=== PATIENT | male | born 1990 | race Native Hawaiian/Other Pacific Islander ===

== ENCOUNTER 2018-07-19 10:42 | Inpatient (IN) | payer SELFPAY ==
[2018-07-19 10:44] VITALS: BMI 28.2
[2018-07-19] MEDS ORDERED: Sodium Chloride 0.9% 1,000 ML IV STA ×3 (11:32→15:30)
[2018-07-19] MEDS ORDERED: Dextrose 50% SYRINGE Inj (50 ml) ONE ×2 (11:41→15:27)
[2018-07-19] MEDS ORDERED: Naloxone 0.4 mg/ml Inj (Adult) IVP STA (11:54)
[2018-07-19] MEDS ORDERED: Naloxone 0.4 mg/ml Inj (Adult) ONE (11:56)
[2018-07-19 12:25] LABS: BASO # 0.1 K/uL (0.0-0.2); BASO % 0.3 % (0.0-2.0); EOS % 0.1 % (0.0-4.0); HEMOGLOBIN 16.4 g/dL (12.0-18.0); LYMPH # 1.7 K/uL (1.0-4.3); LYMPH % 6.3 % (20.0-40.0); MEAN CELL VOLUME 102.2 fl (80.0-94.0); MEAN CORPUSCULAR HEMOGLOBIN 30.7 pg (27.0-31.0); MEAN PLATELET VOLUME 9.3 fl (7.2-11.7); MONO # 1.8 K/uL (0.0-0.8); MONO % 6.7 % (0.0-10.0); NEUT # 23.8 K/uL (1.8-7.0); NEUT % 86.6 % (50.0-75.0); NRBC % 0.2 % (0.0-0.0); PLATELET COUNT 249 K/uL (130-400); RBC 5.33 Mil/uL (4.40-5.90); RED CELL DISTRIBUTION WIDTH 14.4 % (11.5-14.5); WHITE BLOOD COUNT 27.5 K/uL (4.8-10.8)
--- NOTE | 2018-07-19 12:25 | ED PDOC ---
HPI: Psych/Substance Abuse Time Seen by Provider: 07/19/18 11:18 Chief Complaint (Nursing): Substance Abuse Chief Complaint (Provider): Substance Abuse ED Caveat: Intoxicated History Per: EMS, Family (brother) History/Exam Limitations: intoxication Onset/Duration Of Symptoms: Unknown Current Symptoms Are (Timing): Still Present Additional History Per: Patient Additional Complaint(s): 28 year old male presents to the ED via EMS for evaluation of possible substance abuse after being found outside. As per patient, the last thing he remembers is going out yesterday, but does not remember where. He admits to alcohol use, but denies drugs. His brother Herbert's contact information is [phone]. Secondary to patient's intoxicated state, history and ROS are limited. PMD: unobtainable Past Medical History Reviewed: Unable To Obtain Vital Signs: Last Vital Signs Temp 95.3 F L 07/19/18 11:58 Pulse Resp BP Pulse Ox - Family History Family History: States: Unknown Family Hx - Home Medications Home Medications: Ambulatory Orders Medication Instructions Recorded No Known Home Med 07/19/18 - Allergies Allergies/Adverse Reactions: Allergies Allergy/AdvReac Type Severity Reaction Status Date / Time No Known Allergies Allergy Verified 07/19/18 13:46 Review of Systems Review Of Systems: ROS cannot be obtained secondary to pt's inabilty to answer questions. Physical Exam - Reviewed Nursing Documentation Reviewed: Yes Vital Signs Reviewed: Yes - Physical Exam Appears: Positive for: No Acute Distress (but appears intoxicated) Head Exam: Positive for: ATRAUMATIC, NORMOCEPHALIC Skin: Positive for: Normal Color Eye Exam: Positive for: Other (pupils are constricted bilaterally) Cardiovascular/Chest: Positive for: Regular Rate, Rhythm Respiratory: Positive for: Normal Breath Sounds. Negative for: Respiratory Distress Gastrointestinal/Abdominal: Positive for: Other (rigid abdomen). Negative for: Tenderness, Distended Neurologic/Psych: Positive for: Oriented (x1), Other (arousable to verbal stimuli) - Laboratory Results Result Diagrams: 07/19/18 11:34 07/19/18 14:35 - ECG Interpretation Of ECG: NSR @ 74, nonspecific intraventricular block, QRS 128 ms. - Critical Care Total Time (In Min): 240 Documented Critical Care: Time excludes all time spent performint seperately billable procedures Medical Decision Making Medical Decision Making: Time: 1131 Initial Impression: substance abuse, altered mental state Initial Plan: --VBG --CT chest, abdomen, pelvis --EKG --Alcohol serum --CMP --Drug screen --U-dip --CBC with differential --Accucheck --IV fluids --Blood culture --Urinalysis Accession No. : [id number] Patient Name / ID : SHAUN Augustin / [id number] Exam Date : 07/19/2018 13:54:07 ( Approved ) Study Comment : Sex / Age : M / 28Y Creator : Lindsay Chairez MD Dictator : Lindsay Chairez MD Senior Php Software Developer : Slip Cover Cutter : Lindsay Chairez MD Approver2 : Report Date : 07/19/2018 14:14:30 My Comment : Date of service: 07/19/2018 PROCEDURE: Radiographs of the left shoulder joint HISTORY: pain COMPARISON: No prior. FINDINGS: BONES: Bone alignment and mineralization are normal. There is no acute displaced fracture or bone destruction. JOINTS: The glenohumeral and acromioclavicular joints are preserved. No significant degenerative osteoarthrosis. SOFT TISSUES: Normal. OTHER FINDINGS: None. IMPRESSION: No acute displaced fracture or dislocation. Accession No. : [id number] Patient Name / ID : SHAUN Augustin / [id number] Exam Date : 07/19/2018 13:50:12 ( Approved ) Study Comment : Sex / Age : M / 28Y Creator : Lindsay Chairez MD Dictator : Lindsay Chairez MD Senior Php Software Developer : Slip Cover Cutter : Lindsay Chairez MD Approver2 : Report Date : 07/19/2018 14:18:47 My Comment : Date of service: 07/19/2018 HISTORY: chest pain COMPARISON: No prior. FINDINGS: LUNGS: The lungs are well inflated and clear. PLEURA: No pleural effusions or pneumothorax. CARDIOVASCULAR: The heart is normal in size. No aortic atherosclerotic calcification present. OSSEOUS STRUCTURES: Within normal limits for the patient's age. VISUALIZED UPPER ABDOMEN: Normal. OTHER FINDINGS: None. IMPRESSION: No active pulmonary disease. Accession No. : [id number] Patient Name / ID : SHAUN OLSON C / [id number] Exam Date : 07/19/2018 12:13:41 ( Approved ) Study Comment : Sex / Age : M / 28Y Creator : Lindsay Chairez MD Dictator : Lindsay Chairez MD Senior Php Software Developer : Slip Cover Cutter : Lindsay Chairez MD Approver2 : Report Date : 07/19/2018 12:37:23 My Comment : Date of service: 07/19/2018 PROCEDURE: CT HEAD WITHOUT CONTRAST. HISTORY: Vertigo COMPARISON: None available. TECHNIQUE: Axial computed tomography images were obtained through the head/brain without intravenous contrast. Radiation dose: Total exam DLP = 845.46 mGy-cm. This CT exam was performed using one or more of the following dose reduction techniques: Automated exposure control, adjustment of the mA and/or kV according to patient size, and/or use of iterative reconstruction technique. FINDINGS: HEMORRHAGE: No intracranial hemorrhage. BRAIN: [place]-white matter differentiation is preserved. There is no mass, mass effect or abnormal extra-axial fluid collection. There is no territorial infarction. The midline sagittal structures are normal. VENTRICLES: The ventricles are normal in size, shape and configuration. CALVARIUM: There is no calvarial fracture or extracranial soft tissue swelling. PARANASAL SINUSES: Predominantly clear. MASTOID AIR CELLS: Predominantly clear. OTHER FINDINGS: None. IMPRESSION: No acute intracranial abnormality. Accession No. : [id number] Patient Name / ID : SHAUN Augustin / [id number] Exam Date : 07/19/2018 12:15:41 ( Approved ) Study Comment : Sex / Age : M / 28Y Creator : Lindsay Chairez MD Dictator : Lindsay Chairez MD Senior Php Software Developer : Slip Cover Cutter : Lindsay Chairez MD Approver2 : Report Date : 07/19/2018 13:09:43 My Comment : Date of service: 07/19/2018 PROCEDURE: CT Chest, Abdomen and Pelvis without intravenous contrast HISTORY: Rigid abdomen, AMS COMPARISON: None available. TECHNIQUE: Radiation dose: Total exam DLP = 1076.83 mGy-cm. This CT exam was performed using one or more of the following dose reduction techniques: Automated exposure control, adjustment of the mA and/or kV according to patient size, and/or use of iterative reconstruction technique. FINDINGS: CT CHEST WITHOUT CONTRAST: LUNGS: The lungs are well inflated. There is subsegmental atelectasis in the lower lobes. No nodule, mass or consolidation. MEDIASTINUM: Normal caliber aorta and pulmonary arterial trunk. Normal size heart. LYMPH NODES: No pathologic adenopathy. PLEURA: No pneumothorax. No pleural fluid. BONES: Unremarkable. OTHER FINDINGS: None. CT ABDOMEN AND PELVIS: LIVER: Mild hepatomegaly and fatty liver. No gross lesion or ductal dilatation. GALLBLADDER AND BILE DUCTS: No calcified gallstones. PANCREAS: Normal in size. No gross lesion or ductal dilatation. SPLEEN: Normal in size. ADRENALS: No discrete nodule. KIDNEYS AND URETERS: The kidneys are normal in size without nephrolithiasis. No hydronephrosis. VASCULATURE: No aortic atherosclerotic calcification or mural plaque present. No aortic aneurysm. BOWEL: Small bowel loops are normal in caliber. No obstruction. No gross mural thickening. APPENDIX: Normal appendix. PERITONEUM: No free fluid. No free air. LYMPH NODES: No enlarged lymph nodes. BLADDER: Grossly normal in appearance. REPRODUCTIVE: The prostate gland is normal in size. BONES: No acute fracture. Within normal limits for the patient's age. OTHER FINDINGS: None. IMPRESSION: No acute abnormality in the chest, abdomen or pelvis. Mild hepatomegaly and hepatic steatosis. 15:[address] Means and Dr. Olvera. 16:[address] Brothers @ [facility]. Recommends tx for sepsis, Nephrology consult for emergent dialysis, NAC series, Fomepizole (loading dose 15 mg/kg in 200 cc NS THEN 10 mg/kg q12h), ethylene glycol, methanol levels, broad spectrum Abx, TSH. Also recommends metformin, carbon monoxide, ethyl methanol. 16:[address] Diego. Recommends additional Kayexylate 30 g, serum osm, urine myoglobin, catheter insertion for stat dialysis. 16:50 Parents and brother at bedside. Brother states friend told him they used cocaine last night and found him unresponsive this morning. CALCULATED SERUM OSMOLALITY + 313-314 mOsm/kg Scribe Attestation: Documented by Lula Brooks acting as a scribe for Monique Dennis MD. Provider Scribe Attestation: All medical record entries made by the Scribe were at my direction and personally dictated by me. I have reviewed the chart and agree that the record accurately reflects my personal performance of the history, physical exam, medical decision making, and the department course for this patient. I have also personally directed, reviewed, and agree with the discharge instructions and disposition. Procedures - Central Line Central Line Lumen: triple Central Line Procedure: betadine prep, sterile drapes applied, sterile dressing applied Central Line Postion: femoral (R) Anesthesia: local Complications: none Central Line Post Position: good blood return Disposition - Clinical Impression Clinical Impression: Septic shock, Altered mental status, Ingestion of toxic substance, ARF (acute renal failure), Hyperkalemia - Patient ED Disposition Is Patient to be Admitted: Yes - Disposition Disposition Time: 15:00 Condition: CRITICAL - Pt Status Changed To: Hospital Disposition Of: Inpatient - Admit Certification Admit to Inpatient:: After my assessment, the patient will require hospitalization for at least two midnights. This is because of the severity of symptoms shown, intensity of services needed, and/or the medical risk in this patient being treated as an outpatient. - POA Present On Arrival: Poor Glycemic Control Lumbar Puncture - Time Out Time Out: Patient ID confirmed, Sterile procedures obs. - Consent obtained Consent obtained: Emergent consent implied - Performed by Performed by: Attending Physician - Indications Indication(s): Suspected menigitis - Contraindications Contraindications: None - Patient Position Patient position: Sitting - Local Anesthetic Location: L4/L5 - Fluid Appearance Fluid Appearance: Clear - Post-procedure Post-procedure: No leak/bld from LP site - CSF Studies CSF Studies: Cell count/diff, Glucose, Protein, LDH, Gram stain, culture/sensitivity, Antigens - Complications Complications: None - Patient tolerated procedure Patient tolerated procedure: Well
[2018-07-19] MEDS ORDERED: Vancomycin 1 g Inj ONE (12:40)
--- NOTE | 2018-07-19 12:41 | CT ---
Date of service: 07/19/2018 PROCEDURE: CT HEAD WITHOUT CONTRAST. HISTORY: Vertigo COMPARISON: None available. TECHNIQUE: Axial computed tomography images were obtained through the head/brain without intravenous contrast. Radiation dose: Total exam DLP = 845.46 mGy-cm. This CT exam was performed using one or more of the following dose reduction techniques: Automated exposure control, adjustment of the mA and/or kV according to patient size, and/or use of iterative reconstruction technique. FINDINGS: HEMORRHAGE: No intracranial hemorrhage. BRAIN: [place]-white matter differentiation is preserved. There is no mass, mass effect or abnormal extra-axial fluid collection. There is no territorial infarction. The midline sagittal structures are normal. VENTRICLES: The ventricles are normal in size, shape and configuration. CALVARIUM: There is no calvarial fracture or extracranial soft tissue swelling. PARANASAL SINUSES: Predominantly clear. MASTOID AIR CELLS: Predominantly clear. OTHER FINDINGS: None. IMPRESSION: No acute intracranial abnormality.
[2018-07-19] MEDS ORDERED: Dextrose 50% SYRINGE Inj (50 ml) IVP ONE ×2 (12:46→16:00)
[2018-07-19] MEDS ORDERED: Lidocaine 1% Inj (20ml) ONE (12:46)
[2018-07-19] MEDS ORDERED: Sodium Chloride 0.9% 3,000 ML IV ONE (13:00)
--- NOTE | 2018-07-19 13:13 | CT ---
Date of service: 07/19/2018 PROCEDURE: CT Chest, Abdomen and Pelvis without intravenous contrast HISTORY: Rigid abdomen, AMS COMPARISON: None available. TECHNIQUE: Radiation dose: Total exam DLP = 1076.83 mGy-cm. This CT exam was performed using one or more of the following dose reduction techniques: Automated exposure control, adjustment of the mA and/or kV according to patient size, and/or use of iterative reconstruction technique. FINDINGS: CT CHEST WITHOUT CONTRAST: LUNGS: The lungs are well inflated. There is subsegmental atelectasis in the lower lobes. No nodule, mass or consolidation. MEDIASTINUM: Normal caliber aorta and pulmonary arterial trunk. Normal size heart. LYMPH NODES: No pathologic adenopathy. PLEURA: No pneumothorax. No pleural fluid. BONES: Unremarkable. OTHER FINDINGS: None. CT ABDOMEN AND PELVIS: LIVER: Mild hepatomegaly and fatty liver. No gross lesion or ductal dilatation. GALLBLADDER AND BILE DUCTS: No calcified gallstones. PANCREAS: Normal in size. No gross lesion or ductal dilatation. SPLEEN: Normal in size. ADRENALS: No discrete nodule. KIDNEYS AND URETERS: The kidneys are normal in size without nephrolithiasis. No hydronephrosis. VASCULATURE: No aortic atherosclerotic calcification or mural plaque present. No aortic aneurysm. BOWEL: Small bowel loops are normal in caliber. No obstruction. No gross mural thickening. APPENDIX: Normal appendix. PERITONEUM: No free fluid. No free air. LYMPH NODES: No enlarged lymph nodes. BLADDER: Grossly normal in appearance. REPRODUCTIVE: The prostate gland is normal in size. BONES: No acute fracture. Within normal limits for the patient's age. OTHER FINDINGS: None. IMPRESSION: No acute abnormality in the chest, abdomen or pelvis. Mild hepatomegaly and hepatic steatosis.
[2018-07-19 13:19] LABS: URINE AMORPHOUS SEDIMENT OCC /ul (<OCC); URINE BACTERIA OCC (<OCC); URINE BILIRUBIN NEGATIVE (NEGATIVE); URINE BLOOD LARGE (NEGATIVE); URINE CLARITY CLOUDY (Clear); URINE COLOR YELLOW (YELLOW); URINE GLUCOSE (UA) NEG (NEGATIVE); URINE LEUKOCYTE ESTERASE NEG Leu/uL (Negative); URINE PROTEIN 100 mg/dL (NEGATIVE); URINE UROBILINOGEN 0.2-1.0 mg/dL (0.2-1.0)
[2018-07-19 13:22] LABS: BARBITURATES, UR NEGATIVE (NEGATIVE); BENZODIAZEPINES, UR NEGATIVE (NEGATIVE); OPIATES, UR POSITIVE (NEGATIVE); PHENCYCLIDINE, UR NEGATIVE (NEGATIVE)
--- NOTE | 2018-07-19 13:40 | CARD ---
APPROVED REPORT Date of service: 07/19/2018 EKG Measurement Heart [id number] <Conclusion> Normal sinus rhythm Nonspecific intraventricular block Abnormal ECG
[2018-07-19 13:51] LABS: FLUID TYPE SPINAL FLUID
[2018-07-19 13:58] LABS: VENOUS BLOOD GAS BASE EXCESS -19.6 mmol/L (0.0-2.0); VENOUS BLOOD GAS PCO2 40 mmHg (40-60); VENOUS BLOOD GAS PO2 58 mm/Hg (30-55); VENOUS BLOOD PH 7.03 (7.32-7.43)
[2018-07-19] MEDS ORDERED: Sodium Bicarbonate 7.5% (0.9 MEQ/ML) 50ML INJ IV STA ×2 (14:01→14:02)
--- NOTE | 2018-07-19 14:18 | RAD ---
Date of service: 07/19/2018 PROCEDURE: Radiographs of the left shoulder joint HISTORY: pain COMPARISON: No prior. FINDINGS: BONES: Bone alignment and mineralization are normal. There is no acute displaced fracture or bone destruction. JOINTS: The glenohumeral and acromioclavicular joints are preserved. No significant degenerative osteoarthrosis. SOFT TISSUES: Normal. OTHER FINDINGS: None. IMPRESSION: No acute displaced fracture or dislocation.
--- NOTE | 2018-07-19 14:22 | RAD ---
Date of service: 07/19/2018 HISTORY: chest pain COMPARISON: No prior. FINDINGS: LUNGS: The lungs are well inflated and clear. PLEURA: No pleural effusions or pneumothorax. CARDIOVASCULAR: The heart is normal in size. No aortic atherosclerotic calcification present. OSSEOUS STRUCTURES: Within normal limits for the patient's age. VISUALIZED UPPER ABDOMEN: Normal. OTHER FINDINGS: None. IMPRESSION: No active pulmonary disease.
[2018-07-19 15:24] LABS: BLOOD UREA NITROGEN 36 mg/dl (9-20); GFR NON-AFRICAN AMERICAN 23
[2018-07-19 15:25] LABS: ALB/GLOB RATIO 1.2 (1.0-2.1); ALBUMIN 3.2 g/dL (3.5-5.0); ALT/SGPT 7913 U/L (21-72)
[2018-07-19 15:27] LABS: CALCIUM 5.6 mg/dL (8.4-10.2)
[2018-07-19] MEDS ORDERED: Insulin Regular 100 units/ml ONE (15:27)
[2018-07-19] MEDS ORDERED: Albuterol 0.083% Inhal Sol (2.5 mg/3 mL) UD ONE (15:27)
[2018-07-19 15:28] LABS: CSF APPEARANCE CLEAR/COLORLESS (CLEAR); CSF VOLUME 2 mL (0-1)
[2018-07-19 15:35] LABS: CSF MONO/MACROPHAGE 0 % (0-0)
[2018-07-19 15:44] LABS: BANDS 3 % (0-2); BASOPHIL 1 % (0-2); LYMPHOCYTE 7 % (20-50); MONOCYTE 10 % (0-10); NEUTROPHIL 79 % (42-75); PLATELET ESTIMATE NORMAL (NORMAL); TOTAL CELLS COUNTED 100
[2018-07-19] MEDS ORDERED: Sod Polystyrene Sulf 15 gm/60 ml Susp PR ONE (15:59)
[2018-07-19] MEDS ORDERED: Sodium Bicarbonate 7.5% (0.9 MEQ/ML) 50ML INJ IV ONE (15:59)
[2018-07-19] MEDS ORDERED: Insulin Regular 100 units/ml IV STA (16:00)
[2018-07-19] MEDS ORDERED: Albuterol 0.083% Inhal Sol (2.5 mg/3 mL) UD INH ONE (16:01)
--- NOTE | 2018-07-19 16:10 | CP.PCM.HP ---
<Joni Samayoa - Last Filed: 07/19/18 18:06> History of Present Illness - History of Present Illness History of Present Illness: 28 year old male with PMHx of psoriasis brought to ED via EMS after being found unresponsive outside after possible substance abuse. As per patient he remembers going outside yesterday and drinking alcohol(beer) but denies using any drugs. He reports living with brother and sister in law. Talked to brother on phone who reports that patient went to [employer] yesterday and his friends called ambulance after he was unresponsive. Reports increased urination, dry mouth and thirsty. Denies any chest pain, SOB, abdominal pain, chills. His brother Herbert's contact information is [phone]. PMD: unknown PMHx: Psoriasis Further information unobtainable at time due to patient's state and inablity to recall. Present on Admission - Present on Admission Any Indicators Present on Admission: No History of DVT/PE: No History of Uncontrolled Diabetes: No Urinary Catheter: No Review of Systems - Review of Systems Systems not reviewed;Unavailable: Acuity of Condition, Unstable Vital Signs, Intoxicated - EENT Nose/Mouth/Throat: Change in Voice, Dry Mouth - Cardiovascular Cardiovascular: absent: Chest Pain, Dyspnea, Edema, Palpitations - Respiratory Respiratory: absent: Cough - Gastrointestinal Gastrointestinal: Nausea. absent: Abdominal Pain, Diarrhea - Genitourinary Genitourinary: absent: Dysuria - Neurological Neurological: Behavioral Changes, Memory Loss. absent: Confusion Past Patient History - Past Social History Smoking Status: Unknown If Ever Smoked - PSYCHIATRIC Hx Substance Use: No - SURGICAL HISTORY Hx Surgeries: No - ANESTHESIA Hx Anesthesia: No Meds Allergies/Adverse Reactions: Allergies Allergy/AdvReac Type Severity Reaction Status Date / Time No Known Allergies Allergy Verified 07/19/18 13:46 Physical Exam - Constitutional Appears: Toxic, In Acute Distress - Head Exam Head Exam: ATRAUMATIC, NORMOCEPHALIC - Eye Exam Eye Exam: EOMI, Normal appearance - ENT Exam ENT Exam: Mucous Membranes Dry - Respiratory Exam Respiratory Exam: Clear to Auscultation Bilateral. absent: Rales, Rhonchi, Wheezes, Respiratory Distress - Cardiovascular Exam Cardiovascular Exam: Tachycardia, +S1, +S2. absent: Systolic Murmur - GI/Abdominal Exam GI & Abdominal Exam: Soft. absent: Distended, Guarding, Tenderness - Extremities Exam Extremities exam: Positive for: pedal pulses present. Negative for: calf tenderness, pedal edema, tenderness - Neurological Exam Neurological exam: Alert, Altered, Oriented x3 - Psychiatric Exam Additional comments: Patient awake, alert, responds to questions. Drowsy and agitated. - Skin Skin Exam: Rash Additional comments: Multiple erythematous scaly silvery lesion on scalp, B/L UE and LE Results - Vital Signs Recent Vital Signs: Last Vital Signs Temp 98.7 F 07/19/18 15:38 Pulse 97 H 07/19/18 15:38 Resp 18 07/19/18 15:38 BP 114/51 L 07/19/18 15:38 Pulse Ox 98 07/19/18 15:38 - Labs Result Diagrams: 07/19/18 11:34 07/19/18 14:35 Labs: Laboratory Results - last 24 hr 07/19/18 07/19/18 07/19/18 11:34 11:38 11:45 WBC 27.5 H RBC 5.33 Hgb 16.4 Hct 54.4 H MCV 102.2 H MCH 30.7 MCHC 30.0 L RDW 14.4 Plt Count 249 MPV 9.3 Neut % (Auto) 86.6 H Lymph % (Auto) 6.3 L Worth % (Auto) 6.7 Eos % (Auto) 0.1 Baso % (Auto) 0.3 Neut # (Auto) 23.8 H Lymph # (Auto) 1.7 Worth # (Auto) 1.8 H Eos # (Auto) 0.0 Baso # (Auto) 0.1 Neutrophils % (Manual) 79 H Band Neutrophils % 3 H Lymphocytes % (Manual) 7 L Monocytes % (Manual) 10 Basophils % (Manual) 1 Platelet Estimate Normal Macrocytosis (manual) Moderate pO2 VBG pH VBG pCO2 VBG HCO3 VBG Total CO2 VBG O2 Sat (Calc) VBG Base Excess VBG Potassium Sodium Chloride Glucose Lactate FiO2 Crit Value Called To Crit Value Called By Crit Value Read Back Blood Gas Notified Time Potassium Carbon Dioxide Anion Gap BUN Creatinine Est GFR ( Amer) Est GFR (Non-Af Amer) POC Glucose (mg/dL) 23 L* 162 H Random Glucose Calcium Total Bilirubin AST ALT Alkaline Phosphatase Total Creatine Kinase Total Protein Albumin Globulin Albumin/Globulin Ratio Venous Blood Potassium Urine Color Urine Clarity Urine pH Ur Specific [place] Urine Protein Urine Glucose (UA) Urine Ketones Urine Blood Urine Nitrate Urine Bilirubin Urine Urobilinogen Ur Leukocyte Esterase Urine RBC (Auto) Urine Microscopic WBC Amorphous Sediment Urine Bacteria Fluid Type CSF Volume CSF Appearance CSF WBC CSF RBC CSF Total Cell Counted CSF Neutrophils CSF Lymphocytes CSF Monos/Macrophages CSF Comment CSF Glucose CSF Total Protein Urine Opiates Screen Urine Methadone Screen Ur Barbiturates Screen Ur Phencyclidine Scrn Ur Amphetamines Screen U Benzodiazepines Scrn U Oth Cocaine Metabols U Cannabinoids Screen Alcohol, Quantitative 07/19/18 07/19/18 07/19/18 12:50 12:50 13:20 WBC RBC Hgb Hct MCV MCH MCHC RDW Plt Count MPV Neut % (Auto) Lymph % (Auto) [place] % (Auto) Eos % (Auto) Baso % (Auto) Neut # (Auto) Lymph # (Auto) Worth # (Auto) Eos # (Auto) Baso # (Auto) Neutrophils % (Manual) Band Neutrophils % Lymphocytes % (Manual) Monocytes % (Manual) Basophils % (Manual) Platelet Estimate Macrocytosis (manual) pO2 VBG pH VBG pCO2 VBG HCO3 VBG Total CO2 VBG O2 Sat (Calc) VBG Base Excess VBG Potassium Sodium Chloride Glucose Lactate FiO2 Crit Value Called To Crit Value Called By Crit Value Read Back Blood Gas Notified Time Potassium Carbon Dioxide Anion Gap BUN Creatinine Est GFR ( Amer) Est GFR (Non-Af Amer) POC Glucose (mg/dL) Random Glucose Calcium Total Bilirubin AST ALT Alkaline Phosphatase Total Creatine Kinase Total Protein Albumin Globulin Albumin/Globulin Ratio Venous Blood Potassium Urine Color Yellow Urine Clarity Cloudy Urine pH 6.0 Ur Specific [place] 1.013 Urine Protein 100 Urine Glucose (UA) Neg Urine Ketones Negative Urine Blood Large Urine Nitrate Negative Urine Bilirubin Negative Urine Urobilinogen 0.2-1.0 Ur Leukocyte Esterase Neg Urine RBC (Auto) 3 Urine Microscopic WBC 2 Amorphous Sediment Occ H Urine Bacteria Occ H Fluid Type CSF Volume CSF Appearance CSF WBC CSF RBC CSF Total Cell Counted CSF Neutrophils CSF Lymphocytes CSF Monos/Macrophages CSF Comment CSF Glucose CSF Total Protein Urine Opiates Screen Positive H Urine Methadone Screen Negative Ur Barbiturates Screen Negative Ur Phencyclidine Scrn Negative Ur Amphetamines Screen Negative U Benzodiazepines Scrn Negative U Oth Cocaine Metabols Negative U Cannabinoids Screen Negative Alcohol, Quantitative 23 H 07/19/18 07/19/18 07/19/18 13:40 13:40 13:46 WBC RBC Hgb Hct MCV MCH MCHC RDW Plt Count MPV Neut % (Auto) Lymph % (Auto) [place] % (Auto) Eos % (Auto) Baso % (Auto) Neut # (Auto) Lymph # (Auto) [place] # (Auto) Eos # (Auto) Baso # (Auto) Neutrophils % (Manual) Band Neutrophils % Lymphocytes % (Manual) Monocytes % (Manual) Basophils % (Manual) Platelet Estimate Macrocytosis (manual) pO2 VBG pH VBG pCO2 VBG HCO3 VBG Total CO2 VBG O2 Sat (Calc) VBG Base Excess VBG Potassium Sodium Chloride Glucose Lactate FiO2 Crit Value Called To Crit Value Called By Crit Value Read Back Blood Gas Notified Time Potassium Carbon Dioxide Anion Gap BUN Creatinine Est GFR ( Amer) Est GFR (Non-Af Amer) POC Glucose (mg/dL) 167 H Random Glucose Calcium Total Bilirubin AST ALT Alkaline Phosphatase Total Creatine Kinase Total Protein Albumin Globulin Albumin/Globulin Ratio Venous Blood Potassium Urine Color Urine Clarity Urine pH Ur Specific [place] Urine Protein Urine Glucose (UA) Urine Ketones Urine Blood Urine Nitrate Urine Bilirubin Urine Urobilinogen Ur Leukocyte Esterase Urine RBC (Auto) Urine Microscopic WBC Amorphous Sediment Urine Bacteria Fluid Type Spinal fluid CSF Volume 2 H CSF Appearance Clear/colorless CSF WBC 3.0 CSF RBC 13.0 H CSF Total Cell Counted TEST NOT PERFORMED CSF Neutrophils 1 H CSF Lymphocytes 1.0 H CSF Monos/Macrophages 0 CSF Comment None CSF Glucose 51 CSF Total Protein 46.0 Urine Opiates Screen Urine Methadone Screen Ur Barbiturates Screen Ur Phencyclidine Scrn Ur Amphetamines Screen U Benzodiazepines Scrn U Oth Cocaine Metabols U Cannabinoids Screen Alcohol, Quantitative 07/19/18 07/19/18 13:50 14:35 WBC RBC Hgb Hct MCV MCH MCHC RDW Plt Count MPV Neut % (Auto) Lymph % (Auto) [place] % (Auto) Eos % (Auto) Baso % (Auto) Neut # (Auto) Lymph # (Auto) Worth # (Auto) Eos # (Auto) Baso # (Auto) Neutrophils % (Manual) Band Neutrophils % Lymphocytes % (Manual) Monocytes % (Manual) Basophils % (Manual) Platelet Estimate Macrocytosis (manual) pO2 58 H VBG pH 7.03 L* VBG pCO2 40 VBG HCO3 9.0 VBG Total CO2 11.8 L VBG O2 Sat (Calc) 90.5 H VBG Base Excess -19.6 L VBG Potassium 7.9 H* Sodium 137.0 143 Chloride 108.0 H 110 H Glucose 201 H Lactate 10.0 H* FiO2 21.0 Crit Value Called To Dwain almazan Crit Value Called By 23 Crit Value Read Back Y Blood Gas Notified Time 1355 Potassium 8.2 H* Carbon Dioxide 19 L Anion Gap 22 H BUN 36 H Creatinine 3.2 H Est GFR ( Amer) 28 Est GFR (Non-Af Amer) 23 POC Glucose (mg/dL) Random Glucose 163 H Calcium 5.6 L* Total Bilirubin 0.3 AST > 7500 H ALT 7913 H Alkaline Phosphatase 40 Total Creatine Kinase 08798 H Total Protein 5.8 L Albumin 3.2 L Globulin 2.6 Albumin/Globulin Ratio 1.2 Venous Blood Potassium 7.9 H* Urine Color Urine Clarity Urine pH Ur Specific [place] Urine Protein Urine Glucose (UA) Urine Ketones Urine Blood Urine Nitrate Urine Bilirubin Urine Urobilinogen Ur Leukocyte Esterase Urine RBC (Auto) Urine Microscopic WBC Amorphous Sediment Urine Bacteria Fluid Type CSF Volume CSF Appearance CSF WBC CSF RBC CSF Total Cell Counted CSF Neutrophils CSF Lymphocytes CSF Monos/Macrophages CSF Comment CSF Glucose CSF Total Protein Urine Opiates Screen Urine Methadone Screen Ur Barbiturates Screen Ur Phencyclidine Scrn Ur Amphetamines Screen U Benzodiazepines Scrn U Oth Cocaine Metabols U Cannabinoids Screen Alcohol, Quantitative < 10 Assessment & Plan - Assessment and Plan (Free Text) Assessment: 28 year old male with PMHx of psoriasis admitted to ICU for due to AMS, substance abuse evaluation, CRISTINA, acute liver failure, rhabdomolysis and severe dehydration. CXR: No acute pulmonary disease Shoulder XR: No acute fracture or dislocation EKG: NSR, interventricular block CT head: No acute intracrainal abnormality CT chest, abdomen and pelvis: No acute abnormality, Mild hepatomegaly Plan: AMS - Severe dehydration, hypothermia and hypotension, Improving - S/p 4L NS, Narcan, Fomopizole, acetylcystine, levophed in ED - On Oxymask - F/U drug screen - Patient to be transferred to ICU Substance abuse vs Sepsis - UTox: Positive for opiates, Unremarkable otherwise - Serum alcohol: 23, Repeat <10 - Salicylic acid <1 - WBC 27.5, Neut # 23.8. - S/p Sodium Bicarb x 3 and Kayexalete - S/p Vancomycin 1 g, Ceftriaxone 2 gm and Acyclovir 800 mg - NS @ 200 mg/hr - F/U Serum drug screen, acetaminophen, methanol - F/U VDRL, Herpes simplex 1/2, Blood Cx, Urine Cx, CSF Cx, CSF electophoresis - GI and nephro consulted CRISTINA likely secondary to substance use - BUN/Cr 36/3.2, CrCl - 38 ml/hr - Start NS @ 200 ml/hr - Monitor renal function - Nephro consult Acute liver failure - Most likely secondary to substance use - AST 58344, ALT 7921 - Start NS @ 200 ml/hr - Monitor CMP Electrolyte imbalance w/metabolic acidosis - PH on admission 7.03, Lactate 10, improving - Hyperkalemia: K+8.2, Received Na Bicarb, and Kalexalate - Hypocalcemia:5.9, corrected Ca: 6.5, s/p Ca gluconate - Serum Osml measured 288, Calculated 307, Osmolar gap: 19 - F/U Mg, Phos and CMP Rhabdomyolysis - CK total - 49961 - Continue IVF @ 200 ml/hr - F/U myoglobin Hypoglycemia(resolved) - Gluc 23 on admission, Improved to 162 - S/p Dextrose 50% in 50 ml x 4 - Monitor accuchecks Extensive psoriasis - Will consider treatment once patient stable Code status Full code <Harsh Olvera - Last Filed: 07/19/18 18:59> Results - Vital Signs Recent Vital Signs: Last Vital Signs Temp 98.8 F 07/19/18 17:43 Pulse 90 07/19/18 18:00 Resp 20 07/19/18 18:00 BP 129/70 07/19/18 18:00 Pulse Ox 100 07/19/18 18:00 - Labs Result Diagrams: 07/19/18 11:34 07/19/18 17:25 Labs: Laboratory Results - last 24 hr 07/19/18 07/19/18 07/19/18 11:34 11:38 11:45 WBC 27.5 H RBC 5.33 Hgb 16.4 Hct 54.4 H MCV 102.2 H MCH 30.7 MCHC 30.0 L RDW 14.4 Plt Count 249 MPV 9.3 Neut % (Auto) 86.6 H Lymph % (Auto) 6.3 L [place] % (Auto) 6.7 Eos % (Auto) 0.1 Baso % (Auto) 0.3 Neut # (Auto) 23.8 H Lymph # (Auto) 1.7 Worth # (Auto) 1.8 H Eos # (Auto) 0.0 Baso # (Auto) 0.1 Neutrophils % (Manual) 79 H Band Neutrophils % 3 H Lymphocytes % (Manual) 7 L Monocytes % (Manual) 10 Basophils % (Manual) 1 Platelet Estimate Normal Macrocytosis (manual) Moderate PT INR APTT pO2 VBG pH VBG pCO2 VBG HCO3 VBG Total CO2 VBG O2 Sat (Calc) VBG Base Excess VBG Potassium Sodium Chloride Glucose Lactate FiO2 Crit Value Called To Crit Value Called By Crit Value Read Back Blood Gas Notified Time Potassium Carbon Dioxide Anion Gap BUN Creatinine Est GFR ( Amer) Est GFR (Non-Af Amer) POC Glucose (mg/dL) 23 L* 162 H Random Glucose Serum Osmolality Calcium Phosphorus Magnesium Total Bilirubin AST ALT Alkaline Phosphatase Total Creatine Kinase Total Protein Albumin Globulin Albumin/Globulin Ratio TSH 3rd Generation Venous Blood Potassium Urine Color Urine Clarity Urine pH Ur Specific [place] Urine Protein Urine Glucose (UA) Urine Ketones Urine Blood Urine Nitrate Urine Bilirubin Urine Urobilinogen Ur Leukocyte Esterase Urine RBC (Auto) Urine Microscopic WBC Amorphous Sediment Urine Bacteria Fluid Type CSF Volume CSF Appearance CSF WBC CSF RBC CSF Total Cell Counted CSF Neutrophils CSF Lymphocytes CSF Monos/Macrophages CSF Comment CSF Glucose CSF Total Protein Salicylates Urine Opiates Screen Urine Methadone Screen Acetaminophen Ur Barbiturates Screen Ur Phencyclidine Scrn Ur Amphetamines Screen U Benzodiazepines Scrn U Oth Cocaine Metabols U Cannabinoids Screen Alcohol, Quantitative 07/19/18 07/19/18 07/19/18 12:50 12:50 13:20 WBC RBC Hgb Hct MCV MCH MCHC RDW Plt Count MPV Neut % (Auto) Lymph % (Auto) [place] % (Auto) Eos % (Auto) Baso % (Auto) Neut # (Auto) Lymph # (Auto) [place] # (Auto) Eos # (Auto) Baso # (Auto) Neutrophils % (Manual) Band Neutrophils % Lymphocytes % (Manual) Monocytes % (Manual) Basophils % (Manual) Platelet Estimate Macrocytosis (manual) PT INR APTT pO2 VBG pH VBG pCO2 VBG HCO3 VBG Total CO2 VBG O2 Sat (Calc) VBG Base Excess VBG Potassium Sodium Chloride Glucose Lactate FiO2 Crit Value Called To Crit Value Called By Crit Value Read Back Blood Gas Notified Time Potassium Carbon Dioxide Anion Gap BUN Creatinine Est GFR ( Amer) Est GFR (Non-Af Amer) POC Glucose (mg/dL) Random Glucose Serum Osmolality Calcium Phosphorus Magnesium Total Bilirubin AST ALT Alkaline Phosphatase Total Creatine Kinase Total Protein Albumin Globulin Albumin/Globulin Ratio TSH 3rd Generation Venous Blood Potassium Urine Color Yellow Urine Clarity Cloudy Urine pH 6.0 Ur Specific [place] 1.013 Urine Protein 100 Urine Glucose (UA) Neg Urine Ketones Negative Urine Blood Large Urine Nitrate Negative Urine Bilirubin Negative Urine Urobilinogen 0.2-1.0 Ur Leukocyte Esterase Neg Urine RBC (Auto) 3 Urine Microscopic WBC 2 Amorphous Sediment Occ H Urine Bacteria Occ H Fluid Type CSF Volume CSF Appearance CSF WBC CSF RBC CSF Total Cell Counted CSF Neutrophils CSF Lymphocytes CSF Monos/Macrophages CSF Comment CSF Glucose CSF Total Protein Salicylates Urine Opiates Screen Positive H Urine Methadone Screen Negative Acetaminophen Ur Barbiturates Screen Negative Ur Phencyclidine Scrn Negative Ur Amphetamines Screen Negative U Benzodiazepines Scrn Negative U Oth Cocaine Metabols Negative U Cannabinoids Screen Negative Alcohol, Quantitative 23 H 07/19/18 07/19/18 07/19/18 13:40 13:40 13:46 WBC RBC Hgb Hct MCV MCH MCHC RDW Plt Count MPV Neut % (Auto) Lymph % (Auto) [place] % (Auto) Eos % (Auto) Baso % (Auto) Neut # (Auto) Lymph # (Auto) [place] # (Auto) Eos # (Auto) Baso # (Auto) Neutrophils % (Manual) Band Neutrophils % Lymphocytes % (Manual) Monocytes % (Manual) Basophils % (Manual) Platelet Estimate Macrocytosis (manual) PT INR APTT pO2 VBG pH VBG pCO2 VBG HCO3 VBG Total CO2 VBG O2 Sat (Calc) VBG Base Excess VBG Potassium Sodium Chloride Glucose Lactate FiO2 Crit Value Called To Crit Value Called By Crit Value Read Back Blood Gas Notified Time Potassium Carbon Dioxide Anion Gap BUN Creatinine Est GFR ( Amer) Est GFR (Non-Af Amer) POC Glucose (mg/dL) 167 H Random Glucose Serum Osmolality Calcium Phosphorus Magnesium Total Bilirubin AST ALT Alkaline Phosphatase Total Creatine Kinase Total Protein Albumin Globulin Albumin/Globulin Ratio TSH 3rd Generation Venous Blood Potassium Urine Color Urine Clarity Urine pH Ur Specific [place] Urine Protein Urine Glucose (UA) Urine Ketones Urine Blood Urine Nitrate Urine Bilirubin Urine Urobilinogen Ur Leukocyte Esterase Urine RBC (Auto) Urine Microscopic WBC Amorphous Sediment Urine Bacteria Fluid Type Spinal fluid CSF Volume 2 H CSF Appearance Clear/colorless CSF WBC 3.0 CSF RBC 13.0 H CSF Total Cell Counted TEST NOT PERFORMED CSF Neutrophils 1 H CSF Lymphocytes 1.0 H CSF Monos/Macrophages 0 CSF Comment None CSF Glucose 51 CSF Total Protein 46.0 Salicylates Urine Opiates Screen Urine Methadone Screen Acetaminophen Ur Barbiturates Screen Ur Phencyclidine Scrn Ur Amphetamines Screen U Benzodiazepines Scrn U Oth Cocaine Metabols U Cannabinoids Screen Alcohol, Quantitative 07/19/18 07/19/18 07/19/18 13:50 14:35 16:17 WBC RBC Hgb Hct MCV MCH MCHC RDW Plt Count MPV Neut % (Auto) Lymph % (Auto) [place] % (Auto) Eos % (Auto) Baso % (Auto) Neut # (Auto) Lymph # (Auto) [place] # (Auto) Eos # (Auto) Baso # (Auto) Neutrophils % (Manual) Band Neutrophils % Lymphocytes % (Manual) Monocytes % (Manual) Basophils % (Manual) Platelet Estimate Macrocytosis (manual) PT INR APTT pO2 58 H VBG pH 7.03 L* VBG pCO2 40 VBG HCO3 9.0 VBG Total CO2 11.8 L VBG O2 Sat (Calc) 90.5 H VBG Base Excess -19.6 L VBG Potassium 7.9 H* Sodium 137.0 143 Chloride 108.0 H 110 H Glucose 201 H Lactate 10.0 H* FiO2 21.0 Crit Value Called To Dwain weber coverner Crit Value Called By 23 Crit Value Read Back Y Blood Gas Notified Time 1355 Potassium 8.2 H* Carbon Dioxide 19 L Anion Gap 22 H BUN 36 H Creatinine 3.2 H Est GFR ( Amer) 28 Est GFR (Non-Af Amer) 23 POC Glucose (mg/dL) Random Glucose 163 H Serum Osmolality Calcium 5.6 L* Phosphorus Magnesium Total Bilirubin 0.3 AST 14172 H ALT 7913 H Alkaline Phosphatase 40 Total Creatine Kinase 10588 H Total Protein 5.8 L Albumin 3.2 L Globulin 2.6 Albumin/Globulin Ratio 1.2 TSH 3rd Generation Venous Blood Potassium 7.9 H* Urine Color Urine Clarity Urine pH Ur Specific [place] Urine Protein Urine Glucose (UA) Urine Ketones Urine Blood Urine Nitrate Urine Bilirubin Urine Urobilinogen Ur Leukocyte Esterase Urine RBC (Auto) Urine Microscopic WBC Amorphous Sediment Urine Bacteria Fluid Type CSF Volume CSF Appearance CSF WBC CSF RBC CSF Total Cell Counted CSF Neutrophils CSF Lymphocytes CSF Monos/Macrophages CSF Comment CSF Glucose CSF Total Protein Salicylates < 1.0 Urine Opiates Screen Urine Methadone Screen Acetaminophen Ur Barbiturates Screen Ur Phencyclidine Scrn Ur Amphetamines Screen U Benzodiazepines Scrn U Oth Cocaine Metabols U Cannabinoids Screen Alcohol, Quantitative < 10 07/19/1818 07/19/18 16:18 16:18 16:37 WBC RBC Hgb Hct MCV MCH MCHC RDW Plt Count MPV Neut % (Auto) Lymph % (Auto) [place] % (Auto) Eos % (Auto) Baso % (Auto) Neut # (Auto) Lymph # (Auto) [place] # (Auto) Eos # (Auto) Baso # (Auto) Neutrophils % (Manual) Band Neutrophils % Lymphocytes % (Manual) Monocytes % (Manual) Basophils % (Manual) Platelet Estimate Macrocytosis (manual) PT INR APTT pO2 VBG pH VBG pCO2 VBG HCO3 VBG Total CO2 VBG O2 Sat (Calc) VBG Base Excess VBG Potassium Sodium Chloride Glucose Lactate FiO2 Crit Value Called To Crit Value Called By Crit Value Read Back Blood Gas Notified Time Potassium Carbon Dioxide Anion Gap BUN Creatinine Est GFR ( Amer) Est GFR (Non-Af Amer) POC Glucose (mg/dL) 185 H Random Glucose Serum Osmolality 288 Calcium Phosphorus Magnesium Total Bilirubin AST ALT Alkaline Phosphatase Total Creatine Kinase Total Protein Albumin Globulin Albumin/Globulin Ratio TSH 3rd Generation Venous Blood Potassium Urine Color Urine Clarity Urine pH Ur Specific [place] Urine Protein Urine Glucose (UA) Urine Ketones Urine Blood Urine Nitrate Urine Bilirubin Urine Urobilinogen Ur Leukocyte Esterase Urine RBC (Auto) Urine Microscopic WBC Amorphous Sediment Urine Bacteria Fluid Type CSF Volume CSF Appearance CSF WBC CSF RBC CSF Total Cell Counted CSF Neutrophils CSF Lymphocytes CSF Monos/Macrophages CSF Comment CSF Glucose CSF Total Protein Salicylates Urine Opiates Screen Urine Methadone Screen Acetaminophen < 10.0 L Ur Barbiturates Screen Ur Phencyclidine Scrn Ur Amphetamines Screen U Benzodiazepines Scrn U Oth Cocaine Metabols U Cannabinoids Screen Alcohol, Quantitative 07/19/18 07/19/18 07/19/18 17:25 17:25 17:30 WBC RBC Hgb Hct MCV MCH MCHC RDW Plt Count MPV Neut % (Auto) Lymph % (Auto) [place] % (Auto) Eos % (Auto) Baso % (Auto) Neut # (Auto) Lymph # (Auto) [place] # (Auto) Eos # (Auto) Baso # (Auto) Neutrophils % (Manual) Band Neutrophils % Lymphocytes % (Manual) Monocytes % (Manual) Basophils % (Manual) Platelet Estimate Macrocytosis (manual) PT 17.4 H INR 1.5 APTT 31.0 pO2 71 H VBG pH 7.25 L VBG pCO2 42 VBG HCO3 18.1 VBG Total CO2 19.7 L VBG O2 Sat (Calc) 96.8 H VBG Base Excess -8.5 L VBG Potassium 6.2 H* Sodium 144 142.0 Chloride 112 H 112.0 H Glucose 195 H Lactate 5.9 H* FiO2 21.0 Crit Value Called To Md bobbi gilbert Crit Value Called By 23 Crit Value Read Back Y Blood Gas Notified Time 1740 Potassium 6.2 H* D Carbon Dioxide 18 L Anion Gap 20 BUN 39 H Creatinine 3.3 H Est GFR ( Amer) 27 Est GFR (Non-Af Amer) 22 POC Glucose (mg/dL) Random Glucose 184 H Serum Osmolality Calcium 6.1 L Phosphorus 6.3 H Magnesium 1.8 Total Bilirubin 0.5 AST 52602 H ALT 8256 H Alkaline Phosphatase 40 Total Creatine Kinase Total Protein 6.1 L Albumin 3.2 L Globulin 2.9 Albumin/Globulin Ratio 1.1 TSH 3rd Generation 0.75 Venous Blood Potassium 6.2 H* Urine Color Urine Clarity Urine pH Ur Specific [place] Urine Protein Urine Glucose (UA) Urine Ketones Urine Blood Urine Nitrate Urine Bilirubin Urine Urobilinogen Ur Leukocyte Esterase Urine RBC (Auto) Urine Microscopic WBC Amorphous Sediment Urine Bacteria Fluid Type CSF Volume CSF Appearance CSF WBC CSF RBC CSF Total Cell Counted CSF Neutrophils CSF Lymphocytes CSF Monos/Macrophages CSF Comment CSF Glucose CSF Total Protein Salicylates Urine Opiates Screen Urine Methadone Screen Acetaminophen Ur Barbiturates Screen Ur Phencyclidine Scrn Ur Amphetamines Screen U Benzodiazepines Scrn U Oth Cocaine Metabols U Cannabinoids Screen Alcohol, Quantitative Attending/Attestation - Attestation I have personally seen and examined this patient.: Yes I have fully participated in the care of the patient.: Yes I have reviewed all pertinent clinical information: Yes Notes (Text): 07/19/18 18:58 Patient seen and examined with resident. Case discussed and agreed with assessment and plan of management.
[2018-07-19] MEDS ORDERED: WATER IV STA (16:25)
[2018-07-19] MEDS ORDERED: DEXTROSE 5% IV STA (16:25)
[2018-07-19] MEDS ORDERED: FOMEPIZOLE IV STA (16:25)
[2018-07-19] MEDS ORDERED: Piperacillin/Tazobact 4.5 GM in Sodium Chloride 0.9% 100 ML IVPB STA (16:28)
[2018-07-19] MEDS ORDERED: DEXTROSE 5% IVPB ONE ×4 (16:32→21:33)
[2018-07-19] MEDS ORDERED: WATER IVPB ONE ×4 (16:32→21:33)
[2018-07-19] MEDS ORDERED: ACETYLCYSTEINE IVPB ONE ×4 (16:32→21:33)
[2018-07-19] MEDS ORDERED: Sod Polystyrene Sulf 15 gm/60 ml Susp PR STA (16:40)
[2018-07-19 16:43] LABS: AST/SGOT 12561 U/L (17-59)
[2018-07-19 17:40] LABS: VENOUS BLOOD GAS BASE EXCESS -8.5 mmol/L (0.0-2.0); VENOUS BLOOD GAS PCO2 42 mmHg (40-60); VENOUS BLOOD GAS PO2 71 mm/Hg (30-55); VENOUS BLOOD PH 7.25 (7.32-7.43)
[2018-07-19 18:09] LABS: INR 1.5; PROTHROMBIN TIME 17.4 Seconds (9.8-13.1)
[2018-07-19] MEDS: Sodium Chloride 0.9% 1,000 ML IV SCH (18:14)
--- NOTE | 2018-07-19 18:22 | CP.CCUPN ---
CCU Subjective - Physician Review Subjective (Free Text): 07/19/18 18:21 The patient was Seen/interviewed and examined by me at the bedside, Medical records reviewed and Management issues were discussed and formulated with the house staff. Events reviewed History limited due to patient waxing and weaning mental status, no other family available, and we trying to reach the friend who called the EMS. 28 Years old Male with PMHx of Psoriasis Who presented to the Emergency department via EMS for evaluation of altered mental status, possible substance abuse after being found outside. As per patient, the last thing he remembers is going out yesterday drinking alcohol(beer), but does not remember where. Patient denies using any drugs, but urine drug screen was positive of Opiates. Patient was hypotensive in the ER, central line placed and he was briefly on vasopressors Labs significant for acute kidney injury with Hyperkalemia and acute liver failure His initial BG was 25, responded well to treatment Also received the Hyperkalemia cocktail Agressive hydrations, poison control notified Renal and G consulted Will place HD access and initiate HD tonight Also CPK elevated and Aggressive hydration initiated Also received Naloxone with no significant mental status improvement CCU Objective - Vital Signs / Intake & Output Vital Signs (Last 4 hours): Vital Signs Temp Pulse Resp BP Pulse Ox 07/19/18 17:43 98.8 F 07/19/18 16:35 131/91 H 07/19/18 15:38 98.7 F 97 H 18 114/51 L 98 07/19/18 14:45 98 H 16 91/37 L 96 Intake and Output (Last 8hrs): Intake & Output 07/19/18 07/19/18 07/19/18 06:59 14:59 22:59 Weight 175 lb - Physical Exam Physical Exam Limitations: Positive for: Altered Mental Status, Clinical Condition, Intoxication Head: Positive for: Atraumatic Pupils: Positive for: PERRL Extroacular Muscles: Positive for: EOMI Conjunctiva: Positive for: Normal Ears: Positive for: Normal Mouth: Positive for: Dry Neck: Positive for: Normal Range of Motion, Trachea Midline Respiratory/Chest: Positive for: Clear to Auscultation, Good Air Exchange. Negative for: Respiratory Distress, Accessory Muscle Use, Decreased Breath Sounds, Retracting Cardiovascular: Positive for: Regular Rate and Rhythm, Normal S1, S2, Peripheal Pulses Present. Negative for: Murmurs, Irregular Rhythm, Tachycardic, Bradycardic, Rub Abdomen: Positive for: Distention, Normal Bowel Sounds. Negative for: Tenderness, Peritoneal Signs, Rebound, Guarding, Hernias, Mass/Organomegaly Upper Extremity: Positive for: NORMAL PULSES. Negative for: Normal Inspection (Psiriasis rash ), Cyanosis Lower Extremity: Positive for: NORMAL PULSES. Negative for: Normal Inspection, Edema, CALF TENDERNESS Neurological: Positive for: GCS=15 (Waxing and weaning of mental status ), CN II-XII Intact, Speech Normal, Motor Func Grossly Intact, Normal Sensory Function Psychiatric: Positive for: Alert, Oriented x 3, Normal Insight, Normal Concentration, Normal Affect. Negative for: Anxious, Agitated - Medications Active Medications: Active Medications Generic Name Dose Route Start Last Admin Trade Name Freq PRN Reason Stop Dose Admin Norepinephrine Bitartrate 4 mg 254 mls @ 9.53 mls/hr 07/19/18 14:15 07/19/18 14:45 / Dextrose IV 2.5 mcg/min .Q24H WAYNE 9.53 mls/hr Administration Protocol 2.5 MCG/MIN Acetylcysteine 7,950 mg/ 500 mls @ 62.5 mls/hr 07/19/18 21:33 Dextrose IVPB 07/20/18 05:32 ONCE ONE Acetylcysteine 3,975 mg/ 519.875 mls @ 125 mls/hr 07/19/18 17:33 Dextrose IVPB 07/19/18 21:42 ONCE ONE Sodium Chloride 1,000 mls @ 200 mls/hr 07/19/18 17:00 07/19/18 18:14 Sodium Chloride 0.9% IV 07/20/18 16:48 200 mls/hr .Q5H WAYNE Administration Piperacillin Sod/Tazobactam 100 mls @ 100 mls/hr 07/19/18 22:00 Sod 2.25 gm/ Sodium Chloride IVPB Q6 WAYNE Protocol Acetylcysteine 11,925 mg/ 259.625 mls @ 200 mls/hr 07/19/18 18:00 Dextrose IVPB 07/19/18 19:17 ONCE ONE Ondansetron HCl 4 mg 07/19/18 16:26 Zofran Inj IVP Q6 PRN Nausea/Vomiting Pantoprazole Sodium 40 mg 07/20/18 09:00 Protonix Inj IVP DAILY WAYNE - Patient Studies Lab Studies: Microbiology Studies 07/19/18 13:40 Gram Stain - Final Cerebral Spinal Fluid Lab Studies 07/19/18 07/19/18 07/19/18 Range/Units 17:30 17:25 16:37 WBC (4.8-10.8) K/uL RBC (4.40-5.90) Mil/uL Hgb (12.0-18.0) g/dL Hct (35.0-51.0) % MCV (80.0-94.0) fl MCH (27.0-31.0) pg MCHC (33.0-37.0) g/dL RDW (11.5-14.5) % Plt Count (130-400) K/uL MPV (7.2-11.7) fl Neut % (Auto) (50.0-75.0) % Lymph % (Auto) (20.0-40.0) % [place] % (Auto) (0.0-10.0) % Eos % (Auto) (0.0-4.0) % Baso % (Auto) (0.0-2.0) % Neut # (Auto) (1.8-7.0) K/uL Lymph # (Auto) (1.0-4.3) K/uL [place] # (Auto) (0.0-0.8) K/uL Eos # (Auto) (0.0-0.7) K/uL Baso # (Auto) (0.0-0.2) K/uL Neutrophils % (Manual) (42-75) % Band Neutrophils % (0-2) % Lymphocytes % (Manual) (20-50) % Monocytes % (Manual) (0-10) % Basophils % (Manual) (0-2) % Platelet Estimate (NORMAL) Macrocytosis (manual) PT 17.4 H (9.8-13.1) Seconds INR 1.5 APTT 31.0 (25.6-37.1) Seconds pO2 71 H (30-55) mm/Hg VBG pH 7.25 L (7.32-7.43) VBG pCO2 42 (40-60) mmHg VBG HCO3 18.1 mmol/L VBG Total CO2 19.7 L (22-28) mmol/L VBG O2 Sat (Calc) 96.8 H (40-65) % VBG Base Excess -8.5 L (0.0-2.0) mmol/L VBG Potassium 6.2 H* (3.6-5.2) mmol/L Sodium 142.0 (132-148) mmol/L Chloride 112.0 H (98-107) mmol/L Glucose 195 H (75-110) mg/dL Lactate 5.9 H* (0.7-2.1) mmol/L FiO2 21.0 % Crit Value Called To Md bobbi gilbert Crit Value Called By 23 Crit Value Read Back Y Blood Gas Notified Time 1740 Potassium (3.6-5.0) MMOL/L Carbon Dioxide (22-30) mmol/L Anion Gap (10-20) BUN (9-20) mg/dl Creatinine (0.8-1.5) mg/dl Est GFR ( Amer) Est GFR (Non-Af Amer) POC Glucose (mg/dL) 185 H (65-110) mg/dL Random Glucose (75-110) mg/dL Serum Osmolality (272-300) mosm/kg Calcium (8.4-10.2) mg/dL Total Bilirubin (0.2-1.3) mg/dl AST (17-59) U/L ALT (21-72) U/L Alkaline Phosphatase (38-126) U/L Total Creatine Kinase (55-170) U/L Total Protein (6.3-8.2) G/DL Albumin (3.5-5.0) g/dL Globulin (2.2-3.9) gm/dL Albumin/Globulin Ratio (1.0-2.1) Venous Blood Potassium 6.2 H* (3.6-5.2) mmol/L Urine Color (YELLOW) Urine Clarity (Clear) Urine pH (5.0-8.0) Ur Specific Colver (1.003-1.030) Urine Protein (NEGATIVE) mg/dL Urine Glucose (UA) (NEGATIVE) mg/dL Urine Ketones (NEGATIVE) mg/dL Urine Blood (NEGATIVE) Urine Nitrate (NEGATIVE) Urine Bilirubin (NEGATIVE) Urine Urobilinogen (0.2-1.0) mg/dL Ur Leukocyte Esterase (Negative) Latrice/uL Urine RBC (Auto) (0-3) /hpf Urine Microscopic WBC (0-5) /hpf Amorphous Sediment (<OCC) /ul Urine Bacteria (<OCC) Fluid Type CSF Volume (0-1) mL CSF Appearance (CLEAR) CSF WBC (0.0-5.0) /mm3 CSF RBC (0.0-0.0) /mm3 CSF Total Cell Counted CSF Neutrophils (0-0) % CSF Lymphocytes (0-0) % CSF Monos/Macrophages (0-0) % CSF Comment CSF Glucose (40-70) mg/dL CSF Total Protein (12-60) mg/dL Salicylates mg/dl Urine Opiates Screen (NEGATIVE) Urine Methadone Screen (NEGATIVE) Acetaminophen (10.0-30.0) ug/ml Ur Barbiturates Screen (NEGATIVE) Ur Phencyclidine Scrn (NEGATIVE) Ur Amphetamines Screen (NEGATIVE) U Benzodiazepines Scrn (NEGATIVE) U Oth Cocaine Metabols (NEGATIVE) U Cannabinoids Screen (NEGATIVE) Alcohol, Quantitative (0-10) mg/dl 07/19/18 07/19/18 07/19/18 Range/Units 16:18 16:18 16:17 WBC (4.8-10.8) K/uL RBC (4.40-5.90) Mil/uL Hgb (12.0-18.0) g/dL Hct (35.0-51.0) % MCV (80.0-94.0) fl MCH (27.0-31.0) pg MCHC (33.0-37.0) g/dL RDW (11.5-14.5) % Plt Count (130-400) K/uL MPV (7.2-11.7) fl Neut % (Auto) (50.0-75.0) % Lymph % (Auto) (20.0-40.0) % [place] % (Auto) (0.0-10.0) % Eos % (Auto) (0.0-4.0) % Baso % (Auto) (0.0-2.0) % Neut # (Auto) (1.8-7.0) K/uL Lymph # (Auto) (1.0-4.3) K/uL [place] # (Auto) (0.0-0.8) K/uL Eos # (Auto) (0.0-0.7) K/uL Baso # (Auto) (0.0-0.2) K/uL Neutrophils % (Manual) (42-75) % Band Neutrophils % (0-2) % Lymphocytes % (Manual) (20-50) % Monocytes % (Manual) (0-10) % Basophils % (Manual) (0-2) % Platelet Estimate (NORMAL) Macrocytosis (manual) PT (9.8-13.1) Seconds INR APTT (25.6-37.1) Seconds pO2 (30-55) mm/Hg VBG pH (7.32-7.43) VBG pCO2 (40-60) mmHg VBG HCO3 mmol/L VBG Total CO2 (22-28) mmol/L VBG O2 Sat (Calc) (40-65) % VBG Base Excess (0.0-2.0) mmol/L VBG Potassium (3.6-5.2) mmol/L Sodium (132-148) mmol/L Chloride (98-107) mmol/L Glucose (75-110) mg/dL Lactate (0.7-2.1) mmol/L FiO2 % Crit Value Called To Crit Value Called By Crit Value Read Back Blood Gas Notified Time Potassium (3.6-5.0) MMOL/L Carbon Dioxide (22-30) mmol/L Anion Gap (10-20) BUN (9-20) mg/dl Creatinine (0.8-1.5) mg/dl Est GFR ( Amer) Est GFR (Non-Af Amer) POC Glucose (mg/dL) (65-110) mg/dL Random Glucose (75-110) mg/dL Serum Osmolality 288 (272-300) mosm/kg Calcium (8.4-10.2) mg/dL Total Bilirubin (0.2-1.3) mg/dl AST (17-59) U/L ALT (21-72) U/L Alkaline Phosphatase (38-126) U/L Total Creatine Kinase (55-170) U/L Total Protein (6.3-8.2) G/DL Albumin (3.5-5.0) g/dL Globulin (2.2-3.9) gm/dL Albumin/Globulin Ratio (1.0-2.1) Venous Blood Potassium (3.6-5.2) mmol/L Urine Color (YELLOW) Urine Clarity (Clear) Urine pH (5.0-8.0) Ur Specific Colver (1.003-1.030) Urine Protein (NEGATIVE) mg/dL Urine Glucose (UA) (NEGATIVE) mg/dL Urine Ketones (NEGATIVE) mg/dL Urine Blood (NEGATIVE) Urine Nitrate (NEGATIVE) Urine Bilirubin (NEGATIVE) Urine Urobilinogen (0.2-1.0) mg/dL Ur Leukocyte Esterase (Negative) Latrice/uL Urine RBC (Auto) (0-3) /hpf Urine Microscopic WBC (0-5) /hpf Amorphous Sediment (<OCC) /ul Urine Bacteria (<OCC) Fluid Type CSF Volume (0-1) mL CSF Appearance (CLEAR) CSF WBC (0.0-5.0) /mm3 CSF RBC (0.0-0.0) /mm3 CSF Total Cell Counted CSF Neutrophils (0-0) % CSF Lymphocytes (0-0) % CSF Monos/Macrophages (0-0) % CSF Comment CSF Glucose (40-70) mg/dL CSF Total Protein (12-60) mg/dL Salicylates < 1.0 mg/dl Urine Opiates Screen (NEGATIVE) Urine Methadone Screen (NEGATIVE) Acetaminophen < 10.0 L (10.0-30.0) ug/ml Ur Barbiturates Screen (NEGATIVE) Ur Phencyclidine Scrn (NEGATIVE) Ur Amphetamines Screen (NEGATIVE) U Benzodiazepines Scrn (NEGATIVE) U Oth Cocaine Metabols (NEGATIVE) U Cannabinoids Screen (NEGATIVE) Alcohol, Quantitative (0-10) mg/dl 07/19/18 07/19/18 07/19/18 Range/Units 14:35 13:50 13:46 WBC (4.8-10.8) K/uL RBC (4.40-5.90) Mil/uL Hgb (12.0-18.0) g/dL Hct (35.0-51.0) % MCV (80.0-94.0) fl MCH (27.0-31.0) pg MCHC (33.0-37.0) g/dL RDW (11.5-14.5) % Plt Count (130-400) K/uL MPV (7.2-11.7) fl Neut % (Auto) (50.0-75.0) % Lymph % (Auto) (20.0-40.0) % [place] % (Auto) (0.0-10.0) % Eos % (Auto) (0.0-4.0) % Baso % (Auto) (0.0-2.0) % Neut # (Auto) (1.8-7.0) K/uL Lymph # (Auto) (1.0-4.3) K/uL [place] # (Auto) (0.0-0.8) K/uL Eos # (Auto) (0.0-0.7) K/uL Baso # (Auto) (0.0-0.2) K/uL Neutrophils % (Manual) (42-75) % Band Neutrophils % (0-2) % Lymphocytes % (Manual) (20-50) % Monocytes % (Manual) (0-10) % Basophils % (Manual) (0-2) % Platelet Estimate (NORMAL) Macrocytosis (manual) PT (9.8-13.1) Seconds INR APTT (25.6-37.1) Seconds pO2 58 H (30-55) mm/Hg VBG pH 7.03 L* (7.32-7.43) VBG pCO2 40 (40-60) mmHg VBG HCO3 9.0 mmol/L VBG Total CO2 11.8 L (22-28) mmol/L VBG O2 Sat (Calc) 90.5 H (40-65) % VBG Base Excess -19.6 L (0.0-2.0) mmol/L VBG Potassium 7.9 H* (3.6-5.2) mmol/L Sodium 143 137.0 (132-148) mmol/L Chloride 110 H 108.0 H (98-107) mmol/L Glucose 201 H (75-110) mg/dL Lactate 10.0 H* (0.7-2.1) mmol/L FiO2 21.0 % Crit Value Called To Dwain almazan Crit Value Called By 23 Crit Value Read Back Y Blood Gas Notified Time 1355 Potassium 8.2 H* (3.6-5.0) MMOL/L Carbon Dioxide 19 L (22-30) mmol/L Anion Gap 22 H (10-20) BUN 36 H (9-20) mg/dl Creatinine 3.2 H (0.8-1.5) mg/dl Est GFR ( Amer) 28 Est GFR (Non-Af Amer) 23 POC Glucose (mg/dL) 167 H (65-110) mg/dL Random Glucose 163 H (75-110) mg/dL Serum Osmolality (272-300) mosm/kg Calcium 5.6 L* (8.4-10.2) mg/dL Total Bilirubin 0.3 (0.2-1.3) mg/dl AST 12093 H (17-59) U/L ALT 7913 H (21-72) U/L Alkaline Phosphatase 40 (38-126) U/L Total Creatine Kinase 86946 H (55-170) U/L Total Protein 5.8 L (6.3-8.2) G/DL Albumin 3.2 L (3.5-5.0) g/dL Globulin 2.6 (2.2-3.9) gm/dL Albumin/Globulin Ratio 1.2 (1.0-2.1) Venous Blood Potassium 7.9 H* (3.6-5.2) mmol/L Urine Color (YELLOW) Urine Clarity (Clear) Urine pH (5.0-8.0) Ur Specific Colver (1.003-1.030) Urine Protein (NEGATIVE) mg/dL Urine Glucose (UA) (NEGATIVE) mg/dL Urine Ketones (NEGATIVE) mg/dL Urine Blood (NEGATIVE) Urine Nitrate (NEGATIVE) Urine Bilirubin (NEGATIVE) Urine Urobilinogen (0.2-1.0) mg/dL Ur Leukocyte Esterase (Negative) Latrice/uL Urine RBC (Auto) (0-3) /hpf Urine Microscopic WBC (0-5) /hpf Amorphous Sediment (<OCC) /ul Urine Bacteria (<OCC) Fluid Type CSF Volume (0-1) mL CSF Appearance (CLEAR) CSF WBC (0.0-5.0) /mm3 CSF RBC (0.0-0.0) /mm3 CSF Total Cell Counted CSF Neutrophils (0-0) % CSF Lymphocytes (0-0) % CSF Monos/Macrophages (0-0) % CSF Comment CSF Glucose (40-70) mg/dL CSF Total Protein (12-60) mg/dL Salicylates mg/dl Urine Opiates Screen (NEGATIVE) Urine Methadone Screen (NEGATIVE) Acetaminophen (10.0-30.0) ug/ml Ur Barbiturates Screen (NEGATIVE) Ur Phencyclidine Scrn (NEGATIVE) Ur Amphetamines Screen (NEGATIVE) U Benzodiazepines Scrn (NEGATIVE) U Oth Cocaine Metabols (NEGATIVE) U Cannabinoids Screen (NEGATIVE) Alcohol, Quantitative < 10 (0-10) mg/dl 07/19/18 07/19/18 07/19/18 Range/Units 13:40 13:40 13:20 WBC (4.8-10.8) K/uL RBC (4.40-5.90) Mil/uL Hgb (12.0-18.0) g/dL Hct (35.0-51.0) % MCV (80.0-94.0) fl MCH (27.0-31.0) pg MCHC (33.0-37.0) g/dL RDW (11.5-14.5) % Plt Count (130-400) K/uL MPV (7.2-11.7) fl Neut % (Auto) (50.0-75.0) % Lymph % (Auto) (20.0-40.0) % [place] % (Auto) (0.0-10.0) % Eos % (Auto) (0.0-4.0) % Baso % (Auto) (0.0-2.0) % Neut # (Auto) (1.8-7.0) K/uL Lymph # (Auto) (1.0-4.3) K/uL [place] # (Auto) (0.0-0.8) K/uL Eos # (Auto) (0.0-0.7) K/uL Baso # (Auto) (0.0-0.2) K/uL Neutrophils % (Manual) (42-75) % Band Neutrophils % (0-2) % Lymphocytes % (Manual) (20-50) % Monocytes % (Manual) (0-10) % Basophils % (Manual) (0-2) % Platelet Estimate (NORMAL) Macrocytosis (manual) PT (9.8-13.1) Seconds INR APTT (25.6-37.1) Seconds pO2 (30-55) mm/Hg VBG pH (7.32-7.43) VBG pCO2 (40-60) mmHg VBG HCO3 mmol/L VBG Total CO2 (22-28) mmol/L VBG O2 Sat (Calc) (40-65) % VBG Base Excess (0.0-2.0) mmol/L VBG Potassium (3.6-5.2) mmol/L Sodium (132-148) mmol/L Chloride (98-107) mmol/L Glucose (75-110) mg/dL Lactate (0.7-2.1) mmol/L FiO2 % Crit Value Called To Crit Value Called By Crit Value Read Back Blood Gas Notified Time Potassium (3.6-5.0) MMOL/L Carbon Dioxide (22-30) mmol/L Anion Gap (10-20) BUN (9-20) mg/dl Creatinine (0.8-1.5) mg/dl Est GFR ( Amer) Est GFR (Non-Af Amer) POC Glucose (mg/dL) (65-110) mg/dL Random Glucose (75-110) mg/dL Serum Osmolality (272-300) mosm/kg Calcium (8.4-10.2) mg/dL Total Bilirubin (0.2-1.3) mg/dl AST (17-59) U/L ALT (21-72) U/L Alkaline Phosphatase (38-126) U/L Total Creatine Kinase (55-170) U/L Total Protein (6.3-8.2) G/DL Albumin (3.5-5.0) g/dL Globulin (2.2-3.9) gm/dL Albumin/Globulin Ratio (1.0-2.1) Venous Blood Potassium (3.6-5.2) mmol/L Urine Color (YELLOW) Urine Clarity (Clear) Urine pH (5.0-8.0) Ur Specific Colver (1.003-1.030) Urine Protein (NEGATIVE) mg/dL Urine Glucose (UA) (NEGATIVE) mg/dL Urine Ketones (NEGATIVE) mg/dL Urine Blood (NEGATIVE) Urine Nitrate (NEGATIVE) Urine Bilirubin (NEGATIVE) Urine Urobilinogen (0.2-1.0) mg/dL Ur Leukocyte Esterase (Negative) Latrice/uL Urine RBC (Auto) (0-3) /hpf Urine Microscopic WBC (0-5) /hpf Amorphous Sediment (<OCC) /ul Urine Bacteria (<OCC) Fluid Type Spinal fluid CSF Volume 2 H (0-1) mL CSF Appearance Clear/colorless (CLEAR) CSF WBC 3.0 (0.0-5.0) /mm3 CSF RBC 13.0 H (0.0-0.0) /mm3 CSF Total Cell Counted TEST NOT PERFORMED CSF Neutrophils 1 H (0-0) % CSF Lymphocytes 1.0 H (0-0) % CSF Monos/Macrophages 0 (0-0) % CSF Comment None CSF Glucose 51 (40-70) mg/dL CSF Total Protein 46.0 (12-60) mg/dL Salicylates mg/dl Urine Opiates Screen (NEGATIVE) Urine Methadone Screen (NEGATIVE) Acetaminophen (10.0-30.0) ug/ml Ur Barbiturates Screen (NEGATIVE) Ur Phencyclidine Scrn (NEGATIVE) Ur Amphetamines Screen (NEGATIVE) U Benzodiazepines Scrn (NEGATIVE) U Oth Cocaine Metabols (NEGATIVE) U Cannabinoids Screen (NEGATIVE) Alcohol, Quantitative 23 H (0-10) mg/dl 07/19/18 07/19/18 07/19/18 Range/Units 12:50 12:50 11:45 WBC (4.8-10.8) K/uL RBC (4.40-5.90) Mil/uL Hgb (12.0-18.0) g/dL Hct (35.0-51.0) % MCV (80.0-94.0) fl MCH (27.0-31.0) pg MCHC (33.0-37.0) g/dL RDW (11.5-14.5) % Plt Count (130-400) K/uL MPV (7.2-11.7) fl Neut % (Auto) (50.0-75.0) % Lymph % (Auto) (20.0-40.0) % [place] % (Auto) (0.0-10.0) % Eos % (Auto) (0.0-4.0) % Baso % (Auto) (0.0-2.0) % Neut # (Auto) (1.8-7.0) K/uL Lymph # (Auto) (1.0-4.3) K/uL [place] # (Auto) (0.0-0.8) K/uL Eos # (Auto) (0.0-0.7) K/uL Baso # (Auto) (0.0-0.2) K/uL Neutrophils % (Manual) (42-75) % Band Neutrophils % (0-2) % Lymphocytes % (Manual) (20-50) % Monocytes % (Manual) (0-10) % Basophils % (Manual) (0-2) % Platelet Estimate (NORMAL) Macrocytosis (manual) PT (9.8-13.1) Seconds INR APTT (25.6-37.1) Seconds pO2 (30-55) mm/Hg VBG pH (7.32-7.43) VBG pCO2 (40-60) mmHg VBG HCO3 mmol/L VBG Total CO2 (22-28) mmol/L VBG O2 Sat (Calc) (40-65) % VBG Base Excess (0.0-2.0) mmol/L VBG Potassium (3.6-5.2) mmol/L Sodium (132-148) mmol/L Chloride (98-107) mmol/L Glucose (75-110) mg/dL Lactate (0.7-2.1) mmol/L FiO2 % Crit Value Called To Crit Value Called By Crit Value Read Back Blood Gas Notified Time Potassium (3.6-5.0) MMOL/L Carbon Dioxide (22-30) mmol/L Anion Gap (10-20) BUN (9-20) mg/dl Creatinine (0.8-1.5) mg/dl Est GFR ( Amer) Est GFR (Non-Af Amer) POC Glucose (mg/dL) 162 H (65-110) mg/dL Random Glucose (75-110) mg/dL Serum Osmolality (272-300) mosm/kg Calcium (8.4-10.2) mg/dL Total Bilirubin (0.2-1.3) mg/dl AST (17-59) U/L ALT (21-72) U/L Alkaline Phosphatase (38-126) U/L Total Creatine Kinase (55-170) U/L Total Protein (6.3-8.2) G/DL Albumin (3.5-5.0) g/dL Globulin (2.2-3.9) gm/dL Albumin/Globulin Ratio (1.0-2.1) Venous Blood Potassium (3.6-5.2) mmol/L Urine Color Yellow (YELLOW) Urine Clarity Cloudy (Clear) Urine pH 6.0 (5.0-8.0) Ur Specific Colver 1.013 (1.003-1.030) Urine Protein 100 (NEGATIVE) mg/dL Urine Glucose (UA) Neg (NEGATIVE) mg/dL Urine Ketones Negative (NEGATIVE) mg/dL Urine Blood Large (NEGATIVE) Urine Nitrate Negative (NEGATIVE) Urine Bilirubin Negative (NEGATIVE) Urine Urobilinogen 0.2-1.0 (0.2-1.0) mg/dL Ur Leukocyte Esterase Neg (Negative) Latrice/uL Urine RBC (Auto) 3 (0-3) /hpf Urine Microscopic WBC 2 (0-5) /hpf Amorphous Sediment Occ H (<OCC) /ul Urine Bacteria Occ H (<OCC) Fluid Type CSF Volume (0-1) mL CSF Appearance (CLEAR) CSF WBC (0.0-5.0) /mm3 CSF RBC (0.0-0.0) /mm3 CSF Total Cell Counted CSF Neutrophils (0-0) % CSF Lymphocytes (0-0) % CSF Monos/Macrophages (0-0) % CSF Comment CSF Glucose (40-70) mg/dL CSF Total Protein (12-60) mg/dL Salicylates mg/dl Urine Opiates Screen Positive H (NEGATIVE) Urine Methadone Screen Negative (NEGATIVE) Acetaminophen (10.0-30.0) ug/ml Ur Barbiturates Screen Negative (NEGATIVE) Ur Phencyclidine Scrn Negative (NEGATIVE) Ur Amphetamines Screen Negative (NEGATIVE) U Benzodiazepines Scrn Negative (NEGATIVE) U Oth Cocaine Metabols Negative (NEGATIVE) U Cannabinoids Screen Negative (NEGATIVE) Alcohol, Quantitative (0-10) mg/dl 18 07/19/18 Range/Units 11:38 11:34 WBC 27.5 H (4.8-10.8) K/uL RBC 5.33 (4.40-5.90) Mil/uL Hgb 16.4 (12.0-18.0) g/dL Hct 54.4 H (35.0-51.0) % MCV 102.2 H (80.0-94.0) fl MCH 30.7 (27.0-31.0) pg MCHC 30.0 L (33.0-37.0) g/dL RDW 14.4 (11.5-14.5) % Plt Count 249 (130-400) K/uL MPV 9.3 (7.2-11.7) fl Neut % (Auto) 86.6 H (50.0-75.0) % Lymph % (Auto) 6.3 L (20.0-40.0) % [place] % (Auto) 6.7 (0.0-10.0) % Eos % (Auto) 0.1 (0.0-4.0) % Baso % (Auto) 0.3 (0.0-2.0) % Neut # (Auto) 23.8 H (1.8-7.0) K/uL Lymph # (Auto) 1.7 (1.0-4.3) K/uL [place] # (Auto) 1.8 H (0.0-0.8) K/uL Eos # (Auto) 0.0 (0.0-0.7) K/uL Baso # (Auto) 0.1 (0.0-0.2) K/uL Neutrophils % (Manual) 79 H (42-75) % Band Neutrophils % 3 H (0-2) % Lymphocytes % (Manual) 7 L (20-50) % Monocytes % (Manual) 10 (0-10) % Basophils % (Manual) 1 (0-2) % Platelet Estimate Normal (NORMAL) Macrocytosis (manual) Moderate PT (9.8-13.1) Seconds INR APTT (25.6-37.1) Seconds pO2 (30-55) mm/Hg VBG pH (7.32-7.43) VBG pCO2 (40-60) mmHg VBG HCO3 mmol/L VBG Total CO2 (22-28) mmol/L VBG O2 Sat (Calc) (40-65) % VBG Base Excess (0.0-2.0) mmol/L VBG Potassium (3.6-5.2) mmol/L Sodium (132-148) mmol/L Chloride (98-107) mmol/L Glucose (75-110) mg/dL Lactate (0.7-2.1) mmol/L FiO2 % Crit Value Called To Crit Value Called By Crit Value Read Back Blood Gas Notified Time Potassium (3.6-5.0) MMOL/L Carbon Dioxide (22-30) mmol/L Anion Gap (10-20) BUN (9-20) mg/dl Creatinine (0.8-1.5) mg/dl Est GFR ( Amer) Est GFR (Non-Af Amer) POC Glucose (mg/dL) 23 L* (65-110) mg/dL Random Glucose (75-110) mg/dL Serum Osmolality (272-300) mosm/kg Calcium (8.4-10.2) mg/dL Total Bilirubin (0.2-1.3) mg/dl AST (17-59) U/L ALT (21-72) U/L Alkaline Phosphatase (38-126) U/L Total Creatine Kinase (55-170) U/L Total Protein (6.3-8.2) G/DL Albumin (3.5-5.0) g/dL Globulin (2.2-3.9) gm/dL Albumin/Globulin Ratio (1.0-2.1) Venous Blood Potassium (3.6-5.2) mmol/L Urine Color (YELLOW) Urine Clarity (Clear) Urine pH (5.0-8.0) Ur Specific [place] (1.003-1.030) Urine Protein (NEGATIVE) mg/dL Urine Glucose (UA) (NEGATIVE) mg/dL Urine Ketones (NEGATIVE) mg/dL Urine Blood (NEGATIVE) Urine Nitrate (NEGATIVE) Urine Bilirubin (NEGATIVE) Urine Urobilinogen (0.2-1.0) mg/dL Ur Leukocyte Esterase (Negative) Latrice/uL Urine RBC (Auto) (0-3) /hpf Urine Microscopic WBC (0-5) /hpf Amorphous Sediment (<OCC) /ul Urine Bacteria (<OCC) Fluid Type CSF Volume (0-1) mL CSF Appearance (CLEAR) CSF WBC (0.0-5.0) /mm3 CSF RBC (0.0-0.0) /mm3 CSF Total Cell Counted CSF Neutrophils (0-0) % CSF Lymphocytes (0-0) % CSF Monos/Macrophages (0-0) % CSF Comment CSF Glucose (40-70) mg/dL CSF Total Protein (12-60) mg/dL Salicylates mg/dl Urine Opiates Screen (NEGATIVE) Urine Methadone Screen (NEGATIVE) Acetaminophen (10.0-30.0) ug/ml Ur Barbiturates Screen (NEGATIVE) Ur Phencyclidine Scrn (NEGATIVE) Ur Amphetamines Screen (NEGATIVE) U Benzodiazepines Scrn (NEGATIVE) U Oth Cocaine Metabols (NEGATIVE) U Cannabinoids Screen (NEGATIVE) Alcohol, Quantitative (0-10) mg/dl Laboratory Results - last 24 hr 07/19/18 07/19/18 07/19/18 11:34 11:38 11:45 WBC 27.5 H RBC 5.33 Hgb 16.4 Hct 54.4 H MCV 102.2 H MCH 30.7 MCHC 30.0 L RDW 14.4 Plt Count 249 MPV 9.3 Neut % (Auto) 86.6 H Lymph % (Auto) 6.3 L [place] % (Auto) 6.7 Eos % (Auto) 0.1 Baso % (Auto) 0.3 Neut # (Auto) 23.8 H Lymph # (Auto) 1.7 [place] # (Auto) 1.8 H Eos # (Auto) 0.0 Baso # (Auto) 0.1 Neutrophils % (Manual) 79 H Band Neutrophils % 3 H Lymphocytes % (Manual) 7 L Monocytes % (Manual) 10 Basophils % (Manual) 1 Platelet Estimate Normal Macrocytosis (manual) Moderate PT INR APTT pO2 VBG pH VBG pCO2 VBG HCO3 VBG Total CO2 VBG O2 Sat (Calc) VBG Base Excess VBG Potassium Sodium Chloride Glucose Lactate FiO2 Crit Value Called To Crit Value Called By Crit Value Read Back Blood Gas Notified Time Potassium Carbon Dioxide Anion Gap BUN Creatinine Est GFR ( Amer) Est GFR (Non-Af Amer) POC Glucose (mg/dL) 23 L* 162 H Random Glucose Serum Osmolality Calcium Total Bilirubin AST ALT Alkaline Phosphatase Total Creatine Kinase Total Protein Albumin Globulin Albumin/Globulin Ratio Venous Blood Potassium Urine Color Urine Clarity Urine pH Ur Specific [place] Urine Protein Urine Glucose (UA) Urine Ketones Urine Blood Urine Nitrate Urine Bilirubin Urine Urobilinogen Ur Leukocyte Esterase Urine RBC (Auto) Urine Microscopic WBC Amorphous Sediment Urine Bacteria Fluid Type CSF Volume CSF Appearance CSF WBC CSF RBC CSF Total Cell Counted CSF Neutrophils CSF Lymphocytes CSF Monos/Macrophages CSF Comment CSF Glucose CSF Total Protein Salicylates Urine Opiates Screen Urine Methadone Screen Acetaminophen Ur Barbiturates Screen Ur Phencyclidine Scrn Ur Amphetamines Screen U Benzodiazepines Scrn U Oth Cocaine Metabols U Cannabinoids Screen Alcohol, Quantitative 12/17/18 12/17/18 12/17/18 12:50 12:50 13:20 WBC RBC Hgb Hct MCV MCH MCHC RDW Plt Count MPV Neut % (Auto) Lymph % (Auto) [place] % (Auto) Eos % (Auto) Baso % (Auto) Neut # (Auto) Lymph # (Auto) [place] # (Auto) Eos # (Auto) Baso # (Auto) Neutrophils % (Manual) Band Neutrophils % Lymphocytes % (Manual) Monocytes % (Manual) Basophils % (Manual) Platelet Estimate Macrocytosis (manual) PT INR APTT pO2 VBG pH VBG pCO2 VBG HCO3 VBG Total CO2 VBG O2 Sat (Calc) VBG Base Excess VBG Potassium Sodium Chloride Glucose Lactate FiO2 Crit Value Called To Crit Value Called By Crit Value Read Back Blood Gas Notified Time Potassium Carbon Dioxide Anion Gap BUN Creatinine Est GFR ( Amer) Est GFR (Non-Af Amer) POC Glucose (mg/dL) Random Glucose Serum Osmolality Calcium Total Bilirubin AST ALT Alkaline Phosphatase Total Creatine Kinase Total Protein Albumin Globulin Albumin/Globulin Ratio Venous Blood Potassium Urine Color Yellow Urine Clarity Cloudy Urine pH 6.0 Ur Specific Colver 1.013 Urine Protein 100 Urine Glucose (UA) Neg Urine Ketones Negative Urine Blood Large Urine Nitrate Negative Urine Bilirubin Negative Urine Urobilinogen 0.2-1.0 Ur Leukocyte Esterase Neg Urine RBC (Auto) 3 Urine Microscopic WBC 2 Amorphous Sediment Occ H Urine Bacteria Occ H Fluid Type CSF Volume CSF Appearance CSF WBC CSF RBC CSF Total Cell Counted CSF Neutrophils CSF Lymphocytes CSF Monos/Macrophages CSF Comment CSF Glucose CSF Total Protein Salicylates Urine Opiates Screen Positive H Urine Methadone Screen Negative Acetaminophen Ur Barbiturates Screen Negative Ur Phencyclidine Scrn Negative Ur Amphetamines Screen Negative U Benzodiazepines Scrn Negative U Oth Cocaine Metabols Negative U Cannabinoids Screen Negative Alcohol, Quantitative 23 H 07/19/18 07/19/18 07/19/18 13:40 13:40 13:46 WBC RBC Hgb Hct MCV MCH MCHC RDW Plt Count MPV Neut % (Auto) Lymph % (Auto) [place] % (Auto) Eos % (Auto) Baso % (Auto) Neut # (Auto) Lymph # (Auto) [place] # (Auto) Eos # (Auto) Baso # (Auto) Neutrophils % (Manual) Band Neutrophils % Lymphocytes % (Manual) Monocytes % (Manual) Basophils % (Manual) Platelet Estimate Macrocytosis (manual) PT INR APTT pO2 VBG pH VBG pCO2 VBG HCO3 VBG Total CO2 VBG O2 Sat (Calc) VBG Base Excess VBG Potassium Sodium Chloride Glucose Lactate FiO2 Crit Value Called To Crit Value Called By Crit Value Read Back Blood Gas Notified Time Potassium Carbon Dioxide Anion Gap BUN Creatinine Est GFR ( Amer) Est GFR (Non-Af Amer) POC Glucose (mg/dL) 167 H Random Glucose Serum Osmolality Calcium Total Bilirubin AST ALT Alkaline Phosphatase Total Creatine Kinase Total Protein Albumin Globulin Albumin/Globulin Ratio Venous Blood Potassium Urine Color Urine Clarity Urine pH Ur Specific Colver Urine Protein Urine Glucose (UA) Urine Ketones Urine Blood Urine Nitrate Urine Bilirubin Urine Urobilinogen Ur Leukocyte Esterase Urine RBC (Auto) Urine Microscopic WBC Amorphous Sediment Urine Bacteria Fluid Type Spinal fluid CSF Volume 2 H CSF Appearance Clear/colorless CSF WBC 3.0 CSF RBC 13.0 H CSF Total Cell Counted TEST NOT PERFORMED CSF Neutrophils 1 H CSF Lymphocytes 1.0 H CSF Monos/Macrophages 0 CSF Comment None CSF Glucose 51 CSF Total Protein 46.0 Salicylates Urine Opiates Screen Urine Methadone Screen Acetaminophen Ur Barbiturates Screen Ur Phencyclidine Scrn Ur Amphetamines Screen U Benzodiazepines Scrn U Oth Cocaine Metabols U Cannabinoids Screen Alcohol, Quantitative 07/19/18 07/19/18 07/19/18 13:50 14:35 16:17 WBC RBC Hgb Hct MCV MCH MCHC RDW Plt Count MPV Neut % (Auto) Lymph % (Auto) [place] % (Auto) Eos % (Auto) Baso % (Auto) Neut # (Auto) Lymph # (Auto) [place] # (Auto) Eos # (Auto) Baso # (Auto) Neutrophils % (Manual) Band Neutrophils % Lymphocytes % (Manual) Monocytes % (Manual) Basophils % (Manual) Platelet Estimate Macrocytosis (manual) PT INR APTT pO2 58 H VBG pH 7.03 L* VBG pCO2 40 VBG HCO3 9.0 VBG Total CO2 11.8 L VBG O2 Sat (Calc) 90.5 H VBG Base Excess -19.6 L VBG Potassium 7.9 H* Sodium 137.0 143 Chloride 108.0 H 110 H Glucose 201 H Lactate 10.0 H* FiO2 21.0 Crit Value Called To Dwain almazan Crit Value Called By 23 Crit Value Read Back Y Blood Gas Notified Time 1355 Potassium 8.2 H* Carbon Dioxide 19 L Anion Gap 22 H BUN 36 H Creatinine 3.2 H Est GFR ( Amer) 28 Est GFR (Non-Af Amer) 23 POC Glucose (mg/dL) Random Glucose 163 H Serum Osmolality Calcium 5.6 L* Total Bilirubin 0.3 AST 60190 H ALT 7913 H Alkaline Phosphatase 40 Total Creatine Kinase 54869 H Total Protein 5.8 L Albumin 3.2 L Globulin 2.6 Albumin/Globulin Ratio 1.2 Venous Blood Potassium 7.9 H* Urine Color Urine Clarity Urine pH Ur Specific Colver Urine Protein Urine Glucose (UA) Urine Ketones Urine Blood Urine Nitrate Urine Bilirubin Urine Urobilinogen Ur Leukocyte Esterase Urine RBC (Auto) Urine Microscopic WBC Amorphous Sediment Urine Bacteria Fluid Type CSF Volume CSF Appearance CSF WBC CSF RBC CSF Total Cell Counted CSF Neutrophils CSF Lymphocytes CSF Monos/Macrophages CSF Comment CSF Glucose CSF Total Protein Salicylates < 1.0 Urine Opiates Screen Urine Methadone Screen Acetaminophen Ur Barbiturates Screen Ur Phencyclidine Scrn Ur Amphetamines Screen U Benzodiazepines Scrn U Oth Cocaine Metabols U Cannabinoids Screen Alcohol, Quantitative < 10 07/19/18 07/19/18 07/19/18 16:18 16:18 16:37 WBC RBC Hgb Hct MCV MCH MCHC RDW Plt Count MPV Neut % (Auto) Lymph % (Auto) [place] % (Auto) Eos % (Auto) Baso % (Auto) Neut # (Auto) Lymph # (Auto) [place] # (Auto) Eos # (Auto) Baso # (Auto) Neutrophils % (Manual) Band Neutrophils % Lymphocytes % (Manual) Monocytes % (Manual) Basophils % (Manual) Platelet Estimate Macrocytosis (manual) PT INR APTT pO2 VBG pH VBG pCO2 VBG HCO3 VBG Total CO2 VBG O2 Sat (Calc) VBG Base Excess VBG Potassium Sodium Chloride Glucose Lactate FiO2 Crit Value Called To Crit Value Called By Crit Value Read Back Blood Gas Notified Time Potassium Carbon Dioxide Anion Gap BUN Creatinine Est GFR ( Amer) Est GFR (Non-Af Amer) POC Glucose (mg/dL) 185 H Random Glucose Serum Osmolality 288 Calcium Total Bilirubin AST ALT Alkaline Phosphatase Total Creatine Kinase Total Protein Albumin Globulin Albumin/Globulin Ratio Venous Blood Potassium Urine Color Urine Clarity Urine pH Ur Specific Colver Urine Protein Urine Glucose (UA) Urine Ketones Urine Blood Urine Nitrate Urine Bilirubin Urine Urobilinogen Ur Leukocyte Esterase Urine RBC (Auto) Urine Microscopic WBC Amorphous Sediment Urine Bacteria Fluid Type CSF Volume CSF Appearance CSF WBC CSF RBC CSF Total Cell Counted CSF Neutrophils CSF Lymphocytes CSF Monos/Macrophages CSF Comment CSF Glucose CSF Total Protein Salicylates Urine Opiates Screen Urine Methadone Screen Acetaminophen < 10.0 L Ur Barbiturates Screen Ur Phencyclidine Scrn Ur Amphetamines Screen U Benzodiazepines Scrn U Oth Cocaine Metabols U Cannabinoids Screen Alcohol, Quantitative 07/19/18 07/19/18 17:25 17:30 WBC RBC Hgb Hct MCV MCH MCHC RDW Plt Count MPV Neut % (Auto) Lymph % (Auto) [place] % (Auto) Eos % (Auto) Baso % (Auto) Neut # (Auto) Lymph # (Auto) [place] # (Auto) Eos # (Auto) Baso # (Auto) Neutrophils % (Manual) Band Neutrophils % Lymphocytes % (Manual) Monocytes % (Manual) Basophils % (Manual) Platelet Estimate Macrocytosis (manual) PT 17.4 H INR 1.5 APTT 31.0 pO2 71 H VBG pH 7.25 L VBG pCO2 42 VBG HCO3 18.1 VBG Total CO2 19.7 L VBG O2 Sat (Calc) 96.8 H VBG Base Excess -8.5 L VBG Potassium 6.2 H* Sodium 142.0 Chloride 112.0 H Glucose 195 H Lactate 5.9 H* FiO2 21.0 Crit Value Called To Md bobbi gilbert Crit Value Called By 23 Crit Value Read Back Y Blood Gas Notified Time 1740 Potassium Carbon Dioxide Anion Gap BUN Creatinine Est GFR ( Amer) Est GFR (Non-Af Amer) POC Glucose (mg/dL) Random Glucose Serum Osmolality Calcium Total Bilirubin AST ALT Alkaline Phosphatase Total Creatine Kinase Total Protein Albumin Globulin Albumin/Globulin Ratio Venous Blood Potassium 6.2 H* Urine Color Urine Clarity Urine pH Ur Specific [place]ver Urine Protein Urine Glucose (UA) Urine Ketones Urine Blood Urine Nitrate Urine Bilirubin Urine Urobilinogen Ur Leukocyte Esterase Urine RBC (Auto) Urine Microscopic WBC Amorphous Sediment Urine Bacteria Fluid Type CSF Volume CSF Appearance CSF WBC CSF RBC CSF Total Cell Counted CSF Neutrophils CSF Lymphocytes CSF Monos/Macrophages CSF Comment CSF Glucose CSF Total Protein Salicylates Urine Opiates Screen Urine Methadone Screen Acetaminophen Ur Barbiturates Screen Ur Phencyclidine Scrn Ur Amphetamines Screen U Benzodiazepines Scrn U Oth Cocaine Metabols U Cannabinoids Screen Alcohol, Quantitative Radiology Impressions: Radiology Impressions Head CT 07/19/18 11:31 IMPRESSION: No acute intracranial abnormality. Chest/Abdomen/Pelvis CT 07/19/18 12:01 IMPRESSION: No acute abnormality in the chest, abdomen or pelvis. Mild hepatomegaly and hepatic steatosis. Chest X-Ray 07/19/18 12:32 IMPRESSION: No active pulmonary disease. Shoulder X-Ray 07/19/18 12:32 IMPRESSION: No acute displaced fracture or dislocation. EKG/Cardiology Studies: Cardiology / EKG Studies 07/19/18 11:31 EKG [ELECTROCARDIOGRAM] Stat Comment: Mode Of Transportation: PORTABLE Reason For Exam: SOB 07/19/18 17:26 EKG [ELECTROCARDIOGRAM] Stat Comment: Mode Of Transportation: PORTABLE Reason For Exam: SOB Fingerstick Blood Sugar Results: 185 Review of Systems - Review of Systems Systems not reviewed;Unavailable: Uncooperative Critical Care Progress Note - Extremities/Vascular Does the Patient have a Central Venous Catheter?: Yes Does the Patient need a Central Venous Catheter?: Yes Does the Patient have a Au Catheter?: Yes Does the Patient need a Au Catheter?: Yes - Nutrition Nutrition: Nutrition Category Date Time Status NPO Diet [DIET] Diets 07/19/18 Dinner Active Assessment/Plan (1) ARF (acute renal failure) Current Visit: Yes Status: Acute Priority: High (2) Elevated liver enzymes Current Visit: Yes Status: Acute Priority: High (3) Altered mental status Current Visit: Yes Status: Acute Priority: High (4) Hyperkalemia Current Visit: Yes Status: Acute Priority: High (5) Ingestion of toxic substance Current Visit: Yes Status: Acute Priority: High (6) Hypoglycemic coma Current Visit: Yes Status: Acute Priority: High (7) Septic shock Current Visit: Yes Status: Acute Priority: High - Assessment and Plan (Free Text) Assessment: Admit to ICU for hemodynamic monitoring, SBP goal 130-140s Frequent Neuro check Q 1H Stat HD Stat Aceetadote Close monitoring for the liver function, hepatitis profil, ammonia level Consider transfer to liver transplant center if further decelerations STAT LABS/LYTES/CBC, XR, EKG, Serum and urine osmolality Monitor Respiratory status for Respiratory depression Volume resuscitaion with isotonic normal saline @ 150cc/H Empiric Antibiotics with IV Zosyn NPO until fully awake and can pass the nurse bedside swallow evaluation. Stat HD, once he comes to ICU, will place HD access Monitor urine output Au, accurate I&Os Monitor glycemic control, RISS with Coverage Poison controlled called GI/DVT PPX
[2018-07-19 18:35] LABS: ALB/GLOB RATIO 1.1 (1.0-2.1); ALBUMIN 3.2 g/dL (3.5-5.0); CALCIUM 6.1 mg/dL (8.4-10.2)
--- NOTE | 2018-07-19 19:07 | PCM.PROC ---
Procedures Attestation:: I certify that I have explained the specified Operation(s) or Procedure(s), risks, benefits and reasonable alternatives to the Patient and/or other person responsible. The opportunity was given to ask questions and all questions answered - Central Line Placement Left Femoral Hemodialysis Access Aseptic technique was employed throughout the procedure: Hand Hygiene done prior to procedure, Full sterile barriers (mask, hair cover, sterile gown, sterile gloves), Full body sterile drape, Chloraprep Antiseptic: 30 second prep for IJ or SC sites CVP Time Out Performed: Yes Pt. Placed on Pulse Ox Monitor: Yes Central Line Prep: Chlorhexidine-Alcohol Combination Local Anesthesia Used: Lidocaine 1% Ultrasound Used for Placement: Yes Central Line Lumen Inserted: double Central Line Length: 20 cm Post Procedure: Sutured in Place, Good Blood Return, All Ports Aspirated, Flushed, Capped, Sterile Dressing Applied Secured by: Suture Post procedure dressing: Gauze Post Procedure X-Ray: No Patient Tolerated Procedure: Well, No Complications
[2018-07-19] MEDS ORDERED: Sod Polystyrene Sulf 15 gm/60 ml Susp PO STA (20:04)
[2018-07-19 23:13] LABS: ABG ALLEN TEST YES; ARTERIAL BLOOD GAS HCO3 20.1 mmol/L (21-28); ARTERIAL BLOOD GAS O2 CONTENT 17.8 ML/dL (15-23); ARTERIAL BLOOD GAS PCO2 36 mm/Hg (35-45); ARTERIAL BLOOD GAS PH 7.33 (7.35-7.45); ARTERIAL BLOOD GAS PO2 108 mm/Hg (80-100); ARTERIAL BLOOD GAS TCO2 20.1 mmol/L (22-28)
[2018-07-19 23:54] LABS: ALB/GLOB RATIO 1.2 (1.0-2.1); ALBUMIN 3.3 g/dL (3.5-5.0); BILIRUBIN,DIRECT 0.3 mg/ml (0.0-0.4)
[2018-07-20] MEDS: Sodium Chloride 0.9% 1,000 ML IV SCH ×6 (00:53→21:24)
[2018-07-20 06:24] LABS: ALB/GLOB RATIO 1.1 (1.0-2.1); BILIRUBIN,DIRECT 0.1 mg/ml (0.0-0.4); CALCIUM 6.9 mg/dL (8.4-10.2)
--- NOTE | 2018-07-20 06:38 | CARD ---
APPROVED REPORT Date of service: 07/20/2018 EKG Measurement Heart [id number] <Conclusion> Normal sinus rhythm Prolonged QT Abnormal ECG
--- NOTE | 2018-07-20 06:44 | CARD ---
APPROVED REPORT Date of service: 07/19/2018 EKG Measurement Heart [id number] <Conclusion> Normal sinus rhythm Prolonged QT Abnormal ECG
[2018-07-20 06:51] LABS: BASO % 0.1 % (0.0-2.0); HEMOGLOBIN 12.6 g/dL (12.0-18.0); LYMPH # 0.5 K/uL (1.0-4.3); LYMPH % 3.9 % (20.0-40.0); MEAN CELL VOLUME 91.7 fl (80.0-94.0); MEAN CORPUSCULAR HEMOGLOBIN 30.2 pg (27.0-31.0); MEAN PLATELET VOLUME 8.5 fl (7.2-11.7); MONO # 0.7 K/uL (0.0-0.8); MONO % 5.5 % (0.0-10.0); NEUT # 12.1 K/uL (1.8-7.0); NEUT % 90.5 % (50.0-75.0); PLATELET COUNT 96 K/uL (130-400); RBC 4.15 Mil/uL (4.40-5.90); RED CELL DISTRIBUTION WIDTH 12.6 % (11.5-14.5); WHITE BLOOD COUNT 13.4 K/uL (4.8-10.8)
--- NOTE | 2018-07-20 06:52 | CP.PCM.CON ---
History of Present Illness - History of Present Illness History of Present Illness: This patient who is 28 years of age who came to the emergency room unresponsive and as of now still cannot get history from him apparently he went for drinking and at the ambulance was called and he brought to the emergency room was po tassium 8.2 and high BUN/creatinine CPK liver enzyme. I tried to speak to the patient again this morning and he is not giving me any further information. Patient required to have emergency hemodialysis overnight which completed early this morning around 2:00. And the history from the primary care physician showed the following information 28 year old male with PMHx of psoriasis brought to ED via EMS after being found unresponsive outside after possible substance abuse. As per patient he remembers going outside yesterday and drinking alcohol(beer) but denies using any drugs. He reports living with brother and sister in law. Talked to brother on phone who reports that patient went to [employer] yesterday and his friends called ambulance after he was unresponsive. Reports increased urination, dry mouth and thirsty. Denies any chest pain, SOB, abdominal pain, chills. His brother Herbert's contact information is [phone]. Past medical history She is known to have psoriasis no other apparent past medical history at this point. Review of Systems - Constitutional Constitutional: Anorexia, Weakness. absent: Chills - EENT Eyes: absent: Exophthalmos Ears: As Per HPI Nose/Mouth/Throat: absent: Epistaxis, Nasal Discharge - Cardiovascular Cardiovascular: absent: Acrocyanosis, Chest Pain, Claudication, Edema - Respiratory Respiratory: absent: Cough, Dyspnea, Dyspnea on Exertion - Gastrointestinal Gastrointestinal: absent: Abdominal Pain, Coffee Ground Emesis, Cramping - Genitourinary Genitourinary: Nocturia - Musculoskeletal Musculoskeletal: Muscle Weakness. absent: Numbness - Neurological Neurological: Behavioral Changes, Confusion, Lack of Coordination. absent: Focal Weakness - Endocrine Endocrine: Fatigue - Hematologic/Lymphatic Hematologic: absent: Easy Bleeding Past Patient History - Past Medical History & Family History Past Medical History?: Yes - Past Social History Smoking Status: Never Smoked - CARDIAC Hx Cardiac Disorders: No - PULMONARY Hx Respiratory Disorders: No - NEUROLOGICAL Hx Neurological Disorder: No - HEENT Hx HEENT Problems: No - RENAL Hx Chronic Kidney Disease: No - ENDOCRINE/METABOLIC Hx Endocrine Disorders: No - HEMATOLOGICAL/ONCOLOGICAL Hx Blood Disorders: No - INTEGUMENTARY Hx Dermatological Problems: Yes (Psoriasis) - MUSCULOSKELETAL/RHEUMATOLOGICAL Hx Falls: Yes (pt. found on ground) - PSYCHIATRIC Hx Substance Use: No - SURGICAL HISTORY Hx Surgeries: No - ANESTHESIA Hx Anesthesia: No Meds Allergies/Adverse Reactions: Allergies Allergy/AdvReac Type Severity Reaction Status Date / Time No Known Allergies Allergy Verified 07/19/18 13:46 - Medications Medications: Current Medications Norepinephrine Bitartrate 4 mg (/ Dextrose) 254 mls @ 9.53 mls/hr IV .Q24H WAYNE; Protocol Last Admin: 07/19/18 14:45 Dose: 2.5 mcg/min, 9.53 mls/hr Sodium Chloride (Sodium Chloride 0.9%) 1,000 mls @ 200 mls/hr IV .Q5H WAYNE Stop: 07/20/18 16:48 Last Admin: 07/20/18 04:28 Dose: 200 mls/hr Piperacillin Sod/Tazobactam (Sod 2.25 gm/ Sodium Chloride) 100 mls @ 100 mls/hr IVPB Q6 WAYNE; Protocol Last Admin: 07/20/18 04:21 Dose: 100 mls/hr Ondansetron HCl (Zofran Inj) 4 mg IVP Q6 PRN PRN Reason: Nausea/Vomiting Pantoprazole Sodium (Protonix Inj) 40 mg IVP DAILY [facility] Physical Exam - Constitutional Appears: No Acute Distress - Eye Exam Eye Exam: Conjunctival injection - ENT Exam ENT Exam: Mucous Membranes Dry - Respiratory Exam Respiratory Exam: NORMAL BREATHING PATTERN. absent: Chest Wall Tenderness, Rales, Rhonchi, Wheezes - Cardiovascular Exam Cardiovascular Exam: REGULAR RHYTHM, RRR. absent: Gallop, JVD, Rubs - GI/Abdominal Exam GI & Abdominal Exam: Normal Bowel Sounds. absent: Guarding - Extremities Exam Extremities exam: Negative for: calf tenderness - Back Exam Back exam: absent: CVA tenderness (L), CVA tenderness (R) - Neurological Exam Neurological exam: Altered Results - Vital Signs Recent Vital Signs: Last Vital Signs Temp 98 F 07/20/18 04:00 Pulse 80 07/20/18 06:00 Resp 16 07/20/18 06:00 BP 133/85 07/20/18 06:00 Pulse Ox 96 07/20/18 06:00 - Labs Result Diagrams: 07/19/18 11:34 07/20/18 04:30 Labs: Laboratory Results - last 24 hr 07/19/18 07/19/18 07/19/18 11:34 11:38 11:45 WBC 27.5 H RBC 5.33 Hgb 16.4 Hct 54.4 H MCV 102.2 H MCH 30.7 MCHC 30.0 L RDW 14.4 Plt Count 249 MPV 9.3 Neut % (Auto) 86.6 H Lymph % (Auto) 6.3 L [place] % (Auto) 6.7 Eos % (Auto) 0.1 Baso % (Auto) 0.3 Neut # (Auto) 23.8 H Lymph # (Auto) 1.7 [place] # (Auto) 1.8 H Eos # (Auto) 0.0 Baso # (Auto) 0.1 Neutrophils % (Manual) 79 H Band Neutrophils % 3 H Lymphocytes % (Manual) 7 L Monocytes % (Manual) 10 Basophils % (Manual) 1 Platelet Estimate Normal Macrocytosis (manual) Moderate PT INR APTT pCO2 pO2 HCO3 ABG pH ABG Total CO2 ABG O2 Saturation ABG O2 Content ABG Base Excess ABG Hemoglobin ABG Carboxyhemoglobin POC ABG HHb (Measured) ABG Methemoglobin ABG O2 Capacity [place] Test VBG pH VBG pCO2 VBG HCO3 VBG Total CO2 VBG O2 Sat (Calc) VBG Base Excess VBG Potassium A-a O2 Difference Hgb O2 Saturation Sodium Chloride Glucose Lactate FiO2 Crit Value Called To Crit Value Called By Crit Value Read Back Blood Gas Notified Time Potassium Carbon Dioxide Anion Gap BUN Creatinine Est GFR ( Amer) Est GFR (Non-Af Amer) POC Glucose (mg/dL) 23 L* 162 H Random Glucose Serum Osmolality Lactic Acid Calcium Phosphorus Magnesium Total Bilirubin Direct Bilirubin AST ALT Alkaline Phosphatase Total Creatine Kinase Total Protein Albumin Globulin Albumin/Globulin Ratio TSH 3rd Generation Venous Blood Potassium Urine Color Urine Clarity Urine pH Ur Specific [place] Urine Protein Urine Glucose (UA) Urine Ketones Urine Blood Urine Nitrate Urine Bilirubin Urine Urobilinogen Ur Leukocyte Esterase Urine RBC (Auto) Urine Microscopic WBC Amorphous Sediment Urine Bacteria Fluid Type CSF Volume CSF Appearance CSF WBC CSF RBC CSF Total Cell Counted CSF Neutrophils CSF Lymphocytes CSF Monos/Macrophages CSF Comment CSF Glucose CSF Total Protein Salicylates Urine Opiates Screen Urine Methadone Screen Acetaminophen Ur Barbiturates Screen Ur Phencyclidine Scrn Ur Amphetamines Screen U Benzodiazepines Scrn U Oth Cocaine Metabols U Cannabinoids Screen Alcohol, Quantitative HSV Source Description 07/19/18 07/19/18 07/19/18 12:50 12:50 13:20 WBC RBC Hgb Hct MCV MCH MCHC RDW Plt Count MPV Neut % (Auto) Lymph % (Auto) [place] % (Auto) Eos % (Auto) Baso % (Auto) Neut # (Auto) Lymph # (Auto) [place] # (Auto) Eos # (Auto) Baso # (Auto) Neutrophils % (Manual) Band Neutrophils % Lymphocytes % (Manual) Monocytes % (Manual) Basophils % (Manual) Platelet Estimate Macrocytosis (manual) PT INR APTT pCO2 pO2 HCO3 ABG pH ABG Total CO2 ABG O2 Saturation ABG O2 Content ABG Base Excess ABG Hemoglobin ABG Carboxyhemoglobin POC ABG HHb (Measured) ABG Methemoglobin ABG O2 Capacity [place] Test VBG pH VBG pCO2 VBG HCO3 VBG Total CO2 VBG O2 Sat (Calc) VBG Base Excess VBG Potassium A-a O2 Difference Hgb O2 Saturation Sodium Chloride Glucose Lactate FiO2 Crit Value Called To Crit Value Called By Crit Value Read Back Blood Gas Notified Time Potassium Carbon Dioxide Anion Gap BUN Creatinine Est GFR ( Amer) Est GFR (Non-Af Amer) POC Glucose (mg/dL) Random Glucose Serum Osmolality Lactic Acid Calcium Phosphorus Magnesium Total Bilirubin Direct Bilirubin AST ALT Alkaline Phosphatase Total Creatine Kinase Total Protein Albumin Globulin Albumin/Globulin Ratio TSH 3rd Generation Venous Blood Potassium Urine Color Yellow Urine Clarity Cloudy Urine pH 6.0 Ur Specific [place] 1.013 Urine Protein 100 Urine Glucose (UA) Neg Urine Ketones Negative Urine Blood Large Urine Nitrate Negative Urine Bilirubin Negative Urine Urobilinogen 0.2-1.0 Ur Leukocyte Esterase Neg Urine RBC (Auto) 3 Urine Microscopic WBC 2 Amorphous Sediment Occ H Urine Bacteria Occ H Fluid Type CSF Volume CSF Appearance CSF WBC CSF RBC CSF Total Cell Counted CSF Neutrophils CSF Lymphocytes CSF Monos/Macrophages CSF Comment CSF Glucose CSF Total Protein Salicylates Urine Opiates Screen Positive H Urine Methadone Screen Negative Acetaminophen Ur Barbiturates Screen Negative Ur Phencyclidine Scrn Negative Ur Amphetamines Screen Negative U Benzodiazepines Scrn Negative U Oth Cocaine Metabols Negative U Cannabinoids Screen Negative Alcohol, Quantitative 23 H HSV Source Description 07/19/18 07/19/18 07/19/18 13:40 13:40 13:46 WBC RBC Hgb Hct MCV MCH MCHC RDW Plt Count MPV Neut % (Auto) Lymph % (Auto) [place] % (Auto) Eos % (Auto) Baso % (Auto) Neut # (Auto) Lymph # (Auto) [place] # (Auto) Eos # (Auto) Baso # (Auto) Neutrophils % (Manual) Band Neutrophils % Lymphocytes % (Manual) Monocytes % (Manual) Basophils % (Manual) Platelet Estimate Macrocytosis (manual) PT INR APTT pCO2 pO2 HCO3 ABG pH ABG Total CO2 ABG O2 Saturation ABG O2 Content ABG Base Excess ABG Hemoglobin ABG Carboxyhemoglobin POC ABG HHb (Measured) ABG Methemoglobin ABG O2 Capacity [place] Test VBG pH VBG pCO2 VBG HCO3 VBG Total CO2 VBG O2 Sat (Calc) VBG Base Excess VBG Potassium A-a O2 Difference Hgb O2 Saturation Sodium Chloride Glucose Lactate FiO2 Crit Value Called To Crit Value Called By Crit Value Read Back Blood Gas Notified Time Potassium Carbon Dioxide Anion Gap BUN Creatinine Est GFR ( Amer) Est GFR (Non-Af Amer) POC Glucose (mg/dL) 167 H Random Glucose Serum Osmolality Lactic Acid Calcium Phosphorus Magnesium Total Bilirubin Direct Bilirubin AST ALT Alkaline Phosphatase Total Creatine Kinase Total Protein Albumin Globulin Albumin/Globulin Ratio TSH 3rd Generation Venous Blood Potassium Urine Color Urine Clarity Urine pH Ur Specific [place] Urine Protein Urine Glucose (UA) Urine Ketones Urine Blood Urine Nitrate Urine Bilirubin Urine Urobilinogen Ur Leukocyte Esterase Urine RBC (Auto) Urine Microscopic WBC Amorphous Sediment Urine Bacteria Fluid Type Spinal fluid CSF Volume 2 H CSF Appearance Clear/colorless CSF WBC 3.0 CSF RBC 13.0 H CSF Total Cell Counted TEST NOT PERFORMED CSF Neutrophils 1 H CSF Lymphocytes 1.0 H CSF Monos/Macrophages 0 CSF Comment None CSF Glucose 51 CSF Total Protein 46.0 Salicylates Urine Opiates Screen Urine Methadone Screen Acetaminophen Ur Barbiturates Screen Ur Phencyclidine Scrn Ur Amphetamines Screen U Benzodiazepines Scrn U Oth Cocaine Metabols U Cannabinoids Screen Alcohol, Quantitative HSV Source Description 07/19/18 07/19/18 07/19/18 13:50 14:00 14:35 WBC RBC Hgb Hct MCV MCH MCHC RDW Plt Count MPV Neut % (Auto) Lymph % (Auto) [place] % (Auto) Eos % (Auto) Baso % (Auto) Neut # (Auto) Lymph # (Auto) [place] # (Auto) Eos # (Auto) Baso # (Auto) Neutrophils % (Manual) Band Neutrophils % Lymphocytes % (Manual) Monocytes % (Manual) Basophils % (Manual) Platelet Estimate Macrocytosis (manual) PT INR APTT pCO2 pO2 58 H HCO3 ABG pH ABG Total CO2 ABG O2 Saturation ABG O2 Content ABG Base Excess ABG Hemoglobin ABG Carboxyhemoglobin POC ABG HHb (Measured) ABG Methemoglobin ABG O2 Capacity [place] Test VBG pH 7.03 L* VBG pCO2 40 VBG HCO3 9.0 VBG Total CO2 11.8 L VBG O2 Sat (Calc) 90.5 H VBG Base Excess -19.6 L VBG Potassium 7.9 H* A-a O2 Difference Hgb O2 Saturation Sodium 137.0 143 Chloride 108.0 H 110 H Glucose 201 H Lactate 10.0 H* FiO2 21.0 Crit Value Called To Dwain almazan Crit Value Called By 23 Crit Value Read Back Y Blood Gas Notified Time 1355 Potassium 8.2 H* Carbon Dioxide 19 L Anion Gap 22 H BUN 36 H Creatinine 3.2 H Est GFR ( Amer) 28 Est GFR (Non-Af Amer) 23 POC Glucose (mg/dL) Random Glucose 163 H Serum Osmolality Lactic Acid Calcium 5.6 L* Phosphorus Magnesium Total Bilirubin 0.3 Direct Bilirubin AST 71418 H ALT 7913 H Alkaline Phosphatase 40 Total Creatine Kinase 05205 H Total Protein 5.8 L Albumin 3.2 L Globulin 2.6 Albumin/Globulin Ratio 1.2 TSH 3rd Generation Venous Blood Potassium 7.9 H* Urine Color Urine Clarity Urine pH Ur Specific [place] Urine Protein Urine Glucose (UA) Urine Ketones Urine Blood Urine Nitrate Urine Bilirubin Urine Urobilinogen Ur Leukocyte Esterase Urine RBC (Auto) Urine Microscopic WBC Amorphous Sediment Urine Bacteria Fluid Type CSF Volume CSF Appearance CSF WBC CSF RBC CSF Total Cell Counted CSF Neutrophils CSF Lymphocytes CSF Monos/Macrophages CSF Comment CSF Glucose CSF Total Protein Salicylates Urine Opiates Screen Urine Methadone Screen Acetaminophen Ur Barbiturates Screen Ur Phencyclidine Scrn Ur Amphetamines Screen U Benzodiazepines Scrn U Oth Cocaine Metabols U Cannabinoids Screen Alcohol, Quantitative < 10 HSV Source Description Fluid 07/19/18 07/19/1818 16:17 16:18 16:18 WBC RBC Hgb Hct MCV MCH MCHC RDW Plt Count MPV Neut % (Auto) Lymph % (Auto) [place] % (Auto) Eos % (Auto) Baso % (Auto) Neut # (Auto) Lymph # (Auto) [place] # (Auto) Eos # (Auto) Baso # (Auto) Neutrophils % (Manual) Band Neutrophils % Lymphocytes % (Manual) Monocytes % (Manual) Basophils % (Manual) Platelet Estimate Macrocytosis (manual) PT INR APTT pCO2 pO2 HCO3 ABG pH ABG Total CO2 ABG O2 Saturation ABG O2 Content ABG Base Excess ABG Hemoglobin ABG Carboxyhemoglobin POC ABG HHb (Measured) ABG Methemoglobin ABG O2 Capacity [place] Test VBG pH VBG pCO2 VBG HCO3 VBG Total CO2 VBG O2 Sat (Calc) VBG Base Excess VBG Potassium A-a O2 Difference Hgb O2 Saturation Sodium Chloride Glucose Lactate FiO2 Crit Value Called To Crit Value Called By Crit Value Read Back Blood Gas Notified Time Potassium Carbon Dioxide Anion Gap BUN Creatinine Est GFR ( Amer) Est GFR (Non-Af Amer) POC Glucose (mg/dL) Random Glucose Serum Osmolality 288 Lactic Acid Calcium Phosphorus Magnesium Total Bilirubin Direct Bilirubin AST ALT Alkaline Phosphatase Total Creatine Kinase Total Protein Albumin Globulin Albumin/Globulin Ratio TSH 3rd Generation Venous Blood Potassium Urine Color Urine Clarity Urine pH Ur Specific [place] Urine Protein Urine Glucose (UA) Urine Ketones Urine Blood Urine Nitrate Urine Bilirubin Urine Urobilinogen Ur Leukocyte Esterase Urine RBC (Auto) Urine Microscopic WBC Amorphous Sediment Urine Bacteria Fluid Type CSF Volume CSF Appearance CSF WBC CSF RBC CSF Total Cell Counted CSF Neutrophils CSF Lymphocytes CSF Monos/Macrophages CSF Comment CSF Glucose CSF Total Protein Salicylates < 1.0 Urine Opiates Screen Urine Methadone Screen Acetaminophen < 10.0 L Ur Barbiturates Screen Ur Phencyclidine Scrn Ur Amphetamines Screen U Benzodiazepines Scrn U Oth Cocaine Metabols U Cannabinoids Screen Alcohol, Quantitative HSV Source Description 07/19/18 07/19/18 07/19/18 16:37 17:25 17:25 WBC RBC Hgb Hct MCV MCH MCHC RDW Plt Count MPV Neut % (Auto) Lymph % (Auto) [place] % (Auto) Eos % (Auto) Baso % (Auto) Neut # (Auto) Lymph # (Auto) [place] # (Auto) Eos # (Auto) Baso # (Auto) Neutrophils % (Manual) Band Neutrophils % Lymphocytes % (Manual) Monocytes % (Manual) Basophils % (Manual) Platelet Estimate Macrocytosis (manual) PT 17.4 H INR 1.5 APTT 31.0 pCO2 pO2 HCO3 ABG pH ABG Total CO2 ABG O2 Saturation ABG O2 Content ABG Base Excess ABG Hemoglobin ABG Carboxyhemoglobin POC ABG HHb (Measured) ABG Methemoglobin ABG O2 Capacity [place] Test VBG pH VBG pCO2 VBG HCO3 VBG Total CO2 VBG O2 Sat (Calc) VBG Base Excess VBG Potassium A-a O2 Difference Hgb O2 Saturation Sodium 144 Chloride 112 H Glucose Lactate FiO2 Crit Value Called To Crit Value Called By Crit Value Read Back Blood Gas Notified Time Potassium 6.2 H* D Carbon Dioxide 18 L Anion Gap 20 BUN 39 H Creatinine 3.3 H Est GFR ( Amer) 27 Est GFR (Non-Af Amer) 22 POC Glucose (mg/dL) 185 H Random Glucose 184 H Serum Osmolality Lactic Acid Calcium 6.1 L Phosphorus 6.3 H Magnesium 1.8 Total Bilirubin 0.5 [place] 43219 H ALT 8256 H Alkaline Phosphatase 40 Total Creatine Kinase Total Protein 6.1 L Albumin 3.2 L Globulin 2.9 Albumin/Globulin Ratio 1.1 TSH 3rd Generation 0.75 Venous Blood Potassium Urine Color Urine Clarity Urine pH Ur Specific [place] Urine Protein Urine Glucose (UA) Urine Ketones Urine Blood Urine Nitrate Urine Bilirubin Urine Urobilinogen Ur Leukocyte Esterase Urine RBC (Auto) Urine Microscopic WBC Amorphous Sediment Urine Bacteria Fluid Type CSF Volume CSF Appearance CSF WBC CSF RBC CSF Total Cell Counted CSF Neutrophils CSF Lymphocytes CSF Monos/Macrophages CSF Comment CSF Glucose CSF Total Protein Salicylates Urine Opiates Screen Urine Methadone Screen Acetaminophen Ur Barbiturates Screen Ur Phencyclidine Scrn Ur Amphetamines Screen U Benzodiazepines Scrn U Oth Cocaine Metabols U Cannabinoids Screen Alcohol, Quantitative HSV Source Description 07/19/18 07/19/18 07/19/18 17:30 23:02 23:10 WBC RBC Hgb Hct MCV MCH MCHC RDW Plt Count MPV Neut % (Auto) Lymph % (Auto) [place] % (Auto) Eos % (Auto) Baso % (Auto) Neut # (Auto) Lymph # (Auto) [place] # (Auto) Eos # (Auto) Baso # (Auto) Neutrophils % (Manual) Band Neutrophils % Lymphocytes % (Manual) Monocytes % (Manual) Basophils % (Manual) Platelet Estimate Macrocytosis (manual) PT INR APTT pCO2 36 pO2 71 H 108 H HCO3 20.1 L ABG pH 7.33 L ABG Total CO2 20.1 L ABG O2 Saturation 99.0 H ABG O2 Content 17.8 ABG Base Excess -6.2 L ABG Hemoglobin 13.0 ABG Carboxyhemoglobin 1.0 POC ABG HHb (Measured) 1.0 ABG Methemoglobin 1.4 ABG O2 Capacity 18.0 [place] Test Yes VBG pH 7.25 L VBG pCO2 42 VBG HCO3 18.1 VBG Total CO2 19.7 L VBG O2 Sat (Calc) 96.8 H VBG Base Excess -8.5 L VBG Potassium 6.2 H* A-a O2 Difference 75.0 Hgb O2 Saturation 96.6 Sodium 142.0 Chloride 112.0 H Glucose 195 H Lactate 5.9 H* FiO2 21.0 32.0 Crit Value Called To Md bobbi gilbert Crit Value Called By 23 Crit Value Read Back Y Blood Gas Notified Time 1740 Potassium Carbon Dioxide Anion Gap BUN Creatinine Est GFR ( Amer) Est GFR (Non-Af Amer) POC Glucose (mg/dL) 180 H Random Glucose Serum Osmolality Lactic Acid Calcium Phosphorus Magnesium Total Bilirubin Direct Bilirubin AST ALT Alkaline Phosphatase Total Creatine Kinase Total Protein Albumin Globulin Albumin/Globulin Ratio TSH 3rd Generation Venous Blood Potassium 6.2 H* Urine Color Urine Clarity Urine pH Ur Specific [place] Urine Protein Urine Glucose (UA) Urine Ketones Urine Blood Urine Nitrate Urine Bilirubin Urine Urobilinogen Ur Leukocyte Esterase Urine RBC (Auto) Urine Microscopic WBC Amorphous Sediment Urine Bacteria Fluid Type CSF Volume CSF Appearance CSF WBC CSF RBC CSF Total Cell Counted CSF Neutrophils CSF Lymphocytes CSF Monos/Macrophages CSF Comment CSF Glucose CSF Total Protein Salicylates Urine Opiates Screen Urine Methadone Screen Acetaminophen Ur Barbiturates Screen Ur Phencyclidine Scrn Ur Amphetamines Screen U Benzodiazepines Scrn U Oth Cocaine Metabols U Cannabinoids Screen Alcohol, Quantitative HSV Source Description 07/19/18 07/20/18 07/20/18 23:44 04:30 04:30 WBC RBC Hgb Hct MCV MCH MCHC RDW Plt Count MPV Neut % (Auto) Lymph % (Auto) [place] % (Auto) Eos % (Auto) Baso % (Auto) Neut # (Auto) Lymph # (Auto) [place] # (Auto) Eos # (Auto) Baso # (Auto) Neutrophils % (Manual) Band Neutrophils % Lymphocytes % (Manual) Monocytes % (Manual) Basophils % (Manual) Platelet Estimate Macrocytosis (manual) PT INR APTT pCO2 pO2 HCO3 ABG pH ABG Total CO2 ABG O2 Saturation ABG O2 Content ABG Base Excess ABG Hemoglobin ABG Carboxyhemoglobin POC ABG HHb (Measured) ABG Methemoglobin ABG O2 Capacity [place] Test VBG pH VBG pCO2 VBG HCO3 VBG Total CO2 VBG O2 Sat (Calc) VBG Base Excess VBG Potassium A-a O2 Difference Hgb O2 Saturation Sodium 138 Chloride 102 Glucose Lactate FiO2 Crit Value Called To Crit Value Called By Crit Value Read Back Blood Gas Notified Time Potassium 4.0 Carbon Dioxide 25 Anion Gap 15 BUN 33 H Creatinine 2.5 H Est GFR ( Amer) 37 Est GFR (Non-Af Amer) 30 POC Glucose (mg/dL) Random Glucose 148 H Serum Osmolality Lactic Acid 2.5 H Calcium 6.9 L Phosphorus Magnesium Total Bilirubin 0.4 0.5 Direct Bilirubin 0.3 0.1 AST 36755 H ALT 8344 H Alkaline Phosphatase 41 38 Total Creatine Kinase Total Protein 6.0 L 5.7 L Albumin 3.3 L 3.0 L Globulin 2.8 2.7 Albumin/Globulin Ratio 1.2 1.1 TSH 3rd Generation Venous Blood Potassium Urine Color Urine Clarity Urine pH Ur Specific [place] Urine Protein Urine Glucose (UA) Urine Ketones Urine Blood Urine Nitrate Urine Bilirubin Urine Urobilinogen Ur Leukocyte Esterase Urine RBC (Auto) Urine Microscopic WBC Amorphous Sediment Urine Bacteria Fluid Type CSF Volume CSF Appearance CSF WBC CSF RBC CSF Total Cell Counted CSF Neutrophils CSF Lymphocytes CSF Monos/Macrophages CSF Comment CSF Glucose CSF Total Protein Salicylates Urine Opiates Screen Urine Methadone Screen Acetaminophen Ur Barbiturates Screen Ur Phencyclidine Scrn Ur Amphetamines Screen U Benzodiazepines Scrn U Oth Cocaine Metabols U Cannabinoids Screen Alcohol, Quantitative HSV Source Description 07/20/18 04:43 WBC RBC Hgb Hct MCV MCH MCHC RDW Plt Count MPV Neut % (Auto) Lymph % (Auto) [place] % (Auto) Eos % (Auto) Baso % (Auto) Neut # (Auto) Lymph # (Auto) [place] # (Auto) Eos # (Auto) Baso # (Auto) Neutrophils % (Manual) Band Neutrophils % Lymphocytes % (Manual) Monocytes % (Manual) Basophils % (Manual) Platelet Estimate Macrocytosis (manual) PT INR APTT pCO2 pO2 HCO3 ABG pH ABG Total CO2 ABG O2 Saturation ABG O2 Content ABG Base Excess ABG Hemoglobin ABG Carboxyhemoglobin POC ABG HHb (Measured) ABG Methemoglobin ABG O2 Capacity [place] Test VBG pH VBG pCO2 VBG HCO3 VBG Total CO2 VBG O2 Sat (Calc) VBG Base Excess VBG Potassium A-a O2 Difference Hgb O2 Saturation Sodium Chloride Glucose Lactate FiO2 Crit Value Called To Crit Value Called By Crit Value Read Back Blood Gas Notified Time Potassium Carbon Dioxide Anion Gap BUN Creatinine Est GFR ( Amer) Est GFR (Non-Af Amer) POC Glucose (mg/dL) 147 H Random Glucose Serum Osmolality Lactic Acid Calcium Phosphorus Magnesium Total Bilirubin Direct Bilirubin AST ALT Alkaline Phosphatase Total Creatine Kinase Total Protein Albumin Globulin Albumin/Globulin Ratio TSH 3rd Generation Venous Blood Potassium Urine Color Urine Clarity Urine pH Ur Specific [place] Urine Protein Urine Glucose (UA) Urine Ketones Urine Blood Urine Nitrate Urine Bilirubin Urine Urobilinogen Ur Leukocyte Esterase Urine RBC (Auto) Urine Microscopic WBC Amorphous Sediment Urine Bacteria Fluid Type CSF Volume CSF Appearance CSF WBC CSF RBC CSF Total Cell Counted CSF Neutrophils CSF Lymphocytes CSF Monos/Macrophages CSF Comment CSF Glucose CSF Total Protein Salicylates Urine Opiates Screen Urine Methadone Screen Acetaminophen Ur Barbiturates Screen Ur Phencyclidine Scrn Ur Amphetamines Screen U Benzodiazepines Scrn U Oth Cocaine Metabols U Cannabinoids Screen Alcohol, Quantitative HSV Source Description Assessment & Plan (1) ARF (acute renal failure) Assessment and Plan: Acute kidney injury perhaps related to multifactoria Rule out rhabdomyolysis Rule out ethylen glycol intoxication (antifreeze)?? Hyperkalemia Abnormal liver function test which very elevated High CPK Metabolic acidosis which has been improving Commendation Patient completed hemodialysis early this morning Patient may need more dialysis depends on the blood test Hyperkalemia treated in the emergency room and with dialysis The case has been discussed with the emergency room physician to order serum osmolarity and to calculate serum osmolarity as well and to see if there is any difference between the measured osmolarity and calculated osmolarity Continue IV fluid Spot urine for myoglobin Spot urine for sodium osmolarity and creatinine Status: Acute Priority: High (2) Altered mental status Status: Acute Priority: High (3) Hyperkalemia Status: Acute Priority: High (4) Ingestion of toxic substance Status: Acute Priority: High (5) Septic shock Status: Acute Priority: High
--- NOTE | 2018-07-20 08:20 | CP.CCUPN ---
<Cristy Zuniga - Last Filed: 07/20/18 13:41> CCU Subjective - Physician Review Events Since Last Encounter (Free Text): 28 YO Male with psoriasis was admitted for AMS, substance abuse evaluation, CRISTINA, acute liver failure, rhabdomolysis and severe dehydration. Overnight pt underwent urgent dialysis for CRISTINA/Hyperkalemia. Pt is seen and examined by bedside this AM. Pt remains hemodynamically stable, afebrile. Pt is awake, alert and oriented x 3 Last thing pt remembers is being in a bar and watching a game. Pt states that he feels tried. Was seen getting out of bed and standing for a few mins with RN. No dizziness or associated nausea. Denies chest pain, dyspnea, palpitations, abdominal pain, back pain, n/v. Family present by bedside, all questions were answered. Consults: GI, Nephrology CCU Objective - Vital Signs / Intake & Output Vital Signs (Last 4 hours): Vital Signs Pulse Resp BP Pulse Ox 07/20/18 06:00 80 16 133/85 96 Intake and Output (Last 8hrs): Intake & Output 07/19/18 07/20/18 07/20/18 22:59 06:59 14:59 Intake Total 850 2740 Output Total 1800 Balance 850 940 Weight 88.195 kg Intake: IV 400 1400 Intake, Piggyback 450 1100 Oral 240 Output: Urine 1500 Urethral (Au) 1500 Ultrafiltrate 300 - Physical Exam Head: Positive for: Atraumatic, Normocephalic, Other (swelling of the L neck/jaw, no erythema or tenderness to palpation ) Pupils: Positive for: PERRL Extroacular Muscles: Positive for: EOMI Conjunctiva: Positive for: Normal Respiratory/Chest: Positive for: Clear to Auscultation. Negative for: Accessory Muscle Use, Wheezes Cardiovascular: Positive for: Regular Rate and Rhythm, Normal S1, S2 Abdomen: Positive for: Distention (mild), Normal Bowel Sounds. Negative for: Tenderness, Guarding Genitourinary Male: Positive for: Other (Au in place draining annmarie color urine) Upper Extremity: Negative for: Edema, Tenderness Lower Extremity: Positive for: Other (moving upper and lower ext b/l ) Skin: Positive for: Warm, Normal Color Psychiatric: Positive for: Alert, Oriented x 3 - Medications Active Medications: Active Medications Generic Name Dose Route Start Last Admin Trade Name Freq PRN Reason Stop Dose Admin Norepinephrine Bitartrate 4 mg 254 mls @ 9.53 mls/hr 07/19/18 14:15 07/19/18 14:45 / Dextrose IV 2.5 mcg/min .Q24H WAYNE 9.53 mls/hr Administration Protocol 2.5 MCG/MIN Sodium Chloride 1,000 mls @ 200 mls/hr 07/19/18 17:00 07/20/18 04:28 Sodium Chloride 0.9% IV 07/20/18 16:48 200 mls/hr .Q5H WAYNE Administration Piperacillin Sod/Tazobactam 100 mls @ 100 mls/hr 07/19/18 22:00 07/20/18 04:21 Sod 2.25 gm/ Sodium Chloride IVPB 100 mls/hr Q6 WAYNE Administration Protocol Ondansetron HCl 4 mg 07/19/18 16:26 Zofran Inj IVP Q6 PRN Nausea/Vomiting Pantoprazole Sodium 40 mg 07/20/18 09:00 Protonix Inj IVP DAILY WAYNE - Patient Studies Lab Studies: Microbiology Studies 07/19/18 13:40 Gram Stain - Final Cerebral Spinal Fluid Lab Studies 07/20/18 07/20/18 07/20/18 Range/Units 06:47 04:43 04:30 WBC 13.4 H D (4.8-10.8) K/uL RBC 4.15 L (4.40-5.90) Mil/uL Hgb 12.6 D (12.0-18.0) g/dL Hct 38.1 (35.0-51.0) % MCV 91.7 D (80.0-94.0) fl MCH 30.2 (27.0-31.0) pg MCHC 33.0 (33.0-37.0) g/dL RDW 12.6 (11.5-14.5) % Plt Count 96 L D (130-400) K/uL MPV 8.5 (7.2-11.7) fl Neut % (Auto) 90.5 H (50.0-75.0) % Lymph % (Auto) 3.9 L (20.0-40.0) % Hardy % (Auto) 5.5 (0.0-10.0) % Eos % (Auto) 0.0 (0.0-4.0) % Baso % (Auto) 0.1 (0.0-2.0) % Neut # (Auto) 12.1 H (1.8-7.0) K/uL Lymph # (Auto) 0.5 L (1.0-4.3) K/uL Hardy # (Auto) 0.7 (0.0-0.8) K/uL Eos # (Auto) 0.0 (0.0-0.7) K/uL Baso # (Auto) 0.0 (0.0-0.2) K/uL Neutrophils % (Manual) (42-75) % Band Neutrophils % (0-2) % Lymphocytes % (Manual) (20-50) % Monocytes % (Manual) (0-10) % Basophils % (Manual) (0-2) % Platelet Estimate (NORMAL) Macrocytosis (manual) PT (9.8-13.1) Seconds INR APTT (25.6-37.1) Seconds pCO2 (35-45) mm/Hg pO2 (30-55) mm/Hg HCO3 (21-28) mmol/L ABG pH (7.35-7.45) ABG Total CO2 (22-28) mmol/L ABG O2 Saturation (95-98) % ABG O2 Content (15-23) ML/dL ABG Base Excess (-2.0-3.0) mmol/L ABG Hemoglobin (11.7-17.4) g/dL ABG Carboxyhemoglobin (0.5-1.5) % POC ABG HHb (Measured) (0.0-5.0) % ABG Methemoglobin (0.0-3.0) % ABG O2 Capacity (16-24) mL/dL [place] Test VBG pH (7.32-7.43) VBG pCO2 (40-60) mmHg VBG HCO3 mmol/L VBG Total CO2 (22-28) mmol/L VBG O2 Sat (Calc) (40-65) % VBG Base Excess (0.0-2.0) mmol/L VBG Potassium (3.6-5.2) mmol/L A-a O2 Difference mm/Hg Hgb O2 Saturation (95.0-98.0) % Sodium 138 (132-148) mmol/L Chloride 102 (98-107) mmol/L Glucose (75-110) mg/dL Lactate (0.7-2.1) mmol/L FiO2 % Crit Value Called To Crit Value Called By Crit Value Read Back Blood Gas Notified Time Potassium 4.0 (3.6-5.0) MMOL/L Carbon Dioxide 25 (22-30) mmol/L Anion Gap 15 (10-20) BUN 33 H (9-20) mg/dl Creatinine 2.5 H (0.8-1.5) mg/dl Est GFR ( Amer) 37 Est GFR (Non-Af Amer) 30 POC Glucose (mg/dL) 147 H (65-110) mg/dL Random Glucose 148 H (75-110) mg/dL Serum Osmolality (272-300) mosm/kg Lactic Acid (0.7-2.1) MMOL/L Calcium 6.9 L (8.4-10.2) mg/dL Phosphorus (2.5-4.5) mg/dl Magnesium (1.6-2.3) MG/DL Total Bilirubin 0.5 (0.2-1.3) mg/dl Direct Bilirubin 0.1 (0.0-0.4) mg/ml AST 50764 H (17-59) U/L ALT 7027 H (21-72) U/L Alkaline Phosphatase 38 (38-126) U/L Total Creatine Kinase (55-170) U/L Total Protein 5.7 L (6.3-8.2) G/DL Albumin 3.0 L (3.5-5.0) g/dL Globulin 2.7 (2.2-3.9) gm/dL Albumin/Globulin Ratio 1.1 (1.0-2.1) TSH 3rd Generation (0.46-4.68) mIU/ML Venous Blood Potassium (3.6-5.2) mmol/L Urine Color (YELLOW) Urine Clarity (Clear) Urine pH (5.0-8.0) Ur Specific [place] (1.003-1.030) Urine Protein (NEGATIVE) mg/dL Urine Glucose (UA) (NEGATIVE) mg/dL Urine Ketones (NEGATIVE) mg/dL Urine Blood (NEGATIVE) Urine Nitrate (NEGATIVE) Urine Bilirubin (NEGATIVE) Urine Urobilinogen (0.2-1.0) mg/dL Ur Leukocyte Esterase (Negative) Latrice/uL Urine RBC (Auto) (0-3) /hpf Urine Microscopic WBC (0-5) /hpf Amorphous Sediment (<OCC) /ul Urine Bacteria (<OCC) Fluid Type CSF Volume (0-1) mL CSF Appearance (CLEAR) CSF WBC (0.0-5.0) /mm3 CSF RBC (0.0-0.0) /mm3 CSF Total Cell Counted CSF Neutrophils (0-0) % CSF Lymphocytes (0-0) % CSF Monos/Macrophages (0-0) % CSF Comment CSF Glucose (40-70) mg/dL CSF Total Protein (12-60) mg/dL Salicylates mg/dl Urine Opiates Screen (NEGATIVE) Urine Methadone Screen (NEGATIVE) Acetaminophen (10.0-30.0) ug/ml Ur Barbiturates Screen (NEGATIVE) Ur Phencyclidine Scrn (NEGATIVE) Ur Amphetamines Screen (NEGATIVE) U Benzodiazepines Scrn (NEGATIVE) U Oth Cocaine Metabols (NEGATIVE) U Cannabinoids Screen (NEGATIVE) Alcohol, Quantitative (0-10) mg/dl HSV Source Description 07/20/18 07/19/18 07/19/18 Range/Units 04:30 23:44 23:10 WBC (4.8-10.8) K/uL RBC (4.40-5.90) Mil/uL Hgb (12.0-18.0) g/dL Hct (35.0-51.0) % MCV (80.0-94.0) fl MCH (27.0-31.0) pg MCHC (33.0-37.0) g/dL RDW (11.5-14.5) % Plt Count (130-400) K/uL MPV (7.2-11.7) fl Neut % (Auto) (50.0-75.0) % Lymph % (Auto) (20.0-40.0) % Hardy % (Auto) (0.0-10.0) % Eos % (Auto) (0.0-4.0) % Baso % (Auto) (0.0-2.0) % Neut # (Auto) (1.8-7.0) K/uL Lymph # (Auto) (1.0-4.3) K/uL Hardy # (Auto) (0.0-0.8) K/uL Eos # (Auto) (0.0-0.7) K/uL Baso # (Auto) (0.0-0.2) K/uL Neutrophils % (Manual) (42-75) % Band Neutrophils % (0-2) % Lymphocytes % (Manual) (20-50) % Monocytes % (Manual) (0-10) % Basophils % (Manual) (0-2) % Platelet Estimate (NORMAL) Macrocytosis (manual) PT (9.8-13.1) Seconds INR APTT (25.6-37.1) Seconds pCO2 36 (35-45) mm/Hg pO2 108 H (30-55) mm/Hg HCO3 20.1 L (21-28) mmol/L ABG pH 7.33 L (7.35-7.45) ABG Total CO2 20.1 L (22-28) mmol/L ABG O2 Saturation 99.0 H (95-98) % ABG O2 Content 17.8 (15-23) ML/dL ABG Base Excess -6.2 L (-2.0-3.0) mmol/L ABG Hemoglobin 13.0 (11.7-17.4) g/dL ABG Carboxyhemoglobin 1.0 (0.5-1.5) % POC ABG HHb (Measured) 1.0 (0.0-5.0) % ABG Methemoglobin 1.4 (0.0-3.0) % ABG O2 Capacity 18.0 (16-24) mL/dL [place] Test Yes VBG pH (7.32-7.43) VBG pCO2 (40-60) mmHg VBG HCO3 mmol/L VBG Total CO2 (22-28) mmol/L VBG O2 Sat (Calc) (40-65) % VBG Base Excess (0.0-2.0) mmol/L VBG Potassium (3.6-5.2) mmol/L A-a O2 Difference 75.0 mm/Hg Hgb O2 Saturation 96.6 (95.0-98.0) % Sodium (132-148) mmol/L Chloride (98-107) mmol/L Glucose (75-110) mg/dL Lactate (0.7-2.1) mmol/L FiO2 32.0 % Crit Value Called To Crit Value Called By Crit Value Read Back Blood Gas Notified Time Potassium (3.6-5.0) MMOL/L Carbon Dioxide (22-30) mmol/L Anion Gap (10-20) BUN (9-20) mg/dl Creatinine (0.8-1.5) mg/dl Est GFR ( Amer) Est GFR (Non-Af Amer) POC Glucose (mg/dL) (65-110) mg/dL Random Glucose (75-110) mg/dL Serum Osmolality (272-300) mosm/kg Lactic Acid 2.5 H (0.7-2.1) MMOL/L Calcium (8.4-10.2) mg/dL Phosphorus (2.5-4.5) mg/dl Magnesium (1.6-2.3) MG/DL Total Bilirubin 0.4 (0.2-1.3) mg/dl Direct Bilirubin 0.3 (0.0-0.4) mg/ml AST 85285 H (17-59) U/L ALT 8344 H (21-72) U/L Alkaline Phosphatase 41 (38-126) U/L Total Creatine Kinase (55-170) U/L Total Protein 6.0 L (6.3-8.2) G/DL Albumin 3.3 L (3.5-5.0) g/dL Globulin 2.8 (2.2-3.9) gm/dL Albumin/Globulin Ratio 1.2 (1.0-2.1) TSH 3rd Generation (0.46-4.68) mIU/ML Venous Blood Potassium (3.6-5.2) mmol/L Urine Color (YELLOW) Urine Clarity (Clear) Urine pH (5.0-8.0) Ur Specific [place] (1.003-1.030) Urine Protein (NEGATIVE) mg/dL Urine Glucose (UA) (NEGATIVE) mg/dL Urine Ketones (NEGATIVE) mg/dL Urine Blood (NEGATIVE) Urine Nitrate (NEGATIVE) Urine Bilirubin (NEGATIVE) Urine Urobilinogen (0.2-1.0) mg/dL Ur Leukocyte Esterase (Negative) Latrice/uL Urine RBC (Auto) (0-3) /hpf Urine Microscopic WBC (0-5) /hpf Amorphous Sediment (<OCC) /ul Urine Bacteria (<OCC) Fluid Type CSF Volume (0-1) mL CSF Appearance (CLEAR) CSF WBC (0.0-5.0) /mm3 CSF RBC (0.0-0.0) /mm3 CSF Total Cell Counted CSF Neutrophils (0-0) % CSF Lymphocytes (0-0) % CSF Monos/Macrophages (0-0) % CSF Comment CSF Glucose (40-70) mg/dL CSF Total Protein (12-60) mg/dL Salicylates mg/dl Urine Opiates Screen (NEGATIVE) Urine Methadone Screen (NEGATIVE) Acetaminophen (10.0-30.0) ug/ml Ur Barbiturates Screen (NEGATIVE) Ur Phencyclidine Scrn (NEGATIVE) Ur Amphetamines Screen (NEGATIVE) U Benzodiazepines Scrn (NEGATIVE) U Oth Cocaine Metabols (NEGATIVE) U Cannabinoids Screen (NEGATIVE) Alcohol, Quantitative (0-10) mg/dl HSV Source Description 07/19/18 07/19/18 07/19/18 Range/Units 23:02 17:30 17:25 WBC (4.8-10.8) K/uL RBC (4.40-5.90) Mil/uL Hgb (12.0-18.0) g/dL Hct (35.0-51.0) % MCV (80.0-94.0) fl MCH (27.0-31.0) pg MCHC (33.0-37.0) g/dL RDW (11.5-14.5) % Plt Count (130-400) K/uL MPV (7.2-11.7) fl Neut % (Auto) (50.0-75.0) % Lymph % (Auto) (20.0-40.0) % Hardy % (Auto) (0.0-10.0) % Eos % (Auto) (0.0-4.0) % Baso % (Auto) (0.0-2.0) % Neut # (Auto) (1.8-7.0) K/uL Lymph # (Auto) (1.0-4.3) K/uL Hardy # (Auto) (0.0-0.8) K/uL Eos # (Auto) (0.0-0.7) K/uL Baso # (Auto) (0.0-0.2) K/uL Neutrophils % (Manual) (42-75) % Band Neutrophils % (0-2) % Lymphocytes % (Manual) (20-50) % Monocytes % (Manual) (0-10) % Basophils % (Manual) (0-2) % Platelet Estimate (NORMAL) Macrocytosis (manual) PT 17.4 H (9.8-13.1) Seconds INR 1.5 APTT 31.0 (25.6-37.1) Seconds pCO2 (35-45) mm/Hg pO2 71 H (30-55) mm/Hg HCO3 (21-28) mmol/L ABG pH (7.35-7.45) ABG Total CO2 (22-28) mmol/L ABG O2 Saturation (95-98) % ABG O2 Content (15-23) ML/dL ABG Base Excess (-2.0-3.0) mmol/L ABG Hemoglobin (11.7-17.4) g/dL ABG Carboxyhemoglobin (0.5-1.5) % POC ABG HHb (Measured) (0.0-5.0) % ABG Methemoglobin (0.0-3.0) % ABG O2 Capacity (16-24) mL/dL [place] Test VBG pH 7.25 L (7.32-7.43) VBG pCO2 42 (40-60) mmHg VBG HCO3 18.1 mmol/L VBG Total CO2 19.7 L (22-28) mmol/L VBG O2 Sat (Calc) 96.8 H (40-65) % VBG Base Excess -8.5 L (0.0-2.0) mmol/L VBG Potassium 6.2 H* (3.6-5.2) mmol/L A-a O2 Difference mm/Hg Hgb O2 Saturation (95.0-98.0) % Sodium 142.0 (132-148) mmol/L Chloride 112.0 H (98-107) mmol/L Glucose 195 H (75-110) mg/dL Lactate 5.9 H* (0.7-2.1) mmol/L FiO2 21.0 % Crit Value Called To Md bobbi gilbert Crit Value Called By 23 Crit Value Read Back Y Blood Gas Notified Time 1740 Potassium (3.6-5.0) MMOL/L Carbon Dioxide (22-30) mmol/L Anion Gap (10-20) BUN (9-20) mg/dl Creatinine (0.8-1.5) mg/dl Est GFR ( Amer) Est GFR (Non-Af Amer) POC Glucose (mg/dL) 180 H (65-110) mg/dL Random Glucose (75-110) mg/dL Serum Osmolality (272-300) mosm/kg Lactic Acid (0.7-2.1) MMOL/L Calcium (8.4-10.2) mg/dL Phosphorus (2.5-4.5) mg/dl Magnesium (1.6-2.3) MG/DL Total Bilirubin (0.2-1.3) mg/dl Direct Bilirubin (0.0-0.4) mg/ml AST (17-59) U/L ALT (21-72) U/L Alkaline Phosphatase (38-126) U/L Total Creatine Kinase (55-170) U/L Total Protein (6.3-8.2) G/DL Albumin (3.5-5.0) g/dL Globulin (2.2-3.9) gm/dL Albumin/Globulin Ratio (1.0-2.1) TSH 3rd Generation (0.46-4.68) mIU/ML Venous Blood Potassium 6.2 H* (3.6-5.2) mmol/L Urine Color (YELLOW) Urine Clarity (Clear) Urine pH (5.0-8.0) Ur Specific [place] (1.003-1.030) Urine Protein (NEGATIVE) mg/dL Urine Glucose (UA) (NEGATIVE) mg/dL Urine Ketones (NEGATIVE) mg/dL Urine Blood (NEGATIVE) Urine Nitrate (NEGATIVE) Urine Bilirubin (NEGATIVE) Urine Urobilinogen (0.2-1.0) mg/dL Ur Leukocyte Esterase (Negative) Latrice/uL Urine RBC (Auto) (0-3) /hpf Urine Microscopic WBC (0-5) /hpf Amorphous Sediment (<OCC) /ul Urine Bacteria (<OCC) Fluid Type CSF Volume (0-1) mL CSF Appearance (CLEAR) CSF WBC (0.0-5.0) /mm3 CSF RBC (0.0-0.0) /mm3 CSF Total Cell Counted CSF Neutrophils (0-0) % CSF Lymphocytes (0-0) % CSF Monos/Macrophages (0-0) % CSF Comment CSF Glucose (40-70) mg/dL CSF Total Protein (12-60) mg/dL Salicylates mg/dl Urine Opiates Screen (NEGATIVE) Urine Methadone Screen (NEGATIVE) Acetaminophen (10.0-30.0) ug/ml Ur Barbiturates Screen (NEGATIVE) Ur Phencyclidine Scrn (NEGATIVE) Ur Amphetamines Screen (NEGATIVE) U Benzodiazepines Scrn (NEGATIVE) U Oth Cocaine Metabols (NEGATIVE) U Cannabinoids Screen (NEGATIVE) Alcohol, Quantitative (0-10) mg/dl HSV Source Description 07/19/18 07/19/18 07/19/18 Range/Units 17:25 16:37 16:18 WBC (4.8-10.8) K/uL RBC (4.40-5.90) Mil/uL Hgb (12.0-18.0) g/dL Hct (35.0-51.0) % MCV (80.0-94.0) fl MCH (27.0-31.0) pg MCHC (33.0-37.0) g/dL RDW (11.5-14.5) % Plt Count (130-400) K/uL MPV (7.2-11.7) fl Neut % (Auto) (50.0-75.0) % Lymph % (Auto) (20.0-40.0) % Hardy % (Auto) (0.0-10.0) % Eos % (Auto) (0.0-4.0) % Baso % (Auto) (0.0-2.0) % Neut # (Auto) (1.8-7.0) K/uL Lymph # (Auto) (1.0-4.3) K/uL Hardy # (Auto) (0.0-0.8) K/uL Eos # (Auto) (0.0-0.7) K/uL Baso # (Auto) (0.0-0.2) K/uL Neutrophils % (Manual) (42-75) % Band Neutrophils % (0-2) % Lymphocytes % (Manual) (20-50) % Monocytes % (Manual) (0-10) % Basophils % (Manual) (0-2) % Platelet Estimate (NORMAL) Macrocytosis (manual) PT (9.8-13.1) Seconds INR APTT (25.6-37.1) Seconds pCO2 (35-45) mm/Hg pO2 (30-55) mm/Hg HCO3 (21-28) mmol/L ABG pH (7.35-7.45) ABG Total CO2 (22-28) mmol/L ABG O2 Saturation (95-98) % ABG O2 Content (15-23) ML/dL ABG Base Excess (-2.0-3.0) mmol/L ABG Hemoglobin (11.7-17.4) g/dL ABG Carboxyhemoglobin (0.5-1.5) % POC ABG HHb (Measured) (0.0-5.0) % ABG Methemoglobin (0.0-3.0) % ABG O2 Capacity (16-24) mL/dL [place] Test VBG pH (7.32-7.43) VBG pCO2 (40-60) mmHg VBG HCO3 mmol/L VBG Total CO2 (22-28) mmol/L VBG O2 Sat (Calc) (40-65) % VBG Base Excess (0.0-2.0) mmol/L VBG Potassium (3.6-5.2) mmol/L A-a O2 Difference mm/Hg Hgb O2 Saturation (95.0-98.0) % Sodium 144 (132-148) mmol/L Chloride 112 H (98-107) mmol/L Glucose (75-110) mg/dL Lactate (0.7-2.1) mmol/L FiO2 % Crit Value Called To Crit Value Called By Crit Value Read Back Blood Gas Notified Time Potassium 6.2 H* D (3.6-5.0) MMOL/L Carbon Dioxide 18 L (22-30) mmol/L Anion Gap 20 (10-20) BUN 39 H (9-20) mg/dl Creatinine 3.3 H (0.8-1.5) mg/dl Est GFR ( Amer) 27 Est GFR (Non-Af Amer) 22 POC Glucose (mg/dL) 185 H (65-110) mg/dL Random Glucose 184 H (75-110) mg/dL Serum Osmolality 288 (272-300) mosm/kg Lactic Acid (0.7-2.1) MMOL/L Calcium 6.1 L (8.4-10.2) mg/dL Phosphorus 6.3 H (2.5-4.5) mg/dl Magnesium 1.8 (1.6-2.3) MG/DL Total Bilirubin 0.5 (0.2-1.3) mg/dl Direct Bilirubin (0.0-0.4) mg/ml AST 33937 H (17-59) U/L ALT 8256 H (21-72) U/L Alkaline Phosphatase 40 (38-126) U/L Total Creatine Kinase (55-170) U/L Total Protein 6.1 L (6.3-8.2) G/DL Albumin 3.2 L (3.5-5.0) g/dL Globulin 2.9 (2.2-3.9) gm/dL Albumin/Globulin Ratio 1.1 (1.0-2.1) TSH 3rd Generation 0.75 (0.46-4.68) mIU/ML Venous Blood Potassium (3.6-5.2) mmol/L Urine Color (YELLOW) Urine Clarity (Clear) Urine pH (5.0-8.0) Ur Specific [place] (1.003-1.030) Urine Protein (NEGATIVE) mg/dL Urine Glucose (UA) (NEGATIVE) mg/dL Urine Ketones (NEGATIVE) mg/dL Urine Blood (NEGATIVE) Urine Nitrate (NEGATIVE) Urine Bilirubin (NEGATIVE) Urine Urobilinogen (0.2-1.0) mg/dL Ur Leukocyte Esterase (Negative) Latrice/uL Urine RBC (Auto) (0-3) /hpf Urine Microscopic WBC (0-5) /hpf Amorphous Sediment (<OCC) /ul Urine Bacteria (<OCC) Fluid Type CSF Volume (0-1) mL CSF Appearance (CLEAR) CSF WBC (0.0-5.0) /mm3 CSF RBC (0.0-0.0) /mm3 CSF Total Cell Counted CSF Neutrophils (0-0) % CSF Lymphocytes (0-0) % CSF Monos/Macrophages (0-0) % CSF Comment CSF Glucose (40-70) mg/dL CSF Total Protein (12-60) mg/dL Salicylates mg/dl Urine Opiates Screen (NEGATIVE) Urine Methadone Screen (NEGATIVE) Acetaminophen (10.0-30.0) ug/ml Ur Barbiturates Screen (NEGATIVE) Ur Phencyclidine Scrn (NEGATIVE) Ur Amphetamines Screen (NEGATIVE) U Benzodiazepines Scrn (NEGATIVE) U Oth Cocaine Metabols (NEGATIVE) U Cannabinoids Screen (NEGATIVE) Alcohol, Quantitative (0-10) mg/dl HSV Source Description 07/19/18 07/19/18 07/19/18 Range/Units 16:18 16:17 14:35 WBC (4.8-10.8) K/uL RBC (4.40-5.90) Mil/uL Hgb (12.0-18.0) g/dL Hct (35.0-51.0) % MCV (80.0-94.0) fl MCH (27.0-31.0) pg MCHC (33.0-37.0) g/dL RDW (11.5-14.5) % Plt Count (130-400) K/uL MPV (7.2-11.7) fl Neut % (Auto) (50.0-75.0) % Lymph % (Auto) (20.0-40.0) % Hardy % (Auto) (0.0-10.0) % Eos % (Auto) (0.0-4.0) % Baso % (Auto) (0.0-2.0) % Neut # (Auto) (1.8-7.0) K/uL Lymph # (Auto) (1.0-4.3) K/uL [place] # (Auto) (0.0-0.8) K/uL Eos # (Auto) (0.0-0.7) K/uL Baso # (Auto) (0.0-0.2) K/uL Neutrophils % (Manual) (42-75) % Band Neutrophils % (0-2) % Lymphocytes % (Manual) (20-50) % Monocytes % (Manual) (0-10) % Basophils % (Manual) (0-2) % Platelet Estimate (NORMAL) Macrocytosis (manual) PT (9.8-13.1) Seconds INR APTT (25.6-37.1) Seconds pCO2 (35-45) mm/Hg pO2 (30-55) mm/Hg HCO3 (21-28) mmol/L ABG pH (7.35-7.45) ABG Total CO2 (22-28) mmol/L ABG O2 Saturation (95-98) % ABG O2 Content (15-23) ML/dL ABG Base Excess (-2.0-3.0) mmol/L ABG Hemoglobin (11.7-17.4) g/dL ABG Carboxyhemoglobin (0.5-1.5) % POC ABG HHb (Measured) (0.0-5.0) % ABG Methemoglobin (0.0-3.0) % ABG O2 Capacity (16-24) mL/dL [place] Test VBG pH (7.32-7.43) VBG pCO2 (40-60) mmHg VBG HCO3 mmol/L VBG Total CO2 (22-28) mmol/L VBG O2 Sat (Calc) (40-65) % VBG Base Excess (0.0-2.0) mmol/L VBG Potassium (3.6-5.2) mmol/L A-a O2 Difference mm/Hg Hgb O2 Saturation (95.0-98.0) % Sodium 143 (132-148) mmol/L Chloride 110 H (98-107) mmol/L Glucose (75-110) mg/dL Lactate (0.7-2.1) mmol/L FiO2 % Crit Value Called To Crit Value Called By Crit Value Read Back Blood Gas Notified Time Potassium 8.2 H* (3.6-5.0) MMOL/L Carbon Dioxide 19 L (22-30) mmol/L Anion Gap 22 H (10-20) BUN 36 H (9-20) mg/dl Creatinine 3.2 H (0.8-1.5) mg/dl Est GFR ( Amer) 28 Est GFR (Non-Af Amer) 23 POC Glucose (mg/dL) (65-110) mg/dL Random Glucose 163 H (75-110) mg/dL Serum Osmolality (272-300) mosm/kg Lactic Acid (0.7-2.1) MMOL/L Calcium 5.6 L* (8.4-10.2) mg/dL Phosphorus (2.5-4.5) mg/dl Magnesium (1.6-2.3) MG/DL Total Bilirubin 0.3 (0.2-1.3) mg/dl Direct Bilirubin (0.0-0.4) mg/ml AST 51624 H (17-59) U/L ALT 7913 H (21-72) U/L Alkaline Phosphatase 40 (38-126) U/L Total Creatine Kinase 88943 H (55-170) U/L Total Protein 5.8 L (6.3-8.2) G/DL Albumin 3.2 L (3.5-5.0) g/dL Globulin 2.6 (2.2-3.9) gm/dL Albumin/Globulin Ratio 1.2 (1.0-2.1) TSH 3rd Generation (0.46-4.68) mIU/ML Venous Blood Potassium (3.6-5.2) mmol/L Urine Color (YELLOW) Urine Clarity (Clear) Urine pH (5.0-8.0) Ur Specific [place] (1.003-1.030) Urine Protein (NEGATIVE) mg/dL Urine Glucose (UA) (NEGATIVE) mg/dL Urine Ketones (NEGATIVE) mg/dL Urine Blood (NEGATIVE) Urine Nitrate (NEGATIVE) Urine Bilirubin (NEGATIVE) Urine Urobilinogen (0.2-1.0) mg/dL Ur Leukocyte Esterase (Negative) Latrice/uL Urine RBC (Auto) (0-3) /hpf Urine Microscopic WBC (0-5) /hpf Amorphous Sediment (<OCC) /ul Urine Bacteria (<OCC) Fluid Type CSF Volume (0-1) mL CSF Appearance (CLEAR) CSF WBC (0.0-5.0) /mm3 CSF RBC (0.0-0.0) /mm3 CSF Total Cell Counted CSF Neutrophils (0-0) % CSF Lymphocytes (0-0) % CSF Monos/Macrophages (0-0) % CSF Comment CSF Glucose (40-70) mg/dL CSF Total Protein (12-60) mg/dL Salicylates < 1.0 mg/dl Urine Opiates Screen (NEGATIVE) Urine Methadone Screen (NEGATIVE) Acetaminophen < 10.0 L (10.0-30.0) ug/ml Ur Barbiturates Screen (NEGATIVE) Ur Phencyclidine Scrn (NEGATIVE) Ur Amphetamines Screen (NEGATIVE) U Benzodiazepines Scrn (NEGATIVE) U Oth Cocaine Metabols (NEGATIVE) U Cannabinoids Screen (NEGATIVE) Alcohol, Quantitative < 10 (0-10) mg/dl HSV Source Description 07/19/18 07/19/18 07/19/18 Range/Units 14:00 13:50 13:46 WBC (4.8-10.8) K/uL RBC (4.40-5.90) Mil/uL Hgb (12.0-18.0) g/dL Hct (35.0-51.0) % MCV (80.0-94.0) fl MCH (27.0-31.0) pg MCHC (33.0-37.0) g/dL RDW (11.5-14.5) % Plt Count (130-400) K/uL MPV (7.2-11.7) fl Neut % (Auto) (50.0-75.0) % Lymph % (Auto) (20.0-40.0) % Hardy % (Auto) (0.0-10.0) % Eos % (Auto) (0.0-4.0) % Baso % (Auto) (0.0-2.0) % Neut # (Auto) (1.8-7.0) K/uL Lymph # (Auto) (1.0-4.3) K/uL Hardy # (Auto) (0.0-0.8) K/uL Eos # (Auto) (0.0-0.7) K/uL Baso # (Auto) (0.0-0.2) K/uL Neutrophils % (Manual) (42-75) % Band Neutrophils % (0-2) % Lymphocytes % (Manual) (20-50) % Monocytes % (Manual) (0-10) % Basophils % (Manual) (0-2) % Platelet Estimate (NORMAL) Macrocytosis (manual) PT (9.8-13.1) Seconds INR APTT (25.6-37.1) Seconds pCO2 (35-45) mm/Hg pO2 58 H (30-55) mm/Hg HCO3 (21-28) mmol/L ABG pH (7.35-7.45) ABG Total CO2 (22-28) mmol/L ABG O2 Saturation (95-98) % ABG O2 Content (15-23) ML/dL ABG Base Excess (-2.0-3.0) mmol/L ABG Hemoglobin (11.7-17.4) g/dL ABG Carboxyhemoglobin (0.5-1.5) % POC ABG HHb (Measured) (0.0-5.0) % ABG Methemoglobin (0.0-3.0) % ABG O2 Capacity (16-24) mL/dL [place] Test VBG pH 7.03 L* (7.32-7.43) VBG pCO2 40 (40-60) mmHg VBG HCO3 9.0 mmol/L VBG Total CO2 11.8 L (22-28) mmol/L VBG O2 Sat (Calc) 90.5 H (40-65) % VBG Base Excess -19.6 L (0.0-2.0) mmol/L VBG Potassium 7.9 H* (3.6-5.2) mmol/L A-a O2 Difference mm/Hg Hgb O2 Saturation (95.0-98.0) % Sodium 137.0 (132-148) mmol/L Chloride 108.0 H (98-107) mmol/L Glucose 201 H (75-110) mg/dL Lactate 10.0 H* (0.7-2.1) mmol/L FiO2 21.0 % Crit Value Called To Dwain almazan Crit Value Called By 23 Crit Value Read Back Y Blood Gas Notified Time 1355 Potassium (3.6-5.0) MMOL/L Carbon Dioxide (22-30) mmol/L Anion Gap (10-20) BUN (9-20) mg/dl Creatinine (0.8-1.5) mg/dl Est GFR ( Amer) Est GFR (Non-Af Amer) POC Glucose (mg/dL) 167 H (65-110) mg/dL Random Glucose (75-110) mg/dL Serum Osmolality (272-300) mosm/kg Lactic Acid (0.7-2.1) MMOL/L Calcium (8.4-10.2) mg/dL Phosphorus (2.5-4.5) mg/dl Magnesium (1.6-2.3) MG/DL Total Bilirubin (0.2-1.3) mg/dl Direct Bilirubin (0.0-0.4) mg/ml AST (17-59) U/L ALT (21-72) U/L Alkaline Phosphatase (38-126) U/L Total Creatine Kinase (55-170) U/L Total Protein (6.3-8.2) G/DL Albumin (3.5-5.0) g/dL Globulin (2.2-3.9) gm/dL Albumin/Globulin Ratio (1.0-2.1) TSH 3rd Generation (0.46-4.68) mIU/ML Venous Blood Potassium 7.9 H* (3.6-5.2) mmol/L Urine Color (YELLOW) Urine Clarity (Clear) Urine pH (5.0-8.0) Ur Specific [place] (1.003-1.030) Urine Protein (NEGATIVE) mg/dL Urine Glucose (UA) (NEGATIVE) mg/dL Urine Ketones (NEGATIVE) mg/dL Urine Blood (NEGATIVE) Urine Nitrate (NEGATIVE) Urine Bilirubin (NEGATIVE) Urine Urobilinogen (0.2-1.0) mg/dL Ur Leukocyte Esterase (Negative) Latrice/uL Urine RBC (Auto) (0-3) /hpf Urine Microscopic WBC (0-5) /hpf Amorphous Sediment (<OCC) /ul Urine Bacteria (<OCC) Fluid Type CSF Volume (0-1) mL CSF Appearance (CLEAR) CSF WBC (0.0-5.0) /mm3 CSF RBC (0.0-0.0) /mm3 CSF Total Cell Counted CSF Neutrophils (0-0) % CSF Lymphocytes (0-0) % CSF Monos/Macrophages (0-0) % CSF Comment CSF Glucose (40-70) mg/dL CSF Total Protein (12-60) mg/dL Salicylates mg/dl Urine Opiates Screen (NEGATIVE) Urine Methadone Screen (NEGATIVE) Acetaminophen (10.0-30.0) ug/ml Ur Barbiturates Screen (NEGATIVE) Ur Phencyclidine Scrn (NEGATIVE) Ur Amphetamines Screen (NEGATIVE) U Benzodiazepines Scrn (NEGATIVE) U Oth Cocaine Metabols (NEGATIVE) U Cannabinoids Screen (NEGATIVE) Alcohol, Quantitative (0-10) mg/dl HSV Source Description Fluid 07/19/18 07/19/18 07/19/18 Range/Units 13:40 13:40 13:20 WBC (4.8-10.8) K/uL RBC (4.40-5.90) Mil/uL Hgb (12.0-18.0) g/dL Hct (35.0-51.0) % MCV (80.0-94.0) fl MCH (27.0-31.0) pg MCHC (33.0-37.0) g/dL RDW (11.5-14.5) % Plt Count (130-400) K/uL MPV (7.2-11.7) fl Neut % (Auto) (50.0-75.0) % Lymph % (Auto) (20.0-40.0) % Hardy % (Auto) (0.0-10.0) % Eos % (Auto) (0.0-4.0) % Baso % (Auto) (0.0-2.0) % Neut # (Auto) (1.8-7.0) K/uL Lymph # (Auto) (1.0-4.3) K/uL Hardy # (Auto) (0.0-0.8) K/uL Eos # (Auto) (0.0-0.7) K/uL Baso # (Auto) (0.0-0.2) K/uL Neutrophils % (Manual) (42-75) % Band Neutrophils % (0-2) % Lymphocytes % (Manual) (20-50) % Monocytes % (Manual) (0-10) % Basophils % (Manual) (0-2) % Platelet Estimate (NORMAL) Macrocytosis (manual) PT (9.8-13.1) Seconds INR APTT (25.6-37.1) Seconds pCO2 (35-45) mm/Hg pO2 (30-55) mm/Hg HCO3 (21-28) mmol/L ABG pH (7.35-7.45) ABG Total CO2 (22-28) mmol/L ABG O2 Saturation (95-98) % ABG O2 Content (15-23) ML/dL ABG Base Excess (-2.0-3.0) mmol/L ABG Hemoglobin (11.7-17.4) g/dL ABG Carboxyhemoglobin (0.5-1.5) % POC ABG HHb (Measured) (0.0-5.0) % ABG Methemoglobin (0.0-3.0) % ABG O2 Capacity (16-24) mL/dL [place] Test VBG pH (7.32-7.43) VBG pCO2 (40-60) mmHg VBG HCO3 mmol/L VBG Total CO2 (22-28) mmol/L VBG O2 Sat (Calc) (40-65) % VBG Base Excess (0.0-2.0) mmol/L VBG Potassium (3.6-5.2) mmol/L A-a O2 Difference mm/Hg Hgb O2 Saturation (95.0-98.0) % Sodium (132-148) mmol/L Chloride (98-107) mmol/L Glucose (75-110) mg/dL Lactate (0.7-2.1) mmol/L FiO2 % Crit Value Called To Crit Value Called By Crit Value Read Back Blood Gas Notified Time Potassium (3.6-5.0) MMOL/L Carbon Dioxide (22-30) mmol/L Anion Gap (10-20) BUN (9-20) mg/dl Creatinine (0.8-1.5) mg/dl Est GFR ( Amer) Est GFR (Non-Af Amer) POC Glucose (mg/dL) (65-110) mg/dL Random Glucose (75-110) mg/dL Serum Osmolality (272-300) mosm/kg Lactic Acid (0.7-2.1) MMOL/L Calcium (8.4-10.2) mg/dL Phosphorus (2.5-4.5) mg/dl Magnesium (1.6-2.3) MG/DL Total Bilirubin (0.2-1.3) mg/dl Direct Bilirubin (0.0-0.4) mg/ml AST (17-59) U/L ALT (21-72) U/L Alkaline Phosphatase (38-126) U/L Total Creatine Kinase (55-170) U/L Total Protein (6.3-8.2) G/DL Albumin (3.5-5.0) g/dL Globulin (2.2-3.9) gm/dL Albumin/Globulin Ratio (1.0-2.1) TSH 3rd Generation (0.46-4.68) mIU/ML Venous Blood Potassium (3.6-5.2) mmol/L Urine Color (YELLOW) Urine Clarity (Clear) Urine pH (5.0-8.0) Ur Specific [place] (1.003-1.030) Urine Protein (NEGATIVE) mg/dL Urine Glucose (UA) (NEGATIVE) mg/dL Urine Ketones (NEGATIVE) mg/dL Urine Blood (NEGATIVE) Urine Nitrate (NEGATIVE) Urine Bilirubin (NEGATIVE) Urine Urobilinogen (0.2-1.0) mg/dL Ur Leukocyte Esterase (Negative) Latrice/uL Urine RBC (Auto) (0-3) /hpf Urine Microscopic WBC (0-5) /hpf Amorphous Sediment (<OCC) /ul Urine Bacteria (<OCC) Fluid Type Spinal fluid CSF Volume 2 H (0-1) mL CSF Appearance Clear/colorless (CLEAR) CSF WBC 3.0 (0.0-5.0) /mm3 CSF RBC 13.0 H (0.0-0.0) /mm3 CSF Total Cell Counted TEST NOT PERFORMED CSF Neutrophils 1 H (0-0) % CSF Lymphocytes 1.0 H (0-0) % CSF Monos/Macrophages 0 (0-0) % CSF Comment None CSF Glucose 51 (40-70) mg/dL CSF Total Protein 46.0 (12-60) mg/dL Salicylates mg/dl Urine Opiates Screen (NEGATIVE) Urine Methadone Screen (NEGATIVE) Acetaminophen (10.0-30.0) ug/ml Ur Barbiturates Screen (NEGATIVE) Ur Phencyclidine Scrn (NEGATIVE) Ur Amphetamines Screen (NEGATIVE) U Benzodiazepines Scrn (NEGATIVE) U Oth Cocaine Metabols (NEGATIVE) U Cannabinoids Screen (NEGATIVE) Alcohol, Quantitative 23 H (0-10) mg/dl HSV Source Description 07/19/18 07/19/18 07/19/18 Range/Units 12:50 12:50 11:45 WBC (4.8-10.8) K/uL RBC (4.40-5.90) Mil/uL Hgb (12.0-18.0) g/dL Hct (35.0-51.0) % MCV (80.0-94.0) fl MCH (27.0-31.0) pg MCHC (33.0-37.0) g/dL RDW (11.5-14.5) % Plt Count (130-400) K/uL MPV (7.2-11.7) fl Neut % (Auto) (50.0-75.0) % Lymph % (Auto) (20.0-40.0) % Hardy % (Auto) (0.0-10.0) % Eos % (Auto) (0.0-4.0) % Baso % (Auto) (0.0-2.0) % Neut # (Auto) (1.8-7.0) K/uL Lymph # (Auto) (1.0-4.3) K/uL Hardy # (Auto) (0.0-0.8) K/uL Eos # (Auto) (0.0-0.7) K/uL Baso # (Auto) (0.0-0.2) K/uL Neutrophils % (Manual) (42-75) % Band Neutrophils % (0-2) % Lymphocytes % (Manual) (20-50) % Monocytes % (Manual) (0-10) % Basophils % (Manual) (0-2) % Platelet Estimate (NORMAL) Macrocytosis (manual) PT (9.8-13.1) Seconds INR APTT (25.6-37.1) Seconds pCO2 (35-45) mm/Hg pO2 (30-55) mm/Hg HCO3 (21-28) mmol/L ABG pH (7.35-7.45) ABG Total CO2 (22-28) mmol/L ABG O2 Saturation (95-98) % ABG O2 Content (15-23) ML/dL ABG Base Excess (-2.0-3.0) mmol/L ABG Hemoglobin (11.7-17.4) g/dL ABG Carboxyhemoglobin (0.5-1.5) % POC ABG HHb (Measured) (0.0-5.0) % ABG Methemoglobin (0.0-3.0) % ABG O2 Capacity (16-24) mL/dL [place] Test VBG pH (7.32-7.43) VBG pCO2 (40-60) mmHg VBG HCO3 mmol/L VBG Total CO2 (22-28) mmol/L VBG O2 Sat (Calc) (40-65) % VBG Base Excess (0.0-2.0) mmol/L VBG Potassium (3.6-5.2) mmol/L A-a O2 Difference mm/Hg Hgb O2 Saturation (95.0-98.0) % Sodium (132-148) mmol/L Chloride (98-107) mmol/L Glucose (75-110) mg/dL Lactate (0.7-2.1) mmol/L FiO2 % Crit Value Called To Crit Value Called By Crit Value Read Back Blood Gas Notified Time Potassium (3.6-5.0) MMOL/L Carbon Dioxide (22-30) mmol/L Anion Gap (10-20) BUN (9-20) mg/dl Creatinine (0.8-1.5) mg/dl Est GFR ( Amer) Est GFR (Non-Af Amer) POC Glucose (mg/dL) 162 H (65-110) mg/dL Random Glucose (75-110) mg/dL Serum Osmolality (272-300) mosm/kg Lactic Acid (0.7-2.1) MMOL/L Calcium (8.4-10.2) mg/dL Phosphorus (2.5-4.5) mg/dl Magnesium (1.6-2.3) MG/DL Total Bilirubin (0.2-1.3) mg/dl Direct Bilirubin (0.0-0.4) mg/ml AST (17-59) U/L ALT (21-72) U/L Alkaline Phosphatase (38-126) U/L Total Creatine Kinase (55-170) U/L Total Protein (6.3-8.2) G/DL Albumin (3.5-5.0) g/dL Globulin (2.2-3.9) gm/dL Albumin/Globulin Ratio (1.0-2.1) TSH 3rd Generation (0.46-4.68) mIU/ML Venous Blood Potassium (3.6-5.2) mmol/L Urine Color Yellow (YELLOW) Urine Clarity Cloudy (Clear) Urine pH 6.0 (5.0-8.0) Ur Specific [place] 1.013 (1.003-1.030) Urine Protein 100 (NEGATIVE) mg/dL Urine Glucose (UA) Neg (NEGATIVE) mg/dL Urine Ketones Negative (NEGATIVE) mg/dL Urine Blood Large (NEGATIVE) Urine Nitrate Negative (NEGATIVE) Urine Bilirubin Negative (NEGATIVE) Urine Urobilinogen 0.2-1.0 (0.2-1.0) mg/dL Ur Leukocyte Esterase Neg (Negative) Latrice/uL Urine RBC (Auto) 3 (0-3) /hpf Urine Microscopic WBC 2 (0-5) /hpf Amorphous Sediment Occ H (<OCC) /ul Urine Bacteria Occ H (<OCC) Fluid Type CSF Volume (0-1) mL CSF Appearance (CLEAR) CSF WBC (0.0-5.0) /mm3 CSF RBC (0.0-0.0) /mm3 CSF Total Cell Counted CSF Neutrophils (0-0) % CSF Lymphocytes (0-0) % CSF Monos/Macrophages (0-0) % CSF Comment CSF Glucose (40-70) mg/dL CSF Total Protein (12-60) mg/dL Salicylates mg/dl Urine Opiates Screen Positive H (NEGATIVE) Urine Methadone Screen Negative (NEGATIVE) Acetaminophen (10.0-30.0) ug/ml Ur Barbiturates Screen Negative (NEGATIVE) Ur Phencyclidine Scrn Negative (NEGATIVE) Ur Amphetamines Screen Negative (NEGATIVE) U Benzodiazepines Scrn Negative (NEGATIVE) U Oth Cocaine Metabols Negative (NEGATIVE) U Cannabinoids Screen Negative (NEGATIVE) Alcohol, Quantitative (0-10) mg/dl HSV Source Description 07/19/18 07/19/18 Range/Units 11:38 11:34 WBC 27.5 H (4.8-10.8) K/uL RBC 5.33 (4.40-5.90) Mil/uL Hgb 16.4 (12.0-18.0) g/dL Hct 54.4 H (35.0-51.0) % MCV 102.2 H (80.0-94.0) fl MCH 30.7 (27.0-31.0) pg MCHC 30.0 L (33.0-37.0) g/dL RDW 14.4 (11.5-14.5) % Plt Count 249 (130-400) K/uL MPV 9.3 (7.2-11.7) fl Neut % (Auto) 86.6 H (50.0-75.0) % Lymph % (Auto) 6.3 L (20.0-40.0) % Hardy % (Auto) 6.7 (0.0-10.0) % Eos % (Auto) 0.1 (0.0-4.0) % Baso % (Auto) 0.3 (0.0-2.0) % Neut # (Auto) 23.8 H (1.8-7.0) K/uL Lymph # (Auto) 1.7 (1.0-4.3) K/uL Hardy # (Auto) 1.8 H (0.0-0.8) K/uL Eos # (Auto) 0.0 (0.0-0.7) K/uL Baso # (Auto) 0.1 (0.0-0.2) K/uL Neutrophils % (Manual) 79 H (42-75) % Band Neutrophils % 3 H (0-2) % Lymphocytes % (Manual) 7 L (20-50) % Monocytes % (Manual) 10 (0-10) % Basophils % (Manual) 1 (0-2) % Platelet Estimate Normal (NORMAL) Macrocytosis (manual) Moderate PT (9.8-13.1) Seconds INR APTT (25.6-37.1) Seconds pCO2 (35-45) mm/Hg pO2 (30-55) mm/Hg HCO3 (21-28) mmol/L ABG pH (7.35-7.45) ABG Total CO2 (22-28) mmol/L ABG O2 Saturation (95-98) % ABG O2 Content (15-23) ML/dL ABG Base Excess (-2.0-3.0) mmol/L ABG Hemoglobin (11.7-17.4) g/dL ABG Carboxyhemoglobin (0.5-1.5) % POC ABG HHb (Measured) (0.0-5.0) % ABG Methemoglobin (0.0-3.0) % ABG O2 Capacity (16-24) mL/dL [place] Test VBG pH (7.32-7.43) VBG pCO2 (40-60) mmHg VBG HCO3 mmol/L VBG Total CO2 (22-28) mmol/L VBG O2 Sat (Calc) (40-65) % VBG Base Excess (0.0-2.0) mmol/L VBG Potassium (3.6-5.2) mmol/L A-a O2 Difference mm/Hg Hgb O2 Saturation (95.0-98.0) % Sodium (132-148) mmol/L Chloride (98-107) mmol/L Glucose (75-110) mg/dL Lactate (0.7-2.1) mmol/L FiO2 % Crit Value Called To Crit Value Called By Crit Value Read Back Blood Gas Notified Time Potassium (3.6-5.0) MMOL/L Carbon Dioxide (22-30) mmol/L Anion Gap (10-20) BUN (9-20) mg/dl Creatinine (0.8-1.5) mg/dl Est GFR ( Amer) Est GFR (Non-Af Amer) POC Glucose (mg/dL) 23 L* (65-110) mg/dL Random Glucose (75-110) mg/dL Serum Osmolality (272-300) mosm/kg Lactic Acid (0.7-2.1) MMOL/L Calcium (8.4-10.2) mg/dL Phosphorus (2.5-4.5) mg/dl Magnesium (1.6-2.3) MG/DL Total Bilirubin (0.2-1.3) mg/dl Direct Bilirubin (0.0-0.4) mg/ml AST (17-59) U/L ALT (21-72) U/L Alkaline Phosphatase (38-126) U/L Total Creatine Kinase (55-170) U/L Total Protein (6.3-8.2) G/DL Albumin (3.5-5.0) g/dL Globulin (2.2-3.9) gm/dL Albumin/Globulin Ratio (1.0-2.1) TSH 3rd Generation (0.46-4.68) mIU/ML Venous Blood Potassium (3.6-5.2) mmol/L Urine Color (YELLOW) Urine Clarity (Clear) Urine pH (5.0-8.0) Ur Specific [place] (1.003-1.030) Urine Protein (NEGATIVE) mg/dL Urine Glucose (UA) (NEGATIVE) mg/dL Urine Ketones (NEGATIVE) mg/dL Urine Blood (NEGATIVE) Urine Nitrate (NEGATIVE) Urine Bilirubin (NEGATIVE) Urine Urobilinogen (0.2-1.0) mg/dL Ur Leukocyte Esterase (Negative) Latrice/uL Urine RBC (Auto) (0-3) /hpf Urine Microscopic WBC (0-5) /hpf Amorphous Sediment (<OCC) /ul Urine Bacteria (<OCC) Fluid Type CSF Volume (0-1) mL CSF Appearance (CLEAR) CSF WBC (0.0-5.0) /mm3 CSF RBC (0.0-0.0) /mm3 CSF Total Cell Counted CSF Neutrophils (0-0) % CSF Lymphocytes (0-0) % CSF Monos/Macrophages (0-0) % CSF Comment CSF Glucose (40-70) mg/dL CSF Total Protein (12-60) mg/dL Salicylates mg/dl Urine Opiates Screen (NEGATIVE) Urine Methadone Screen (NEGATIVE) Acetaminophen (10.0-30.0) ug/ml Ur Barbiturates Screen (NEGATIVE) Ur Phencyclidine Scrn (NEGATIVE) Ur Amphetamines Screen (NEGATIVE) U Benzodiazepines Scrn (NEGATIVE) U Oth Cocaine Metabols (NEGATIVE) U Cannabinoids Screen (NEGATIVE) Alcohol, Quantitative (0-10) mg/dl HSV Source Description Laboratory Results - last 24 hr 07/19/18 07/19/18 07/19/18 11:34 11:38 11:45 WBC 27.5 H RBC 5.33 Hgb 16.4 Hct 54.4 H MCV 102.2 H MCH 30.7 MCHC 30.0 L RDW 14.4 Plt Count 249 MPV 9.3 Neut % (Auto) 86.6 H Lymph % (Auto) 6.3 L Hardy % (Auto) 6.7 Eos % (Auto) 0.1 Baso % (Auto) 0.3 Neut # (Auto) 23.8 H Lymph # (Auto) 1.7 Hardy # (Auto) 1.8 H Eos # (Auto) 0.0 Baso # (Auto) 0.1 Neutrophils % (Manual) 79 H Band Neutrophils % 3 H Lymphocytes % (Manual) 7 L Monocytes % (Manual) 10 Basophils % (Manual) 1 Platelet Estimate Normal Macrocytosis (manual) Moderate PT INR APTT pCO2 pO2 HCO3 ABG pH ABG Total CO2 ABG O2 Saturation ABG O2 Content ABG Base Excess ABG Hemoglobin ABG Carboxyhemoglobin POC ABG HHb (Measured) ABG Methemoglobin ABG O2 Capacity [place] Test VBG pH VBG pCO2 VBG HCO3 VBG Total CO2 VBG O2 Sat (Calc) VBG Base Excess VBG Potassium A-a O2 Difference Hgb O2 Saturation Sodium Chloride Glucose Lactate FiO2 Crit Value Called To Crit Value Called By Crit Value Read Back Blood Gas Notified Time Potassium Carbon Dioxide Anion Gap BUN Creatinine Est GFR ( Amer) Est GFR (Non-Af Amer) POC Glucose (mg/dL) 23 L* 162 H Random Glucose Serum Osmolality Lactic Acid Calcium Phosphorus Magnesium Total Bilirubin Direct Bilirubin AST ALT Alkaline Phosphatase Total Creatine Kinase Total Protein Albumin Globulin Albumin/Globulin Ratio TSH 3rd Generation Venous Blood Potassium Urine Color Urine Clarity Urine pH Ur Specific [place] Urine Protein Urine Glucose (UA) Urine Ketones Urine Blood Urine Nitrate Urine Bilirubin Urine Urobilinogen Ur Leukocyte Esterase Urine RBC (Auto) Urine Microscopic WBC Amorphous Sediment Urine Bacteria Fluid Type CSF Volume CSF Appearance CSF WBC CSF RBC CSF Total Cell Counted CSF Neutrophils CSF Lymphocytes CSF Monos/Macrophages CSF Comment CSF Glucose CSF Total Protein Salicylates Urine Opiates Screen Urine Methadone Screen Acetaminophen Ur Barbiturates Screen Ur Phencyclidine Scrn Ur Amphetamines Screen U Benzodiazepines Scrn U Oth Cocaine Metabols U Cannabinoids Screen Alcohol, Quantitative HSV Source Description 07/19/18 07/19/18 07/19/18 12:50 12:50 13:20 WBC RBC Hgb Hct MCV MCH MCHC RDW Plt Count MPV Neut % (Auto) Lymph % (Auto) [place] % (Auto) Eos % (Auto) Baso % (Auto) Neut # (Auto) Lymph # (Auto) [place] # (Auto) Eos # (Auto) Baso # (Auto) Neutrophils % (Manual) Band Neutrophils % Lymphocytes % (Manual) Monocytes % (Manual) Basophils % (Manual) Platelet Estimate Macrocytosis (manual) PT INR APTT pCO2 pO2 HCO3 ABG pH ABG Total CO2 ABG O2 Saturation ABG O2 Content ABG Base Excess ABG Hemoglobin ABG Carboxyhemoglobin POC ABG HHb (Measured) ABG Methemoglobin ABG O2 Capacity [place] Test VBG pH VBG pCO2 VBG HCO3 VBG Total CO2 VBG O2 Sat (Calc) VBG Base Excess VBG Potassium A-a O2 Difference Hgb O2 Saturation Sodium Chloride Glucose Lactate FiO2 Crit Value Called To Crit Value Called By Crit Value Read Back Blood Gas Notified Time Potassium Carbon Dioxide Anion Gap BUN Creatinine Est GFR ( Amer) Est GFR (Non-Af Amer) POC Glucose (mg/dL) Random Glucose Serum Osmolality Lactic Acid Calcium Phosphorus Magnesium Total Bilirubin Direct Bilirubin AST ALT Alkaline Phosphatase Total Creatine Kinase Total Protein Albumin Globulin Albumin/Globulin Ratio TSH 3rd Generation Venous Blood Potassium Urine Color Yellow Urine Clarity Cloudy Urine pH 6.0 Ur Specific [place] 1.013 Urine Protein 100 Urine Glucose (UA) Neg Urine Ketones Negative Urine Blood Large Urine Nitrate Negative Urine Bilirubin Negative Urine Urobilinogen 0.2-1.0 Ur Leukocyte Esterase Neg Urine RBC (Auto) 3 Urine Microscopic WBC 2 Amorphous Sediment Occ H Urine Bacteria Occ H Fluid Type CSF Volume CSF Appearance CSF WBC CSF RBC CSF Total Cell Counted CSF Neutrophils CSF Lymphocytes CSF Monos/Macrophages CSF Comment CSF Glucose CSF Total Protein Salicylates Urine Opiates Screen Positive H Urine Methadone Screen Negative Acetaminophen Ur Barbiturates Screen Negative Ur Phencyclidine Scrn Negative Ur Amphetamines Screen Negative U Benzodiazepines Scrn Negative U Oth Cocaine Metabols Negative U Cannabinoids Screen Negative Alcohol, Quantitative 23 H HSV Source Description 07/19/18 07/19/18 07/19/18 13:40 13:40 13:46 WBC RBC Hgb Hct MCV MCH MCHC RDW Plt Count MPV Neut % (Auto) Lymph % (Auto) [place] % (Auto) Eos % (Auto) Baso % (Auto) Neut # (Auto) Lymph # (Auto) [place] # (Auto) Eos # (Auto) Baso # (Auto) Neutrophils % (Manual) Band Neutrophils % Lymphocytes % (Manual) Monocytes % (Manual) Basophils % (Manual) Platelet Estimate Macrocytosis (manual) PT INR APTT pCO2 pO2 HCO3 ABG pH ABG Total CO2 ABG O2 Saturation ABG O2 Content ABG Base Excess ABG Hemoglobin ABG Carboxyhemoglobin POC ABG HHb (Measured) ABG Methemoglobin ABG O2 Capacity [place] Test VBG pH VBG pCO2 VBG HCO3 VBG Total CO2 VBG O2 Sat (Calc) VBG Base Excess VBG Potassium A-a O2 Difference Hgb O2 Saturation Sodium Chloride Glucose Lactate FiO2 Crit Value Called To Crit Value Called By Crit Value Read Back Blood Gas Notified Time Potassium Carbon Dioxide Anion Gap BUN Creatinine Est GFR ( Amer) Est GFR (Non-Af Amer) POC Glucose (mg/dL) 167 H Random Glucose Serum Osmolality Lactic Acid Calcium Phosphorus Magnesium Total Bilirubin Direct Bilirubin AST ALT Alkaline Phosphatase Total Creatine Kinase Total Protein Albumin Globulin Albumin/Globulin Ratio TSH 3rd Generation Venous Blood Potassium Urine Color Urine Clarity Urine pH Ur Specific [place] Urine Protein Urine Glucose (UA) Urine Ketones Urine Blood Urine Nitrate Urine Bilirubin Urine Urobilinogen Ur Leukocyte Esterase Urine RBC (Auto) Urine Microscopic WBC Amorphous Sediment Urine Bacteria Fluid Type Spinal fluid CSF Volume 2 H CSF Appearance Clear/colorless CSF WBC 3.0 CSF RBC 13.0 H CSF Total Cell Counted TEST NOT PERFORMED CSF Neutrophils 1 H CSF Lymphocytes 1.0 H CSF Monos/Macrophages 0 CSF Comment None CSF Glucose 51 CSF Total Protein 46.0 Salicylates Urine Opiates Screen Urine Methadone Screen Acetaminophen Ur Barbiturates Screen Ur Phencyclidine Scrn Ur Amphetamines Screen U Benzodiazepines Scrn U Oth Cocaine Metabols U Cannabinoids Screen Alcohol, Quantitative HSV Source Description 07/19/18 07/19/18 07/19/18 13:50 14:00 14:35 WBC RBC Hgb Hct MCV MCH MCHC RDW Plt Count MPV Neut % (Auto) Lymph % (Auto) [place] % (Auto) Eos % (Auto) Baso % (Auto) Neut # (Auto) Lymph # (Auto) [place] # (Auto) Eos # (Auto) Baso # (Auto) Neutrophils % (Manual) Band Neutrophils % Lymphocytes % (Manual) Monocytes % (Manual) Basophils % (Manual) Platelet Estimate Macrocytosis (manual) PT INR APTT pCO2 pO2 58 H HCO3 ABG pH ABG Total CO2 ABG O2 Saturation ABG O2 Content ABG Base Excess ABG Hemoglobin ABG Carboxyhemoglobin POC ABG HHb (Measured) ABG Methemoglobin ABG O2 Capacity [place] Test VBG pH 7.03 L* VBG pCO2 40 VBG HCO3 9.0 VBG Total CO2 11.8 L VBG O2 Sat (Calc) 90.5 H VBG Base Excess -19.6 L VBG Potassium 7.9 H* A-a O2 Difference Hgb O2 Saturation Sodium 137.0 143 Chloride 108.0 H 110 H Glucose 201 H Lactate 10.0 H* FiO2 21.0 Crit Value Called To Dwain almazan Crit Value Called By 23 Crit Value Read Back Y Blood Gas Notified Time 1355 Potassium 8.2 H* Carbon Dioxide 19 L Anion Gap 22 H BUN 36 H Creatinine 3.2 H Est GFR ( Amer) 28 Est GFR (Non-Af Amer) 23 POC Glucose (mg/dL) Random Glucose 163 H Serum Osmolality Lactic Acid Calcium 5.6 L* Phosphorus Magnesium Total Bilirubin 0.3 Direct Bilirubin AST 31369 H ALT 7913 H Alkaline Phosphatase 40 Total Creatine Kinase 77542 H Total Protein 5.8 L Albumin 3.2 L Globulin 2.6 Albumin/Globulin Ratio 1.2 TSH 3rd Generation Venous Blood Potassium 7.9 H* Urine Color Urine Clarity Urine pH Ur Specific [place] Urine Protein Urine Glucose (UA) Urine Ketones Urine Blood Urine Nitrate Urine Bilirubin Urine Urobilinogen Ur Leukocyte Esterase Urine RBC (Auto) Urine Microscopic WBC Amorphous Sediment Urine Bacteria Fluid Type CSF Volume CSF Appearance CSF WBC CSF RBC CSF Total Cell Counted CSF Neutrophils CSF Lymphocytes CSF Monos/Macrophages CSF Comment CSF Glucose CSF Total Protein Salicylates Urine Opiates Screen Urine Methadone Screen Acetaminophen Ur Barbiturates Screen Ur Phencyclidine Scrn Ur Amphetamines Screen U Benzodiazepines Scrn U Oth Cocaine Metabols U Cannabinoids Screen Alcohol, Quantitative < 10 HSV Source Description Fluid 18 18 18 16:17 16:18 16:18 WBC RBC Hgb Hct MCV MCH MCHC RDW Plt Count MPV Neut % (Auto) Lymph % (Auto) [place] % (Auto) Eos % (Auto) Baso % (Auto) Neut # (Auto) Lymph # (Auto) [place] # (Auto) Eos # (Auto) Baso # (Auto) Neutrophils % (Manual) Band Neutrophils % Lymphocytes % (Manual) Monocytes % (Manual) Basophils % (Manual) Platelet Estimate Macrocytosis (manual) PT INR APTT pCO2 pO2 HCO3 ABG pH ABG Total CO2 ABG O2 Saturation ABG O2 Content ABG Base Excess ABG Hemoglobin ABG Carboxyhemoglobin POC ABG HHb (Measured) ABG Methemoglobin ABG O2 Capacity [place] Test VBG pH VBG pCO2 VBG HCO3 VBG Total CO2 VBG O2 Sat (Calc) VBG Base Excess VBG Potassium A-a O2 Difference Hgb O2 Saturation Sodium Chloride Glucose Lactate FiO2 Crit Value Called To Crit Value Called By Crit Value Read Back Blood Gas Notified Time Potassium Carbon Dioxide Anion Gap BUN Creatinine Est GFR ( Amer) Est GFR (Non-Af Amer) POC Glucose (mg/dL) Random Glucose Serum Osmolality 288 Lactic Acid Calcium Phosphorus Magnesium Total Bilirubin Direct Bilirubin AST ALT Alkaline Phosphatase Total Creatine Kinase Total Protein Albumin Globulin Albumin/Globulin Ratio TSH 3rd Generation Venous Blood Potassium Urine Color Urine Clarity Urine pH Ur Specific [place] Urine Protein Urine Glucose (UA) Urine Ketones Urine Blood Urine Nitrate Urine Bilirubin Urine Urobilinogen Ur Leukocyte Esterase Urine RBC (Auto) Urine Microscopic WBC Amorphous Sediment Urine Bacteria Fluid Type CSF Volume CSF Appearance CSF WBC CSF RBC CSF Total Cell Counted CSF Neutrophils CSF Lymphocytes CSF Monos/Macrophages CSF Comment CSF Glucose CSF Total Protein Salicylates < 1.0 Urine Opiates Screen Urine Methadone Screen Acetaminophen < 10.0 L Ur Barbiturates Screen Ur Phencyclidine Scrn Ur Amphetamines Screen U Benzodiazepines Scrn U Oth Cocaine Metabols U Cannabinoids Screen Alcohol, Quantitative HSV Source Description 07/19/18 07/19/18 07/19/18 16:37 17:25 17:25 WBC RBC Hgb Hct MCV MCH MCHC RDW Plt Count MPV Neut % (Auto) Lymph % (Auto) Hardy % (Auto) Eos % (Auto) Baso % (Auto) Neut # (Auto) Lymph # (Auto) Hardy # (Auto) Eos # (Auto) Baso # (Auto) Neutrophils % (Manual) Band Neutrophils % Lymphocytes % (Manual) Monocytes % (Manual) Basophils % (Manual) Platelet Estimate Macrocytosis (manual) PT 17.4 H INR 1.5 APTT 31.0 pCO2 pO2 HCO3 ABG pH ABG Total CO2 ABG O2 Saturation ABG O2 Content ABG Base Excess ABG Hemoglobin ABG Carboxyhemoglobin POC ABG HHb (Measured) ABG Methemoglobin ABG O2 Capacity [place] Test VBG pH VBG pCO2 VBG HCO3 VBG Total CO2 VBG O2 Sat (Calc) VBG Base Excess VBG Potassium A-a O2 Difference Hgb O2 Saturation Sodium 144 Chloride 112 H Glucose Lactate FiO2 Crit Value Called To Crit Value Called By Crit Value Read Back Blood Gas Notified Time Potassium 6.2 H* D Carbon Dioxide 18 L Anion Gap 20 BUN 39 H Creatinine 3.3 H Est GFR ( Amer) 27 Est GFR (Non-Af Amer) 22 POC Glucose (mg/dL) 185 H Random Glucose 184 H Serum Osmolality Lactic Acid Calcium 6.1 L Phosphorus 6.3 H Magnesium 1.8 Total Bilirubin 0.5 Direct Bilirubin AST 58281 H ALT 8256 H Alkaline Phosphatase 40 Total Creatine Kinase Total Protein 6.1 L Albumin 3.2 L Globulin 2.9 Albumin/Globulin Ratio 1.1 TSH 3rd Generation 0.75 Venous Blood Potassium Urine Color Urine Clarity Urine pH Ur Specific [place] Urine Protein Urine Glucose (UA) Urine Ketones Urine Blood Urine Nitrate Urine Bilirubin Urine Urobilinogen Ur Leukocyte Esterase Urine RBC (Auto) Urine Microscopic WBC Amorphous Sediment Urine Bacteria Fluid Type CSF Volume CSF Appearance CSF WBC CSF RBC CSF Total Cell Counted CSF Neutrophils CSF Lymphocytes CSF Monos/Macrophages CSF Comment CSF Glucose CSF Total Protein Salicylates Urine Opiates Screen Urine Methadone Screen Acetaminophen Ur Barbiturates Screen Ur Phencyclidine Scrn Ur Amphetamines Screen U Benzodiazepines Scrn U Oth Cocaine Metabols U Cannabinoids Screen Alcohol, Quantitative HSV Source Description 07/19/18 07/19/18 07/19/18 17:30 23:02 23:10 WBC RBC Hgb Hct MCV MCH MCHC RDW Plt Count MPV Neut % (Auto) Lymph % (Auto) Hardy % (Auto) Eos % (Auto) Baso % (Auto) Neut # (Auto) Lymph # (Auto) Hardy # (Auto) Eos # (Auto) Baso # (Auto) Neutrophils % (Manual) Band Neutrophils % Lymphocytes % (Manual) Monocytes % (Manual) Basophils % (Manual) Platelet Estimate Macrocytosis (manual) PT INR APTT pCO2 36 pO2 71 H 108 H HCO3 20.1 L ABG pH 7.33 L ABG Total CO2 20.1 L ABG O2 Saturation 99.0 H ABG O2 Content 17.8 ABG Base Excess -6.2 L ABG Hemoglobin 13.0 ABG Carboxyhemoglobin 1.0 POC ABG HHb (Measured) 1.0 ABG Methemoglobin 1.4 ABG O2 Capacity 18.0 [place] Test Yes VBG pH 7.25 L VBG pCO2 42 VBG HCO3 18.1 VBG Total CO2 19.7 L VBG O2 Sat (Calc) 96.8 H VBG Base Excess -8.5 L VBG Potassium 6.2 H* A-a O2 Difference 75.0 Hgb O2 Saturation 96.6 Sodium 142.0 Chloride 112.0 H Glucose 195 H Lactate 5.9 H* FiO2 21.0 32.0 Crit Value Called To Md bobbi gilbert Crit Value Called By 23 Crit Value Read Back Y Blood Gas Notified Time 1740 Potassium Carbon Dioxide Anion Gap BUN Creatinine Est GFR ( Amer) Est GFR (Non-Af Amer) POC Glucose (mg/dL) 180 H Random Glucose Serum Osmolality Lactic Acid Calcium Phosphorus Magnesium Total Bilirubin Direct Bilirubin AST ALT Alkaline Phosphatase Total Creatine Kinase Total Protein Albumin Globulin Albumin/Globulin Ratio TSH 3rd Generation Venous Blood Potassium 6.2 H* Urine Color Urine Clarity Urine pH Ur Specific [place] Urine Protein Urine Glucose (UA) Urine Ketones Urine Blood Urine Nitrate Urine Bilirubin Urine Urobilinogen Ur Leukocyte Esterase Urine RBC (Auto) Urine Microscopic WBC Amorphous Sediment Urine Bacteria Fluid Type CSF Volume CSF Appearance CSF WBC CSF RBC CSF Total Cell Counted CSF Neutrophils CSF Lymphocytes CSF Monos/Macrophages CSF Comment CSF Glucose CSF Total Protein Salicylates Urine Opiates Screen Urine Methadone Screen Acetaminophen Ur Barbiturates Screen Ur Phencyclidine Scrn Ur Amphetamines Screen U Benzodiazepines Scrn U Oth Cocaine Metabols U Cannabinoids Screen Alcohol, Quantitative HSV Source Description 07/19/18 07/20/18 07/20/18 23:44 04:30 04:30 WBC RBC Hgb Hct MCV MCH MCHC RDW Plt Count MPV Neut % (Auto) Lymph % (Auto) Hardy % (Auto) Eos % (Auto) Baso % (Auto) Neut # (Auto) Lymph # (Auto) Hardy # (Auto) Eos # (Auto) Baso # (Auto) Neutrophils % (Manual) Band Neutrophils % Lymphocytes % (Manual) Monocytes % (Manual) Basophils % (Manual) Platelet Estimate Macrocytosis (manual) PT INR APTT pCO2 pO2 HCO3 ABG pH ABG Total CO2 ABG O2 Saturation ABG O2 Content ABG Base Excess ABG Hemoglobin ABG Carboxyhemoglobin POC ABG HHb (Measured) ABG Methemoglobin ABG O2 Capacity [place] Test VBG pH VBG pCO2 VBG HCO3 VBG Total CO2 VBG O2 Sat (Calc) VBG Base Excess VBG Potassium A-a O2 Difference Hgb O2 Saturation Sodium 138 Chloride 102 Glucose Lactate FiO2 Crit Value Called To Crit Value Called By Crit Value Read Back Blood Gas Notified Time Potassium 4.0 Carbon Dioxide 25 Anion Gap 15 BUN 33 H Creatinine 2.5 H Est GFR ( Amer) 37 Est GFR (Non-Af Amer) 30 POC Glucose (mg/dL) Random Glucose 148 H Serum Osmolality Lactic Acid 2.5 H Calcium 6.9 L Phosphorus Magnesium Total Bilirubin 0.4 0.5 Direct Bilirubin 0.3 0.1 AST 47361 H 58376 H ALT 8344 H 7027 H Alkaline Phosphatase 41 38 Total Creatine Kinase Total Protein 6.0 L 5.7 L Albumin 3.3 L 3.0 L Globulin 2.8 2.7 Albumin/Globulin Ratio 1.2 1.1 TSH 3rd Generation Venous Blood Potassium Urine Color Urine Clarity Urine pH Ur Specific [place] Urine Protein Urine Glucose (UA) Urine Ketones Urine Blood Urine Nitrate Urine Bilirubin Urine Urobilinogen Ur Leukocyte Esterase Urine RBC (Auto) Urine Microscopic WBC Amorphous Sediment Urine Bacteria Fluid Type CSF Volume CSF Appearance CSF WBC CSF RBC CSF Total Cell Counted CSF Neutrophils CSF Lymphocytes CSF Monos/Macrophages CSF Comment CSF Glucose CSF Total Protein Salicylates Urine Opiates Screen Urine Methadone Screen Acetaminophen Ur Barbiturates Screen Ur Phencyclidine Scrn Ur Amphetamines Screen U Benzodiazepines Scrn U Oth Cocaine Metabols U Cannabinoids Screen Alcohol, Quantitative HSV Source Description 07/20/18 07/20/18 04:43 06:47 WBC 13.4 H D RBC 4.15 L Hgb 12.6 D Hct 38.1 MCV 91.7 D MCH 30.2 MCHC 33.0 RDW 12.6 Plt Count 96 L D MPV 8.5 Neut % (Auto) 90.5 H Lymph % (Auto) 3.9 L Hardy % (Auto) 5.5 Eos % (Auto) 0.0 Baso % (Auto) 0.1 Neut # (Auto) 12.1 H Lymph # (Auto) 0.5 L Hardy # (Auto) 0.7 Eos # (Auto) 0.0 Baso # (Auto) 0.0 Neutrophils % (Manual) Band Neutrophils % Lymphocytes % (Manual) Monocytes % (Manual) Basophils % (Manual) Platelet Estimate Macrocytosis (manual) PT INR APTT pCO2 pO2 HCO3 ABG pH ABG Total CO2 ABG O2 Saturation ABG O2 Content ABG Base Excess ABG Hemoglobin ABG Carboxyhemoglobin POC ABG HHb (Measured) ABG Methemoglobin ABG O2 Capacity [place] Test VBG pH VBG pCO2 VBG HCO3 VBG Total CO2 VBG O2 Sat (Calc) VBG Base Excess VBG Potassium A-a O2 Difference Hgb O2 Saturation Sodium Chloride Glucose Lactate FiO2 Crit Value Called To Crit Value Called By Crit Value Read Back Blood Gas Notified Time Potassium Carbon Dioxide Anion Gap BUN Creatinine Est GFR ( Amer) Est GFR (Non-Af Amer) POC Glucose (mg/dL) 147 H Random Glucose Serum Osmolality Lactic Acid Calcium Phosphorus Magnesium Total Bilirubin Direct Bilirubin AST ALT Alkaline Phosphatase Total Creatine Kinase Total Protein Albumin Globulin Albumin/Globulin Ratio TSH 3rd Generation Venous Blood Potassium Urine Color Urine Clarity Urine pH Ur Specific [place] Urine Protein Urine Glucose (UA) Urine Ketones Urine Blood Urine Nitrate Urine Bilirubin Urine Urobilinogen Ur Leukocyte Esterase Urine RBC (Auto) Urine Microscopic WBC Amorphous Sediment Urine Bacteria Fluid Type CSF Volume CSF Appearance CSF WBC CSF RBC CSF Total Cell Counted CSF Neutrophils CSF Lymphocytes CSF Monos/Macrophages CSF Comment CSF Glucose CSF Total Protein Salicylates Urine Opiates Screen Urine Methadone Screen Acetaminophen Ur Barbiturates Screen Ur Phencyclidine Scrn Ur Amphetamines Screen U Benzodiazepines Scrn U Oth Cocaine Metabols U Cannabinoids Screen Alcohol, Quantitative HSV Source Description Radiology Impressions: Radiology Impressions Head CT 07/19/18 11:31 IMPRESSION: No acute intracranial abnormality. Chest/Abdomen/Pelvis CT 07/19/18 12:01 IMPRESSION: No acute abnormality in the chest, abdomen or pelvis. Mild hepatomegaly and hepatic steatosis. Chest X-Ray 07/19/18 12:32 IMPRESSION: No active pulmonary disease. Shoulder X-Ray 07/19/18 12:32 IMPRESSION: No acute displaced fracture or dislocation. EKG/Cardiology Studies: Cardiology / EKG Studies 07/19/18 11:31 EKG [ELECTROCARDIOGRAM] Stat Comment: Mode Of Transportation: PORTABLE Reason For Exam: SOB 07/19/18 17:26 EKG [ELECTROCARDIOGRAM] Stat Comment: Mode Of Transportation: PORTABLE Reason For Exam: SOB Fingerstick Blood Sugar Results: 147 Review of Systems - Cardiovascular Cardiovascular: absent: Chest Pain, Dyspnea, Palpitations - Respiratory Respiratory: absent: Dyspnea - Gastrointestinal Gastrointestinal: absent: Abdominal Pain - Musculoskeletal Musculoskeletal: absent: Back Pain, Muscle Cramps, Muscle Weakness Critical Care Progress Note - Nutrition Nutrition: Nutrition Category Date Time Status NPO Diet [DIET] Diets 07/19/18 Dinner Active Assessment/Plan - Assessment and Plan (Free Text) Assessment: #AMS/Substance intoxication/metabolic encephalopathy -improving -likely 2/2 to ingestion of unknown toxin, ischemia -CT head no acute pathology #CRISTINA, rhabdomyliasis, lactic acidosis -multifactorial; ischemic vs toxin -less likely to be infection/sepsis -nephrology on board -s/p urgent dialysis -BUN/Cr improving -c/w with IVFs #Hyperkalemia -resolved #Acute liver injury -multifactorial; ischemic vs toxin -CT abd and pel: mild hepatic steatosis and hematomegaly -improving -GI on board #nonspecific T wave changes on EKG, prolong QTc -new EKG changes -trop and Echo pending #Thrombocytopenia -hemolysis/HUS questionable though given normal T ronaldo and alk phos DVT prolx: SCDs GI prolx: Protonix FULL CODE <Lamin Means M - Last Filed: 07/20/18 17:15> CCU Objective - Vital Signs / Intake & Output Vital Signs (Last 4 hours): Vital Signs Temp Pulse Resp BP Pulse Ox 07/20/18 16:00 97.2 F L 69 148/82 07/20/18 14:00 72 22 142/93 H 97 Intake and Output (Last 8hrs): Intake & Output 07/20/18 07/20/18 07/20/18 06:59 14:59 22:59 Intake Total 2740 2624 Output Total 1800 Balance 940 2624 Weight 194 lb 7 oz Intake: IV 1400 1600 Intake, Piggyback 1100 804 Oral 240 220 Output: Urine 1500 Urethral (Au) 1500 Ultrafiltrate 300 - Medications Active Medications: Active Medications Generic Name Dose Route Start Last Admin Trade Name Freq PRN Reason Stop Dose Admin Aspirin 81 mg 07/20/18 17:00 Aspirin Chewable PO DAILY WAYNE Piperacillin Sod/Tazobactam 100 mls @ 100 mls/hr 07/19/18 22:00 07/20/18 16:06 Sod 2.25 gm/ Sodium Chloride IVPB 100 mls/hr Q6 WAYNE Administration Protocol Sodium Chloride 1,000 mls @ 400 mls/hr 07/20/18 17:00 Sodium Chloride 0.9% IV 07/21/18 16:52 .[id number] WAYNE Ondansetron HCl 4 mg 07/19/18 16:26 Zofran Inj IVP Q6 PRN Nausea/Vomiting Pantoprazole Sodium 40 mg 07/20/18 09:00 07/20/18 10:43 Protonix Inj IVP 40 mg DAILY WAYNE Administration - Patient Studies Lab Studies: Microbiology Studies 07/19/18 14:35 Blood Culture - Preliminary Blood NO GROWTH AFTER 24 HOURS 07/19/18 13:35 Blood Culture - Preliminary Blood NO GROWTH AFTER 24 HOURS 07/19/18 13:40 Gram Stain - Final Cerebral Spinal Fluid CSF Culture - Preliminary NO GROWTH AFTER 24 HOURS Lab Studies 07/20/18 07/20/18 07/20/18 Range/Units 16:27 14:30 12:37 WBC (4.8-10.8) K/uL RBC (4.40-5.90) Mil/uL Hgb (12.0-18.0) g/dL Hct (35.0-51.0) % MCV (80.0-94.0) fl MCH (27.0-31.0) pg MCHC (33.0-37.0) g/dL RDW (11.5-14.5) % Plt Count (130-400) K/uL MPV (7.2-11.7) fl Neut % (Auto) (50.0-75.0) % Lymph % (Auto) (20.0-40.0) % Hardy % (Auto) (0.0-10.0) % Eos % (Auto) (0.0-4.0) % Baso % (Auto) (0.0-2.0) % Neut # (Auto) (1.8-7.0) K/uL Lymph # (Auto) (1.0-4.3) K/uL Hardy # (Auto) (0.0-0.8) K/uL Eos # (Auto) (0.0-0.7) K/uL Baso # (Auto) (0.0-0.2) K/uL Neutrophils % (Manual) (42-75) % Lymphocytes % (Manual) (20-50) % Monocytes % (Manual) (0-10) % Toxic Granulation Platelet Estimate (NORMAL) PT (9.8-13.1) Seconds INR APTT (25.6-37.1) Seconds Fibrinogen 150 L (200-400) mg/dl pCO2 (35-45) mm/Hg pO2 (30-55) mm/Hg HCO3 (21-28) mmol/L ABG pH (7.35-7.45) ABG Total CO2 (22-28) mmol/L ABG O2 Saturation (95-98) % ABG O2 Content (15-23) ML/dL ABG Base Excess (-2.0-3.0) mmol/L ABG Hemoglobin (11.7-17.4) g/dL ABG Carboxyhemoglobin (0.5-1.5) % POC ABG HHb (Measured) (0.0-5.0) % ABG Methemoglobin (0.0-3.0) % ABG O2 Capacity (16-24) mL/dL [place] Test VBG pH (7.32-7.43) VBG pCO2 (40-60) mmHg VBG HCO3 mmol/L VBG Total CO2 (22-28) mmol/L VBG O2 Sat (Calc) (40-65) % VBG Base Excess (0.0-2.0) mmol/L VBG Hgb O2 Saturation (95.0-98.0) % VBG Potassium (3.6-5.2) mmol/L A-a O2 Difference mm/Hg Hemoglobin (11.7-17.4) g/dL Hgb O2 Saturation (95.0-98.0) % Glucose (75-110) mg/dL Lactate (0.7-2.1) mmol/L FiO2 % Crit Value Called To Crit Value Called By Crit Value Read Back Blood Gas Notified Time Sodium 138 (132-148) mmol/l Potassium 3.9 (3.6-5.0) MMOL/L Chloride 101 (98-107) mmol/L Carbon Dioxide 24 (22-30) mmol/L Anion Gap 17 (10-20) BUN 36 H (9-20) mg/dl Creatinine 3.0 H (0.8-1.5) mg/dl Est GFR ( Amer) 30 Est GFR (Non-Af Amer) 25 POC Glucose (mg/dL) 119 H (65-110) mg/dL Random Glucose 155 H (75-110) mg/dL Serum Osmolality (272-300) mosm/kg Lactic Acid (0.7-2.1) MMOL/L Calcium 6.6 L (8.4-10.2) mg/dL Phosphorus (2.5-4.5) mg/dl Magnesium (1.6-2.3) MG/DL Total Bilirubin 0.6 (0.2-1.3) mg/dl Direct Bilirubin (0.0-0.4) mg/ml AST 52555 H (17-59) U/L ALT 6372 H (21-72) U/L Alkaline Phosphatase < 20 L D (38-126) U/L Ammonia (16-60) umo/L Total Creatine Kinase 18551 H (55-170) U/L Troponin I 1.6900 H* (0.00-0.120) ng/mL Total Protein 5.5 L (6.3-8.2) G/DL Albumin 2.9 L (3.5-5.0) g/dL Globulin 2.5 (2.2-3.9) gm/dL Albumin/Globulin Ratio 1.2 (1.0-2.1) TSH 3rd Generation (0.46-4.68) mIU/ML Venous Blood Potassium (3.6-5.2) mmol/L Urine Osmolality (300-1000) mosm/kg Ur Random Creatinine mg/dL Ur Random Sodium mmol/L Acetaminophen (10.0-30.0) ug/ml Hep Bs Antigen (NEGATIVE) Hep Bs Antibody (NEGATIVE) Hep B Core IgM Ab (NEGATIVE) HSV Source Description 07/20/18 07/20/18 07/20/18 Range/Units 12:37 12:30 12:08 WBC 11.4 H (4.8-10.8) K/uL RBC 4.02 L (4.40-5.90) Mil/uL Hgb 12.2 (12.0-18.0) g/dL Hct 37.1 (35.0-51.0) % MCV 92.3 (80.0-94.0) fl MCH 30.3 (27.0-31.0) pg MCHC 32.8 L (33.0-37.0) g/dL RDW 12.7 (11.5-14.5) % Plt Count 93 L (130-400) K/uL MPV 8.5 (7.2-11.7) fl Neut % (Auto) 87.8 H (50.0-75.0) % Lymph % (Auto) 7.1 L (20.0-40.0) % Hardy % (Auto) 4.8 (0.0-10.0) % Eos % (Auto) 0.2 (0.0-4.0) % Baso % (Auto) 0.1 (0.0-2.0) % Neut # (Auto) 10.0 H (1.8-7.0) K/uL Lymph # (Auto) 0.8 L (1.0-4.3) K/uL Hardy # (Auto) 0.6 (0.0-0.8) K/uL Eos # (Auto) 0.0 (0.0-0.7) K/uL Baso # (Auto) 0.0 (0.0-0.2) K/uL Neutrophils % (Manual) (42-75) % Lymphocytes % (Manual) (20-50) % Monocytes % (Manual) (0-10) % Toxic Granulation Platelet Estimate (NORMAL) PT (9.8-13.1) Seconds INR APTT (25.6-37.1) Seconds Fibrinogen (200-400) mg/dl pCO2 (35-45) mm/Hg pO2 26 L (30-55) mm/Hg HCO3 (21-28) mmol/L ABG pH (7.35-7.45) ABG Total CO2 (22-28) mmol/L ABG O2 Saturation (95-98) % ABG O2 Content (15-23) ML/dL ABG Base Excess (-2.0-3.0) mmol/L ABG Hemoglobin (11.7-17.4) g/dL ABG Carboxyhemoglobin 0.5 (0.5-1.5) % POC ABG HHb (Measured) 54.2 H (0.0-5.0) % ABG Methemoglobin 1.5 (0.0-3.0) % ABG O2 Capacity (16-24) mL/dL [place] Test VBG pH 7.34 (7.32-7.43) VBG pCO2 46 (40-60) mmHg VBG HCO3 22.6 mmol/L VBG Total CO2 (22-28) mmol/L VBG O2 Sat (Calc) 44.6 (40-65) % VBG Base Excess -1.3 L (0.0-2.0) mmol/L VBG Hgb O2 Saturation 43.7 L (95.0-98.0) % VBG Potassium (3.6-5.2) mmol/L A-a O2 Difference mm/Hg Hemoglobin 12.4 (11.7-17.4) g/dL Hgb O2 Saturation (95.0-98.0) % Glucose (75-110) mg/dL Lactate (0.7-2.1) mmol/L FiO2 % Crit Value Called To Crit Value Called By Crit Value Read Back Blood Gas Notified Time Sodium (132-148) mmol/l Potassium (3.6-5.0) MMOL/L Chloride (98-107) mmol/L Carbon Dioxide (22-30) mmol/L Anion Gap (10-20) BUN (9-20) mg/dl Creatinine (0.8-1.5) mg/dl Est GFR ( Amer) Est GFR (Non-Af Amer) POC Glucose (mg/dL) 137 H (65-110) mg/dL Random Glucose (75-110) mg/dL Serum Osmolality (272-300) mosm/kg Lactic Acid (0.7-2.1) MMOL/L Calcium (8.4-10.2) mg/dL Phosphorus (2.5-4.5) mg/dl Magnesium (1.6-2.3) MG/DL Total Bilirubin (0.2-1.3) mg/dl Direct Bilirubin (0.0-0.4) mg/ml AST (17-59) U/L ALT (21-72) U/L Alkaline Phosphatase (38-126) U/L Ammonia (16-60) umo/L Total Creatine Kinase (55-170) U/L Troponin I (0.00-0.120) ng/mL Total Protein (6.3-8.2) G/DL Albumin (3.5-5.0) g/dL Globulin (2.2-3.9) gm/dL Albumin/Globulin Ratio (1.0-2.1) TSH 3rd Generation (0.46-4.68) mIU/ML Venous Blood Potassium (3.6-5.2) mmol/L Urine Osmolality (300-1000) mosm/kg Ur Random Creatinine mg/dL Ur Random Sodium mmol/L Acetaminophen (10.0-30.0) ug/ml Hep Bs Antigen (NEGATIVE) Hep Bs Antibody (NEGATIVE) Hep B Core IgM Ab (NEGATIVE) HSV Source Description 07/20/18 07/20/18 07/20/18 Range/Units 11:00 09:14 09:08 WBC (4.8-10.8) K/uL RBC (4.40-5.90) Mil/uL Hgb (12.0-18.0) g/dL Hct (35.0-51.0) % MCV (80.0-94.0) fl MCH (27.0-31.0) pg MCHC (33.0-37.0) g/dL RDW (11.5-14.5) % Plt Count (130-400) K/uL MPV (7.2-11.7) fl Neut % (Auto) (50.0-75.0) % Lymph % (Auto) (20.0-40.0) % Hardy % (Auto) (0.0-10.0) % Eos % (Auto) (0.0-4.0) % Baso % (Auto) (0.0-2.0) % Neut # (Auto) (1.8-7.0) K/uL Lymph # (Auto) (1.0-4.3) K/uL Hardy # (Auto) (0.0-0.8) K/uL Eos # (Auto) (0.0-0.7) K/uL Baso # (Auto) (0.0-0.2) K/uL Neutrophils % (Manual) (42-75) % Lymphocytes % (Manual) (20-50) % Monocytes % (Manual) (0-10) % Toxic Granulation Platelet Estimate (NORMAL) PT (9.8-13.1) Seconds INR APTT (25.6-37.1) Seconds Fibrinogen (200-400) mg/dl pCO2 (35-45) mm/Hg pO2 (30-55) mm/Hg HCO3 (21-28) mmol/L ABG pH (7.35-7.45) ABG Total CO2 (22-28) mmol/L ABG O2 Saturation (95-98) % ABG O2 Content (15-23) ML/dL ABG Base Excess (-2.0-3.0) mmol/L ABG Hemoglobin (11.7-17.4) g/dL ABG Carboxyhemoglobin (0.5-1.5) % POC ABG HHb (Measured) (0.0-5.0) % ABG Methemoglobin (0.0-3.0) % ABG O2 Capacity (16-24) mL/dL [place] Test VBG pH (7.32-7.43) VBG pCO2 (40-60) mmHg VBG HCO3 mmol/L VBG Total CO2 (22-28) mmol/L VBG O2 Sat (Calc) (40-65) % VBG Base Excess (0.0-2.0) mmol/L VBG Hgb O2 Saturation (95.0-98.0) % VBG Potassium (3.6-5.2) mmol/L A-a O2 Difference mm/Hg Hemoglobin (11.7-17.4) g/dL Hgb O2 Saturation (95.0-98.0) % Glucose (75-110) mg/dL Lactate (0.7-2.1) mmol/L FiO2 % Crit Value Called To Crit Value Called By Crit Value Read Back Blood Gas Notified Time Sodium (132-148) mmol/l Potassium (3.6-5.0) MMOL/L Chloride (98-107) mmol/L Carbon Dioxide (22-30) mmol/L Anion Gap (10-20) BUN (9-20) mg/dl Creatinine (0.8-1.5) mg/dl Est GFR ( Amer) Est GFR (Non-Af Amer) POC Glucose (mg/dL) (65-110) mg/dL Random Glucose (75-110) mg/dL Serum Osmolality 299 (272-300) mosm/kg Lactic Acid (0.7-2.1) MMOL/L Calcium (8.4-10.2) mg/dL Phosphorus (2.5-4.5) mg/dl Magnesium (1.6-2.3) MG/DL Total Bilirubin (0.2-1.3) mg/dl Direct Bilirubin (0.0-0.4) mg/ml AST (17-59) U/L ALT (21-72) U/L Alkaline Phosphatase (38-126) U/L Ammonia 22 (16-60) umo/L Total Creatine Kinase (55-170) U/L Troponin I (0.00-0.120) ng/mL Total Protein (6.3-8.2) G/DL Albumin (3.5-5.0) g/dL Globulin (2.2-3.9) gm/dL Albumin/Globulin Ratio (1.0-2.1) TSH 3rd Generation (0.46-4.68) mIU/ML Venous Blood Potassium (3.6-5.2) mmol/L Urine Osmolality 322 (300-1000) mosm/kg Ur Random Creatinine 95.3 mg/dL Ur Random Sodium 70 mmol/L Acetaminophen (10.0-30.0) ug/ml Hep Bs Antigen (NEGATIVE) Hep Bs Antibody (NEGATIVE) Hep B Core IgM Ab (NEGATIVE) HSV Source Description 07/20/18 07/20/18 07/20/18 Range/Units 06:47 04:43 04:30 WBC 13.4 H D (4.8-10.8) K/uL RBC 4.15 L (4.40-5.90) Mil/uL Hgb 12.6 D (12.0-18.0) g/dL Hct 38.1 (35.0-51.0) % MCV 91.7 D (80.0-94.0) fl MCH 30.2 (27.0-31.0) pg MCHC 33.0 (33.0-37.0) g/dL RDW 12.6 (11.5-14.5) % Plt Count 96 L D (130-400) K/uL MPV 8.5 (7.2-11.7) fl Neut % (Auto) 90.5 H (50.0-75.0) % Lymph % (Auto) 3.9 L (20.0-40.0) % Hardy % (Auto) 5.5 (0.0-10.0) % Eos % (Auto) 0.0 (0.0-4.0) % Baso % (Auto) 0.1 (0.0-2.0) % Neut # (Auto) 12.1 H (1.8-7.0) K/uL Lymph # (Auto) 0.5 L (1.0-4.3) K/uL Hardy # (Auto) 0.7 (0.0-0.8) K/uL Eos # (Auto) 0.0 (0.0-0.7) K/uL Baso # (Auto) 0.0 (0.0-0.2) K/uL Neutrophils % (Manual) 93 H (42-75) % Lymphocytes % (Manual) 4 L (20-50) % Monocytes % (Manual) 3 (0-10) % Toxic Granulation Present Platelet Estimate Decreased L (NORMAL) PT (9.8-13.1) Seconds INR APTT (25.6-37.1) Seconds Fibrinogen (200-400) mg/dl pCO2 (35-45) mm/Hg pO2 (30-55) mm/Hg HCO3 (21-28) mmol/L ABG pH (7.35-7.45) ABG Total CO2 (22-28) mmol/L ABG O2 Saturation (95-98) % ABG O2 Content (15-23) ML/dL ABG Base Excess (-2.0-3.0) mmol/L ABG Hemoglobin (11.7-17.4) g/dL ABG Carboxyhemoglobin (0.5-1.5) % POC ABG HHb (Measured) (0.0-5.0) % ABG Methemoglobin (0.0-3.0) % ABG O2 Capacity (16-24) mL/dL [place] Test VBG pH (7.32-7.43) VBG pCO2 (40-60) mmHg VBG HCO3 mmol/L VBG Total CO2 (22-28) mmol/L VBG O2 Sat (Calc) (40-65) % VBG Base Excess (0.0-2.0) mmol/L VBG Hgb O2 Saturation (95.0-98.0) % VBG Potassium (3.6-5.2) mmol/L A-a O2 Difference mm/Hg Hemoglobin (11.7-17.4) g/dL Hgb O2 Saturation (95.0-98.0) % Glucose (75-110) mg/dL Lactate (0.7-2.1) mmol/L FiO2 % Crit Value Called To Crit Value Called By Crit Value Read Back Blood Gas Notified Time Sodium 138 (132-148) mmol/l Potassium 4.0 (3.6-5.0) MMOL/L Chloride 102 (98-107) mmol/L Carbon Dioxide 25 (22-30) mmol/L Anion Gap 15 (10-20) BUN 33 H (9-20) mg/dl Creatinine 2.5 H (0.8-1.5) mg/dl Est GFR ( Amer) 37 Est GFR (Non-Af Amer) 30 POC Glucose (mg/dL) 147 H (65-110) mg/dL Random Glucose 148 H (75-110) mg/dL Serum Osmolality (272-300) mosm/kg Lactic Acid (0.7-2.1) MMOL/L Calcium 6.9 L (8.4-10.2) mg/dL Phosphorus (2.5-4.5) mg/dl Magnesium (1.6-2.3) MG/DL Total Bilirubin 0.5 (0.2-1.3) mg/dl Direct Bilirubin 0.1 (0.0-0.4) mg/ml AST 21290 H (17-59) U/L ALT 7027 H (21-72) U/L Alkaline Phosphatase 38 (38-126) U/L Ammonia (16-60) umo/L Total Creatine Kinase (55-170) U/L Troponin I (0.00-0.120) ng/mL Total Protein 5.7 L (6.3-8.2) G/DL Albumin 3.0 L (3.5-5.0) g/dL Globulin 2.7 (2.2-3.9) gm/dL Albumin/Globulin Ratio 1.1 (1.0-2.1) TSH 3rd Generation (0.46-4.68) mIU/ML Venous Blood Potassium (3.6-5.2) mmol/L Urine Osmolality (300-1000) mosm/kg Ur Random Creatinine mg/dL Ur Random Sodium mmol/L Acetaminophen (10.0-30.0) ug/ml Hep Bs Antigen (NEGATIVE) Hep Bs Antibody (NEGATIVE) Hep B Core IgM Ab (NEGATIVE) HSV Source Description 07/20/18 07/19/18 07/19/18 Range/Units 04:30 23:44 23:44 WBC (4.8-10.8) K/uL RBC (4.40-5.90) Mil/uL Hgb (12.0-18.0) g/dL Hct (35.0-51.0) % MCV (80.0-94.0) fl MCH (27.0-31.0) pg MCHC (33.0-37.0) g/dL RDW (11.5-14.5) % Plt Count (130-400) K/uL MPV (7.2-11.7) fl Neut % (Auto) (50.0-75.0) % Lymph % (Auto) (20.0-40.0) % Hardy % (Auto) (0.0-10.0) % Eos % (Auto) (0.0-4.0) % Baso % (Auto) (0.0-2.0) % Neut # (Auto) (1.8-7.0) K/uL Lymph # (Auto) (1.0-4.3) K/uL Hardy # (Auto) (0.0-0.8) K/uL Eos # (Auto) (0.0-0.7) K/uL Baso # (Auto) (0.0-0.2) K/uL Neutrophils % (Manual) (42-75) % Lymphocytes % (Manual) (20-50) % Monocytes % (Manual) (0-10) % Toxic Granulation Platelet Estimate (NORMAL) PT (9.8-13.1) Seconds INR APTT (25.6-37.1) Seconds Fibrinogen (200-400) mg/dl pCO2 (35-45) mm/Hg pO2 (30-55) mm/Hg HCO3 (21-28) mmol/L ABG pH (7.35-7.45) ABG Total CO2 (22-28) mmol/L ABG O2 Saturation (95-98) % ABG O2 Content (15-23) ML/dL ABG Base Excess (-2.0-3.0) mmol/L ABG Hemoglobin (11.7-17.4) g/dL ABG Carboxyhemoglobin (0.5-1.5) % POC ABG HHb (Measured) (0.0-5.0) % ABG Methemoglobin (0.0-3.0) % ABG O2 Capacity (16-24) mL/dL [place] Test VBG pH (7.32-7.43) VBG pCO2 (40-60) mmHg VBG HCO3 mmol/L VBG Total CO2 (22-28) mmol/L VBG O2 Sat (Calc) (40-65) % VBG Base Excess (0.0-2.0) mmol/L VBG Hgb O2 Saturation (95.0-98.0) % VBG Potassium (3.6-5.2) mmol/L A-a O2 Difference mm/Hg Hemoglobin (11.7-17.4) g/dL Hgb O2 Saturation (95.0-98.0) % Glucose (75-110) mg/dL Lactate (0.7-2.1) mmol/L FiO2 % Crit Value Called To Crit Value Called By Crit Value Read Back Blood Gas Notified Time Sodium (132-148) mmol/l Potassium (3.6-5.0) MMOL/L Chloride (98-107) mmol/L Carbon Dioxide (22-30) mmol/L Anion Gap (10-20) BUN (9-20) mg/dl Creatinine (0.8-1.5) mg/dl Est GFR ( Amer) Est GFR (Non-Af Amer) POC Glucose (mg/dL) (65-110) mg/dL Random Glucose (75-110) mg/dL Serum Osmolality (272-300) mosm/kg Lactic Acid 2.5 H (0.7-2.1) MMOL/L Calcium (8.4-10.2) mg/dL Phosphorus (2.5-4.5) mg/dl Magnesium (1.6-2.3) MG/DL Total Bilirubin 0.4 (0.2-1.3) mg/dl Direct Bilirubin 0.3 (0.0-0.4) mg/ml AST 45854 H (17-59) U/L ALT 8344 H (21-72) U/L Alkaline Phosphatase 41 (38-126) U/L Ammonia (16-60) umo/L Total Creatine Kinase (55-170) U/L Troponin I (0.00-0.120) ng/mL Total Protein 6.0 L (6.3-8.2) G/DL Albumin 3.3 L (3.5-5.0) g/dL Globulin 2.8 (2.2-3.9) gm/dL Albumin/Globulin Ratio 1.2 (1.0-2.1) TSH 3rd Generation (0.46-4.68) mIU/ML Venous Blood Potassium (3.6-5.2) mmol/L Urine Osmolality (300-1000) mosm/kg Ur Random Creatinine mg/dL Ur Random Sodium mmol/L Acetaminophen (10.0-30.0) ug/ml Hep Bs Antigen (NEGATIVE) Hep Bs Antibody Positive (NEGATIVE) Hep B Core IgM Ab (NEGATIVE) HSV Source Description 07/19/18 07/19/18 07/19/18 Range/Units 23:44 23:10 23:02 WBC (4.8-10.8) K/uL RBC (4.40-5.90) Mil/uL Hgb (12.0-18.0) g/dL Hct (35.0-51.0) % MCV (80.0-94.0) fl MCH (27.0-31.0) pg MCHC (33.0-37.0) g/dL RDW (11.5-14.5) % Plt Count (130-400) K/uL MPV (7.2-11.7) fl Neut % (Auto) (50.0-75.0) % Lymph % (Auto) (20.0-40.0) % Hardy % (Auto) (0.0-10.0) % Eos % (Auto) (0.0-4.0) % Baso % (Auto) (0.0-2.0) % Neut # (Auto) (1.8-7.0) K/uL Lymph # (Auto) (1.0-4.3) K/uL Hardy # (Auto) (0.0-0.8) K/uL Eos # (Auto) (0.0-0.7) K/uL Baso # (Auto) (0.0-0.2) K/uL Neutrophils % (Manual) (42-75) % Lymphocytes % (Manual) (20-50) % Monocytes % (Manual) (0-10) % Toxic Granulation Platelet Estimate (NORMAL) PT (9.8-13.1) Seconds INR APTT (25.6-37.1) Seconds Fibrinogen (200-400) mg/dl pCO2 36 (35-45) mm/Hg pO2 108 H (30-55) mm/Hg HCO3 20.1 L (21-28) mmol/L ABG pH 7.33 L (7.35-7.45) ABG Total CO2 20.1 L (22-28) mmol/L ABG O2 Saturation 99.0 H (95-98) % ABG O2 Content 17.8 (15-23) ML/dL ABG Base Excess -6.2 L (-2.0-3.0) mmol/L ABG Hemoglobin 13.0 (11.7-17.4) g/dL ABG Carboxyhemoglobin 1.0 (0.5-1.5) % POC ABG HHb (Measured) 1.0 (0.0-5.0) % ABG Methemoglobin 1.4 (0.0-3.0) % ABG O2 Capacity 18.0 (16-24) mL/dL [place] Test Yes VBG pH (7.32-7.43) VBG pCO2 (40-60) mmHg VBG HCO3 mmol/L VBG Total CO2 (22-28) mmol/L VBG O2 Sat (Calc) (40-65) % VBG Base Excess (0.0-2.0) mmol/L VBG Hgb O2 Saturation (95.0-98.0) % VBG Potassium (3.6-5.2) mmol/L A-a O2 Difference 75.0 mm/Hg Hemoglobin (11.7-17.4) g/dL Hgb O2 Saturation 96.6 (95.0-98.0) % Glucose (75-110) mg/dL Lactate (0.7-2.1) mmol/L FiO2 32.0 % Crit Value Called To Crit Value Called By Crit Value Read Back Blood Gas Notified Time Sodium (132-148) mmol/l Potassium (3.6-5.0) MMOL/L Chloride (98-107) mmol/L Carbon Dioxide (22-30) mmol/L Anion Gap (10-20) BUN (9-20) mg/dl Creatinine (0.8-1.5) mg/dl Est GFR ( Amer) Est GFR (Non-Af Amer) POC Glucose (mg/dL) 180 H (65-110) mg/dL Random Glucose (75-110) mg/dL Serum Osmolality (272-300) mosm/kg Lactic Acid (0.7-2.1) MMOL/L Calcium (8.4-10.2) mg/dL Phosphorus (2.5-4.5) mg/dl Magnesium (1.6-2.3) MG/DL Total Bilirubin (0.2-1.3) mg/dl Direct Bilirubin (0.0-0.4) mg/ml AST (17-59) U/L ALT (21-72) U/L Alkaline Phosphatase (38-126) U/L Ammonia (16-60) umo/L Total Creatine Kinase (55-170) U/L Troponin I (0.00-0.120) ng/mL Total Protein (6.3-8.2) G/DL Albumin (3.5-5.0) g/dL Globulin (2.2-3.9) gm/dL Albumin/Globulin Ratio (1.0-2.1) TSH 3rd Generation (0.46-4.68) mIU/ML Venous Blood Potassium (3.6-5.2) mmol/L Urine Osmolality (300-1000) mosm/kg Ur Random Creatinine mg/dL Ur Random Sodium mmol/L Acetaminophen (10.0-30.0) ug/ml Hep Bs Antigen Negative (NEGATIVE) Hep Bs Antibody (NEGATIVE) Hep B Core IgM Ab Negative (NEGATIVE) HSV Source Description 07/19/18 07/19/18 07/19/18 Range/Units 17:30 17:25 17:25 WBC (4.8-10.8) K/uL RBC (4.40-5.90) Mil/uL Hgb (12.0-18.0) g/dL Hct (35.0-51.0) % MCV (80.0-94.0) fl MCH (27.0-31.0) pg MCHC (33.0-37.0) g/dL RDW (11.5-14.5) % Plt Count (130-400) K/uL MPV (7.2-11.7) fl Neut % (Auto) (50.0-75.0) % Lymph % (Auto) (20.0-40.0) % Hardy % (Auto) (0.0-10.0) % Eos % (Auto) (0.0-4.0) % Baso % (Auto) (0.0-2.0) % Neut # (Auto) (1.8-7.0) K/uL Lymph # (Auto) (1.0-4.3) K/uL Hardy # (Auto) (0.0-0.8) K/uL Eos # (Auto) (0.0-0.7) K/uL Baso # (Auto) (0.0-0.2) K/uL Neutrophils % (Manual) (42-75) % Lymphocytes % (Manual) (20-50) % Monocytes % (Manual) (0-10) % Toxic Granulation Platelet Estimate (NORMAL) PT 17.4 H (9.8-13.1) Seconds INR 1.5 APTT 31.0 (25.6-37.1) Seconds Fibrinogen (200-400) mg/dl pCO2 (35-45) mm/Hg pO2 71 H (30-55) mm/Hg HCO3 (21-28) mmol/L ABG pH (7.35-7.45) ABG Total CO2 (22-28) mmol/L ABG O2 Saturation (95-98) % ABG O2 Content (15-23) ML/dL ABG Base Excess (-2.0-3.0) mmol/L ABG Hemoglobin (11.7-17.4) g/dL ABG Carboxyhemoglobin (0.5-1.5) % POC ABG HHb (Measured) (0.0-5.0) % ABG Methemoglobin (0.0-3.0) % ABG O2 Capacity (16-24) mL/dL [place]asper Test VBG pH 7.25 L (7.32-7.43) VBG pCO2 42 (40-60) mmHg VBG HCO3 18.1 mmol/L VBG Total CO2 19.7 L (22-28) mmol/L VBG O2 Sat (Calc) 96.8 H (40-65) % VBG Base Excess -8.5 L (0.0-2.0) mmol/L VBG Hgb O2 Saturation (95.0-98.0) % VBG Potassium 6.2 H* (3.6-5.2) mmol/L A-a O2 Difference mm/Hg Hemoglobin (11.7-17.4) g/dL Hgb O2 Saturation (95.0-98.0) % Glucose 195 H (75-110) mg/dL Lactate 5.9 H* (0.7-2.1) mmol/L FiO2 21.0 % Crit Value Called To Md bobbi gilbert Crit Value Called By 23 Crit Value Read Back Y Blood Gas Notified Time 1740 Sodium 142.0 144 (132-148) mmol/l Potassium 6.2 H* D (3.6-5.0) MMOL/L Chloride 112.0 H 112 H (98-107) mmol/L Carbon Dioxide 18 L (22-30) mmol/L Anion Gap 20 (10-20) BUN 39 H (9-20) mg/dl Creatinine 3.3 H (0.8-1.5) mg/dl Est GFR ( Amer) 27 Est GFR (Non-Af Amer) 22 POC Glucose (mg/dL) (65-110) mg/dL Random Glucose 184 H (75-110) mg/dL Serum Osmolality (272-300) mosm/kg Lactic Acid (0.7-2.1) MMOL/L Calcium 6.1 L (8.4-10.2) mg/dL Phosphorus 6.3 H (2.5-4.5) mg/dl Magnesium 1.8 (1.6-2.3) MG/DL Total Bilirubin 0.5 (0.2-1.3) mg/dl Direct Bilirubin (0.0-0.4) mg/ml AST 15181 H (17-59) U/L ALT 8256 H (21-72) U/L Alkaline Phosphatase 40 (38-126) U/L Ammonia (16-60) umo/L Total Creatine Kinase (55-170) U/L Troponin I (0.00-0.120) ng/mL Total Protein 6.1 L (6.3-8.2) G/DL Albumin 3.2 L (3.5-5.0) g/dL Globulin 2.9 (2.2-3.9) gm/dL Albumin/Globulin Ratio 1.1 (1.0-2.1) TSH 3rd Generation 0.75 (0.46-4.68) mIU/ML Venous Blood Potassium 6.2 H* (3.6-5.2) mmol/L Urine Osmolality (300-1000) mosm/kg Ur Random Creatinine mg/dL Ur Random Sodium mmol/L Acetaminophen (10.0-30.0) ug/ml Hep Bs Antigen (NEGATIVE) Hep Bs Antibody (NEGATIVE) Hep B Core IgM Ab (NEGATIVE) HSV Source Description 07/19/18 07/19/18 Range/Units 16:18 14:00 WBC (4.8-10.8) K/uL RBC (4.40-5.90) Mil/uL Hgb (12.0-18.0) g/dL Hct (35.0-51.0) % MCV (80.0-94.0) fl MCH (27.0-31.0) pg MCHC (33.0-37.0) g/dL RDW (11.5-14.5) % Plt Count (130-400) K/uL MPV (7.2-11.7) fl Neut % (Auto) (50.0-75.0) % Lymph % (Auto) (20.0-40.0) % Hardy % (Auto) (0.0-10.0) % Eos % (Auto) (0.0-4.0) % Baso % (Auto) (0.0-2.0) % Neut # (Auto) (1.8-7.0) K/uL Lymph # (Auto) (1.0-4.3) K/uL Hardy # (Auto) (0.0-0.8) K/uL Eos # (Auto) (0.0-0.7) K/uL Baso # (Auto) (0.0-0.2) K/uL Neutrophils % (Manual) (42-75) % Lymphocytes % (Manual) (20-50) % Monocytes % (Manual) (0-10) % Toxic Granulation Platelet Estimate (NORMAL) PT (9.8-13.1) Seconds INR APTT (25.6-37.1) Seconds Fibrinogen (200-400) mg/dl pCO2 (35-45) mm/Hg pO2 (30-55) mm/Hg HCO3 (21-28) mmol/L ABG pH (7.35-7.45) ABG Total CO2 (22-28) mmol/L ABG O2 Saturation (95-98) % ABG O2 Content (15-23) ML/dL ABG Base Excess (-2.0-3.0) mmol/L ABG Hemoglobin (11.7-17.4) g/dL ABG Carboxyhemoglobin (0.5-1.5) % POC ABG HHb (Measured) (0.0-5.0) % ABG Methemoglobin (0.0-3.0) % ABG O2 Capacity (16-24) mL/dL [place] Test VBG pH (7.32-7.43) VBG pCO2 (40-60) mmHg VBG HCO3 mmol/L VBG Total CO2 (22-28) mmol/L VBG O2 Sat (Calc) (40-65) % VBG Base Excess (0.0-2.0) mmol/L VBG Hgb O2 Saturation (95.0-98.0) % VBG Potassium (3.6-5.2) mmol/L A-a O2 Difference mm/Hg Hemoglobin (11.7-17.4) g/dL Hgb O2 Saturation (95.0-98.0) % Glucose (75-110) mg/dL Lactate (0.7-2.1) mmol/L FiO2 % Crit Value Called To Crit Value Called By Crit Value Read Back Blood Gas Notified Time Sodium (132-148) mmol/l Potassium (3.6-5.0) MMOL/L Chloride (98-107) mmol/L Carbon Dioxide (22-30) mmol/L Anion Gap (10-20) BUN (9-20) mg/dl Creatinine (0.8-1.5) mg/dl Est GFR ( Amer) Est GFR (Non-Af Amer) POC Glucose (mg/dL) (65-110) mg/dL Random Glucose (75-110) mg/dL Serum Osmolality (272-300) mosm/kg Lactic Acid (0.7-2.1) MMOL/L Calcium (8.4-10.2) mg/dL Phosphorus (2.5-4.5) mg/dl Magnesium (1.6-2.3) MG/DL Total Bilirubin (0.2-1.3) mg/dl Direct Bilirubin (0.0-0.4) mg/ml AST (17-59) U/L ALT (21-72) U/L Alkaline Phosphatase (38-126) U/L Ammonia (16-60) umo/L Total Creatine Kinase (55-170) U/L Troponin I (0.00-0.120) ng/mL Total Protein (6.3-8.2) G/DL Albumin (3.5-5.0) g/dL Globulin (2.2-3.9) gm/dL Albumin/Globulin Ratio (1.0-2.1) TSH 3rd Generation (0.46-4.68) mIU/ML Venous Blood Potassium (3.6-5.2) mmol/L Urine Osmolality (300-1000) mosm/kg Ur Random Creatinine mg/dL Ur Random Sodium mmol/L Acetaminophen < 10.0 L (10.0-30.0) ug/ml Hep Bs Antigen (NEGATIVE) Hep Bs Antibody (NEGATIVE) Hep B Core IgM Ab (NEGATIVE) HSV Source Description Fluid Laboratory Results - last 24 hr 1207/19/18 07/19/18 14:00 16:18 17:25 WBC RBC Hgb Hct MCV MCH MCHC RDW Plt Count MPV Neut % (Auto) Lymph % (Auto) Hardy % (Auto) Eos % (Auto) Baso % (Auto) Neut # (Auto) Lymph # (Auto) Hardy # (Auto) Eos # (Auto) Baso # (Auto) Neutrophils % (Manual) Lymphocytes % (Manual) Monocytes % (Manual) Toxic Granulation Platelet Estimate PT INR APTT Fibrinogen pCO2 pO2 HCO3 ABG pH ABG Total CO2 ABG O2 Saturation ABG O2 Content ABG Base Excess ABG Hemoglobin ABG Carboxyhemoglobin POC ABG HHb (Measured) ABG Methemoglobin ABG O2 Capacity Jasper Test VBG pH VBG pCO2 VBG HCO3 VBG Total CO2 VBG O2 Sat (Calc) VBG Base Excess VBG Hgb O2 Saturation VBG Potassium A-a O2 Difference Hemoglobin Hgb O2 Saturation Glucose Lactate FiO2 Crit Value Called To Crit Value Called By Crit Value Read Back Blood Gas Notified Time Sodium 144 Potassium 6.2 H* D Chloride 112 H Carbon Dioxide 18 L Anion Gap 20 BUN 39 H Creatinine 3.3 H Est GFR ( Amer) 27 Est GFR (Non-Af Amer) 22 POC Glucose (mg/dL) Random Glucose 184 H Serum Osmolality Lactic Acid Calcium 6.1 L Phosphorus 6.3 H Magnesium 1.8 Total Bilirubin 0.5 Direct Bilirubin AST 76837 H ALT 8256 H Alkaline Phosphatase 40 Ammonia Total Creatine Kinase Troponin I Total Protein 6.1 L Albumin 3.2 L Globulin 2.9 Albumin/Globulin Ratio 1.1 TSH 3rd Generation 0.75 Venous Blood Potassium Urine Osmolality Ur Random Creatinine Ur Random Sodium Acetaminophen < 10.0 L Hep Bs Antigen Hep Bs Antibody Hep B Core IgM Ab HSV Source Description Fluid 07/19/18 07/19/18 07/19/18 17:25 17:30 23:02 WBC RBC Hgb Hct MCV MCH MCHC RDW Plt Count MPV Neut % (Auto) Lymph % (Auto) Hardy % (Auto) Eos % (Auto) Baso % (Auto) Neut # (Auto) Lymph # (Auto) Hardy # (Auto) Eos # (Auto) Baso # (Auto) Neutrophils % (Manual) Lymphocytes % (Manual) Monocytes % (Manual) Toxic Granulation Platelet Estimate PT 17.4 H INR 1.5 APTT 31.0 Fibrinogen pCO2 pO2 71 H HCO3 ABG pH ABG Total CO2 ABG O2 Saturation ABG O2 Content ABG Base Excess ABG Hemoglobin ABG Carboxyhemoglobin POC ABG HHb (Measured) ABG Methemoglobin ABG O2 Capacity Jasper Test VBG pH 7.25 L VBG pCO2 42 VBG HCO3 18.1 VBG Total CO2 19.7 L VBG O2 Sat (Calc) 96.8 H VBG Base Excess -8.5 L VBG Hgb O2 Saturation VBG Potassium 6.2 H* A-a O2 Difference Hemoglobin Hgb O2 Saturation Glucose 195 H Lactate 5.9 H* FiO2 21.0 Crit Value Called To Md bobbi gilbert Crit Value Called By 23 Crit Value Read Back Y Blood Gas Notified Time 1740 Sodium 142.0 Potassium Chloride 112.0 H Carbon Dioxide Anion Gap BUN Creatinine Est GFR ( Amer) Est GFR (Non-Af Amer) POC Glucose (mg/dL) 180 H Random Glucose Serum Osmolality Lactic Acid Calcium Phosphorus Magnesium Total Bilirubin Direct Bilirubin AST ALT Alkaline Phosphatase Ammonia Total Creatine Kinase Troponin I Total Protein Albumin Globulin Albumin/Globulin Ratio TSH 3rd Generation Venous Blood Potassium 6.2 H* Urine Osmolality Ur Random Creatinine Ur Random Sodium Acetaminophen Hep Bs Antigen Hep Bs Antibody Hep B Core IgM Ab HSV Source Description 07/19/18 07/19/18 07/19/18 23:10 23:44 23:44 WBC RBC Hgb Hct MCV MCH MCHC RDW Plt Count MPV Neut % (Auto) Lymph % (Auto) Hardy % (Auto) Eos % (Auto) Baso % (Auto) Neut # (Auto) Lymph # (Auto) Hardy # (Auto) Eos # (Auto) Baso # (Auto) Neutrophils % (Manual) Lymphocytes % (Manual) Monocytes % (Manual) Toxic Granulation Platelet Estimate PT INR APTT Fibrinogen pCO2 36 pO2 108 H HCO3 20.1 L ABG pH 7.33 L ABG Total CO2 20.1 L ABG O2 Saturation 99.0 H ABG O2 Content 17.8 ABG Base Excess -6.2 L ABG Hemoglobin 13.0 ABG Carboxyhemoglobin 1.0 POC ABG HHb (Measured) 1.0 ABG Methemoglobin 1.4 ABG O2 Capacity 18.0 Jasper Test Yes VBG pH VBG pCO2 VBG HCO3 VBG Total CO2 VBG O2 Sat (Calc) VBG Base Excess VBG Hgb O2 Saturation VBG Potassium A-a O2 Difference 75.0 Hemoglobin Hgb O2 Saturation 96.6 Glucose Lactate FiO2 32.0 Crit Value Called To Crit Value Called By Crit Value Read Back Blood Gas Notified Time Sodium Potassium Chloride Carbon Dioxide Anion Gap BUN Creatinine Est GFR ( Amer) Est GFR (Non-Af Amer) POC Glucose (mg/dL) Random Glucose Serum Osmolality Lactic Acid Calcium Phosphorus Magnesium Total Bilirubin Direct Bilirubin AST ALT Alkaline Phosphatase Ammonia Total Creatine Kinase Troponin I Total Protein Albumin Globulin Albumin/Globulin Ratio TSH 3rd Generation Venous Blood Potassium Urine Osmolality Ur Random Creatinine Ur Random Sodium Acetaminophen Hep Bs Antigen Negative Hep Bs Antibody Positive Hep B Core IgM Ab Negative HSV Source Description 07/19/18 07/20/18 07/20/18 23:44 04:30 04:30 WBC RBC Hgb Hct MCV MCH MCHC RDW Plt Count MPV Neut % (Auto) Lymph % (Auto) Hardy % (Auto) Eos % (Auto) Baso % (Auto) Neut # (Auto) Lymph # (Auto) Hardy # (Auto) Eos # (Auto) Baso # (Auto) Neutrophils % (Manual) Lymphocytes % (Manual) Monocytes % (Manual) Toxic Granulation Platelet Estimate PT INR APTT Fibrinogen pCO2 pO2 HCO3 ABG pH ABG Total CO2 ABG O2 Saturation ABG O2 Content ABG Base Excess ABG Hemoglobin ABG Carboxyhemoglobin POC ABG HHb (Measured) ABG Methemoglobin ABG O2 Capacity Jasper Test VBG pH VBG pCO2 VBG HCO3 VBG Total CO2 VBG O2 Sat (Calc) VBG Base Excess VBG Hgb O2 Saturation VBG Potassium A-a O2 Difference Hemoglobin Hgb O2 Saturation Glucose Lactate FiO2 Crit Value Called To Crit Value Called By Crit Value Read Back Blood Gas Notified Time Sodium 138 Potassium 4.0 Chloride 102 Carbon Dioxide 25 Anion Gap 15 BUN 33 H Creatinine 2.5 H Est GFR ( Amer) 37 Est GFR (Non-Af Amer) 30 POC Glucose (mg/dL) Random Glucose 148 H Serum Osmolality Lactic Acid 2.5 H Calcium 6.9 L Phosphorus Magnesium Total Bilirubin 0.4 0.5 Direct Bilirubin 0.3 0.1 AST 35121 H 68347 H ALT 8344 H 7027 H Alkaline Phosphatase 41 38 Ammonia Total Creatine Kinase Troponin I Total Protein 6.0 L 5.7 L Albumin 3.3 L 3.0 L Globulin 2.8 2.7 Albumin/Globulin Ratio 1.2 1.1 TSH 3rd Generation Venous Blood Potassium Urine Osmolality Ur Random Creatinine Ur Random Sodium Acetaminophen Hep Bs Antigen Hep Bs Antibody Hep B Core IgM Ab HSV Source Description 07/20/18 07/20/18 07/20/18 04:43 06:47 09:08 WBC 13.4 H D RBC 4.15 L Hgb 12.6 D Hct 38.1 MCV 91.7 D MCH 30.2 MCHC 33.0 RDW 12.6 Plt Count 96 L D MPV 8.5 Neut % (Auto) 90.5 H Lymph % (Auto) 3.9 L Hardy % (Auto) 5.5 Eos % (Auto) 0.0 Baso % (Auto) 0.1 Neut # (Auto) 12.1 H Lymph # (Auto) 0.5 L Hardy # (Auto) 0.7 Eos # (Auto) 0.0 Baso # (Auto) 0.0 Neutrophils % (Manual) 93 H Lymphocytes % (Manual) 4 L Monocytes % (Manual) 3 Toxic Granulation Present Platelet Estimate Decreased L PT INR APTT Fibrinogen pCO2 pO2 HCO3 ABG pH ABG Total CO2 ABG O2 Saturation ABG O2 Content ABG Base Excess ABG Hemoglobin ABG Carboxyhemoglobin POC ABG HHb (Measured) ABG Methemoglobin ABG O2 Capacity Jasper Test VBG pH VBG pCO2 VBG HCO3 VBG Total CO2 VBG O2 Sat (Calc) VBG Base Excess VBG Hgb O2 Saturation VBG Potassium A-a O2 Difference Hemoglobin Hgb O2 Saturation Glucose Lactate FiO2 Crit Value Called To Crit Value Called By Crit Value Read Back Blood Gas Notified Time Sodium Potassium Chloride Carbon Dioxide Anion Gap BUN Creatinine Est GFR ( Amer) Est GFR (Non-Af Amer) POC Glucose (mg/dL) 147 H Random Glucose Serum Osmolality 299 Lactic Acid Calcium Phosphorus Magnesium Total Bilirubin Direct Bilirubin AST ALT Alkaline Phosphatase Ammonia Total Creatine Kinase Troponin I Total Protein Albumin Globulin Albumin/Globulin Ratio TSH 3rd Generation Venous Blood Potassium Urine Osmolality Ur Random Creatinine Ur Random Sodium Acetaminophen Hep Bs Antigen Hep Bs Antibody Hep B Core IgM Ab HSV Source Description 07/20/18 07/20/18 07/20/18 09:14 11:00 12:08 WBC RBC Hgb Hct MCV MCH MCHC RDW Plt Count MPV Neut % (Auto) Lymph % (Auto) Hardy % (Auto) Eos % (Auto) Baso % (Auto) Neut # (Auto) Lymph # (Auto) Hardy # (Auto) Eos # (Auto) Baso # (Auto) Neutrophils % (Manual) Lymphocytes % (Manual) Monocytes % (Manual) Toxic Granulation Platelet Estimate PT INR APTT Fibrinogen pCO2 pO2 HCO3 ABG pH ABG Total CO2 ABG O2 Saturation ABG O2 Content ABG Base Excess ABG Hemoglobin ABG Carboxyhemoglobin POC ABG HHb (Measured) ABG Methemoglobin ABG O2 Capacity [place]asper Test VBG pH VBG pCO2 VBG HCO3 VBG Total CO2 VBG O2 Sat (Calc) VBG Base Excess VBG Hgb O2 Saturation VBG Potassium A-a O2 Difference Hemoglobin Hgb O2 Saturation Glucose Lactate FiO2 Crit Value Called To Crit Value Called By Crit Value Read Back Blood Gas Notified Time Sodium Potassium Chloride Carbon Dioxide Anion Gap BUN Creatinine Est GFR ( Amer) Est GFR (Non-Af Amer) POC Glucose (mg/dL) 137 H Random Glucose Serum Osmolality Lactic Acid Calcium Phosphorus Magnesium Total Bilirubin Direct Bilirubin AST ALT Alkaline Phosphatase Ammonia 22 Total Creatine Kinase Troponin I Total Protein Albumin Globulin Albumin/Globulin Ratio TSH 3rd Generation Venous Blood Potassium Urine Osmolality 322 Ur Random Creatinine 95.3 Ur Random Sodium 70 Acetaminophen Hep Bs Antigen Hep Bs Antibody Hep B Core IgM Ab HSV Source Description 07/20/18 07/20/18 07/20/18 12:30 12:37 12:37 WBC 11.4 H RBC 4.02 L Hgb 12.2 Hct 37.1 MCV 92.3 MCH 30.3 MCHC 32.8 L RDW 12.7 Plt Count 93 L MPV 8.5 Neut % (Auto) 87.8 H Lymph % (Auto) 7.1 L Hardy % (Auto) 4.8 Eos % (Auto) 0.2 Baso % (Auto) 0.1 Neut # (Auto) 10.0 H Lymph # (Auto) 0.8 L Hardy # (Auto) 0.6 Eos # (Auto) 0.0 Baso # (Auto) 0.0 Neutrophils % (Manual) Lymphocytes % (Manual) Monocytes % (Manual) Toxic Granulation Platelet Estimate PT INR APTT Fibrinogen pCO2 pO2 26 L HCO3 ABG pH ABG Total CO2 ABG O2 Saturation ABG O2 Content ABG Base Excess ABG Hemoglobin ABG Carboxyhemoglobin 0.5 POC ABG HHb (Measured) 54.2 H ABG Methemoglobin 1.5 ABG O2 Capacity [place]asper Test VBG pH 7.34 VBG pCO2 46 VBG HCO3 22.6 VBG Total CO2 VBG O2 Sat (Calc) 44.6 VBG Base Excess -1.3 L VBG Hgb O2 Saturation 43.7 L VBG Potassium A-a O2 Difference Hemoglobin 12.4 Hgb O2 Saturation Glucose Lactate FiO2 Crit Value Called To Crit Value Called By Crit Value Read Back Blood Gas Notified Time Sodium 138 Potassium 3.9 Chloride 101 Carbon Dioxide 24 Anion Gap 17 BUN 36 H Creatinine 3.0 H Est GFR ( Amer) 30 Est GFR (Non-Af Amer) 25 POC Glucose (mg/dL) Random Glucose 155 H Serum Osmolality Lactic Acid Calcium 6.6 L Phosphorus Magnesium Total Bilirubin 0.6 Direct Bilirubin AST 54107 H ALT 6372 H Alkaline Phosphatase < 20 L D Ammonia Total Creatine Kinase 10748 H Troponin I 1.6900 H* Total Protein 5.5 L Albumin 2.9 L Globulin 2.5 Albumin/Globulin Ratio 1.2 TSH 3rd Generation Venous Blood Potassium Urine Osmolality Ur Random Creatinine Ur Random Sodium Acetaminophen Hep Bs Antigen Hep Bs Antibody Hep B Core IgM Ab HSV Source Description 07/20/18 07/20/18 14:30 16:27 WBC RBC Hgb Hct MCV MCH MCHC RDW Plt Count MPV Neut % (Auto) Lymph % (Auto) Hardy % (Auto) Eos % (Auto) Baso % (Auto) Neut # (Auto) Lymph # (Auto) Hardy # (Auto) Eos # (Auto) Baso # (Auto) Neutrophils % (Manual) Lymphocytes % (Manual) Monocytes % (Manual) Toxic Granulation Platelet Estimate PT INR APTT Fibrinogen 150 L pCO2 pO2 HCO3 ABG pH ABG Total CO2 ABG O2 Saturation ABG O2 Content ABG Base Excess ABG Hemoglobin ABG Carboxyhemoglobin POC ABG HHb (Measured) ABG Methemoglobin ABG O2 Capacity Jasper Test VBG pH VBG pCO2 VBG HCO3 VBG Total CO2 VBG O2 Sat (Calc) VBG Base Excess VBG Hgb O2 Saturation VBG Potassium A-a O2 Difference Hemoglobin Hgb O2 Saturation Glucose Lactate FiO2 Crit Value Called To Crit Value Called By Crit Value Read Back Blood Gas Notified Time Sodium Potassium Chloride Carbon Dioxide Anion Gap BUN Creatinine Est GFR ( Amer) Est GFR (Non-Af Amer) POC Glucose (mg/dL) 119 H Random Glucose Serum Osmolality Lactic Acid Calcium Phosphorus Magnesium Total Bilirubin Direct Bilirubin AST ALT Alkaline Phosphatase Ammonia Total Creatine Kinase Troponin I Total Protein Albumin Globulin Albumin/Globulin Ratio TSH 3rd Generation Venous Blood Potassium Urine Osmolality Ur Random Creatinine Ur Random Sodium Acetaminophen Hep Bs Antigen Hep Bs Antibody Hep B Core IgM Ab HSV Source Description Radiology Impressions: Radiology Impressions Soft Tissue Neck CT 07/20/18 05:13 IMPRESSION: Asymmetric enlargement and edema in the left submandibular and parotid glands and masseter with diffuse subcutaneous edema in the left facial and neck soft tissues, and parietal scalp. Findings are most compatible with nonspecific infectious/inflammatory cellulitis. A preliminary report was provided by [facility]. EKG/Cardiology Studies: Cardiology / EKG Studies 07/19/18 17:26 EKG [ELECTROCARDIOGRAM] Stat Comment: Mode Of Transportation: PORTABLE Reason For Exam: SOB 07/20/18 12:00 EKG [ELECTROCARDIOGRAM] Routine Comment: Mode Of Transportation: Reason For Exam: hyperkalemia 07/21/18 09:00 EKG [ELECTROCARDIOGRAM] DAILY Comment: 2 Mode Of Transportation: Reason For Exam: elevated trops 07/22/18 09:00 EKG [ELECTROCARDIOGRAM] DAILY Comment: 2 Mode Of Transportation: Reason For Exam: elevated trops Critical Care Progress Note - Nutrition Nutrition: Nutrition Category Date Time Status Liquid Diet [DIET] Diets 07/20/18 Lunch Active Assessment/Plan (1) ARF (acute renal failure) Current Visit: Yes Status: Acute Priority: High (3) Altered mental status Current Visit: Yes Status: Acute Priority: High (4) Hyperkalemia Current Visit: Yes Status: Acute Priority: High (5) Ingestion of toxic substance Current Visit: Yes Status: Acute Priority: High (7) Septic shock Current Visit: Yes Status: Acute Priority: High Attending/Attestation - Attestation I have personally seen and examined this patient.: Yes I have fully participated in the care of the patient.: Yes I have reviewed all pertinent clinical information: Yes Notes (Text): 07/20/18 17:15 Today: Friday, July 20, 2018 The patient was Seen/interviewed and examined by me at the bedside during ICU round, Medical records reviewed and Management issues were discussed and formulated with the house staff. Events reviewed I have reviewed all the relevant clinical, laboratory, hemodynamic, radiographic data and medications Pain issues, skin care, head of the bed elevation, glycemic control were addressed. I concur with resident's assessment and plan of care as transcribed in Dr. Zuniga note. Patient admitted with acute kidney injury with Hyperkalemia and acute liver failure Patient was hypotensive in the ER, central line placed and he was briefly on vasopressors Aggressive hydrations, poison control notified, received HD last tonight Renal, Cardiology and G consulted More awake today, frequent neurocheck Work up in progress, also called hematology consult, serum alcohol level for methanol, ethylene glycoland isopropyl alcohol Also possibly from ethanol ingestion. Total critical care time 42 minutes <Clive Bautista V - Last Filed: 08/06/18 07:21> CCU Subjective - Physician Review Events Since Last Encounter (Free Text): 08/06/18 07:20 patient is seen and examined at bedside. case discussed in am rounds. Agree with plan of care as detailed in resident's note CCU Objective - Medications Active Medications: Active Medications Generic Name Dose Route Start Last Admin Trade Name Freq PRN Reason Stop Dose Admin Cholecalciferol 2,000 intlu 07/26/18 09:00 08/05/18 08:53 Vitamin D PO 2,000 intlu DAILY WAYNE Administration Epoetin Marito 10,000 unit 08/06/18 09:00 Procrit SC [facility] Ferrous Gluconate 324 mg 08/05/18 13:00 08/05/18 17:41 Fergon PO 324 mg TID WAYNE Administration Heparin Sodium (Porcine) 5,000 units 07/29/18 04:00 08/02/18 16:15 Heparin SC Not Given Q12@0400,1600 [facility] Protocol Piperacillin Sod/Tazobactam 100 mls @ 100 mls/hr 08/04/18 03:00 08/05/18 15:57 Sod 2.25 gm/ Sodium Chloride IVPB 100 mls/hr Q12@0300,1500 WAYNE Administration Protocol Vancomycin HCl 1 gm/ Sodium 250 mls @ 125 mls/hr 08/05/18 10:30 Chloride IVPB 08/06/18 10:23 POSTDI WAYNE Protocol Ondansetron HCl 4 mg 07/19/18 16:26 07/21/18 11:06 Zofran Inj IVP 4 mg Q6 PRN Administration Nausea/Vomiting Pantoprazole Sodium 40 mg 07/24/18 09:00 08/05/18 08:52 Protonix Ec Tab PO 40 mg DAILY WAYNE Administration Prednisone 60 mg 08/05/18 16:00 08/05/18 16:13 Prednisone Tab PO 08/19/18 16:01 60 mg DAILY WAYNE Administration Vitamin B Complex/Vit C/Folic Acid 1 tab 07/24/18 10:00 08/05/18 08:52 Nephro-Chey PO 1 tab DAILY WAYNE Administration - Patient Studies Lab Studies: Microbiology Studies 08/02/18 09:14 Blood Culture - Preliminary Blood NO GROWTH AFTER 3 DAYS 08/02/18 09:14 Blood Culture - Preliminary Blood NO GROWTH AFTER 3 DAYS Lab Studies 08/06/18 08/06/18 08/06/18 Range/Units 05:35 05:35 05:19 WBC 5.2 (4.8-10.8) K/uL RBC 2.93 L (4.40-5.90) Mil/uL Hgb 9.3 L (12.0-18.0) g/dL Hct 28.3 L (35.0-51.0) % MCV 96.4 H (80.0-94.0) fl MCH 31.7 H (27.0-31.0) pg MCHC 32.9 L (33.0-37.0) g/dL RDW 15.0 H (11.5-14.5) % Plt Count 394 (130-400) K/uL Sodium 140 (132-148) mmol/l Potassium 4.8 (3.6-5.0) MMOL/L Chloride 102 (98-107) mmol/L Carbon Dioxide 27 (22-30) mmol/L Anion Gap 16 (10-20) BUN 42 H (9-20) mg/dl Creatinine 3.3 H (0.8-1.5) mg/dl Est GFR ( Amer) 27 Est GFR (Non-Af Amer) 22 POC Glucose (mg/dL) 144 H (65-110) mg/dL Random Glucose 141 H (75-110) mg/dL Calcium 9.5 (8.4-10.2) mg/dL Total Bilirubin 0.5 (0.2-1.3) mg/dl AST 67 H (17-59) U/L ALT 179 H (21-72) U/L Alkaline Phosphatase 54 (38-126) U/L Total Protein 7.9 (6.3-8.2) G/DL Albumin 4.3 (3.5-5.0) g/dL Globulin 3.5 (2.2-3.9) gm/dL Albumin/Globulin Ratio 1.2 (1.0-2.1) 08/05/18 08/05/18 08/05/18 Range/Units 21:10 15:47 11:00 WBC (4.8-10.8) K/uL RBC (4.40-5.90) Mil/uL Hgb (12.0-18.0) g/dL Hct (35.0-51.0) % MCV (80.0-94.0) fl MCH (27.0-31.0) pg MCHC (33.0-37.0) g/dL RDW (11.5-14.5) % Plt Count (130-400) K/uL Sodium (132-148) mmol/l Potassium (3.6-5.0) MMOL/L Chloride (98-107) mmol/L Carbon Dioxide (22-30) mmol/L Anion Gap (10-20) BUN (9-20) mg/dl Creatinine (0.8-1.5) mg/dl Est GFR ( Amer) Est GFR (Non-Af Amer) POC Glucose (mg/dL) 123 H 91 85 (65-110) mg/dL Random Glucose (75-110) mg/dL Calcium (8.4-10.2) mg/dL Total Bilirubin (0.2-1.3) mg/dl AST (17-59) U/L ALT (21-72) U/L Alkaline Phosphatase (38-126) U/L Total Protein (6.3-8.2) G/DL Albumin (3.5-5.0) g/dL Globulin (2.2-3.9) gm/dL Albumin/Globulin Ratio (1.0-2.1) Laboratory Results - last 24 hr 08/05/18 08/05/18 08/05/18 11:00 15:47 21:10 WBC RBC Hgb Hct MCV MCH MCHC RDW Plt Count Sodium Potassium Chloride Carbon Dioxide Anion Gap BUN Creatinine Est GFR ( Amer) Est GFR (Non-Af Amer) POC Glucose (mg/dL) 85 91 123 H Random Glucose Calcium Total Bilirubin AST ALT Alkaline Phosphatase Total Protein Albumin Globulin Albumin/Globulin Ratio 08/06/18 08/06/18 08/06/18 05:19 05:35 05:35 WBC 5.2 RBC 2.93 L Hgb 9.3 L Hct 28.3 L MCV 96.4 H MCH 31.7 H MCHC 32.9 L RDW 15.0 H Plt Count 394 Sodium 140 Potassium 4.8 Chloride 102 Carbon Dioxide 27 Anion Gap 16 BUN 42 H Creatinine 3.3 H Est GFR ( Amer) 27 Est GFR (Non-Af Amer) 22 POC Glucose (mg/dL) 144 H Random Glucose 141 H Calcium 9.5 Total Bilirubin 0.5 AST 67 H ALT 179 H Alkaline Phosphatase 54 Total Protein 7.9 Albumin 4.3 Globulin 3.5 Albumin/Globulin Ratio 1.2 Critical Care Progress Note - Nutrition Nutrition: Nutrition Category Date Time Status Renal Diet [DIET] Diets 08/02/18 Dinner Active
--- NOTE | 2018-07-20 09:41 | CP.PCM.CON ---
History of Present Illness - History of Present Illness History of Present Illness: 28 yo male found unresponsive. History according to friend of recent Etoh use and coccaine use. Poison control had been contacted and patient has been treated with aggressive treatment regimen. Currently is drowsy but responsive. LFTs have been very high since coming through ER. Review of Systems - Review of Systems Systems not reviewed;Unavailable: Altered Mental Status Past Patient History - Past Medical History & Family History Past Medical History?: Yes - Past Social History Smoking Status: Never Smoked - CARDIAC Hx Cardiac Disorders: No - PULMONARY Hx Respiratory Disorders: No - NEUROLOGICAL Hx Neurological Disorder: No - HEENT Hx HEENT Problems: No - RENAL Hx Chronic Kidney Disease: No - ENDOCRINE/METABOLIC Hx Endocrine Disorders: No - HEMATOLOGICAL/ONCOLOGICAL Hx Blood Disorders: No - INTEGUMENTARY Hx Dermatological Problems: Yes (Psoriasis) - MUSCULOSKELETAL/RHEUMATOLOGICAL Hx Falls: Yes (pt. found on ground) - PSYCHIATRIC Hx Substance Use: No - SURGICAL HISTORY Hx Surgeries: No - ANESTHESIA Hx Anesthesia: No Meds Allergies/Adverse Reactions: Allergies Allergy/AdvReac Type Severity Reaction Status Date / Time No Known Allergies Allergy Verified 07/19/18 13:46 - Medications Medications: Current Medications Norepinephrine Bitartrate 4 mg (/ Dextrose) 254 mls @ 9.53 mls/hr IV .Q24H WAYNE; Protocol Last Admin: 07/19/18 14:45 Dose: 2.5 mcg/min, 9.53 mls/hr Sodium Chloride (Sodium Chloride 0.9%) 1,000 mls @ 200 mls/hr IV .Q5H WAYNE Stop: 07/20/18 16:48 Last Admin: 07/20/18 04:28 Dose: 200 mls/hr Piperacillin Sod/Tazobactam (Sod 2.25 gm/ Sodium Chloride) 100 mls @ 100 mls/hr IVPB Q6 WAYNE; Protocol Last Admin: 07/20/18 04:21 Dose: 100 mls/hr Ondansetron HCl (Zofran Inj) 4 mg IVP Q6 PRN PRN Reason: Nausea/Vomiting Pantoprazole Sodium (Protonix Inj) 40 mg IVP DAILY WAYNE Physical Exam - Head Exam Head Exam: ATRAUMATIC - Eye Exam Eye Exam: Normal appearance Pupil Exam: PERRL - ENT Exam ENT Exam: Mucous Membranes Moist - Neck Exam Neck exam: Positive for: Normal Inspection - Respiratory Exam Respiratory Exam: Clear to Auscultation Bilateral - Cardiovascular Exam Cardiovascular Exam: REGULAR RHYTHM, +S1, +S2 - GI/Abdominal Exam GI & Abdominal Exam: Distended, Normal Bowel Sounds, Soft Results - Vital Signs Recent Vital Signs: Last Vital Signs Temp 98.1 F 07/20/18 08:00 Pulse 79 07/20/18 08:00 Resp 14 07/20/18 08:00 BP 133/85 07/20/18 06:00 Pulse Ox 99 07/20/18 08:00 - Labs Result Diagrams: 07/20/18 06:47 07/20/18 04:30 Labs: Laboratory Results - last 24 hr 07/19/18 07/19/18 07/19/18 11:34 11:38 11:45 WBC 27.5 H RBC 5.33 Hgb 16.4 Hct 54.4 H MCV 102.2 H MCH 30.7 MCHC 30.0 L RDW 14.4 Plt Count 249 MPV 9.3 Neut % (Auto) 86.6 H Lymph % (Auto) 6.3 L Nolan % (Auto) 6.7 Eos % (Auto) 0.1 Baso % (Auto) 0.3 Neut # (Auto) 23.8 H Lymph # (Auto) 1.7 Nolan # (Auto) 1.8 H Eos # (Auto) 0.0 Baso # (Auto) 0.1 Neutrophils % (Manual) 79 H Band Neutrophils % 3 H Lymphocytes % (Manual) 7 L Monocytes % (Manual) 10 Basophils % (Manual) 1 Platelet Estimate Normal Macrocytosis (manual) Moderate PT INR APTT pCO2 pO2 HCO3 ABG pH ABG Total CO2 ABG O2 Saturation ABG O2 Content ABG Base Excess ABG Hemoglobin ABG Carboxyhemoglobin POC ABG HHb (Measured) ABG Methemoglobin ABG O2 Capacity Jasper Test VBG pH VBG pCO2 VBG HCO3 VBG Total CO2 VBG O2 Sat (Calc) VBG Base Excess VBG Potassium A-a O2 Difference Hgb O2 Saturation Sodium Chloride Glucose Lactate FiO2 Crit Value Called To Crit Value Called By Crit Value Read Back Blood Gas Notified Time Potassium Carbon Dioxide Anion Gap BUN Creatinine Est GFR ( Amer) Est GFR (Non-Af Amer) POC Glucose (mg/dL) 23 L* 162 H Random Glucose Serum Osmolality Lactic Acid Calcium Phosphorus Magnesium Total Bilirubin Direct Bilirubin AST ALT Alkaline Phosphatase Total Creatine Kinase Total Protein Albumin Globulin Albumin/Globulin Ratio TSH 3rd Generation Venous Blood Potassium Urine Color Urine Clarity Urine pH Ur Specific Pierce Urine Protein Urine Glucose (UA) Urine Ketones Urine Blood Urine Nitrate Urine Bilirubin Urine Urobilinogen Ur Leukocyte Esterase Urine RBC (Auto) Urine Microscopic WBC Amorphous Sediment Urine Bacteria Fluid Type CSF Volume CSF Appearance CSF WBC CSF RBC CSF Total Cell Counted CSF Neutrophils CSF Lymphocytes CSF Monos/Macrophages CSF Comment CSF Glucose CSF Total Protein Salicylates Urine Opiates Screen Urine Methadone Screen Acetaminophen Ur Barbiturates Screen Ur Phencyclidine Scrn Ur Amphetamines Screen U Benzodiazepines Scrn U Oth Cocaine Metabols U Cannabinoids Screen Alcohol, Quantitative HSV Source Description 07/19/18 07/19/18 07/19/18 12:50 12:50 13:20 WBC RBC Hgb Hct MCV MCH MCHC RDW Plt Count MPV Neut % (Auto) Lymph % (Auto) Nolan % (Auto) Eos % (Auto) Baso % (Auto) Neut # (Auto) Lymph # (Auto) Nolan # (Auto) Eos # (Auto) Baso # (Auto) Neutrophils % (Manual) Band Neutrophils % Lymphocytes % (Manual) Monocytes % (Manual) Basophils % (Manual) Platelet Estimate Macrocytosis (manual) PT INR APTT pCO2 pO2 HCO3 ABG pH ABG Total CO2 ABG O2 Saturation ABG O2 Content ABG Base Excess ABG Hemoglobin ABG Carboxyhemoglobin POC ABG HHb (Measured) ABG Methemoglobin ABG O2 Capacity Jasper Test VBG pH VBG pCO2 VBG HCO3 VBG Total CO2 VBG O2 Sat (Calc) VBG Base Excess VBG Potassium A-a O2 Difference Hgb O2 Saturation Sodium Chloride Glucose Lactate FiO2 Crit Value Called To Crit Value Called By Crit Value Read Back Blood Gas Notified Time Potassium Carbon Dioxide Anion Gap BUN Creatinine Est GFR ( Amer) Est GFR (Non-Af Amer) POC Glucose (mg/dL) Random Glucose Serum Osmolality Lactic Acid Calcium Phosphorus Magnesium Total Bilirubin Direct Bilirubin AST ALT Alkaline Phosphatase Total Creatine Kinase Total Protein Albumin Globulin Albumin/Globulin Ratio TSH 3rd Generation Venous Blood Potassium Urine Color Yellow Urine Clarity Cloudy Urine pH 6.0 Ur Specific Pierce 1.013 Urine Protein 100 Urine Glucose (UA) Neg Urine Ketones Negative Urine Blood Large Urine Nitrate Negative Urine Bilirubin Negative Urine Urobilinogen 0.2-1.0 Ur Leukocyte Esterase Neg Urine RBC (Auto) 3 Urine Microscopic WBC 2 Amorphous Sediment Occ H Urine Bacteria Occ H Fluid Type CSF Volume CSF Appearance CSF WBC CSF RBC CSF Total Cell Counted CSF Neutrophils CSF Lymphocytes CSF Monos/Macrophages CSF Comment CSF Glucose CSF Total Protein Salicylates Urine Opiates Screen Positive H Urine Methadone Screen Negative Acetaminophen Ur Barbiturates Screen Negative Ur Phencyclidine Scrn Negative Ur Amphetamines Screen Negative U Benzodiazepines Scrn Negative U Oth Cocaine Metabols Negative U Cannabinoids Screen Negative Alcohol, Quantitative 23 H HSV Source Description 07/19/18 07/19/18 07/19/18 13:40 13:40 13:46 WBC RBC Hgb Hct MCV MCH MCHC RDW Plt Count MPV Neut % (Auto) Lymph % (Auto) Nolan % (Auto) Eos % (Auto) Baso % (Auto) Neut # (Auto) Lymph # (Auto) Nolan # (Auto) Eos # (Auto) Baso # (Auto) Neutrophils % (Manual) Band Neutrophils % Lymphocytes % (Manual) Monocytes % (Manual) Basophils % (Manual) Platelet Estimate Macrocytosis (manual) PT INR APTT pCO2 pO2 HCO3 ABG pH ABG Total CO2 ABG O2 Saturation ABG O2 Content ABG Base Excess ABG Hemoglobin ABG Carboxyhemoglobin POC ABG HHb (Measured) ABG Methemoglobin ABG O2 Capacity Jasper Test VBG pH VBG pCO2 VBG HCO3 VBG Total CO2 VBG O2 Sat (Calc) VBG Base Excess VBG Potassium A-a O2 Difference Hgb O2 Saturation Sodium Chloride Glucose Lactate FiO2 Crit Value Called To Crit Value Called By Crit Value Read Back Blood Gas Notified Time Potassium Carbon Dioxide Anion Gap BUN Creatinine Est GFR ( Amer) Est GFR (Non-Af Amer) POC Glucose (mg/dL) 167 H Random Glucose Serum Osmolality Lactic Acid Calcium Phosphorus Magnesium Total Bilirubin Direct Bilirubin AST ALT Alkaline Phosphatase Total Creatine Kinase Total Protein Albumin Globulin Albumin/Globulin Ratio TSH 3rd Generation Venous Blood Potassium Urine Color Urine Clarity Urine pH Ur Specific Pierce Urine Protein Urine Glucose (UA) Urine Ketones Urine Blood Urine Nitrate Urine Bilirubin Urine Urobilinogen Ur Leukocyte Esterase Urine RBC (Auto) Urine Microscopic WBC Amorphous Sediment Urine Bacteria Fluid Type Spinal fluid CSF Volume 2 H CSF Appearance Clear/colorless CSF WBC 3.0 CSF RBC 13.0 H CSF Total Cell Counted TEST NOT PERFORMED CSF Neutrophils 1 H CSF Lymphocytes 1.0 H CSF Monos/Macrophages 0 CSF Comment None CSF Glucose 51 CSF Total Protein 46.0 Salicylates Urine Opiates Screen Urine Methadone Screen Acetaminophen Ur Barbiturates Screen Ur Phencyclidine Scrn Ur Amphetamines Screen U Benzodiazepines Scrn U Oth Cocaine Metabols U Cannabinoids Screen Alcohol, Quantitative HSV Source Description 07/19/18 07/19/18 07/19/18 13:50 14:00 14:35 WBC RBC Hgb Hct MCV MCH MCHC RDW Plt Count MPV Neut % (Auto) Lymph % (Auto) Nolan % (Auto) Eos % (Auto) Baso % (Auto) Neut # (Auto) Lymph # (Auto) Nolan # (Auto) Eos # (Auto) Baso # (Auto) Neutrophils % (Manual) Band Neutrophils % Lymphocytes % (Manual) Monocytes % (Manual) Basophils % (Manual) Platelet Estimate Macrocytosis (manual) PT INR APTT pCO2 pO2 58 H HCO3 ABG pH ABG Total CO2 ABG O2 Saturation ABG O2 Content ABG Base Excess ABG Hemoglobin ABG Carboxyhemoglobin POC ABG HHb (Measured) ABG Methemoglobin ABG O2 Capacity Jasper Test VBG pH 7.03 L* VBG pCO2 40 VBG HCO3 9.0 VBG Total CO2 11.8 L VBG O2 Sat (Calc) 90.5 H VBG Base Excess -19.6 L VBG Potassium 7.9 H* A-a O2 Difference Hgb O2 Saturation Sodium 137.0 143 Chloride 108.0 H 110 H Glucose 201 H Lactate 10.0 H* FiO2 21.0 Crit Value Called To Dwain almazan Crit Value Called By 23 Crit Value Read Back Y Blood Gas Notified Time 1355 Potassium 8.2 H* Carbon Dioxide 19 L Anion Gap 22 H BUN 36 H Creatinine 3.2 H Est GFR ( Amer) 28 Est GFR (Non-Af Amer) 23 POC Glucose (mg/dL) Random Glucose 163 H Serum Osmolality Lactic Acid Calcium 5.6 L* Phosphorus Magnesium Total Bilirubin 0.3 [place] AST 61411 H ALT 7913 H Alkaline Phosphatase 40 Total Creatine Kinase 46061 H Total Protein 5.8 L Albumin 3.2 L Globulin 2.6 Albumin/Globulin Ratio 1.2 TSH 3rd Generation Venous Blood Potassium 7.9 H* Urine Color Urine Clarity Urine pH Ur Specific Pierce Urine Protein Urine Glucose (UA) Urine Ketones Urine Blood Urine Nitrate Urine Bilirubin Urine Urobilinogen Ur Leukocyte Esterase Urine RBC (Auto) Urine Microscopic WBC Amorphous Sediment Urine Bacteria Fluid Type CSF Volume CSF Appearance CSF WBC CSF RBC CSF Total Cell Counted CSF Neutrophils CSF Lymphocytes CSF Monos/Macrophages CSF Comment CSF Glucose CSF Total Protein Salicylates Urine Opiates Screen Urine Methadone Screen Acetaminophen Ur Barbiturates Screen Ur Phencyclidine Scrn Ur Amphetamines Screen U Benzodiazepines Scrn U Oth Cocaine Metabols U Cannabinoids Screen Alcohol, Quantitative < 10 HSV Source Description Fluid 07/19/1818 18 16:17 16:18 16:18 WBC RBC Hgb Hct MCV MCH MCHC RDW Plt Count MPV Neut % (Auto) Lymph % (Auto) Nolan % (Auto) Eos % (Auto) Baso % (Auto) Neut # (Auto) Lymph # (Auto) Nolan # (Auto) Eos # (Auto) Baso # (Auto) Neutrophils % (Manual) Band Neutrophils % Lymphocytes % (Manual) Monocytes % (Manual) Basophils % (Manual) Platelet Estimate Macrocytosis (manual) PT INR APTT pCO2 pO2 HCO3 ABG pH ABG Total CO2 ABG O2 Saturation ABG O2 Content ABG Base Excess ABG Hemoglobin ABG Carboxyhemoglobin POC ABG HHb (Measured) ABG Methemoglobin ABG O2 Capacity Jasper Test VBG pH VBG pCO2 VBG HCO3 VBG Total CO2 VBG O2 Sat (Calc) VBG Base Excess VBG Potassium A-a O2 Difference Hgb O2 Saturation Sodium Chloride Glucose Lactate FiO2 Crit Value Called To Crit Value Called By Crit Value Read Back Blood Gas Notified Time Potassium Carbon Dioxide Anion Gap BUN Creatinine Est GFR ( Amer) Est GFR (Non-Af Amer) POC Glucose (mg/dL) Random Glucose Serum Osmolality 288 Lactic Acid Calcium Phosphorus Magnesium Total Bilirubin Direct Bilirubin AST ALT Alkaline Phosphatase Total Creatine Kinase Total Protein Albumin Globulin Albumin/Globulin Ratio TSH 3rd Generation Venous Blood Potassium Urine Color Urine Clarity Urine pH Ur Specific Pierce Urine Protein Urine Glucose (UA) Urine Ketones Urine Blood Urine Nitrate Urine Bilirubin Urine Urobilinogen Ur Leukocyte Esterase Urine RBC (Auto) Urine Microscopic WBC Amorphous Sediment Urine Bacteria Fluid Type CSF Volume CSF Appearance CSF WBC CSF RBC CSF Total Cell Counted CSF Neutrophils CSF Lymphocytes CSF Monos/Macrophages CSF Comment CSF Glucose CSF Total Protein Salicylates < 1.0 Urine Opiates Screen Urine Methadone Screen Acetaminophen < 10.0 L Ur Barbiturates Screen Ur Phencyclidine Scrn Ur Amphetamines Screen U Benzodiazepines Scrn U Oth Cocaine Metabols U Cannabinoids Screen Alcohol, Quantitative HSV Source Description 07/19/18 07/19/18 07/19/18 16:37 17:25 17:25 WBC RBC Hgb Hct MCV MCH MCHC RDW Plt Count MPV Neut % (Auto) Lymph % (Auto) Nolan % (Auto) Eos % (Auto) Baso % (Auto) Neut # (Auto) Lymph # (Auto) Nolan # (Auto) Eos # (Auto) Baso # (Auto) Neutrophils % (Manual) Band Neutrophils % Lymphocytes % (Manual) Monocytes % (Manual) Basophils % (Manual) Platelet Estimate Macrocytosis (manual) PT 17.4 H INR 1.5 APTT 31.0 pCO2 pO2 HCO3 ABG pH ABG Total CO2 ABG O2 Saturation ABG O2 Content ABG Base Excess ABG Hemoglobin ABG Carboxyhemoglobin POC ABG HHb (Measured) ABG Methemoglobin ABG O2 Capacity Jasper Test VBG pH VBG pCO2 VBG HCO3 VBG Total CO2 VBG O2 Sat (Calc) VBG Base Excess VBG Potassium A-a O2 Difference Hgb O2 Saturation Sodium 144 Chloride 112 H Glucose Lactate FiO2 Crit Value Called To Crit Value Called By Crit Value Read Back Blood Gas Notified Time Potassium 6.2 H* D Carbon Dioxide 18 L Anion Gap 20 BUN 39 H Creatinine 3.3 H Est GFR ( Amer) 27 Est GFR (Non-Af Amer) 22 POC Glucose (mg/dL) 185 H Random Glucose 184 H Serum Osmolality Lactic Acid Calcium 6.1 L Phosphorus 6.3 H Magnesium 1.8 Total Bilirubin 0.5 [place] 68993 H ALT 8256 H Alkaline Phosphatase 40 Total Creatine Kinase Total Protein 6.1 L Albumin 3.2 L Globulin 2.9 Albumin/Globulin Ratio 1.1 TSH 3rd Generation 0.75 Venous Blood Potassium Urine Color Urine Clarity Urine pH Ur Specific Pierce Urine Protein Urine Glucose (UA) Urine Ketones Urine Blood Urine Nitrate Urine Bilirubin Urine Urobilinogen Ur Leukocyte Esterase Urine RBC (Auto) Urine Microscopic WBC Amorphous Sediment Urine Bacteria Fluid Type CSF Volume CSF Appearance CSF WBC CSF RBC CSF Total Cell Counted CSF Neutrophils CSF Lymphocytes CSF Monos/Macrophages CSF Comment CSF Glucose CSF Total Protein Salicylates Urine Opiates Screen Urine Methadone Screen Acetaminophen Ur Barbiturates Screen Ur Phencyclidine Scrn Ur Amphetamines Screen U Benzodiazepines Scrn U Oth Cocaine Metabols U Cannabinoids Screen Alcohol, Quantitative HSV Source Description 07/19/18 07/19/18 07/19/18 17:30 23:02 23:10 WBC RBC Hgb Hct MCV MCH MCHC RDW Plt Count MPV Neut % (Auto) Lymph % (Auto) Nolan % (Auto) Eos % (Auto) Baso % (Auto) Neut # (Auto) Lymph # (Auto) Nolan # (Auto) Eos # (Auto) Baso # (Auto) Neutrophils % (Manual) Band Neutrophils % Lymphocytes % (Manual) Monocytes % (Manual) Basophils % (Manual) Platelet Estimate Macrocytosis (manual) PT INR APTT pCO2 36 pO2 71 H 108 H HCO3 20.1 L ABG pH 7.33 L ABG Total CO2 20.1 L ABG O2 Saturation 99.0 H ABG O2 Content 17.8 ABG Base Excess -6.2 L ABG Hemoglobin 13.0 ABG Carboxyhemoglobin 1.0 POC ABG HHb (Measured) 1.0 ABG Methemoglobin 1.4 ABG O2 Capacity 18.0 Jasper Test Yes VBG pH 7.25 L VBG pCO2 42 VBG HCO3 18.1 VBG Total CO2 19.7 L VBG O2 Sat (Calc) 96.8 H VBG Base Excess -8.5 L VBG Potassium 6.2 H* A-a O2 Difference 75.0 Hgb O2 Saturation 96.6 Sodium 142.0 Chloride 112.0 H Glucose 195 H Lactate 5.9 H* FiO2 21.0 32.0 Crit Value Called To Md bobbi gilbert Crit Value Called By 23 Crit Value Read Back Y Blood Gas Notified Time 1740 Potassium Carbon Dioxide Anion Gap BUN Creatinine Est GFR ( Amer) Est GFR (Non-Af Amer) POC Glucose (mg/dL) 180 H Random Glucose Serum Osmolality Lactic Acid Calcium Phosphorus Magnesium Total Bilirubin Direct Bilirubin AST ALT Alkaline Phosphatase Total Creatine Kinase Total Protein Albumin Globulin Albumin/Globulin Ratio TSH 3rd Generation Venous Blood Potassium 6.2 H* Urine Color Urine Clarity Urine pH Ur Specific Pierce Urine Protein Urine Glucose (UA) Urine Ketones Urine Blood Urine Nitrate Urine Bilirubin Urine Urobilinogen Ur Leukocyte Esterase Urine RBC (Auto) Urine Microscopic WBC Amorphous Sediment Urine Bacteria Fluid Type CSF Volume CSF Appearance CSF WBC CSF RBC CSF Total Cell Counted CSF Neutrophils CSF Lymphocytes CSF Monos/Macrophages CSF Comment CSF Glucose CSF Total Protein Salicylates Urine Opiates Screen Urine Methadone Screen Acetaminophen Ur Barbiturates Screen Ur Phencyclidine Scrn Ur Amphetamines Screen U Benzodiazepines Scrn U Oth Cocaine Metabols U Cannabinoids Screen Alcohol, Quantitative HSV Source Description 07/19/18 07/20/18 07/20/18 23:44 04:30 04:30 WBC RBC Hgb Hct MCV MCH MCHC RDW Plt Count MPV Neut % (Auto) Lymph % (Auto) Nolan % (Auto) Eos % (Auto) Baso % (Auto) Neut # (Auto) Lymph # (Auto) Nolan # (Auto) Eos # (Auto) Baso # (Auto) Neutrophils % (Manual) Band Neutrophils % Lymphocytes % (Manual) Monocytes % (Manual) Basophils % (Manual) Platelet Estimate Macrocytosis (manual) PT INR APTT pCO2 pO2 HCO3 ABG pH ABG Total CO2 ABG O2 Saturation ABG O2 Content ABG Base Excess ABG Hemoglobin ABG Carboxyhemoglobin POC ABG HHb (Measured) ABG Methemoglobin ABG O2 Capacity Jasper Test VBG pH VBG pCO2 VBG HCO3 VBG Total CO2 VBG O2 Sat (Calc) VBG Base Excess VBG Potassium A-a O2 Difference Hgb O2 Saturation Sodium 138 Chloride 102 Glucose Lactate FiO2 Crit Value Called To Crit Value Called By Crit Value Read Back Blood Gas Notified Time Potassium 4.0 Carbon Dioxide 25 Anion Gap 15 BUN 33 H Creatinine 2.5 H Est GFR ( Amer) 37 Est GFR (Non-Af Amer) 30 POC Glucose (mg/dL) Random Glucose 148 H Serum Osmolality Lactic Acid 2.5 H Calcium 6.9 L Phosphorus Magnesium Total Bilirubin 0.4 0.5 Direct Bilirubin 0.3 0.1 AST 27596 H 48324 H ALT 8344 H 7027 H Alkaline Phosphatase 41 38 Total Creatine Kinase Total Protein 6.0 L 5.7 L Albumin 3.3 L 3.0 L Globulin 2.8 2.7 Albumin/Globulin Ratio 1.2 1.1 TSH 3rd Generation Venous Blood Potassium Urine Color Urine Clarity Urine pH Ur Specific Pierce Urine Protein Urine Glucose (UA) Urine Ketones Urine Blood Urine Nitrate Urine Bilirubin Urine Urobilinogen Ur Leukocyte Esterase Urine RBC (Auto) Urine Microscopic WBC Amorphous Sediment Urine Bacteria Fluid Type CSF Volume CSF Appearance CSF WBC CSF RBC CSF Total Cell Counted CSF Neutrophils CSF Lymphocytes CSF Monos/Macrophages CSF Comment CSF Glucose CSF Total Protein Salicylates Urine Opiates Screen Urine Methadone Screen Acetaminophen Ur Barbiturates Screen Ur Phencyclidine Scrn Ur Amphetamines Screen U Benzodiazepines Scrn U Oth Cocaine Metabols U Cannabinoids Screen Alcohol, Quantitative HSV Source Description 07/20/18 07/20/18 04:43 06:47 WBC 13.4 H D RBC 4.15 L Hgb 12.6 D Hct 38.1 MCV 91.7 D MCH 30.2 MCHC 33.0 RDW 12.6 Plt Count 96 L D MPV 8.5 Neut % (Auto) 90.5 H Lymph % (Auto) 3.9 L Nolan % (Auto) 5.5 Eos % (Auto) 0.0 Baso % (Auto) 0.1 Neut # (Auto) 12.1 H Lymph # (Auto) 0.5 L Nolan # (Auto) 0.7 Eos # (Auto) 0.0 Baso # (Auto) 0.0 Neutrophils % (Manual) Band Neutrophils % Lymphocytes % (Manual) Monocytes % (Manual) Basophils % (Manual) Platelet Estimate Macrocytosis (manual) PT INR APTT pCO2 pO2 HCO3 ABG pH ABG Total CO2 ABG O2 Saturation ABG O2 Content ABG Base Excess ABG Hemoglobin ABG Carboxyhemoglobin POC ABG HHb (Measured) ABG Methemoglobin ABG O2 Capacity Jasper Test VBG pH VBG pCO2 VBG HCO3 VBG Total CO2 VBG O2 Sat (Calc) VBG Base Excess VBG Potassium A-a O2 Difference Hgb O2 Saturation Sodium Chloride Glucose Lactate FiO2 Crit Value Called To Crit Value Called By Crit Value Read Back Blood Gas Notified Time Potassium Carbon Dioxide Anion Gap BUN Creatinine Est GFR ( Amer) Est GFR (Non-Af Amer) POC Glucose (mg/dL) 147 H Random Glucose Serum Osmolality Lactic Acid Calcium Phosphorus Magnesium Total Bilirubin Direct Bilirubin AST ALT Alkaline Phosphatase Total Creatine Kinase Total Protein Albumin Globulin Albumin/Globulin Ratio TSH 3rd Generation Venous Blood Potassium Urine Color Urine Clarity Urine pH Ur Specific Pierce Urine Protein Urine Glucose (UA) Urine Ketones Urine Blood Urine Nitrate Urine Bilirubin Urine Urobilinogen Ur Leukocyte Esterase Urine RBC (Auto) Urine Microscopic WBC Amorphous Sediment Urine Bacteria Fluid Type CSF Volume CSF Appearance CSF WBC CSF RBC CSF Total Cell Counted CSF Neutrophils CSF Lymphocytes CSF Monos/Macrophages CSF Comment CSF Glucose CSF Total Protein Salicylates Urine Opiates Screen Urine Methadone Screen Acetaminophen Ur Barbiturates Screen Ur Phencyclidine Scrn Ur Amphetamines Screen U Benzodiazepines Scrn U Oth Cocaine Metabols U Cannabinoids Screen Alcohol, Quantitative HSV Source Description Assessment & Plan (1) Elevated liver enzymes Assessment and Plan: Elevated LFTs possibly due to shock liver prior to arriving in ER. CPKs have also been very high. Patient on NAC protocol for possible acetaminophen ingestion. Ammonia level ordered. INR was moderately elevated though Bili has been normal reflecting ongoing liver synthetic function. Continue current regimen as per poison control and vigorous IV hydration. Lactulose if ammonia level is high. Status: Acute
--- NOTE | 2018-07-20 10:17 | CP.PCM.PN ---
<Joni Samayoa - Last Filed: 07/20/18 14:51> Subjective - Date & Time of Evaluation Date of Evaluation: 07/20/18 Time of Evaluation: 09:15 - Subjective Subjective: Patient seen and evaluated at bedside in ICU. Patient awake, drowsy, responding to questions, oriented x 3. Reports mouth dryness however tolerating sips of water w/o difficulties. Neck swelling on left side since yesterday. Denies any neck pain, tenderness, erythema. Reports using cream for psoriasis at home. Denies any fever, chills, chest pain, nausea, vomiting, shortness of breath, abdominal pain, diarrhea. He reports working at [employer] and living in [place]. PCP is [facility] but doesn't recall physician's name. Objective - Vital Signs/Intake and Output Vital Signs (last 24 hours): Temp Pulse Resp BP Pulse Ox 98.1 F 79 14 133/85 99 07/20/18 08:00 07/20/18 08:00 07/20/18 08:00 07/20/18 06:00 07/20/18 08:00 Intake and Output: 07/20/18 07/20/18 06:59 18:59 Intake Total 3590 Output Total 1800 Balance 1790 - Medications Medications: Current Medications Norepinephrine Bitartrate 4 mg (/ Dextrose) 254 mls @ 9.53 mls/hr IV .Q24H [facility]; Protocol Last Admin: 07/19/18 14:45 Dose: 2.5 mcg/min, 9.53 mls/hr Sodium Chloride (Sodium Chloride 0.9%) 1,000 mls @ 200 mls/hr IV .Q5H [facility] Stop: 07/20/18 16:48 Last Admin: 07/20/18 04:28 Dose: 200 mls/hr Piperacillin Sod/Tazobactam (Sod 2.25 gm/ Sodium Chloride) 100 mls @ 100 mls/hr IVPB Q6 [facility]; Protocol Last Admin: 07/20/18 04:21 Dose: 100 mls/hr Calcium Gluconate 1,000 mg/ (Sodium Chloride) 110 mls @ 100 mls/hr IVPB ONCE ONE Stop: 07/20/18 11:12 Ondansetron HCl (Zofran Inj) 4 mg IVP Q6 PRN PRN Reason: Nausea/Vomiting Pantoprazole Sodium (Protonix Inj) 40 mg IVP DAILY [facility] - Labs Labs: 07/20/18 06:47 07/20/18 04:30 PT 17.4 Seconds (9.8-13.1) H 07/19/18 17:25 INR 1.5 07/19/18 17:25 APTT 31.0 Seconds (25.6-37.1) 07/19/18 17:25 - Constitutional Appears: Toxic, No Acute Distress - Head Exam Head Exam: ATRAUMATIC, NORMAL INSPECTION, NORMOCEPHALIC - Eye Exam Eye Exam: EOMI, Normal appearance Pupil Exam: absent: Miosis, Mydriatic - ENT Exam ENT Exam: Mucous Membranes Moist - Neck Exam Additional comments: Diffuse left sided neck swelling, Nontender, nonerythematous. - Respiratory Exam Respiratory Exam: Clear to Ausculation Bilateral. absent: Rales, Rhonchi, Wheezes, Respiratory Distress - Cardiovascular Exam Cardiovascular Exam: REGULAR RHYTHM, +S1, +S2. absent: Murmur - GI/Abdominal Exam GI & Abdominal Exam: Soft, Normal Bowel Sounds. absent: Distended, Tenderness - Extremities Exam Extremities Exam: absent: Calf Tenderness, Pedal Edema, Tenderness - Neurological Exam Neurological Exam: Alert, Altered, Awake, Oriented x3 - Psychiatric Exam Psychiatric exam: Normal Affect, Normal Mood. absent: Agitated, Anxious - Skin Skin Exam: Dry, Intact, Normal Color, Warm Assessment and Plan - Assessment and Plan (Free Text) Assessment: 28 year old male with PMHx of psoriasis brought to ER by EMS after being found unresponsive. Patient W/AMS, acute drug intoxication(Unknown), CRISTINA, acute liver failure, rhabdomolysis and metabolic acidosis. CXR: No acute pulmonary disease Shoulder XR: No acute fracture or dislocations EKG: NSR, Prolong QT CT chest, abdomen and pelvis: No acute abnormality, Mild hepatomegaly CT Neck: Awaiting official read Plan: AMS 2/2 Acute drug intoxication vs Sepsis - UTox: Positive for opiates, Serum alcohol: <10, Salicylic acid <1, Acetaminophen <10 - WBC 27.8>13.5>11/4 - S/p Narcan, Fomopizole, acetylcystine, levophed, Sodium Bicarb x 3 and Kayexalete in ED - S/p Vancomycin 1 g, Ceftriaxone 2 gm and Acyclovir 800 mg - Continue NS @ 200 mg/hr - Continue Zosyn 2.25 gm Q6hr - GI and nephro consulted - FU Serum drug screen - F/U VDRL, MRSA Cx, Herpes simplex 1/2, Blood Cx, Urine Cx, CSF Cx(Neg 24hr), CSF electophoresis CRISTINA likely secondary to substance use - BUN/Cr 33/2.5 < 36/3.2 - S/p Hemodialysis 2:15 AM 07/20/18. - Nephrology consult: Dr. Diego: Rule out rhabdomyolysis/ ethylen glycol intoxication, Patient may need more dialysis depends on the blood test, F/U Spot urine for myoglobin, Spot urine for sodium osmolarity and creatinine. F/U me asured vs calculated Osml. - Continue NS @ 200 ml/hr - Monitor renal function Acute liver failure - Most likely secondary to substance use/shock - AST [id number], ALT [id number], T Lorenzo, ALP WNL - Patient on NAC protocol - GI Consulted: F/U Ammonia level ordered. INR was moderately elevated though Bili has been normal reflecting ongoing liver synthetic function. Continue current regimen as per poison control and vigorous IV hydration. Lactulose if ammonia level is high. - F/U LFTs, ammonia Nonspecific T wave changes on EKG, prolong QTc -new EKG changes -trop and Echo pending Left neck swelling - Blunt trauma vs substance use - CT Neck 07/20: Awaiting official read, Shows Left submendibular, parotid and masseter swelling with possible inflammatory/infectious etiology. - Continue oral water intake, lemon juice and warm compress. Electrolyte imbalance w/metabolic acidosis - Improving, PH 7.03>7.23, Lactate 10>5.9>2.5, - Hyperkalemia(Resolved): K+8.2>4.0, S/P Na Bicarb, and Kalexalate - Hypocalcemia(Improving):5.9>6.9, s/p Ca gluconate - Monitor Mg, Phos and CMP Rhabdomyolysis - CK total - 64309 - Continue IVF @ 200 ml/hr - F/U myoglobin, CK, CMP Extensive psoriasis - Reports using cream at home - Will consider treatment once patient stable DVT prophylaxis - SCDs - GI: Protonix Code status Full code <Honey Early - Last Filed: 07/20/18 16:20> Objective - Vital Signs/Intake and Output Vital Signs (last 24 hours): Temp Pulse Resp BP Pulse Ox 98.7 F 72 22 142/93 H 97 07/20/18 12:00 07/20/18 14:00 07/20/18 14:00 07/20/18 14:00 07/20/18 14:00 Intake and Output: 07/20/18 07/20/18 06:59 18:59 Intake Total 3590 2624 Output Total 1800 Balance 1790 2624 - Medications Medications: Current Medications Bisacodyl (Dulcolax) 5 mg PO ONCE ONE Stop: 07/20/18 16:01 Piperacillin Sod/Tazobactam (Sod 2.25 gm/ Sodium Chloride) 100 mls @ 100 mls/hr IVPB Q6 [facility]; Protocol Last Admin: 07/20/18 16:06 Dose: 100 mls/hr Sodium Chloride (Sodium Chloride 0.9%) 1,000 mls @ 400 mls/hr IV .Q2H30M [facility] Stop: 07/20/18 16:48 Last Admin: 07/20/18 16:05 Dose: 400 mls/hr Ondansetron HCl (Zofran Inj) 4 mg IVP Q6 PRN PRN Reason: Nausea/Vomiting Pantoprazole Sodium (Protonix Inj) 40 mg IVP DAILY [facility] Last Admin: 07/20/18 10:43 Dose: 40 mg - Labs Labs: 07/20/18 12:37 07/20/18 12:37 PT 17.4 Seconds (9.8-13.1) H 07/19/18 17:25 INR 1.5 07/19/18 17:25 APTT 31.0 Seconds (25.6-37.1) 07/19/18 17:25 Attending/Attestation - Attestation I have personally seen and examined this patient.: Yes I have fully participated in the care of the patient.: Yes I have reviewed all pertinent clinical information, including history, physical exam and plan: Yes Notes (Text): AMS sec to Toxic Metabolic Encephalopathy Acute Renal Failure , ? sec to Rhabdomyolysis , ATN vs Nephrotoxic agent ingestion Acute Transaminitis ? Shock Liver vs Hepatotoxic agent ingestion Leukocytosis with SIRS ? Sepsis ( POA) Troponin Elevation Hypoglycemic Episode Left Salivary Glands Enlargement Thrombocytopenia - Hemodialysis started - Panculture -cont IV Zosyn - IVF hydration - Cardiology consult
--- NOTE | 2018-07-20 12:11 | CT ---
Date of service: 07/20/2018 PROCEDURE: CT NECK WITHOUT CONTRAST HISTORY: Significant swelling of the left side of neck and COMPARISON: None available. TECHNIQUE: CT of the neck without intravenous contrast. Coronal and sagittal reformats generated. Radiation dose: Total exam DLP = 351.87 mGy-cm. This CT exam was performed using one or more of the following dose reduction techniques: Automated exposure control, adjustment of the mA and/or kV according to patient size, and/or use of iterative reconstruction technique. FINDINGS: NASOPHARYNX: Within normal limits. SUPRAHYOID NECK: No bulky mass in the oropharynx, oral cavity, parapharyngeal space and retropharyngeal space. There is diffuse edema in the surrounding parapharyngeal and body cleaner spaces. INFRAHYOID NECK: Unremarkable larynx, hypopharynx, and supraglottic space. Vocal cords intact. MASS: None. GLANDS: There is asymmetric enlargement and diffuse edema in the left masseter, submandibular and the parotid glands and diffuse soft tissue swelling and subcutaneous edema in the left facial and neck soft tissues. The right parotid and submandibular glands unremarkable. Normal size thyroid gland, without nodule. LYMPH NODES: Submandibular lymph nodes. There is asymmetric enlargement of the left CERVICAL SPINE: No fracture or focal lesion. OTHER FINDINGS: There is also diffuse left posterior parietal scalp edema. There is a large retention cyst/polyp in the right maxillary sinus and polypoid mucosal thickening in the maxillary sinuses. The remaining included paranasal sinuses and mastoid air cells are clear. IMPRESSION: Asymmetric enlargement and edema in the left submandibular and parotid glands and masseter with diffuse subcutaneous edema in the left facial and neck soft tissues, and parietal scalp. Findings are most compatible with nonspecific infectious/inflammatory cellulitis. A preliminary report was provided by [employer].
[2018-07-20 12:19] LABS: CREATININE, RANDOM URINE 95.3 mg/dL
[2018-07-20 12:41] LABS: VENOUS BLOOD GAS BASE EXCESS -1.3 mmol/L (0.0-2.0); VENOUS BLOOD GAS PCO2 46 mmHg (40-60); VENOUS BLOOD GAS PO2 26 mm/Hg (30-55); VENOUS BLOOD PH 7.34 (7.32-7.43)
[2018-07-20 12:50] LABS: BASO % 0.1 % (0.0-2.0); EOS % 0.2 % (0.0-4.0); HEMOGLOBIN 12.2 g/dL (12.0-18.0); LYMPH # 0.8 K/uL (1.0-4.3); LYMPH % 7.1 % (20.0-40.0); MEAN CELL VOLUME 92.3 fl (80.0-94.0); MEAN CORPUSCULAR HEMOGLOBIN 30.3 pg (27.0-31.0); MEAN CORPUSCULAR HGB CONC 32.8 g/dL (33.0-37.0); MEAN PLATELET VOLUME 8.5 fl (7.2-11.7); MONO # 0.6 K/uL (0.0-0.8); MONO % 4.8 % (0.0-10.0); NEUT % 87.8 % (50.0-75.0); NRBC % 0.1 % (0.0-0.0); RBC 4.02 Mil/uL (4.40-5.90); RED CELL DISTRIBUTION WIDTH 12.7 % (11.5-14.5); WHITE BLOOD COUNT 11.4 K/uL (4.8-10.8)
[2018-07-20 13:00] LABS: LYMPHOCYTE 4 % (20-50); MONOCYTE 3 % (0-10); NEUTROPHIL 93 % (42-75); TOTAL CELLS COUNTED 100
[2018-07-20 13:01] LABS: PLATELET ESTIMATE DECREASED (NORMAL)
[2018-07-20 13:02] LABS: TOXIC GRANULATION PRESENT
[2018-07-20 13:08] LABS: HEPATITIS B SURFACE AG Negative (NEGATIVE)
[2018-07-20 13:13] LABS: HEPATITIS B CORE AB NEGATIVE (NEGATIVE)
[2018-07-20 13:17] LABS: ALB/GLOB RATIO 1.2 (1.0-2.1); ALBUMIN 2.9 g/dL (3.5-5.0); BLOOD UREA NITROGEN 36 mg/dl (9-20); CALCIUM 6.6 mg/dL (8.4-10.2); GFR NON-AFRICAN AMERICAN 25
[2018-07-20 13:44] LABS: ALT/SGPT 6372 U/L (21-72)
[2018-07-20 13:47] LABS: AST/SGOT 10173 U/L (17-59)
--- NOTE | 2018-07-20 14:55 | CP.PCM.CON ---
History of Present Illness - History of Present Illness History of Present Illness: 28 year old male presents to the ED via EMS for evaluation of possible substance abuse after being found outside. As per patient, the last thing he remembers is going out yesterday, but does not remember where. He admits to alcohol use, but denies drugs. Urine drug screen: Positive for Opiates Total CK: 76,779 Troponin: 1.69 Creatinine: 3.0 AST & ALT: ++++ Pt had had emergent Hemodialysis Past Patient History - Past Medical History & Family History Past Medical History?: Yes - Past Social History Smoking Status: Never Smoked - CARDIAC Hx Cardiac Disorders: No - PULMONARY Hx Respiratory Disorders: No - NEUROLOGICAL Hx Neurological Disorder: No - HEENT Hx HEENT Problems: No - RENAL Hx Chronic Kidney Disease: No - ENDOCRINE/METABOLIC Hx Endocrine Disorders: No - HEMATOLOGICAL/ONCOLOGICAL Hx Blood Disorders: No - INTEGUMENTARY Hx Dermatological Problems: Yes (Psoriasis) - MUSCULOSKELETAL/RHEUMATOLOGICAL Hx Falls: Yes (pt. found on ground) - PSYCHIATRIC Hx Substance Use: No - SURGICAL HISTORY Hx Surgeries: No - ANESTHESIA Hx Anesthesia: No Meds Allergies/Adverse Reactions: Allergies Allergy/AdvReac Type Severity Reaction Status Date / Time No Known Allergies Allergy Verified 07/19/18 13:46 - Medications Medications: Current Medications Piperacillin Sod/Tazobactam (Sod 2.25 gm/ Sodium Chloride) 100 mls @ 100 mls/hr IVPB Q6 WAYNE; Protocol Last Admin: 07/20/18 10:43 Dose: 100 mls/hr Sodium Chloride (Sodium Chloride 0.9%) 1,000 mls @ 400 mls/hr IV .Q2H30M WAYNE Stop: 07/20/18 16:48 Ondansetron HCl (Zofran Inj) 4 mg IVP Q6 PRN PRN Reason: Nausea/Vomiting Pantoprazole Sodium (Protonix Inj) 40 mg IVP DAILY WAYNE Last Admin: 07/20/18 10:43 Dose: 40 mg Results - Vital Signs Recent Vital Signs: Last Vital Signs Temp 98.7 F 07/20/18 12:00 Pulse 74 07/20/18 10:00 Resp 21 07/20/18 10:00 BP 132/78 07/20/18 10:00 Pulse Ox 95 07/20/18 10:00 - Labs Result Diagrams: 07/20/18 12:37 07/20/18 12:37 Labs: Laboratory Results - last 24 hr 07/19/18 07/19/18 07/19/18 11:34 13:20 13:40 WBC RBC Hgb Hct MCV MCH MCHC RDW Plt Count MPV Neut % (Auto) Lymph % (Auto) [place] % (Auto) Eos % (Auto) Baso % (Auto) Neut # (Auto) Lymph # (Auto) [place] # (Auto) Eos # (Auto) Baso # (Auto) Neutrophils % (Manual) 79 H Band Neutrophils % 3 H Lymphocytes % (Manual) 7 L Monocytes % (Manual) 10 Basophils % (Manual) 1 Toxic Granulation Platelet Estimate Normal Macrocytosis (manual) Moderate PT INR APTT pCO2 pO2 HCO3 ABG pH ABG Total CO2 ABG O2 Saturation ABG O2 Content ABG Base Excess ABG Hemoglobin ABG Carboxyhemoglobin POC ABG HHb (Measured) ABG Methemoglobin ABG O2 Capacity [place] Test VBG pH VBG pCO2 VBG HCO3 VBG Total CO2 VBG O2 Sat (Calc) VBG Base Excess VBG Hgb O2 Saturation VBG Potassium A-a O2 Difference Hemoglobin Hgb O2 Saturation Glucose Lactate FiO2 Crit Value Called To Crit Value Called By Crit Value Read Back Blood Gas Notified Time Sodium Potassium Chloride Carbon Dioxide Anion Gap BUN Creatinine Est GFR ( Amer) Est GFR (Non-Af Amer) POC Glucose (mg/dL) Random Glucose Serum Osmolality Lactic Acid Calcium Phosphorus Magnesium Total Bilirubin Direct Bilirubin AST ALT Alkaline Phosphatase Ammonia Total Creatine Kinase Troponin I Total Protein Albumin Globulin Albumin/Globulin Ratio TSH 3rd Generation Venous Blood Potassium Urine Osmolality Ur Random Creatinine Ur Random Sodium CSF Volume 2 H CSF Appearance Clear/colorless CSF WBC 3.0 CSF RBC 13.0 H CSF Total Cell Counted TEST NOT PERFORMED CSF Neutrophils 1 H CSF Lymphocytes 1.0 H CSF Monos/Macrophages 0 CSF Comment None Salicylates Acetaminophen Alcohol, Quantitative 23 H Hep Bs Antigen Hep B Core IgM Ab HSV Source Description 07/19/18 07/19/18 07/19/18 14:00 14:35 16:17 WBC RBC Hgb Hct MCV MCH MCHC RDW Plt Count MPV Neut % (Auto) Lymph % (Auto) [place] % (Auto) Eos % (Auto) Baso % (Auto) Neut # (Auto) Lymph # (Auto) [place] # (Auto) Eos # (Auto) Baso # (Auto) Neutrophils % (Manual) Band Neutrophils % Lymphocytes % (Manual) Monocytes % (Manual) Basophils % (Manual) Toxic Granulation Platelet Estimate Macrocytosis (manual) PT INR APTT pCO2 pO2 HCO3 ABG pH ABG Total CO2 ABG O2 Saturation ABG O2 Content ABG Base Excess ABG Hemoglobin ABG Carboxyhemoglobin POC ABG HHb (Measured) ABG Methemoglobin ABG O2 Capacity [place]asper Test VBG pH VBG pCO2 VBG HCO3 VBG Total CO2 VBG O2 Sat (Calc) VBG Base Excess VBG Hgb O2 Saturation VBG Potassium A-a O2 Difference Hemoglobin Hgb O2 Saturation Glucose Lactate FiO2 Crit Value Called To Crit Value Called By Crit Value Read Back Blood Gas Notified Time Sodium 143 Potassium 8.2 H* Chloride 110 H Carbon Dioxide 19 L Anion Gap 22 H BUN 36 H Creatinine 3.2 H Est GFR ( Amer) 28 Est GFR (Non-Af Amer) 23 POC Glucose (mg/dL) Random Glucose 163 H Serum Osmolality Lactic Acid Calcium 5.6 L* Phosphorus Magnesium Total Bilirubin 0.3 Direct Bilirubin AST 40354 H ALT 7913 H Alkaline Phosphatase 40 Ammonia Total Creatine Kinase 82516 H Troponin I Total Protein 5.8 L Albumin 3.2 L Globulin 2.6 Albumin/Globulin Ratio 1.2 TSH 3rd Generation Venous Blood Potassium Urine Osmolality Ur Random Creatinine Ur Random Sodium CSF Volume CSF Appearance CSF WBC CSF RBC CSF Total Cell Counted CSF Neutrophils CSF Lymphocytes CSF Monos/Macrophages CSF Comment Salicylates < 1.0 Acetaminophen Alcohol, Quantitative < 10 Hep Bs Antigen Hep B Core IgM Ab HSV Source Description Fluid 07/19/18 07/19/18 07/19/18 16:18 16:18 16:37 WBC RBC Hgb Hct MCV MCH MCHC RDW Plt Count MPV Neut % (Auto) Lymph % (Auto) [place] % (Auto) Eos % (Auto) Baso % (Auto) Neut # (Auto) Lymph # (Auto) [place] # (Auto) Eos # (Auto) Baso # (Auto) Neutrophils % (Manual) Band Neutrophils % Lymphocytes % (Manual) Monocytes % (Manual) Basophils % (Manual) Toxic Granulation Platelet Estimate Macrocytosis (manual) PT INR APTT pCO2 pO2 HCO3 ABG pH ABG Total CO2 ABG O2 Saturation ABG O2 Content ABG Base Excess ABG Hemoglobin ABG Carboxyhemoglobin POC ABG HHb (Measured) ABG Methemoglobin ABG O2 Capacity [place] Test VBG pH VBG pCO2 VBG HCO3 VBG Total CO2 VBG O2 Sat (Calc) VBG Base Excess VBG Hgb O2 Saturation VBG Potassium A-a O2 Difference Hemoglobin Hgb O2 Saturation Glucose Lactate FiO2 Crit Value Called To Crit Value Called By Crit Value Read Back Blood Gas Notified Time Sodium Potassium Chloride Carbon Dioxide Anion Gap BUN Creatinine Est GFR ( Amer) Est GFR (Non-Af Amer) POC Glucose (mg/dL) 185 H Random Glucose Serum Osmolality 288 Lactic Acid Calcium Phosphorus Magnesium Total Bilirubin Direct Bilirubin AST ALT Alkaline Phosphatase Ammonia Total Creatine Kinase Troponin I Total Protein Albumin Globulin Albumin/Globulin Ratio TSH 3rd Generation Venous Blood Potassium Urine Osmolality Ur Random Creatinine Ur Random Sodium CSF Volume CSF Appearance CSF WBC CSF RBC CSF Total Cell Counted CSF Neutrophils CSF Lymphocytes CSF Monos/Macrophages CSF Comment Salicylates Acetaminophen < 10.0 L Alcohol, Quantitative Hep Bs Antigen Hep B Core IgM Ab HSV Source Description 07/19/18 07/19/18 07/19/18 17:25 17:25 17:30 WBC RBC Hgb Hct MCV MCH MCHC RDW Plt Count MPV Neut % (Auto) Lymph % (Auto) [place] % (Auto) Eos % (Auto) Baso % (Auto) Neut # (Auto) Lymph # (Auto) [place] # (Auto) Eos # (Auto) Baso # (Auto) Neutrophils % (Manual) Band Neutrophils % Lymphocytes % (Manual) Monocytes % (Manual) Basophils % (Manual) Toxic Granulation Platelet Estimate Macrocytosis (manual) PT 17.4 H INR 1.5 APTT 31.0 pCO2 pO2 71 H HCO3 ABG pH ABG Total CO2 ABG O2 Saturation ABG O2 Content ABG Base Excess ABG Hemoglobin ABG Carboxyhemoglobin POC ABG HHb (Measured) ABG Methemoglobin ABG O2 Capacity [place]asper Test VBG pH 7.25 L VBG pCO2 42 VBG HCO3 18.1 VBG Total CO2 19.7 L VBG O2 Sat (Calc) 96.8 H VBG Base Excess -8.5 L VBG Hgb O2 Saturation VBG Potassium 6.2 H* A-a O2 Difference Hemoglobin Hgb O2 Saturation Glucose 195 H Lactate 5.9 H* FiO2 21.0 Crit Value Called To Md bobbi gilbert Crit Value Called By 23 Crit Value Read Back Y Blood Gas Notified Time 1740 Sodium 144 142.0 Potassium 6.2 H* D Chloride 112 H 112.0 H Carbon Dioxide 18 L Anion Gap 20 BUN 39 H Creatinine 3.3 H Est GFR ( Amer) 27 Est GFR (Non-Af Amer) 22 POC Glucose (mg/dL) Random Glucose 184 H Serum Osmolality Lactic Acid Calcium 6.1 L Phosphorus 6.3 H Magnesium 1.8 Total Bilirubin 0.5 Direct Bilirubin AST 96629 H ALT 8256 H Alkaline Phosphatase 40 Ammonia Total Creatine Kinase Troponin I Total Protein 6.1 L Albumin 3.2 L Globulin 2.9 Albumin/Globulin Ratio 1.1 TSH 3rd Generation 0.75 Venous Blood Potassium 6.2 H* Urine Osmolality Ur Random Creatinine Ur Random Sodium CSF Volume CSF Appearance CSF WBC CSF RBC CSF Total Cell Counted CSF Neutrophils CSF Lymphocytes CSF Monos/Macrophages CSF Comment Salicylates Acetaminophen Alcohol, Quantitative Hep Bs Antigen Hep B Core IgM Ab HSV Source Description 07/19/18 07/19/18 07/19/18 23:02 23:10 23:44 WBC RBC Hgb Hct MCV MCH MCHC RDW Plt Count MPV Neut % (Auto) Lymph % (Auto) [place] % (Auto) Eos % (Auto) Baso % (Auto) Neut # (Auto) Lymph # (Auto) [place] # (Auto) Eos # (Auto) Baso # (Auto) Neutrophils % (Manual) Band Neutrophils % Lymphocytes % (Manual) Monocytes % (Manual) Basophils % (Manual) Toxic Granulation Platelet Estimate Macrocytosis (manual) PT INR APTT pCO2 36 pO2 108 H HCO3 20.1 L ABG pH 7.33 L ABG Total CO2 20.1 L ABG O2 Saturation 99.0 H ABG O2 Content 17.8 ABG Base Excess -6.2 L ABG Hemoglobin 13.0 ABG Carboxyhemoglobin 1.0 POC ABG HHb (Measured) 1.0 ABG Methemoglobin 1.4 ABG O2 Capacity 18.0 [place]asper Test Yes VBG pH VBG pCO2 VBG HCO3 VBG Total CO2 VBG O2 Sat (Calc) VBG Base Excess VBG Hgb O2 Saturation VBG Potassium A-a O2 Difference 75.0 Hemoglobin Hgb O2 Saturation 96.6 Glucose Lactate FiO2 32.0 Crit Value Called To Crit Value Called By Crit Value Read Back Blood Gas Notified Time Sodium Potassium Chloride Carbon Dioxide Anion Gap BUN Creatinine Est GFR ( Amer) Est GFR (Non-Af Amer) POC Glucose (mg/dL) 180 H Random Glucose Serum Osmolality Lactic Acid Calcium Phosphorus Magnesium Total Bilirubin Direct Bilirubin AST ALT Alkaline Phosphatase Ammonia Total Creatine Kinase Troponin I Total Protein Albumin Globulin Albumin/Globulin Ratio TSH 3rd Generation Venous Blood Potassium Urine Osmolality Ur Random Creatinine Ur Random Sodium CSF Volume CSF Appearance CSF WBC CSF RBC CSF Total Cell Counted CSF Neutrophils CSF Lymphocytes CSF Monos/Macrophages CSF Comment Salicylates Acetaminophen Alcohol, Quantitative Hep Bs Antigen Negative Hep B Core IgM Ab Negative HSV Source Description 07/19/18 07/20/18 07/20/18 23:44 04:30 04:30 WBC RBC Hgb Hct MCV MCH MCHC RDW Plt Count MPV Neut % (Auto) Lymph % (Auto) [place] % (Auto) Eos % (Auto) Baso % (Auto) Neut # (Auto) Lymph # (Auto) [place] # (Auto) Eos # (Auto) Baso # (Auto) Neutrophils % (Manual) Band Neutrophils % Lymphocytes % (Manual) Monocytes % (Manual) Basophils % (Manual) Toxic Granulation Platelet Estimate Macrocytosis (manual) PT INR APTT pCO2 pO2 HCO3 ABG pH ABG Total CO2 ABG O2 Saturation ABG O2 Content ABG Base Excess ABG Hemoglobin ABG Carboxyhemoglobin POC ABG HHb (Measured) ABG Methemoglobin ABG O2 Capacity [place] Test VBG pH VBG pCO2 VBG HCO3 VBG Total CO2 VBG O2 Sat (Calc) VBG Base Excess VBG Hgb O2 Saturation VBG Potassium A-a O2 Difference Hemoglobin Hgb O2 Saturation Glucose Lactate FiO2 Crit Value Called To Crit Value Called By Crit Value Read Back Blood Gas Notified Time Sodium 138 Potassium 4.0 Chloride 102 Carbon Dioxide 25 Anion Gap 15 BUN 33 H Creatinine 2.5 H Est GFR ( Amer) 37 Est GFR (Non-Af Amer) 30 POC Glucose (mg/dL) Random Glucose 148 H Serum Osmolality Lactic Acid 2.5 H Calcium 6.9 L Phosphorus Magnesium Total Bilirubin 0.4 0.5 Direct Bilirubin 0.3 0.1 AST 93279 H 21410 H ALT 8344 H 7027 H Alkaline Phosphatase 41 38 Ammonia Total Creatine Kinase Troponin I Total Protein 6.0 L 5.7 L Albumin 3.3 L 3.0 L Globulin 2.8 2.7 Albumin/Globulin Ratio 1.2 1.1 TSH 3rd Generation Venous Blood Potassium Urine Osmolality Ur Random Creatinine Ur Random Sodium CSF Volume CSF Appearance CSF WBC CSF RBC CSF Total Cell Counted CSF Neutrophils CSF Lymphocytes CSF Monos/Macrophages CSF Comment Salicylates Acetaminophen Alcohol, Quantitative Hep Bs Antigen Hep B Core IgM Ab HSV Source Description 07/20/18 07/20/18 07/20/18 04:43 06:47 09:08 WBC 13.4 H D RBC 4.15 L Hgb 12.6 D Hct 38.1 MCV 91.7 D MCH 30.2 MCHC 33.0 RDW 12.6 Plt Count 96 L D MPV 8.5 Neut % (Auto) 90.5 H Lymph % (Auto) 3.9 L [place] % (Auto) 5.5 Eos % (Auto) 0.0 Baso % (Auto) 0.1 Neut # (Auto) 12.1 H Lymph # (Auto) 0.5 L [place] # (Auto) 0.7 Eos # (Auto) 0.0 Baso # (Auto) 0.0 Neutrophils % (Manual) 93 H Band Neutrophils % Lymphocytes % (Manual) 4 L Monocytes % (Manual) 3 Basophils % (Manual) Toxic Granulation Present Platelet Estimate Decreased L Macrocytosis (manual) PT INR APTT pCO2 pO2 HCO3 ABG pH ABG Total CO2 ABG O2 Saturation ABG O2 Content ABG Base Excess ABG Hemoglobin ABG Carboxyhemoglobin POC ABG HHb (Measured) ABG Methemoglobin ABG O2 Capacity [place] Test VBG pH VBG pCO2 VBG HCO3 VBG Total CO2 VBG O2 Sat (Calc) VBG Base Excess VBG Hgb O2 Saturation VBG Potassium A-a O2 Difference Hemoglobin Hgb O2 Saturation Glucose Lactate FiO2 Crit Value Called To Crit Value Called By Crit Value Read Back Blood Gas Notified Time Sodium Potassium Chloride Carbon Dioxide Anion Gap BUN Creatinine Est GFR ( Amer) Est GFR (Non-Af Amer) POC Glucose (mg/dL) 147 H Random Glucose Serum Osmolality 299 Lactic Acid Calcium Phosphorus Magnesium Total Bilirubin Direct Bilirubin AST ALT Alkaline Phosphatase Ammonia Total Creatine Kinase Troponin I Total Protein Albumin Globulin Albumin/Globulin Ratio TSH 3rd Generation Venous Blood Potassium Urine Osmolality Ur Random Creatinine Ur Random Sodium CSF Volume CSF Appearance CSF WBC CSF RBC CSF Total Cell Counted CSF Neutrophils CSF Lymphocytes CSF Monos/Macrophages CSF Comment Salicylates Acetaminophen Alcohol, Quantitative Hep Bs Antigen Hep B Core IgM Ab HSV Source Description 07/20/18 07/20/18 07/20/18 09:14 11:00 12:08 WBC RBC Hgb Hct MCV MCH MCHC RDW Plt Count MPV Neut % (Auto) Lymph % (Auto) [place] % (Auto) Eos % (Auto) Baso % (Auto) Neut # (Auto) Lymph # (Auto) [place] # (Auto) Eos # (Auto) Baso # (Auto) Neutrophils % (Manual) Band Neutrophils % Lymphocytes % (Manual) Monocytes % (Manual) Basophils % (Manual) Toxic Granulation Platelet Estimate Macrocytosis (manual) PT INR APTT pCO2 pO2 HCO3 ABG pH ABG Total CO2 ABG O2 Saturation ABG O2 Content ABG Base Excess ABG Hemoglobin ABG Carboxyhemoglobin POC ABG HHb (Measured) ABG Methemoglobin ABG O2 Capacity [place] Test VBG pH VBG pCO2 VBG HCO3 VBG Total CO2 VBG O2 Sat (Calc) VBG Base Excess VBG Hgb O2 Saturation VBG Potassium A-a O2 Difference Hemoglobin Hgb O2 Saturation Glucose Lactate FiO2 Crit Value Called To Crit Value Called By Crit Value Read Back Blood Gas Notified Time Sodium Potassium Chloride Carbon Dioxide Anion Gap BUN Creatinine Est GFR ( Amer) Est GFR (Non-Af Amer) POC Glucose (mg/dL) 137 H Random Glucose Serum Osmolality Lactic Acid Calcium Phosphorus Magnesium Total Bilirubin Direct Bilirubin AST ALT Alkaline Phosphatase Ammonia 22 Total Creatine Kinase Troponin I Total Protein Albumin Globulin Albumin/Globulin Ratio TSH 3rd Generation Venous Blood Potassium Urine Osmolality 322 Ur Random Creatinine 95.3 Ur Random Sodium 70 CSF Volume CSF Appearance CSF WBC CSF RBC CSF Total Cell Counted CSF Neutrophils CSF Lymphocytes CSF Monos/Macrophages CSF Comment Salicylates Acetaminophen Alcohol, Quantitative Hep Bs Antigen Hep B Core IgM Ab HSV Source Description 07/20/18 07/20/18 07/20/18 12:30 12:37 12:37 WBC 11.4 H RBC 4.02 L Hgb 12.2 Hct 37.1 MCV 92.3 MCH 30.3 MCHC 32.8 L RDW 12.7 Plt Count 93 L MPV 8.5 Neut % (Auto) 87.8 H Lymph % (Auto) 7.1 L [place] % (Auto) 4.8 Eos % (Auto) 0.2 Baso % (Auto) 0.1 Neut # (Auto) 10.0 H Lymph # (Auto) 0.8 L [place] # (Auto) 0.6 Eos # (Auto) 0.0 Baso # (Auto) 0.0 Neutrophils % (Manual) Band Neutrophils % Lymphocytes % (Manual) Monocytes % (Manual) Basophils % (Manual) Toxic Granulation Platelet Estimate Macrocytosis (manual) PT INR APTT pCO2 pO2 26 L HCO3 ABG pH ABG Total CO2 ABG O2 Saturation ABG O2 Content ABG Base Excess ABG Hemoglobin ABG Carboxyhemoglobin 0.5 POC ABG HHb (Measured) 54.2 H ABG Methemoglobin 1.5 ABG O2 Capacity [place] Test VBG pH 7.34 VBG pCO2 46 VBG HCO3 22.6 VBG Total CO2 VBG O2 Sat (Calc) 44.6 VBG Base Excess -1.3 L VBG Hgb O2 Saturation 43.7 L VBG Potassium A-a O2 Difference Hemoglobin 12.4 Hgb O2 Saturation Glucose Lactate FiO2 Crit Value Called To Crit Value Called By Crit Value Read Back Blood Gas Notified Time Sodium 138 Potassium 3.9 Chloride 101 Carbon Dioxide 24 Anion Gap 17 BUN 36 H Creatinine 3.0 H Est GFR ( Amer) 30 Est GFR (Non-Af Amer) 25 POC Glucose (mg/dL) Random Glucose 155 H Serum Osmolality Lactic Acid Calcium 6.6 L Phosphorus Magnesium Total Bilirubin 0.6 [place] 64043 H ALT 6372 H Alkaline Phosphatase < 20 L D Ammonia Total Creatine Kinase 03881 H Troponin I 1.6900 H* Total Protein 5.5 L Albumin 2.9 L Globulin 2.5 Albumin/Globulin Ratio 1.2 TSH 3rd Generation Venous Blood Potassium Urine Osmolality Ur Random Creatinine Ur Random Sodium CSF Volume CSF Appearance CSF WBC CSF RBC CSF Total Cell Counted CSF Neutrophils CSF Lymphocytes CSF Monos/Macrophages CSF Comment Salicylates Acetaminophen Alcohol, Quantitative Hep Bs Antigen Hep B Core IgM Ab HSV Source Description Assessment & Plan (1) ARF (acute renal failure) Status: Acute Priority: High (2) Altered mental status Status: Acute Priority: High (3) Elevated liver enzymes Status: Acute (4) Ingestion of toxic substance Status: Acute Priority: High (5) Septic shock Status: Acute Priority: High (6) Elevated troponin Assessment and Plan: Most likely secondary to AMS Rhambdomyolysis CRISTINA Status: Acute
[2018-07-20] MEDS ORDERED: Bisacodyl 5mg EC Tab PO ONE (16:00)
[2018-07-20] MEDS ORDERED: Sodium Chloride 0.9% 1,000 ML IV SCH (17:00)
[2018-07-20] MEDS ORDERED: WATER IVPB STA (17:10)
[2018-07-20] MEDS ORDERED: DEXTROSE 5% IVPB STA (17:10)
[2018-07-20] MEDS ORDERED: ACETYLCYSTEINE IVPB STA (17:10)
--- NOTE | 2018-07-20 19:01 | CARD ---
APPROVED REPORT Date of service: 07/20/2018 EKG Measurement Heart [id number] ID [id number] <Conclusion> Normal sinus rhythm T wave abnormality, consider anterior ischemia Prolonged QT Abnormal ECG
--- NOTE | 2018-07-20 19:21 | CARD ---
APPROVED REPORT Date of service: 07/20/2018 EXAM: Two-dimensional and M-mode echocardiogram with Doppler and color Doppler. Other Information Quality : GoodRhythm : NSR INDICATION Abnormal EKG/Arrhythmia 2D DIMENSIONS IVSd0.94 (0.7-1.1cm)LVDd5.04 (3.9-5.9cm) LVOT Diameter2.34 (1.8-2.4cm)PWd0.92 (0.7-1.1cm) IVSs1.90 (0.8-1.2cm)LVDs2.85 (2.5-4.0cm) FS (%) 43.5 %PWs1.78 (0.8-1.2cm) M-Mode DIMENSIONS Left Atrium (MM)3.42 (2.5-4.0cm)IVSd1.19 (0.7-1.1cm) Aortic Root3.23 (2.2-3.7cm)LVDd4.99 (4.0-5.6cm) Aortic Cusp Exc.2.37 (1.5-2.0cm)PWd1.05 (0.7-1.1cm) IVSs1.65 cmFS (%) 44 % LVDs2.81 (2.0-3.8cm)PWs1.85 cm Aortic Valve AoV Peak Iukjbjlh820.4cm/sAoV VTI21.2cmAO Peak GR.6mmHg LVOT Peak Ahizgsnv84.3cm/sLVOT VTI16.80cmAO Mean GR.3mmHg FALGUNI (VMAX)1.39gi7EPD (VTI)1.72cm2 Mitral Valve MV E Ncgutdlv37.5cm/sMV DECEL [id number] A Fuuablrp63.0cm/s MV FSJ69qhQ/A ratio1.2MVA (PHT)4.69cm2 TDI Lateral E' Peak V16.92cm/sMedial E' Peak V13.61cm/sE/Lateral E'2.8 E/Medial E'3.5 Pulmonary Valve PV Peak Rmhctnal13.4cm/s Tricuspid Valve TR Peak Tfrbifph138eb/sRAP [id number] Peak Gr.26mmHg [id number] LEFT VENTRICLE The left ventricle is normal size. There is normal left ventricular wall thickness. The left ventricular systolic function is normal. The estimated ejection fraction is 55-60% No regional wall motion abnormalities noted.. The left ventricular diastolic function is normal. No left ventricle thrombus noted on this study. There is no ventricular septal defect visualized. There is no left ventricular aneurysm. There is no mass noted in the left ventricle. RIGHT VENTRICLE The right ventricle is normal size. There is normal right ventricular wall thickness. The right ventricular systolic function is normal. ATRIA The left atrium size is normal. The right atrium size is normal. The interatrial septum is intact with no evidence for an atrial septal defect. AORTIC VALVE The aortic valve is normal in structure. No aortic regurgitation is present. There is no aortic valvular stenosis. There is no aortic valvular vegetation. MITRAL VALVE The mitral valve is normal in structure. There is no evidence of mitral valve prolapse. There is no mitral valve stenosis. There is no mitral valve regurgitation noted. TRICUSPID VALVE The tricuspid valve is normal in structure. There is mild tricuspid valve regurgitation noted. RVSP is calculated at 32 mm Hg. There is no tricuspid valve prolapse or vegetation. There is no tricuspid valve stenosis. PULMONIC VALVE The pulmonary valve is normal in structure. There is no pulmonic valvular regurgitation. There is no pulmonic valvular stenosis. GREAT VESSELS The aortic root is normal in size. The ascending aorta is normal in size. The pulmonary artery is normal. The IVC is borderline dilated in size and collapses >50% with inspiration. PERICARDIAL EFFUSION There is no pericardial effusion. There is no pleural effusion. <Conclusion> The estimated ejection fraction is 55-60% The left ventricular diastolic function is normal. The right ventricular systolic function is normal. The left atrium size is normal. There is mild tricuspid valve regurgitation noted. RVSP is calculated at 32 mm Hg.
[2018-07-20 19:34] LABS: TROPONIN I 1.23 ng/mL (0.00-0.120)
[2018-07-21] MEDS: Sodium Chloride 0.9% 1,000 ML IV SCH (00:59)
[2018-07-21] MEDS ORDERED: Sodium Chloride 0.9% 1,000 ML IV SCH ×2 (01:18→08:08)
[2018-07-21 06:04] LABS: BASO % 0.4 % (0.0-2.0); EOS % 0.3 % (0.0-4.0); HEMOGLOBIN 10.5 g/dL (12.0-18.0); LYMPH # 1.1 K/uL (1.0-4.3); LYMPH % 11.6 % (20.0-40.0); MEAN CELL VOLUME 92.1 fl (80.0-94.0); MEAN CORPUSCULAR HEMOGLOBIN 30.8 pg (27.0-31.0); MEAN CORPUSCULAR HGB CONC 33.4 g/dL (33.0-37.0); MEAN PLATELET VOLUME 9.5 fl (7.2-11.7); MONO # 0.5 K/uL (0.0-0.8); MONO % 5.3 % (0.0-10.0); NEUT # 7.9 K/uL (1.8-7.0); NEUT % 82.4 % (50.0-75.0); NRBC % 0.1 % (0.0-0.0); RBC 3.4 Mil/uL (4.40-5.90); RED CELL DISTRIBUTION WIDTH 12.5 % (11.5-14.5); WHITE BLOOD COUNT 9.6 K/uL (4.8-10.8)
[2018-07-21 06:19] LABS: ALB/GLOB RATIO 1.1 (1.0-2.1); ALBUMIN 2.5 g/dL (3.5-5.0); CALCIUM 6.5 mg/dL (8.4-10.2)
[2018-07-21 07:16] LABS: INR 1.4; PARTIAL THROMBOPLASTIN TIME 26.3 Seconds (25.6-37.1); PROTHROMBIN TIME 15.5 Seconds (9.8-13.1)
--- NOTE | 2018-07-21 08:23 | CP.CCUPN ---
<Cristy Zuniga - Last Filed: 07/21/18 11:32> CCU Subjective - Physician Review Events Since Last Encounter (Free Text): 28 YO Male with psoriasis was admitted for AMS, substance abuse evaluation, CRISTINA, acute liver failure, rhabdomolysis and severe dehydration. On presentation to the ED, pt was found to be hypotensive, hypoglycemia and hypothermic. No acute overnight events Pt is seen and examined by bedside this AM. Pt remains hemodynamically stable, afebrile. Pt is awake, alert and oriented x 3 but more drowsy this AM Pt endorsing feeling tired. Denies chest pain, dyspnea, palpitations, abdominal pain, n/v. Consults: GI, Nephrology, hem/onc CCU Objective - Vital Signs / Intake & Output Vital Signs (Last 4 hours): Vital Signs Pulse Resp BP Pulse Ox 07/21/18 06:00 86 21 134/91 H 100 Intake and Output (Last 8hrs): Intake & Output 07/20/18 07/21/18 07/21/18 22:59 06:59 14:59 Intake Total 3710 1990 Output Total 300 500 Balance 3410 1490 Weight 90.718 kg Intake: IV 3460 1930 Intake, Piggyback 200 Oral 50 60 Output: Urine 300 500 Urethral (Au) 300 500 Other: # Bowel Movements 0 1 - Physical Exam Head: Positive for: Atraumatic Pupils: Positive for: PERRL Extroacular Muscles: Positive for: EOMI Conjunctiva: Positive for: Normal Ears: Positive for: Normal Mouth: Positive for: Dry, Normal Tounge, Normal Teeth Neck: Positive for: Normal Range of Motion, Trachea Midline, Other (edema of the neck, L>R. NT, small area of redness and small lac noted ant chest above the clavicle. ) Respiratory/Chest: Positive for: Clear to Auscultation, Good Air Exchange. Negative for: Respiratory Distress, Accessory Muscle Use, Wheezes, Decreased Breath Sounds, Retracting Cardiovascular: Positive for: Regular Rate and Rhythm, Normal S1, S2, Peripheal Pulses Present. Negative for: Murmurs, Irregular Rhythm, Tachycardic, Bradycardic, Rub Abdomen: Positive for: Distention, Normal Bowel Sounds. Negative for: Tenderness, Peritoneal Signs, Rebound, Guarding, Hernias, Mass/Organomegaly Genitourinary Male: Positive for: Other (Au in place draining annmarie color urine) Upper Extremity: Positive for: NORMAL PULSES, Other (psoriasis noted thighs b/l, in the upper ext b/l healed/healing lesions). Negative for: Normal Inspection (Psiriasis rash ), Cyanosis, Edema Lower Extremity: Positive for: NORMAL PULSES. Negative for: Normal Inspection, Edema, CALF TENDERNESS Neurological: Positive for: GCS=15 (Waxing and weaning of mental status ), CN II-XII Intact, Speech Normal, Motor Func Grossly Intact, Normal Sensory Function Skin: Positive for: Warm, Normal Color, Other (psoriasis noted throughout the upper and lower ext and abdomen ) Psychiatric: Positive for: Alert, Oriented x 3, Normal Insight, Normal Concentration, Normal Affect. Negative for: Anxious, Agitated - Medications Active Medications: Active Medications Generic Name Dose Route Start Last Admin Trade Name Freq PRN Reason Stop Dose Admin Aspirin 81 mg 07/20/18 17:00 07/20/18 18:08 Aspirin Chewable PO 81 mg DAILY WAYNE Administration Piperacillin Sod/Tazobactam 100 mls @ 100 mls/hr 07/19/18 22:00 07/21/18 04:37 Sod 2.25 gm/ Sodium Chloride IVPB 100 mls/hr Q6 WAYNE Administration Protocol Acetylcysteine 8,800 mg/ 1,044 mls @ 65.25 mls/hr 07/20/18 17:10 07/20/18 18:19 Dextrose IVPB 07/21/18 09:09 65.25 mls/hr STAT STA Administration Sodium Chloride 1,000 mls @ 250 mls/hr 07/21/18 08:08 Sodium Chloride 0.9% IV 07/21/18 22:00 .Q4H WAYNE Morphine Sulfate 2 mg 07/21/18 08:30 Morphine IVP 07/21/18 08:31 ONCE ONE Ondansetron HCl 4 mg 07/19/18 16:26 Zofran Inj IVP Q6 PRN Nausea/Vomiting Pantoprazole Sodium 40 mg 07/20/18 09:00 07/20/18 10:43 Protonix Inj IVP 40 mg DAILY WAYNE Administration Potassium Chloride 20 meq 07/21/18 08:30 K-Dur 20 Meq Er Tab PO 07/21/18 08:31 ONCE ONE - Patient Studies Lab Studies: Microbiology Studies 07/19/18 14:35 Blood Culture - Preliminary Blood NO GROWTH AFTER 24 HOURS 07/19/18 13:35 Blood Culture - Preliminary Blood NO GROWTH AFTER 24 HOURS 07/19/18 13:40 Gram Stain - Final Cerebral Spinal Fluid CSF Culture - Preliminary NO GROWTH AFTER 24 HOURS Lab Studies 07/21/18 07/21/18 07/21/18 Range/Units 04:30 04:30 04:30 WBC (4.8-10.8) K/uL RBC (4.40-5.90) Mil/uL Hgb (12.0-18.0) g/dL Hct (35.0-51.0) % MCV (80.0-94.0) fl MCH (27.0-31.0) pg MCHC (33.0-37.0) g/dL RDW (11.5-14.5) % Plt Count (130-400) K/uL MPV (7.2-11.7) fl Neut % (Auto) (50.0-75.0) % Lymph % (Auto) (20.0-40.0) % [place] % (Auto) (0.0-10.0) % Eos % (Auto) (0.0-4.0) % Baso % (Auto) (0.0-2.0) % Neut # (Auto) (1.8-7.0) K/uL Lymph # (Auto) (1.0-4.3) K/uL [place] # (Auto) (0.0-0.8) K/uL Eos # (Auto) (0.0-0.7) K/uL Baso # (Auto) (0.0-0.2) K/uL Neutrophils % (Manual) (42-75) % Lymphocytes % (Manual) (20-50) % Monocytes % (Manual) (0-10) % Toxic Granulation Platelet Estimate (NORMAL) ESR 12 (0-15) mm/hr Retic Count 0.8 (0.5-1.5) % PT (9.8-13.1) Seconds INR APTT (25.6-37.1) Seconds Fibrinogen (200-400) mg/dl D-Dimer, Quantitative (0-230) ng/mlDDU pO2 (30-55) mm/Hg ABG Carboxyhemoglobin (0.5-1.5) % POC ABG HHb (Measured) (0.0-5.0) % ABG Methemoglobin (0.0-3.0) % VBG pH (7.32-7.43) VBG pCO2 (40-60) mmHg VBG HCO3 mmol/L VBG O2 Sat (Calc) (40-65) % VBG Base Excess (0.0-2.0) mmol/L VBG Hgb O2 Saturation (95.0-98.0) % Hemoglobin (11.7-17.4) g/dL Sodium 138 (132-148) mmol/l Potassium 3.5 L (3.6-5.0) MMOL/L Chloride 105 (98-107) mmol/L Carbon Dioxide 20 L (22-30) mmol/L Anion Gap 17 (10-20) BUN 47 H (9-20) mg/dl Creatinine 4.9 H (0.8-1.5) mg/dl Est GFR ( Amer) 17 Est GFR (Non-Af Amer) 14 POC Glucose (mg/dL) (65-110) mg/dL Random Glucose 119 H (75-110) mg/dL Serum Osmolality (272-300) mosm/kg Lactic Acid 1.7 (0.7-2.1) MMOL/L Calcium 6.5 L (8.4-10.2) mg/dL Phosphorus 4.4 (2.5-4.5) mg/dl Magnesium 1.6 (1.6-2.3) MG/DL Total Bilirubin 0.7 (0.2-1.3) mg/dl AST 5148 H (17-59) U/L ALT 4802 H (21-72) U/L Alkaline Phosphatase 41 (38-126) U/L Ammonia (16-60) umo/L Total Creatine Kinase 76106 H (55-170) U/L Troponin I (0.00-0.120) ng/mL Total Protein 4.9 L (6.3-8.2) G/DL Albumin 2.5 L (3.5-5.0) g/dL Globulin 2.4 (2.2-3.9) gm/dL Albumin/Globulin Ratio 1.1 (1.0-2.1) Urine Osmolality (300-1000) mosm/kg Ur Random Creatinine mg/dL Ur Random Sodium mmol/L Methyl Alcohol Level (None Detected) mg/dL Hep Bs Antigen (NEGATIVE) Hep Bs Antibody (NEGATIVE) Hep B Core IgM Ab (NEGATIVE) 07/21/18 07/21/18 07/20/18 Range/Units 04:30 04:30 21:05 WBC 9.6 (4.8-10.8) K/uL RBC 3.40 L (4.40-5.90) Mil/uL Hgb 10.5 L (12.0-18.0) g/dL Hct 31.3 L (35.0-51.0) % MCV 92.1 (80.0-94.0) fl MCH 30.8 (27.0-31.0) pg MCHC 33.4 (33.0-37.0) g/dL RDW 12.5 (11.5-14.5) % Plt Count 71 L D (130-400) K/uL MPV 9.5 (7.2-11.7) fl Neut % (Auto) 82.4 H (50.0-75.0) % Lymph % (Auto) 11.6 L (20.0-40.0) % [place] % (Auto) 5.3 (0.0-10.0) % Eos % (Auto) 0.3 (0.0-4.0) % Baso % (Auto) 0.4 (0.0-2.0) % Neut # (Auto) 7.9 H (1.8-7.0) K/uL Lymph # (Auto) 1.1 (1.0-4.3) K/uL [place] # (Auto) 0.5 (0.0-0.8) K/uL Eos # (Auto) 0.0 (0.0-0.7) K/uL Baso # (Auto) 0.0 (0.0-0.2) K/uL Neutrophils % (Manual) (42-75) % Lymphocytes % (Manual) (20-50) % Monocytes % (Manual) (0-10) % Toxic Granulation Platelet Estimate (NORMAL) ESR (0-15) mm/hr Retic Count (0.5-1.5) % PT 15.5 H (9.8-13.1) Seconds INR 1.4 APTT 26.3 (25.6-37.1) Seconds Fibrinogen (200-400) mg/dl D-Dimer, Quantitative 6534 H (0-230) ng/mlDDU pO2 (30-55) mm/Hg ABG Carboxyhemoglobin (0.5-1.5) % POC ABG HHb (Measured) (0.0-5.0) % ABG Methemoglobin (0.0-3.0) % VBG pH (7.32-7.43) VBG pCO2 (40-60) mmHg VBG HCO3 mmol/L VBG O2 Sat (Calc) (40-65) % VBG Base Excess (0.0-2.0) mmol/L VBG Hgb O2 Saturation (95.0-98.0) % Hemoglobin (11.7-17.4) g/dL Sodium (132-148) mmol/l Potassium (3.6-5.0) MMOL/L Chloride (98-107) mmol/L Carbon Dioxide (22-30) mmol/L Anion Gap (10-20) BUN (9-20) mg/dl Creatinine (0.8-1.5) mg/dl Est GFR ( Amer) Est GFR (Non-Af Amer) POC Glucose (mg/dL) 130 H (65-110) mg/dL Random Glucose (75-110) mg/dL Serum Osmolality (272-300) mosm/kg Lactic Acid (0.7-2.1) MMOL/L Calcium (8.4-10.2) mg/dL Phosphorus (2.5-4.5) mg/dl Magnesium (1.6-2.3) MG/DL Total Bilirubin (0.2-1.3) mg/dl AST (17-59) U/L ALT (21-72) U/L Alkaline Phosphatase (38-126) U/L Ammonia (16-60) umo/L Total Creatine Kinase (55-170) U/L Troponin I (0.00-0.120) ng/mL Total Protein (6.3-8.2) G/DL Albumin (3.5-5.0) g/dL Globulin (2.2-3.9) gm/dL Albumin/Globulin Ratio (1.0-2.1) Urine Osmolality (300-1000) mosm/kg Ur Random Creatinine mg/dL Ur Random Sodium mmol/L Methyl Alcohol Level (None Detected) mg/dL Hep Bs Antigen (NEGATIVE) Hep Bs Antibody (NEGATIVE) Hep B Core IgM Ab (NEGATIVE) 07/20/18 07/20/18 07/20/18 Range/Units 18:13 16:27 14:30 WBC (4.8-10.8) K/uL RBC (4.40-5.90) Mil/uL Hgb (12.0-18.0) g/dL Hct (35.0-51.0) % MCV (80.0-94.0) fl MCH (27.0-31.0) pg MCHC (33.0-37.0) g/dL RDW (11.5-14.5) % Plt Count (130-400) K/uL MPV (7.2-11.7) fl Neut % (Auto) (50.0-75.0) % Lymph % (Auto) (20.0-40.0) % [place] % (Auto) (0.0-10.0) % Eos % (Auto) (0.0-4.0) % Baso % (Auto) (0.0-2.0) % Neut # (Auto) (1.8-7.0) K/uL Lymph # (Auto) (1.0-4.3) K/uL [place] # (Auto) (0.0-0.8) K/uL Eos # (Auto) (0.0-0.7) K/uL Baso # (Auto) (0.0-0.2) K/uL Neutrophils % (Manual) (42-75) % Lymphocytes % (Manual) (20-50) % Monocytes % (Manual) (0-10) % Toxic Granulation Platelet Estimate (NORMAL) ESR (0-15) mm/hr Retic Count (0.5-1.5) % PT (9.8-13.1) Seconds INR APTT (25.6-37.1) Seconds Fibrinogen 150 L (200-400) mg/dl D-Dimer, Quantitative (0-230) ng/mlDDU pO2 (30-55) mm/Hg ABG Carboxyhemoglobin (0.5-1.5) % POC ABG HHb (Measured) (0.0-5.0) % ABG Methemoglobin (0.0-3.0) % VBG pH (7.32-7.43) VBG pCO2 (40-60) mmHg VBG HCO3 mmol/L VBG O2 Sat (Calc) (40-65) % VBG Base Excess (0.0-2.0) mmol/L VBG Hgb O2 Saturation (95.0-98.0) % Hemoglobin (11.7-17.4) g/dL Sodium (132-148) mmol/l Potassium (3.6-5.0) MMOL/L Chloride (98-107) mmol/L Carbon Dioxide (22-30) mmol/L Anion Gap (10-20) BUN (9-20) mg/dl Creatinine (0.8-1.5) mg/dl Est GFR ( Amer) Est GFR (Non-Af Amer) POC Glucose (mg/dL) 119 H (65-110) mg/dL Random Glucose (75-110) mg/dL Serum Osmolality (272-300) mosm/kg Lactic Acid (0.7-2.1) MMOL/L Calcium (8.4-10.2) mg/dL Phosphorus (2.5-4.5) mg/dl Magnesium (1.6-2.3) MG/DL Total Bilirubin (0.2-1.3) mg/dl AST (17-59) U/L ALT (21-72) U/L Alkaline Phosphatase (38-126) U/L Ammonia (16-60) umo/L Total Creatine Kinase 90906 H (55-170) U/L Troponin I 1.2300 H* (0.00-0.120) ng/mL Total Protein (6.3-8.2) G/DL Albumin (3.5-5.0) g/dL Globulin (2.2-3.9) gm/dL Albumin/Globulin Ratio (1.0-2.1) Urine Osmolality (300-1000) mosm/kg Ur Random Creatinine mg/dL Ur Random Sodium mmol/L Methyl Alcohol Level (None Detected) mg/dL Hep Bs Antigen (NEGATIVE) Hep Bs Antibody (NEGATIVE) Hep B Core IgM Ab (NEGATIVE) 07/20/18 07/20/18 07/20/18 Range/Units 12:37 12:37 12:30 WBC 11.4 H (4.8-10.8) K/uL RBC 4.02 L (4.40-5.90) Mil/uL Hgb 12.2 (12.0-18.0) g/dL Hct 37.1 (35.0-51.0) % MCV 92.3 (80.0-94.0) fl MCH 30.3 (27.0-31.0) pg MCHC 32.8 L (33.0-37.0) g/dL RDW 12.7 (11.5-14.5) % Plt Count 93 L (130-400) K/uL MPV 8.5 (7.2-11.7) fl Neut % (Auto) 87.8 H (50.0-75.0) % Lymph % (Auto) 7.1 L (20.0-40.0) % [place] % (Auto) 4.8 (0.0-10.0) % Eos % (Auto) 0.2 (0.0-4.0) % Baso % (Auto) 0.1 (0.0-2.0) % Neut # (Auto) 10.0 H (1.8-7.0) K/uL Lymph # (Auto) 0.8 L (1.0-4.3) K/uL [place] # (Auto) 0.6 (0.0-0.8) K/uL Eos # (Auto) 0.0 (0.0-0.7) K/uL Baso # (Auto) 0.0 (0.0-0.2) K/uL Neutrophils % (Manual) (42-75) % Lymphocytes % (Manual) (20-50) % Monocytes % (Manual) (0-10) % Toxic Granulation Platelet Estimate (NORMAL) ESR (0-15) mm/hr Retic Count (0.5-1.5) % PT (9.8-13.1) Seconds INR APTT (25.6-37.1) Seconds Fibrinogen (200-400) mg/dl D-Dimer, Quantitative (0-230) ng/mlDDU pO2 26 L (30-55) mm/Hg ABG Carboxyhemoglobin 0.5 (0.5-1.5) % POC ABG HHb (Measured) 54.2 H (0.0-5.0) % ABG Methemoglobin 1.5 (0.0-3.0) % VBG pH 7.34 (7.32-7.43) VBG pCO2 46 (40-60) mmHg VBG HCO3 22.6 mmol/L VBG O2 Sat (Calc) 44.6 (40-65) % VBG Base Excess -1.3 L (0.0-2.0) mmol/L VBG Hgb O2 Saturation 43.7 L (95.0-98.0) % Hemoglobin 12.4 (11.7-17.4) g/dL Sodium 138 (132-148) mmol/l Potassium 3.9 (3.6-5.0) MMOL/L Chloride 101 (98-107) mmol/L Carbon Dioxide 24 (22-30) mmol/L Anion Gap 17 (10-20) BUN 36 H (9-20) mg/dl Creatinine 3.0 H (0.8-1.5) mg/dl Est GFR ( Amer) 30 Est GFR (Non-Af Amer) 25 POC Glucose (mg/dL) (65-110) mg/dL Random Glucose 155 H (75-110) mg/dL Serum Osmolality (272-300) mosm/kg Lactic Acid (0.7-2.1) MMOL/L Calcium 6.6 L (8.4-10.2) mg/dL Phosphorus (2.5-4.5) mg/dl Magnesium (1.6-2.3) MG/DL Total Bilirubin 0.6 (0.2-1.3) mg/dl AST [address] H (17-59) U/L ALT 6372 H (21-72) U/L Alkaline Phosphatase < 20 L D (38-126) U/L Ammonia (16-60) umo/L Total Creatine Kinase 29329 H (55-170) U/L Troponin I 1.6900 H* (0.00-0.120) ng/mL Total Protein 5.5 L (6.3-8.2) G/DL Albumin 2.9 L (3.5-5.0) g/dL Globulin 2.5 (2.2-3.9) gm/dL Albumin/Globulin Ratio 1.2 (1.0-2.1) Urine Osmolality (300-1000) mosm/kg Ur Random Creatinine mg/dL Ur Random Sodium mmol/L Methyl Alcohol Level (None Detected) mg/dL Hep Bs Antigen (NEGATIVE) Hep Bs Antibody (NEGATIVE) Hep B Core IgM Ab (NEGATIVE) 07/20/18 07/20/18 07/20/18 Range/Units 12:08 11:00 09:14 WBC (4.8-10.8) K/uL RBC (4.40-5.90) Mil/uL Hgb (12.0-18.0) g/dL Hct (35.0-51.0) % MCV (80.0-94.0) fl MCH (27.0-31.0) pg MCHC (33.0-37.0) g/dL RDW (11.5-14.5) % Plt Count (130-400) K/uL MPV (7.2-11.7) fl Neut % (Auto) (50.0-75.0) % Lymph % (Auto) (20.0-40.0) % [place] % (Auto) (0.0-10.0) % Eos % (Auto) (0.0-4.0) % Baso % (Auto) (0.0-2.0) % Neut # (Auto) (1.8-7.0) K/uL Lymph # (Auto) (1.0-4.3) K/uL [place] # (Auto) (0.0-0.8) K/uL Eos # (Auto) (0.0-0.7) K/uL Baso # (Auto) (0.0-0.2) K/uL Neutrophils % (Manual) (42-75) % Lymphocytes % (Manual) (20-50) % Monocytes % (Manual) (0-10) % Toxic Granulation Platelet Estimate (NORMAL) ESR (0-15) mm/hr Retic Count (0.5-1.5) % PT (9.8-13.1) Seconds INR APTT (25.6-37.1) Seconds Fibrinogen (200-400) mg/dl D-Dimer, Quantitative (0-230) ng/mlDDU pO2 (30-55) mm/Hg ABG Carboxyhemoglobin (0.5-1.5) % POC ABG HHb (Measured) (0.0-5.0) % ABG Methemoglobin (0.0-3.0) % VBG pH (7.32-7.43) VBG pCO2 (40-60) mmHg VBG HCO3 mmol/L VBG O2 Sat (Calc) (40-65) % VBG Base Excess (0.0-2.0) mmol/L VBG Hgb O2 Saturation (95.0-98.0) % Hemoglobin (11.7-17.4) g/dL Sodium (132-148) mmol/l Potassium (3.6-5.0) MMOL/L Chloride (98-107) mmol/L Carbon Dioxide (22-30) mmol/L Anion Gap (10-20) BUN (9-20) mg/dl Creatinine (0.8-1.5) mg/dl Est GFR ( Amer) Est GFR (Non-Af Amer) POC Glucose (mg/dL) 137 H (65-110) mg/dL Random Glucose (75-110) mg/dL Serum Osmolality (272-300) mosm/kg Lactic Acid (0.7-2.1) MMOL/L Calcium (8.4-10.2) mg/dL Phosphorus (2.5-4.5) mg/dl Magnesium (1.6-2.3) MG/DL Total Bilirubin (0.2-1.3) mg/dl AST (17-59) U/L ALT (21-72) U/L Alkaline Phosphatase (38-126) U/L Ammonia 22 (16-60) umo/L Total Creatine Kinase (55-170) U/L Troponin I (0.00-0.120) ng/mL Total Protein (6.3-8.2) G/DL Albumin (3.5-5.0) g/dL Globulin (2.2-3.9) gm/dL Albumin/Globulin Ratio (1.0-2.1) Urine Osmolality 322 (300-1000) mosm/kg Ur Random Creatinine 95.3 mg/dL Ur Random Sodium 70 mmol/L Methyl Alcohol Level (None Detected) mg/dL Hep Bs Antigen (NEGATIVE) Hep Bs Antibody (NEGATIVE) Hep B Core IgM Ab (NEGATIVE) 07/20/18 07/20/18 07/19/18 Range/Units 09:08 06:47 23:44 WBC (4.8-10.8) K/uL RBC (4.40-5.90) Mil/uL Hgb (12.0-18.0) g/dL Hct (35.0-51.0) % MCV (80.0-94.0) fl MCH (27.0-31.0) pg MCHC (33.0-37.0) g/dL RDW (11.5-14.5) % Plt Count (130-400) K/uL MPV (7.2-11.7) fl Neut % (Auto) (50.0-75.0) % Lymph % (Auto) (20.0-40.0) % [place] % (Auto) (0.0-10.0) % Eos % (Auto) (0.0-4.0) % Baso % (Auto) (0.0-2.0) % Neut # (Auto) (1.8-7.0) K/uL Lymph # (Auto) (1.0-4.3) K/uL [place] # (Auto) (0.0-0.8) K/uL Eos # (Auto) (0.0-0.7) K/uL Baso # (Auto) (0.0-0.2) K/uL Neutrophils % (Manual) 93 H (42-75) % Lymphocytes % (Manual) 4 L (20-50) % Monocytes % (Manual) 3 (0-10) % Toxic Granulation Present Platelet Estimate Decreased L (NORMAL) ESR (0-15) mm/hr Retic Count (0.5-1.5) % PT (9.8-13.1) Seconds INR APTT (25.6-37.1) Seconds Fibrinogen (200-400) mg/dl D-Dimer, Quantitative (0-230) ng/mlDDU pO2 (30-55) mm/Hg ABG Carboxyhemoglobin (0.5-1.5) % POC ABG HHb (Measured) (0.0-5.0) % ABG Methemoglobin (0.0-3.0) % VBG pH (7.32-7.43) VBG pCO2 (40-60) mmHg VBG HCO3 mmol/L VBG O2 Sat (Calc) (40-65) % VBG Base Excess (0.0-2.0) mmol/L VBG Hgb O2 Saturation (95.0-98.0) % Hemoglobin (11.7-17.4) g/dL Sodium (132-148) mmol/l Potassium (3.6-5.0) MMOL/L Chloride (98-107) mmol/L Carbon Dioxide (22-30) mmol/L Anion Gap (10-20) BUN (9-20) mg/dl Creatinine (0.8-1.5) mg/dl Est GFR ( Amer) Est GFR (Non-Af Amer) POC Glucose (mg/dL) (65-110) mg/dL Random Glucose (75-110) mg/dL Serum Osmolality 299 (272-300) mosm/kg Lactic Acid (0.7-2.1) MMOL/L Calcium (8.4-10.2) mg/dL Phosphorus (2.5-4.5) mg/dl Magnesium (1.6-2.3) MG/DL Total Bilirubin (0.2-1.3) mg/dl AST (17-59) U/L ALT (21-72) U/L Alkaline Phosphatase (38-126) U/L Ammonia (16-60) umo/L Total Creatine Kinase (55-170) U/L Troponin I (0.00-0.120) ng/mL Total Protein (6.3-8.2) G/DL Albumin (3.5-5.0) g/dL Globulin (2.2-3.9) gm/dL Albumin/Globulin Ratio (1.0-2.1) Urine Osmolality (300-1000) mosm/kg Ur Random Creatinine mg/dL Ur Random Sodium mmol/L Methyl Alcohol Level (None Detected) mg/dL Hep Bs Antigen (NEGATIVE) Hep Bs Antibody Positive (NEGATIVE) Hep B Core IgM Ab (NEGATIVE) 07/19/18 07/19/18 Range/Units 23:44 19:31 WBC (4.8-10.8) K/uL RBC (4.40-5.90) Mil/uL Hgb (12.0-18.0) g/dL Hct (35.0-51.0) % MCV (80.0-94.0) fl MCH (27.0-31.0) pg MCHC (33.0-37.0) g/dL RDW (11.5-14.5) % Plt Count (130-400) K/uL MPV (7.2-11.7) fl Neut % (Auto) (50.0-75.0) % Lymph % (Auto) (20.0-40.0) % [place] % (Auto) (0.0-10.0) % Eos % (Auto) (0.0-4.0) % Baso % (Auto) (0.0-2.0) % Neut # (Auto) (1.8-7.0) K/uL Lymph # (Auto) (1.0-4.3) K/uL [place] # (Auto) (0.0-0.8) K/uL Eos # (Auto) (0.0-0.7) K/uL Baso # (Auto) (0.0-0.2) K/uL Neutrophils % (Manual) (42-75) % Lymphocytes % (Manual) (20-50) % Monocytes % (Manual) (0-10) % Toxic Granulation Platelet Estimate (NORMAL) ESR (0-15) mm/hr Retic Count (0.5-1.5) % PT (9.8-13.1) Seconds INR APTT (25.6-37.1) Seconds Fibrinogen (200-400) mg/dl D-Dimer, Quantitative (0-230) ng/mlDDU pO2 (30-55) mm/Hg ABG Carboxyhemoglobin (0.5-1.5) % POC ABG HHb (Measured) (0.0-5.0) % ABG Methemoglobin (0.0-3.0) % VBG pH (7.32-7.43) VBG pCO2 (40-60) mmHg VBG HCO3 mmol/L VBG O2 Sat (Calc) (40-65) % VBG Base Excess (0.0-2.0) mmol/L VBG Hgb O2 Saturation (95.0-98.0) % Hemoglobin (11.7-17.4) g/dL Sodium (132-148) mmol/l Potassium (3.6-5.0) MMOL/L Chloride (98-107) mmol/L Carbon Dioxide (22-30) mmol/L Anion Gap (10-20) BUN (9-20) mg/dl Creatinine (0.8-1.5) mg/dl Est GFR ( Amer) Est GFR (Non-Af Amer) POC Glucose (mg/dL) (65-110) mg/dL Random Glucose (75-110) mg/dL Serum Osmolality (272-300) mosm/kg Lactic Acid (0.7-2.1) MMOL/L Calcium (8.4-10.2) mg/dL Phosphorus (2.5-4.5) mg/dl Magnesium (1.6-2.3) MG/DL Total Bilirubin (0.2-1.3) mg/dl AST (17-59) U/L ALT (21-72) U/L Alkaline Phosphatase (38-126) U/L Ammonia (16-60) umo/L Total Creatine Kinase (55-170) U/L Troponin I (0.00-0.120) ng/mL Total Protein (6.3-8.2) G/DL Albumin (3.5-5.0) g/dL Globulin (2.2-3.9) gm/dL Albumin/Globulin Ratio (1.0-2.1) Urine Osmolality (300-1000) mosm/kg Ur Random Creatinine mg/dL Ur Random Sodium mmol/L Methyl Alcohol Level None det. (None Detected) mg/dL Hep Bs Antigen Negative (NEGATIVE) Hep Bs Antibody (NEGATIVE) Hep B Core IgM Ab Negative (NEGATIVE) Laboratory Results - last 24 hr 07/19/18 07/19/18 07/19/18 19:31 23:44 23:44 WBC RBC Hgb Hct MCV MCH MCHC RDW Plt Count MPV Neut % (Auto) Lymph % (Auto) [place] % (Auto) Eos % (Auto) Baso % (Auto) Neut # (Auto) Lymph # (Auto) [place] # (Auto) Eos # (Auto) Baso # (Auto) Neutrophils % (Manual) Lymphocytes % (Manual) Monocytes % (Manual) Toxic Granulation Platelet Estimate ESR Retic Count PT INR APTT Fibrinogen D-Dimer, Quantitative pO2 ABG Carboxyhemoglobin POC ABG HHb (Measured) ABG Methemoglobin VBG pH VBG pCO2 VBG HCO3 VBG O2 Sat (Calc) VBG Base Excess VBG Hgb O2 Saturation Hemoglobin Sodium Potassium Chloride Carbon Dioxide Anion Gap BUN Creatinine Est GFR ( Amer) Est GFR (Non-Af Amer) POC Glucose (mg/dL) Random Glucose Serum Osmolality Lactic Acid Calcium Phosphorus Magnesium Total Bilirubin AST ALT Alkaline Phosphatase Ammonia Total Creatine Kinase Troponin I Total Protein Albumin Globulin Albumin/Globulin Ratio Urine Osmolality Ur Random Creatinine Ur Random Sodium Methyl Alcohol Level None det. Hep Bs Antigen Negative Hep Bs Antibody Positive Hep B Core IgM Ab Negative 07/20/18 07/20/18 07/20/18 06:47 09:08 09:14 WBC RBC Hgb Hct MCV MCH MCHC RDW Plt Count MPV Neut % (Auto) Lymph % (Auto) [place] % (Auto) Eos % (Auto) Baso % (Auto) Neut # (Auto) Lymph # (Auto) [place] # (Auto) Eos # (Auto) Baso # (Auto) Neutrophils % (Manual) 93 H Lymphocytes % (Manual) 4 L Monocytes % (Manual) 3 Toxic Granulation Present Platelet Estimate Decreased L ESR Retic Count PT INR APTT Fibrinogen D-Dimer, Quantitative pO2 ABG Carboxyhemoglobin POC ABG HHb (Measured) ABG Methemoglobin VBG pH VBG pCO2 VBG HCO3 VBG O2 Sat (Calc) VBG Base Excess VBG Hgb O2 Saturation Hemoglobin Sodium Potassium Chloride Carbon Dioxide Anion Gap BUN Creatinine Est GFR ( Amer) Est GFR (Non-Af Amer) POC Glucose (mg/dL) Random Glucose Serum Osmolality 299 Lactic Acid Calcium Phosphorus Magnesium Total Bilirubin AST ALT Alkaline Phosphatase Ammonia 22 Total Creatine Kinase Troponin I Total Protein Albumin Globulin Albumin/Globulin Ratio Urine Osmolality Ur Random Creatinine Ur Random Sodium Methyl Alcohol Level Hep Bs Antigen Hep Bs Antibody Hep B Core IgM Ab 07/20/18 07/20/18 07/20/18 11:00 12:08 12:30 WBC RBC Hgb Hct MCV MCH MCHC RDW Plt Count MPV Neut % (Auto) Lymph % (Auto) [place] % (Auto) Eos % (Auto) Baso % (Auto) Neut # (Auto) Lymph # (Auto) [place] # (Auto) Eos # (Auto) Baso # (Auto) Neutrophils % (Manual) Lymphocytes % (Manual) Monocytes % (Manual) Toxic Granulation Platelet Estimate ESR Retic Count PT INR APTT Fibrinogen D-Dimer, Quantitative pO2 26 L ABG Carboxyhemoglobin 0.5 POC ABG HHb (Measured) 54.2 H ABG Methemoglobin 1.5 VBG pH 7.34 VBG pCO2 46 VBG HCO3 22.6 VBG O2 Sat (Calc) 44.6 VBG Base Excess -1.3 L VBG Hgb O2 Saturation 43.7 L Hemoglobin 12.4 Sodium Potassium Chloride Carbon Dioxide Anion Gap BUN Creatinine Est GFR ( Amer) Est GFR (Non-Af Amer) POC Glucose (mg/dL) 137 H Random Glucose Serum Osmolality Lactic Acid Calcium Phosphorus Magnesium Total Bilirubin AST ALT Alkaline Phosphatase Ammonia Total Creatine Kinase Troponin I Total Protein Albumin Globulin Albumin/Globulin Ratio Urine Osmolality 322 Ur Random Creatinine 95.3 Ur Random Sodium 70 Methyl Alcohol Level Hep Bs Antigen Hep Bs Antibody Hep B Core IgM Ab 07/20/18 07/20/18 07/20/18 12:37 12:37 14:30 WBC 11.4 H RBC 4.02 L Hgb 12.2 Hct 37.1 MCV 92.3 MCH 30.3 MCHC 32.8 L RDW 12.7 Plt Count 93 L MPV 8.5 Neut % (Auto) 87.8 H Lymph % (Auto) 7.1 L [place] % (Auto) 4.8 Eos % (Auto) 0.2 Baso % (Auto) 0.1 Neut # (Auto) 10.0 H Lymph # (Auto) 0.8 L [place] # (Auto) 0.6 Eos # (Auto) 0.0 Baso # (Auto) 0.0 Neutrophils % (Manual) Lymphocytes % (Manual) Monocytes % (Manual) Toxic Granulation Platelet Estimate ESR Retic Count PT INR APTT Fibrinogen 150 L D-Dimer, Quantitative pO2 ABG Carboxyhemoglobin POC ABG HHb (Measured) ABG Methemoglobin VBG pH VBG pCO2 VBG HCO3 VBG O2 Sat (Calc) VBG Base Excess VBG Hgb O2 Saturation Hemoglobin Sodium 138 Potassium 3.9 Chloride 101 Carbon Dioxide 24 Anion Gap 17 BUN 36 H Creatinine 3.0 H Est GFR ( Amer) 30 Est GFR (Non-Af Amer) 25 POC Glucose (mg/dL) Random Glucose 155 H Serum Osmolality Lactic Acid Calcium 6.6 L Phosphorus Magnesium Total Bilirubin 0.6 AST 91871 H ALT 6372 H Alkaline Phosphatase < 20 L D Ammonia Total Creatine Kinase 76753 H Troponin I 1.6900 H* Total Protein 5.5 L Albumin 2.9 L Globulin 2.5 Albumin/Globulin Ratio 1.2 Urine Osmolality Ur Random Creatinine Ur Random Sodium Methyl Alcohol Level Hep Bs Antigen Hep Bs Antibody Hep B Core IgM Ab 07/20/18 07/20/18 07/20/18 16:27 18:13 21:05 WBC RBC Hgb Hct MCV MCH MCHC RDW Plt Count MPV Neut % (Auto) Lymph % (Auto) [place] % (Auto) Eos % (Auto) Baso % (Auto) Neut # (Auto) Lymph # (Auto) [place] # (Auto) Eos # (Auto) Baso # (Auto) Neutrophils % (Manual) Lymphocytes % (Manual) Monocytes % (Manual) Toxic Granulation Platelet Estimate ESR Retic Count PT INR APTT Fibrinogen D-Dimer, Quantitative pO2 ABG Carboxyhemoglobin POC ABG HHb (Measured) ABG Methemoglobin VBG pH VBG pCO2 VBG HCO3 VBG O2 Sat (Calc) VBG Base Excess VBG Hgb O2 Saturation Hemoglobin Sodium Potassium Chloride Carbon Dioxide Anion Gap BUN Creatinine Est GFR ( Amer) Est GFR (Non-Af Amer) POC Glucose (mg/dL) 119 H 130 H Random Glucose Serum Osmolality Lactic Acid Calcium Phosphorus Magnesium Total Bilirubin AST ALT Alkaline Phosphatase Ammonia Total Creatine Kinase 69710 H Troponin I 1.2300 H* Total Protein Albumin Globulin Albumin/Globulin Ratio Urine Osmolality Ur Random Creatinine Ur Random Sodium Methyl Alcohol Level Hep Bs Antigen Hep Bs Antibody Hep B Core IgM Ab 07/21/18 07/21/18 07/21/18 04:30 04:30 04:30 WBC 9.6 RBC 3.40 L Hgb 10.5 L Hct 31.3 L MCV 92.1 MCH 30.8 MCHC 33.4 RDW 12.5 Plt Count 71 L D MPV 9.5 Neut % (Auto) 82.4 H Lymph % (Auto) 11.6 L [place] % (Auto) 5.3 Eos % (Auto) 0.3 Baso % (Auto) 0.4 Neut # (Auto) 7.9 H Lymph # (Auto) 1.1 [place] # (Auto) 0.5 Eos # (Auto) 0.0 Baso # (Auto) 0.0 Neutrophils % (Manual) Lymphocytes % (Manual) Monocytes % (Manual) Toxic Granulation Platelet Estimate ESR Retic Count PT 15.5 H INR 1.4 APTT 26.3 Fibrinogen D-Dimer, Quantitative 6534 H pO2 ABG Carboxyhemoglobin POC ABG HHb (Measured) ABG Methemoglobin VBG pH VBG pCO2 VBG HCO3 VBG O2 Sat (Calc) VBG Base Excess VBG Hgb O2 Saturation Hemoglobin Sodium 138 Potassium 3.5 L Chloride 105 Carbon Dioxide 20 L Anion Gap 17 BUN 47 H Creatinine 4.9 H Est GFR ( Amer) 17 Est GFR (Non-Af Amer) 14 POC Glucose (mg/dL) Random Glucose 119 H Serum Osmolality Lactic Acid Calcium 6.5 L Phosphorus 4.4 Magnesium 1.6 Total Bilirubin 0.7 AST 5148 H ALT 4802 H Alkaline Phosphatase 41 Ammonia Total Creatine Kinase 72401 H Troponin I Total Protein 4.9 L Albumin 2.5 L Globulin 2.4 Albumin/Globulin Ratio 1.1 Urine Osmolality Ur Random Creatinine Ur Random Sodium Methyl Alcohol Level Hep Bs Antigen Hep Bs Antibody Hep B Core IgM Ab 07/21/18 07/21/18 04:30 04:30 WBC RBC Hgb Hct MCV MCH MCHC RDW Plt Count MPV Neut % (Auto) Lymph % (Auto) [place] % (Auto) Eos % (Auto) Baso % (Auto) Neut # (Auto) Lymph # (Auto) [place] # (Auto) Eos # (Auto) Baso # (Auto) Neutrophils % (Manual) Lymphocytes % (Manual) Monocytes % (Manual) Toxic Granulation Platelet Estimate ESR 12 Retic Count 0.8 PT INR APTT Fibrinogen D-Dimer, Quantitative pO2 ABG Carboxyhemoglobin POC ABG HHb (Measured) ABG Methemoglobin VBG pH VBG pCO2 VBG HCO3 VBG O2 Sat (Calc) VBG Base Excess VBG Hgb O2 Saturation Hemoglobin Sodium Potassium Chloride Carbon Dioxide Anion Gap BUN Creatinine Est GFR ( Amer) Est GFR (Non-Af Amer) POC Glucose (mg/dL) Random Glucose Serum Osmolality Lactic Acid 1.7 Calcium Phosphorus Magnesium Total Bilirubin AST ALT Alkaline Phosphatase Ammonia Total Creatine Kinase Troponin I Total Protein Albumin Globulin Albumin/Globulin Ratio Urine Osmolality Ur Random Creatinine Ur Random Sodium Methyl Alcohol Level Hep Bs Antigen Hep Bs Antibody Hep B Core IgM Ab Radiology Impressions: Radiology Impressions Soft Tissue Neck CT 07/20/18 05:13 IMPRESSION: Asymmetric enlargement and edema in the left submandibular and parotid glands and masseter with diffuse subcutaneous edema in the left facial and neck soft tissues, and parietal scalp. Findings are most compatible with nonspecific infectious/inflammatory cellulitis. A preliminary report was provided by [employer] services. EKG/Cardiology Studies: Cardiology / EKG Studies 07/20/18 12:00 EKG [ELECTROCARDIOGRAM] Routine Comment: Mode Of Transportation: Reason For Exam: hyperkalemia 07/21/18 09:00 EKG [ELECTROCARDIOGRAM] DAILY Comment: 2 Mode Of Transportation: Reason For Exam: elevated trops 07/22/18 09:00 EKG [ELECTROCARDIOGRAM] DAILY Comment: 2 Mode Of Transportation: Reason For Exam: elevated trops Fingerstick Blood Sugar Results: 109 Critical Care Progress Note - Ventilator Checklist Head of Bed 30 Degrees: Yes - Nutrition Nutrition: Nutrition Category Date Time Status Liquid Diet [DIET] Diets 07/20/18 Lunch Active Assessment/Plan - Assessment and Plan (Free Text) Assessment: #AMS/Substance intoxication/metabolic encephalopathy -improving -likely 2/2 to ingestion of unknown toxin, ischemia -CT head no acute pathology #CRISTINA, rhabdomyliasis, lactic acidosis -multifactorial; ischemic, toxin -less likely to be infectious in nature -nephrology on board -s/p urgent dialysis on 07/19 (overnight) -BUN/Cr worse then previously -HD today -rhabdo likely 2/2 toxin vs infection of neck, CK improving -c/w with IVFs, bicard added to IVFs for acidosis #Acute liver injury -likely multifactorial; ischemic vs toxin -CT abd and pel: mild hepatic steatosis and hematomegaly -improving, hep b neg -GI on board #Cardiac injury? -new nonspecific T wave changes on EKG, prolong QTc 07/20 and 07/21, not noted on EKG 07/19 -trops pos x 2, downtrending -Echo appreciate, normal EF -Cardiology on board; likely 2/2 acute renal injury -c/w asa 81mg PO for now #Inflammatory soft tissue Edema/infection -CT neck sig for Asymmetric enlargement and edema in the left submandibular and parotid glands and masseter with diffuse subcutaneous edema in the left facial and neck soft tissues, and parietal scalp. -unknown etiology, consider iftikhar? -hypoxia, trauma, infections? -c/w abx -repeat CXR today -cont to monitor RR and O2 -mental status changes, neuro checks -consider surgery/ENT consult #Thrombocytopenia -HUS questionable given normal T ronaldo and alk phos, per lab no schistocytes noted in PBS -DIC likely given low fibronogen, elevated d-dimer with thrombocytopenia -Hem/Onc on board, follow up recs #Amion gap, osmolar gap metabolic acidosis -like 2/2 ingestion of unknown substance -noted on admission, improving -send out for methanol (neg), ethylene and isopropanalol -Nephro on board, HD -c.w IVF DVT prolx: SCDs GI prolx: Protonix FULL CODE <Shmuel Akers - Last Filed: 07/21/18 16:55> CCU Subjective - Physician Review Subjective (Free Text): Attestation: Patient seen and examined at the bedside with Resident Dr. Rene Zuniga; and I agree with her outline of plans and management documented as above, reflecting my review of all applicable clinical data, and participation in the care of the fabienne sharifa throughout the day in ICU; today, July 21, 2018. Patient noted to more sleepy today, repeat serum ammonia level is normal. As directed by Poison Control Center, to continue IV Acetylcysteine therapy as treatment for possible severe alcoholic hepatitis. Elevated LFTs may be element of shock / ischemic hepatitis. R/o other possible occult toxic ingestion, though adamantly denies any recent use of opioid medications, and just admits to drinking alcohol. IVFs increased in attempt to clear current rhabdomyolysis; also undergoing 2nd course of HD today. Awaiting on more family members to provide more HPI info.
[2018-07-21] MEDS: Potassium Chloride 20 mEq ER Tab PO ONE ×2 (08:41→11:00)
--- NOTE | 2018-07-21 10:21 | CP.PCM.PN ---
<Joni Samayoa - Last Filed: 07/21/18 14:33> Subjective - Date & Time of Evaluation Date of Evaluation: 07/21/18 Time of Evaluation: 09:00 - Subjective Subjective: Patient seen and examined at bedside in AM. No acute events overnight. Patient alert, awake and oriented x 3 but still drowsy. Neck swelling B/L and worsened compared to yesterday. Patient reports nausea, dysphagia and odynophagia. Denies any headache, dizziness, vision changes, CP, SOB, abdominal pain, vomiting or diarrhea. Objective - Vital Signs/Intake and Output Vital Signs (last 24 hours): Temp Pulse Resp BP Pulse Ox 97.9 F 86 21 134/91 H 100 07/21/18 04:00 07/21/18 06:00 07/21/18 06:00 07/21/18 06:00 07/21/18 06:00 Intake and Output: 07/21/18 07/21/18 06:59 18:59 Intake Total 3950 Output Total 500 Balance 3450 - Medications Medications: Current Medications Aspirin (Aspirin Chewable) 81 mg PO DAILY [facility] Last Admin: 07/21/18 08:42 Dose: 81 mg Piperacillin Sod/Tazobactam (Sod 2.25 gm/ Sodium Chloride) 100 mls @ 100 mls/hr IVPB Q6 WAYNE; Protocol Last Admin: 07/21/18 04:37 Dose: 100 mls/hr Sodium Chloride (Sodium Chloride 0.9%) 1,000 mls @ 250 mls/hr IV .Q4H WAYNE Stop: 07/21/18 22:00 Last Admin: 07/21/18 08:44 Dose: 250 mls/hr Ondansetron HCl (Zofran Inj) 4 mg IVP Q6 PRN PRN Reason: Nausea/Vomiting Pantoprazole Sodium (Protonix Inj) 40 mg IVP DAILY [facility] Last Admin: 07/21/18 08:41 Dose: 40 mg - Labs Labs: 07/21/18 04:30 07/21/18 04:30 PT 15.5 Seconds (9.8-13.1) H 07/21/18 04:30 INR 1.4 07/21/18 04:30 APTT 26.3 Seconds (25.6-37.1) 07/21/18 04:30 - Constitutional Appears: No Acute Distress - Head Exam Head Exam: NORMOCEPHALIC - Eye Exam Eye Exam: EOMI - ENT Exam ENT Exam: Mucous Membranes Moist - Neck Exam Neck Exam: Tenderness Additional comments: B/L neck enlargement, Mild Tenderness present B/L w/o erythema. - Respiratory Exam Respiratory Exam: Clear to Ausculation Bilateral. absent: Rales, Rhonchi, Wheezes, Respiratory Distress - Cardiovascular Exam Cardiovascular Exam: REGULAR RHYTHM, +S1, +S2. absent: Murmur - GI/Abdominal Exam GI & Abdominal Exam: Soft, Normal Bowel Sounds. absent: Tenderness - Extremities Exam Extremities Exam: absent: Calf Tenderness, Pedal Edema, Tenderness - Back Exam Back Exam: absent: CVA tenderness (L), CVA tenderness (R) - Neurological Exam Neurological Exam: Alert, Awake, Oriented x3 - Psychiatric Exam Psychiatric exam: Normal Affect, Normal Mood - Skin Skin Exam: Dry, Intact, Normal Color Assessment and Plan - Assessment and Plan (Free Text) Assessment: 28 year old male with PMHx of psoriasis brought to ER by EMS after being found unresponsive. Patient W/AMS, acute drug intoxication(Unknown), CRISTINA, acute liver failure, rhabdomolysis and metabolic acidosis. Patient receiving 2nd round of hemodialysis today. Consults: GI(Dr. Avendaño), Nephro(Dr. Diego), Cardio(Dr. Karimi), Gen Surg(Dr. Iqbal), Hem/Onc(Dr. Jan Abdullahi) CXR(07/19): No acute pulmonary disease CXR(07/21): Pulmonary vascular congestion Echocardiogram: EF 55-60%, Mild TR, RVSP 32 mm Hg, LV diastolic function WNL, RV systolic function WNL. EKG: New nonspecific T wave changes on EKG, prolong QTc 07/20 and 07/21, not noted on EKG 07/19 CT chest, abdomen and pelvis: No acute abnormality, Mild hepatomegaly CT Neck: Asymmetric enlargement and edema in the left submandibular and parotid glands and masseter with diffuse subcutaneous edema in the left facial and neck soft tissues, and parietal scalp. Findings are most compatible with nonspecific infectious/inflammatory cellulitis. Shoulder XR: No acute fracture or dislocations Plan: CRISTINA - Worsening, BUN/Cr 47/4.9 < 33/2.5 < 36/3.2 - Currently receiving HD, S/p Hemodialysis yesterday AM - Nephrology consult: Dr. Diego on board: HD with ultrafiltration in the range of 2000 cc because of the low urine output and the patient was given significant amount of volume expansion. Acute kidney injury perhaps related to multifactoria including rhabdomyolysis and possible sepsis - Continue NS @ 250 ml/hr - Monitor renal function, I and Os AMS 2/2 Acute drug intoxication vs Sepsis - S/p Narcan, Fomopizole, acetylcystine, levophed, Sodium Bicarb x 3 and Kayexalete, On NAC protocol - UTox: Positive for opiates, Serum alcohol: <10, Salicylic acid <1, Acetaminophen <10, Methanol Not detected. - WBC 27.8>>>9.4, HIV neg, Hep B Neg, Urine Cx Neg, CSF Cx Neg, Blood Cx neg(day 2) - Continue NS @ 250 mg/hr - F/U Serum drug screen, VDRL, MRSA Cx, Herpes simplex 1/2, CSF electophoresis - Continue NAC regimen as per poison control Acute liver failure - Improving - Most likely secondary to substance use/shock liver - AST 03970>>> 5148 , ALT 7921>>> 4802, T Lorenzo, ALP WNL, Ammonia 22 - Patient on NAC protocol - GI Consulted on board - Continue current regimen as per poison control - Monitor LFTs Nonspecific T wave changes on EKG, prolong QTc - likely due to rhabdomyolysis vs CRISTINA vs substance abuse - New nonspecific T wave changes on EKG, prolong QTc 07/20 and 07/21, not noted on EKG 07/19 - Trops x 2 positive, trending down - Echo appreciate, normal EF - Cardio consult on board - C/w asa 81mg PO for now Rhabdomyolysis - CPK Trending down 5500+ from 7600+ - Continue IVF @ 250 ml/hr - Currently receiving 2nd hemodialysis, S/P HD yesterday. - F/U CPK, renal function Thrombocytopenia - Platelets 293>>>71, Fibrinogen 150. - Hem/Onc Consulted: F/U CBC, LDH B/L neck swelling - Worsening, with dysphagia. Patient afebrile, VSS - CT Neck: Asymmetric enlargement and edema in the left submandibular and parotid glands and masseter with diffuse subcutaneous edema in the left facial and neck soft tissues, and parietal scalp. Findings are most compatible with nonspecific infectious/inflammatory cellulites. - Continue Zosyn for now. - Gen Surg consulted, no surgery for now. Electrolyte imbalance w/metabolic acidosis - Acidosis, Hyperkelemia resolved - Hypocalcemia(Improving):5.9>6.9, s/p Ca gluconate - Monitor CMP Extensive psoriasis - Reports using cream at home - Will consider treatment once patient stable DVT prophylaxis - SCDs - GI: Protonix Code status Full code <Honey Early - Last Filed: 07/21/18 15:12> Objective - Vital Signs/Intake and Output Vital Signs (last 24 hours): Temp Pulse Resp BP Pulse Ox 98.2 F 61 20 127/72 98 07/21/18 11:58 07/21/18 14:00 07/21/18 14:00 07/21/18 14:00 07/21/18 14:00 Intake and Output: 07/21/18 07/21/18 06:59 18:59 Intake Total 3950 2215 Output Total 500 2240 Balance 3450 -25 - Medications Medications: Current Medications Aspirin (Aspirin Chewable) 81 mg PO DAILY [facility] Last Admin: 07/21/18 08:42 Dose: 81 mg Piperacillin Sod/Tazobactam (Sod 2.25 gm/ Sodium Chloride) 100 mls @ 100 mls/hr IVPB Q6 WAYNE; Protocol Last Admin: 07/21/18 10:58 Dose: Not Given Sodium Bicarbonate 80 meq/ (Dextrose/Sodium Chloride) 1,080 mls @ 175 mls/hr IV .Q6H11M WAYNE Stop: 07/22/18 10:21 Last Admin: 07/21/18 12:28 Dose: 175 mls/hr Acetylcysteine 8,800 mg/ (Dextrose) 1,000 mls @ 65.25 mls/hr IVPB ONCE ONE Stop: 07/22/18 04:49 Ondansetron HCl (Zofran Inj) 4 mg IVP Q6 PRN PRN Reason: Nausea/Vomiting Last Admin: 07/21/18 11:06 Dose: 4 mg Pantoprazole Sodium (Protonix Inj) 40 mg IVP DAILY [facility] Last Admin: 07/21/18 08:41 Dose: 40 mg - Labs Labs: 07/21/18 04:30 07/21/18 04:30 PT 15.5 Seconds (9.8-13.1) H 07/21/18 04:30 INR 1.4 07/21/18 04:30 APTT 26.3 Seconds (25.6-37.1) 07/21/18 04:30 Attending/Attestation - Attestation I have personally seen and examined this patient.: Yes I have fully participated in the care of the patient.: Yes I have reviewed all pertinent clinical information, including history, physical exam and plan: Yes Notes (Text): 1. Acute Renal Failure , ? sec to Rhabdomyolysis , ATN vs Nephrotoxic agent ingestion - cont Hemodialysis 2. Acute Transaminitis ? Shock Liver vs Hepatotoxic agent ingestion - Poison Control rec Acetylcysteine IV until LFTS less than 1000 3. Leukocytosis with SIRS ? Sepsis ( POA) improving No fever, Leukocytosis resolved cont IV Zosyn Cultures negative so far 4. Troponin Elevation- likely due to Demand ischemia due to CRISTINA, Sepsis unlikely cardiac as per Dr Karimi 5. Hypoglycemic Episode 6. Bilateral Neck Swelling with Left Salivary Glands Enlargement ? etiology Surgery consulted 7. Thrombocytopenia with low Fibrinogen ? DIC - Hematology consult 8. AMS sec to Toxic Metabolic Encephalopathy,improved
[2018-07-21] MEDS ORDERED: Potassium Chloride 20 mEq 100 ML IVPB ONE ×3 (10:29→16:29)
--- NOTE | 2018-07-21 10:50 | CP.PCM.PN ---
Subjective - Date & Time of Evaluation Date of Evaluation: 07/21/18 Time of Evaluation: 10:50 - Subjective Subjective: Dialysis note Patient remained in bed awake Although slightly drowsy Vital signs noted to be stable Patient receiving hemodialysis Objective - Vital Signs/Intake and Output Vital Signs (last 24 hours): Temp Pulse Resp BP Pulse Ox 97.9 F 86 21 134/91 H 100 07/21/18 04:00 07/21/18 06:00 07/21/18 06:00 07/21/18 06:00 07/21/18 06:00 Intake and Output: 07/21/18 07/21/18 06:59 18:59 Intake Total 3950 Output Total 500 Balance 3450 - Medications Medications: Current Medications Aspirin (Aspirin Chewable) 81 mg PO DAILY [facility] Last Admin: 07/21/18 08:42 Dose: 81 mg Piperacillin Sod/Tazobactam (Sod 2.25 gm/ Sodium Chloride) 100 mls @ 100 mls/hr IVPB Q6 WAYNE; Protocol Last Admin: 07/21/18 04:37 Dose: 100 mls/hr Sodium Chloride (Sodium Chloride 0.9%) 1,000 mls @ 250 mls/hr IV .Q4H WAYNE Stop: 07/21/18 22:00 Last Admin: 07/21/18 08:44 Dose: 250 mls/hr Sodium Bicarbonate 80 meq/ (Dextrose/Sodium Chloride) 1,080 mls @ 175 mls/hr IV .Q6H11M WAYNE Stop: 07/22/18 10:21 Potassium Chloride (Potassium Chloride 20 Meq/100 Ml) 100 mls @ 50 mls/hr IVPB ONCE ONE Stop: 07/21/18 12:28 Ondansetron HCl (Zofran Inj) 4 mg IVP Q6 PRN PRN Reason: Nausea/Vomiting Pantoprazole Sodium (Protonix Inj) 40 mg IVP DAILY [facility] Last Admin: 07/21/18 08:41 Dose: 40 mg - Labs Labs: 07/21/18 04:30 07/21/18 04:30 PT 15.5 Seconds (9.8-13.1) H 07/21/18 04:30 INR 1.4 07/21/18 04:30 APTT 26.3 Seconds (25.6-37.1) 07/21/18 04:30 - Constitutional Appears: No Acute Distress - Eye Exam Eye Exam: Conjunctival injection - ENT Exam ENT Exam: Mucous Membranes Moist - Neck Exam Neck Exam: absent: Lymphadenopathy Additional comments: Neck area appears to be swollen including submandibular area - Respiratory Exam Respiratory Exam: NORMAL BREATHING PATTERN. absent: Chest Wall Tenderness - Cardiovascular Exam Cardiovascular Exam: absent: Gallop, JVD, Rubs - GI/Abdominal Exam GI & Abdominal Exam: Soft - Extremities Exam Extremities Exam: absent: Calf Tenderness - Back Exam Back Exam: absent: CVA tenderness (L), CVA tenderness (R) - Neurological Exam Neurological Exam: Awake - Skin Skin Exam: absent: Cyanosis Assessment and Plan (1) ARF (acute renal failure) Assessment & Plan: He was seen on hemodialysis now. Dialysis nurse at the bedside I discussed the order to do ultrafiltration in the range of 2000 cc because of the low urine output and the patient was given significant amount of volume expansion. Acute kidney injury perhaps related to multifactoria including rhabdomyolysis and possible sepsis rhabdomyolysis Hyperkalemia corrected Abnormal liver function test which very elevated and trending down High CPK in the range of 55,000+ which has been trending down from over 76,000 Metabolic acidosis which has been improving Worsening kidney function rising creatinine Soft tissue infection around the neck area etiology not clear. Leukocytosis on initial admission which has been trending down Recommendation Hemodialysis in progress Antibiotics ongoing Cardiology follow-up on board the changes of EKG as noted Discussed with the intensive care team and section maintainer Status: Acute (2) Altered mental status Status: Acute (3) Hyperkalemia Status: Acute (4) Ingestion of toxic substance Status: Acute (5) Septic shock Status: Acute
--- NOTE | 2018-07-21 12:06 | CP.PCM.CON ---
History of Present Illness - History of Present Illness History of Present Illness: SURGERY CONSULT FOR DR VALLES Reason for consult: bilateral neck swelling 28M presents to hospital after being found with altered mental status. He has been in the ICU being treated for acute kidney injury and liver injury, and rha bomyalasis. Currently bedside, patient is awake and alert. Denies any headache, shortness of breath, chest pain and also denies pain in the mandibular region. Patient began having left sided jaw/neck swelling yesterday that has now spread to the right side. He states he has never had this before, he denies any tooth pain, denies ever having any abscess, but also denies seeing a dentist within last couple of years. He denies fevers, chills. PMH: psoriasis PSH: denies Social: Denies tobacco use, he does use alcohol socially, illicit drug use Allergies: NKDA Past Patient History - Past Medical History & Family History Past Medical History?: Yes - Past Social History Smoking Status: Never Smoked - CARDIAC Hx Cardiac Disorders: No - PULMONARY Hx Respiratory Disorders: No - NEUROLOGICAL Hx Neurological Disorder: No - HEENT Hx HEENT Problems: No - RENAL Hx Chronic Kidney Disease: No - ENDOCRINE/METABOLIC Hx Endocrine Disorders: No - HEMATOLOGICAL/ONCOLOGICAL Hx Blood Disorders: No - INTEGUMENTARY Hx Dermatological Problems: Yes (Psoriasis) - MUSCULOSKELETAL/RHEUMATOLOGICAL Hx Falls: Yes (pt. found on ground) - PSYCHIATRIC Hx Substance Use: No - SURGICAL HISTORY Hx Surgeries: No - ANESTHESIA Hx Anesthesia: No Meds Allergies/Adverse Reactions: Allergies Allergy/AdvReac Type Severity Reaction Status Date / Time No Known Allergies Allergy Verified 07/19/18 13:46 - Medications Medications: Current Medications Aspirin (Aspirin Chewable) 81 mg PO DAILY [facility] Last Admin: 07/21/18 08:42 Dose: 81 mg Piperacillin Sod/Tazobactam (Sod 2.25 gm/ Sodium Chloride) 100 mls @ 100 mls/hr IVPB Q6 WAYNE; Protocol Last Admin: 07/21/18 10:58 Dose: Not Given Sodium Chloride (Sodium Chloride 0.9%) 1,000 mls @ 250 mls/hr IV .Q4H WAYNE Stop: 07/21/18 22:00 Last Admin: 07/21/18 08:44 Dose: 250 mls/hr Sodium Bicarbonate 80 meq/ (Dextrose/Sodium Chloride) 1,080 mls @ 175 mls/hr IV .Q6H11M [facility] Stop: 07/22/18 10:21 Potassium Chloride (Potassium Chloride 20 Meq/100 Ml) 100 mls @ 50 mls/hr IVPB ONCE ONE Stop: 07/21/18 12:28 Ondansetron HCl (Zofran Inj) 4 mg IVP Q6 PRN PRN Reason: Nausea/Vomiting Last Admin: 07/21/18 11:06 Dose: 4 mg Pantoprazole Sodium (Protonix Inj) 40 mg IVP DAILY [facility] Last Admin: 07/21/18 08:41 Dose: 40 mg Physical Exam - Constitutional Appears: Non-toxic, No Acute Distress - Head Exam Additional comments: B/L jaw swelling, submandibular swelling soft to palpation, denies erythema, denies induration - Neck Exam Neck exam: Positive for: Full Rom. Negative for: Tenderness Additional comments: submandibular swelling - Respiratory Exam Respiratory Exam: Clear to Auscultation Bilateral, NORMAL BREATHING PATTERN - Cardiovascular Exam Cardiovascular Exam: REGULAR RHYTHM, +S1, +S2 - GI/Abdominal Exam GI & Abdominal Exam: Soft. absent: Distended, Firm, Guarding, Rebound, Rigid, Tenderness - Extremities Exam Extremities exam: Negative for: pedal edema, tenderness - Neurological Exam Neurological exam: Alert, Oriented x3 - Skin Skin Exam: Dry, Intact, Normal Color, Rash (psoriasis), Warm Results - Vital Signs Recent Vital Signs: Last Vital Signs Temp 97.9 F 07/21/18 04:00 Pulse 86 07/21/18 06:00 Resp 21 07/21/18 06:00 BP 134/91 H 07/21/18 06:00 Pulse Ox 100 07/21/18 06:00 - Labs Result Diagrams: 07/21/18 04:30 07/21/18 04:30 Labs: Laboratory Results - last 24 hr 07/19/18 07/19/18 07/19/18 19:31 23:44 23:44 WBC RBC Hgb Hct MCV MCH MCHC RDW Plt Count MPV Neut % (Auto) Lymph % (Auto) [place] % (Auto) Eos % (Auto) Baso % (Auto) Neut # (Auto) Lymph # (Auto) [place] # (Auto) Eos # (Auto) Baso # (Auto) Neutrophils % (Manual) Lymphocytes % (Manual) Monocytes % (Manual) Toxic Granulation Platelet Estimate ESR Retic Count PT INR APTT Fibrinogen D-Dimer, Quantitative pO2 ABG Carboxyhemoglobin POC ABG HHb (Measured) ABG Methemoglobin VBG pH VBG pCO2 VBG HCO3 VBG O2 Sat (Calc) VBG Base Excess VBG Hgb O2 Saturation Hemoglobin Sodium Potassium Chloride Carbon Dioxide Anion Gap BUN Creatinine Est GFR ( Amer) Est GFR (Non-Af Amer) POC Glucose (mg/dL) Random Glucose Lactic Acid Calcium Phosphorus Magnesium Total Bilirubin AST ALT Alkaline Phosphatase Ammonia Total Creatine Kinase Troponin I Total Protein Albumin Globulin Albumin/Globulin Ratio Urine Osmolality Ur Random Creatinine Ur Random Sodium Methyl Alcohol Level None det. Hep Bs Antigen Negative Hep Bs Antibody Positive Hep B Core IgM Ab Negative HIV-1 Ab Rapid Screen 07/20/18 07/20/18 07/20/18 06:47 11:00 12:08 WBC RBC Hgb Hct MCV MCH MCHC RDW Plt Count MPV Neut % (Auto) Lymph % (Auto) [place] % (Auto) Eos % (Auto) Baso % (Auto) Neut # (Auto) Lymph # (Auto) [place] # (Auto) Eos # (Auto) Baso # (Auto) Neutrophils % (Manual) 93 H Lymphocytes % (Manual) 4 L Monocytes % (Manual) 3 Toxic Granulation Present Platelet Estimate Decreased L ESR Retic Count PT INR APTT Fibrinogen D-Dimer, Quantitative pO2 ABG Carboxyhemoglobin POC ABG HHb (Measured) ABG Methemoglobin VBG pH VBG pCO2 VBG HCO3 VBG O2 Sat (Calc) VBG Base Excess VBG Hgb O2 Saturation Hemoglobin Sodium Potassium Chloride Carbon Dioxide Anion Gap BUN Creatinine Est GFR ( Amer) Est GFR (Non-Af Amer) POC Glucose (mg/dL) 137 H Random Glucose Lactic Acid Calcium Phosphorus Magnesium Total Bilirubin AST ALT Alkaline Phosphatase Ammonia Total Creatine Kinase Troponin I Total Protein Albumin Globulin Albumin/Globulin Ratio Urine Osmolality 322 Ur Random Creatinine 95.3 Ur Random Sodium 70 Methyl Alcohol Level Hep Bs Antigen Hep Bs Antibody Hep B Core IgM Ab HIV-1 Ab Rapid Screen 07/20/18 07/20/18 07/20/18 12:30 12:37 12:37 WBC 11.4 H RBC 4.02 L Hgb 12.2 Hct 37.1 MCV 92.3 MCH 30.3 MCHC 32.8 L RDW 12.7 Plt Count 93 L MPV 8.5 Neut % (Auto) 87.8 H Lymph % (Auto) 7.1 L [place] % (Auto) 4.8 Eos % (Auto) 0.2 Baso % (Auto) 0.1 Neut # (Auto) 10.0 H Lymph # (Auto) 0.8 L [place] # (Auto) 0.6 Eos # (Auto) 0.0 Baso # (Auto) 0.0 Neutrophils % (Manual) Lymphocytes % (Manual) Monocytes % (Manual) Toxic Granulation Platelet Estimate ESR Retic Count PT INR APTT Fibrinogen D-Dimer, Quantitative pO2 26 L ABG Carboxyhemoglobin 0.5 POC ABG HHb (Measured) 54.2 H ABG Methemoglobin 1.5 VBG pH 7.34 VBG pCO2 46 VBG HCO3 22.6 VBG O2 Sat (Calc) 44.6 VBG Base Excess -1.3 L VBG Hgb O2 Saturation 43.7 L Hemoglobin 12.4 Sodium 138 Potassium 3.9 Chloride 101 Carbon Dioxide 24 Anion Gap 17 BUN 36 H Creatinine 3.0 H Est GFR ( Amer) 30 Est GFR (Non-Af Amer) 25 POC Glucose (mg/dL) Random Glucose 155 H Lactic Acid Calcium 6.6 L Phosphorus Magnesium Total Bilirubin 0.6 AST 29909 H ALT 6372 H Alkaline Phosphatase < 20 L D Ammonia Total Creatine Kinase 88813 H Troponin I 1.6900 H* Total Protein 5.5 L Albumin 2.9 L Globulin 2.5 Albumin/Globulin Ratio 1.2 Urine Osmolality Ur Random Creatinine Ur Random Sodium Methyl Alcohol Level Hep Bs Antigen Hep Bs Antibody Hep B Core IgM Ab HIV-1 Ab Rapid Screen 07/20/18 07/20/18 07/20/18 14:30 16:27 18:13 WBC RBC Hgb Hct MCV MCH MCHC RDW Plt Count MPV Neut % (Auto) Lymph % (Auto) [place] % (Auto) Eos % (Auto) Baso % (Auto) Neut # (Auto) Lymph # (Auto) [place] # (Auto) Eos # (Auto) Baso # (Auto) Neutrophils % (Manual) Lymphocytes % (Manual) Monocytes % (Manual) Toxic Granulation Platelet Estimate ESR Retic Count PT INR APTT Fibrinogen 150 L D-Dimer, Quantitative pO2 ABG Carboxyhemoglobin POC ABG HHb (Measured) ABG Methemoglobin VBG pH VBG pCO2 VBG HCO3 VBG O2 Sat (Calc) VBG Base Excess VBG Hgb O2 Saturation Hemoglobin Sodium Potassium Chloride Carbon Dioxide Anion Gap BUN Creatinine Est GFR ( Amer) Est GFR (Non-Af Amer) POC Glucose (mg/dL) 119 H Random Glucose Lactic Acid Calcium Phosphorus Magnesium Total Bilirubin AST ALT Alkaline Phosphatase Ammonia Total Creatine Kinase 93533 H Troponin I 1.2300 H* Total Protein Albumin Globulin Albumin/Globulin Ratio Urine Osmolality Ur Random Creatinine Ur Random Sodium Methyl Alcohol Level Hep Bs Antigen Hep Bs Antibody Hep B Core IgM Ab HIV-1 Ab Rapid Screen 07/20/18 07/21/18 07/21/18 21:05 04:30 04:30 WBC 9.6 RBC 3.40 L Hgb 10.5 L Hct 31.3 L MCV 92.1 MCH 30.8 MCHC 33.4 RDW 12.5 Plt Count 71 L D MPV 9.5 Neut % (Auto) 82.4 H Lymph % (Auto) 11.6 L [place] % (Auto) 5.3 Eos % (Auto) 0.3 Baso % (Auto) 0.4 Neut # (Auto) 7.9 H Lymph # (Auto) 1.1 [place] # (Auto) 0.5 Eos # (Auto) 0.0 Baso # (Auto) 0.0 Neutrophils % (Manual) Lymphocytes % (Manual) Monocytes % (Manual) Toxic Granulation Platelet Estimate ESR Retic Count PT 15.5 H INR 1.4 APTT 26.3 Fibrinogen D-Dimer, Quantitative 6534 H pO2 ABG Carboxyhemoglobin POC ABG HHb (Measured) ABG Methemoglobin VBG pH VBG pCO2 VBG HCO3 VBG O2 Sat (Calc) VBG Base Excess VBG Hgb O2 Saturation Hemoglobin Sodium Potassium Chloride Carbon Dioxide Anion Gap BUN Creatinine Est GFR ( Amer) Est GFR (Non-Af Amer) POC Glucose (mg/dL) 130 H Random Glucose Lactic Acid Calcium Phosphorus Magnesium Total Bilirubin AST ALT Alkaline Phosphatase Ammonia Total Creatine Kinase Troponin I Total Protein Albumin Globulin Albumin/Globulin Ratio Urine Osmolality Ur Random Creatinine Ur Random Sodium Methyl Alcohol Level Hep Bs Antigen Hep Bs Antibody Hep B Core IgM Ab HIV-1 Ab Rapid Screen 07/21/18 07/21/18 07/21/18 04:30 04:30 04:30 WBC RBC Hgb Hct MCV MCH MCHC RDW Plt Count MPV Neut % (Auto) Lymph % (Auto) [place] % (Auto) Eos % (Auto) Baso % (Auto) Neut # (Auto) Lymph # (Auto) [place] # (Auto) Eos # (Auto) Baso # (Auto) Neutrophils % (Manual) Lymphocytes % (Manual) Monocytes % (Manual) Toxic Granulation Platelet Estimate ESR 12 Retic Count 0.8 PT INR APTT Fibrinogen D-Dimer, Quantitative pO2 ABG Carboxyhemoglobin POC ABG HHb (Measured) ABG Methemoglobin VBG pH VBG pCO2 VBG HCO3 VBG O2 Sat (Calc) VBG Base Excess VBG Hgb O2 Saturation Hemoglobin Sodium 138 Potassium 3.5 L Chloride 105 Carbon Dioxide 20 L Anion Gap 17 BUN 47 H Creatinine 4.9 H Est GFR ( Amer) 17 Est GFR (Non-Af Amer) 14 POC Glucose (mg/dL) Random Glucose 119 H Lactic Acid 1.7 Calcium 6.5 L Phosphorus 4.4 Magnesium 1.6 Total Bilirubin 0.7 AST 5148 H ALT 4802 H Alkaline Phosphatase 41 Ammonia Total Creatine Kinase 13350 H Troponin I Total Protein 4.9 L Albumin 2.5 L Globulin 2.4 Albumin/Globulin Ratio 1.1 Urine Osmolality Ur Random Creatinine Ur Random Sodium Methyl Alcohol Level Hep Bs Antigen Hep Bs Antibody Hep B Core IgM Ab HIV-1 Ab Rapid Screen 07/21/18 07/21/18 10:38 10:38 WBC RBC Hgb Hct MCV MCH MCHC RDW Plt Count MPV Neut % (Auto) Lymph % (Auto) [place] % (Auto) Eos % (Auto) Baso % (Auto) Neut # (Auto) Lymph # (Auto) [place] # (Auto) Eos # (Auto) Baso # (Auto) Neutrophils % (Manual) Lymphocytes % (Manual) Monocytes % (Manual) Toxic Granulation Platelet Estimate ESR Retic Count PT INR APTT Fibrinogen D-Dimer, Quantitative pO2 ABG Carboxyhemoglobin POC ABG HHb (Measured) ABG Methemoglobin VBG pH VBG pCO2 VBG HCO3 VBG O2 Sat (Calc) VBG Base Excess VBG Hgb O2 Saturation Hemoglobin Sodium Potassium Chloride Carbon Dioxide Anion Gap BUN Creatinine Est GFR ( Amer) Est GFR (Non-Af Amer) POC Glucose (mg/dL) Random Glucose Lactic Acid Calcium Phosphorus Magnesium Total Bilirubin AST ALT Alkaline Phosphatase Ammonia < 9 L Total Creatine Kinase Troponin I Total Protein Albumin Globulin Albumin/Globulin Ratio Urine Osmolality Ur Random Creatinine Ur Random Sodium Methyl Alcohol Level Hep Bs Antigen Hep Bs Antibody Hep B Core IgM Ab HIV-1 Ab Rapid Screen Non reactive Assessment & Plan - Assessment and Plan (Free Text) Assessment: 28M with b/l neck swelling likely 2/2 to soft tissue infection/salivary glandular infection CT on 07/20: edema in the submandibular region, parotid glands and masseter, also edema in left facial soft tissue, no abscess Plan: Monitor for increase in size Change in characteristics Watch for formation of abscess Continue antibiotics Recommend ENT consult for further evaluation Further recs discuss with Dr. Rasheed Caicedo, PGY3
[2018-07-21] MEDS: Sodium Bicarbonate 8.4% 80 MEQ in Dextrose 5%/0.45% NS 1,000 ML IV SCH ×2 (12:28→18:05)
--- NOTE | 2018-07-21 12:44 | RAD ---
Date of service: 07/21/2018 PROCEDURE: CHEST RADIOGRAPH, 1 VIEW HISTORY: ICU COMPARISON: Chest radiograph dated 07/19/2018. FINDINGS: LUNGS: Clear. PLEURA: No pneumothorax or pleural fluid seen. CARDIOVASCULAR: No aortic atherosclerotic calcification present. Pulmonary vascular congestion. OSSEOUS STRUCTURES: No significant abnormalities. VISUALIZED UPPER ABDOMEN: Normal. OTHER FINDINGS: None. IMPRESSION: Pulmonary vascular congestion.
--- NOTE | 2018-07-21 13:12 | CP.PCM.CON ---
History of Present Illness - History of Present Illness History of Present Illness: This is a 28 yrs old male who was admitted because he was found unresponsive outside. He had gone out and had a few beers which is all he remembers , he does not remember taking any drugs or with whom he was. He was brought to the ed w here he was hypoxic , and hypotensive with acute renal ailure. he also had markedly eleated LFT.He was given stat dialysis and started on hydration and antibiotics. He wqas some what improved the next day,and is now able to answer questions. He still cannot remember the evente from the night out. His WBC were 27, now 9.6 , hgb His haptoglobin was nl 69.5, was 16.4 now 10.5gms, and platelets were 249 and are now 71. Toxicology was positive for opiates and Alcohol level of 23!. The fibrinogen was low and the sed rate was high. Past Patient History - Past Medical History & Family History Past Medical History?: Yes - Past Social History Smoking Status: Never Smoked - CARDIAC Hx Cardiac Disorders: No - PULMONARY Hx Respiratory Disorders: No - NEUROLOGICAL Hx Neurological Disorder: No - HEENT Hx HEENT Problems: No - RENAL Hx Chronic Kidney Disease: No - ENDOCRINE/METABOLIC Hx Endocrine Disorders: No - HEMATOLOGICAL/ONCOLOGICAL Hx Blood Disorders: No - INTEGUMENTARY Hx Dermatological Problems: Yes (Psoriasis) - MUSCULOSKELETAL/RHEUMATOLOGICAL Hx Falls: Yes (pt. found on ground) - PSYCHIATRIC Hx Substance Use: No - SURGICAL HISTORY Hx Surgeries: No - ANESTHESIA Hx Anesthesia: No Meds Allergies/Adverse Reactions: Allergies Allergy/AdvReac Type Severity Reaction Status Date / Time No Known Allergies Allergy Verified 07/19/18 13:46 - Medications Medications: Current Medications Aspirin (Aspirin Chewable) 81 mg PO DAILY [facility] Last Admin: 07/21/18 08:42 Dose: 81 mg Piperacillin Sod/Tazobactam (Sod 2.25 gm/ Sodium Chloride) 100 mls @ 100 mls/hr IVPB Q6 WAYNE; Protocol Last Admin: 07/21/18 10:58 Dose: Not Given Sodium Bicarbonate 80 meq/ (Dextrose/Sodium Chloride) 1,080 mls @ 175 mls/hr IV .Q6H11M [facility] Stop: 07/22/18 10:21 Last Admin: 07/21/18 12:28 Dose: 175 mls/hr Acetylcysteine 8,800 mg/ (Dextrose) 1,000 mls @ 65.25 mls/hr IVPB STAT STA Stop: 07/22/18 03:59 Ondansetron HCl (Zofran Inj) 4 mg IVP Q6 PRN PRN Reason: Nausea/Vomiting Last Admin: 07/21/18 11:06 Dose: 4 mg Pantoprazole Sodium (Protonix Inj) 40 mg IVP DAILY [facility] Last Admin: 07/21/18 08:41 Dose: 40 mg Physical Exam - Additional Findings Additional findings: Physical therapy; Awake ,a little confused re past events. neck supple, no adenopathy chest,Air entry poor bilaterally, no rales. Heart; RSR, no murmur Abd soft , no mass, no h/s megaly Results - Vital Signs Recent Vital Signs: Last Vital Signs Temp 98.2 F 07/21/18 11:58 Pulse 62 07/21/18 11:58 Resp 25 H 07/21/18 11:58 BP 138/95 H 07/21/18 11:58 Pulse Ox 99 07/21/18 11:58 - Labs Result Diagrams: 07/21/18 04:30 07/21/18 04:30 Labs: Laboratory Results - last 24 hr 07/19/18 07/19/18 07/19/18 19:31 23:44 23:44 WBC RBC Hgb Hct MCV MCH MCHC RDW Plt Count MPV Neut % (Auto) Lymph % (Auto) [place] % (Auto) Eos % (Auto) Baso % (Auto) Neut # (Auto) Lymph # (Auto) [place] # (Auto) Eos # (Auto) Baso # (Auto) ESR Retic Count Haptoglobin PT INR APTT Fibrinogen D-Dimer, Quantitative Sodium Potassium Chloride Carbon Dioxide Anion Gap BUN Creatinine Est GFR ( Amer) Est GFR (Non-Af Amer) POC Glucose (mg/dL) Random Glucose Lactic Acid Calcium Phosphorus Magnesium Total Bilirubin AST ALT Alkaline Phosphatase Ammonia Total Creatine Kinase Troponin I Total Protein Albumin Globulin Albumin/Globulin Ratio Methyl Alcohol Level None det. Hep Bs Antibody Positive Hep B Core IgM Ab Negative HIV-1 Ab Rapid Screen 07/20/18 07/20/18 07/20/18 12:37 14:30 16:27 WBC RBC Hgb Hct MCV MCH MCHC RDW Plt Count MPV Neut % (Auto) Lymph % (Auto) [place] % (Auto) Eos % (Auto) Baso % (Auto) Neut # (Auto) Lymph # (Auto) [place] # (Auto) Eos # (Auto) Baso # (Auto) ESR Retic Count Haptoglobin PT INR APTT Fibrinogen 150 L D-Dimer, Quantitative Sodium 138 Potassium 3.9 Chloride 101 Carbon Dioxide 24 Anion Gap 17 BUN 36 H Creatinine 3.0 H Est GFR ( Amer) 30 Est GFR (Non-Af Amer) 25 POC Glucose (mg/dL) 119 H Random Glucose 155 H Lactic Acid Calcium 6.6 L Phosphorus Magnesium Total Bilirubin 0.6 AST 26340 H ALT 6372 H Alkaline Phosphatase < 20 L D Ammonia Total Creatine Kinase 31497 H Troponin I 1.6900 H* Total Protein 5.5 L Albumin 2.9 L Globulin 2.5 Albumin/Globulin Ratio 1.2 Methyl Alcohol Level Hep Bs Antibody Hep B Core IgM Ab HIV-1 Ab Rapid Screen 07/20/18 07/20/18 07/21/18 18:13 21:05 04:30 WBC 9.6 RBC 3.40 L Hgb 10.5 L Hct 31.3 L MCV 92.1 MCH 30.8 MCHC 33.4 RDW 12.5 Plt Count 71 L D MPV 9.5 Neut % (Auto) 82.4 H Lymph % (Auto) 11.6 L [place] % (Auto) 5.3 Eos % (Auto) 0.3 Baso % (Auto) 0.4 Neut # (Auto) 7.9 H Lymph # (Auto) 1.1 [place] # (Auto) 0.5 Eos # (Auto) 0.0 Baso # (Auto) 0.0 ESR Retic Count Haptoglobin PT INR APTT Fibrinogen D-Dimer, Quantitative Sodium Potassium Chloride Carbon Dioxide Anion Gap BUN Creatinine Est GFR ( Amer) Est GFR (Non-Af Amer) POC Glucose (mg/dL) 130 H Random Glucose Lactic Acid Calcium Phosphorus Magnesium Total Bilirubin AST ALT Alkaline Phosphatase Ammonia Total Creatine Kinase 42864 H Troponin I 1.2300 H* Total Protein Albumin Globulin Albumin/Globulin Ratio Methyl Alcohol Level Hep Bs Antibody Hep B Core IgM Ab HIV-1 Ab Rapid Screen 07/21/18 07/21/18 07/21/18 04:30 04:30 04:30 WBC RBC Hgb Hct MCV MCH MCHC RDW Plt Count MPV Neut % (Auto) Lymph % (Auto) [place] % (Auto) Eos % (Auto) Baso % (Auto) Neut # (Auto) Lymph # (Auto) [place] # (Auto) Eos # (Auto) Baso # (Auto) ESR Retic Count Haptoglobin PT 15.5 H INR 1.4 APTT 26.3 Fibrinogen D-Dimer, Quantitative 6534 H Sodium 138 Potassium 3.5 L Chloride 105 Carbon Dioxide 20 L Anion Gap 17 BUN 47 H Creatinine 4.9 H Est GFR ( Amer) 17 Est GFR (Non-Af Amer) 14 POC Glucose (mg/dL) Random Glucose 119 H Lactic Acid 1.7 Calcium 6.5 L Phosphorus 4.4 Magnesium 1.6 Total Bilirubin 0.7 AST 5148 H ALT 4802 H Alkaline Phosphatase 41 Ammonia Total Creatine Kinase 36781 H Troponin I Total Protein 4.9 L Albumin 2.5 L Globulin 2.4 Albumin/Globulin Ratio 1.1 Methyl Alcohol Level Hep Bs Antibody Hep B Core IgM Ab HIV-1 Ab Rapid Screen 07/21/18 07/21/18 07/21/18 04:30 04:30 06:36 WBC RBC Hgb Hct MCV MCH MCHC RDW Plt Count MPV Neut % (Auto) Lymph % (Auto) [place] % (Auto) Eos % (Auto) Baso % (Auto) Neut # (Auto) Lymph # (Auto) [place] # (Auto) Eos # (Auto) Baso # (Auto) ESR 12 Retic Count 0.8 Haptoglobin 69.5 PT INR APTT Fibrinogen D-Dimer, Quantitative Sodium Potassium Chloride Carbon Dioxide Anion Gap BUN Creatinine Est GFR ( Amer) Est GFR (Non-Af Amer) POC Glucose (mg/dL) 109 Random Glucose Lactic Acid Calcium Phosphorus Magnesium Total Bilirubin AST ALT Alkaline Phosphatase Ammonia Total Creatine Kinase Troponin I Total Protein Albumin Globulin Albumin/Globulin Ratio Methyl Alcohol Level Hep Bs Antibody Hep B Core IgM Ab HIV-1 Ab Rapid Screen 07/21/18 07/21/18 07/21/18 10:38 10:38 12:56 WBC RBC Hgb Hct MCV MCH MCHC RDW Plt Count MPV Neut % (Auto) Lymph % (Auto) [place] % (Auto) Eos % (Auto) Baso % (Auto) Neut # (Auto) Lymph # (Auto) [place] # (Auto) Eos # (Auto) Baso # (Auto) ESR Retic Count Haptoglobin PT INR APTT Fibrinogen D-Dimer, Quantitative Sodium Potassium Chloride Carbon Dioxide Anion Gap BUN Creatinine Est GFR ( Amer) Est GFR (Non-Af Amer) POC Glucose (mg/dL) 110 Random Glucose Lactic Acid Calcium Phosphorus Magnesium Total Bilirubin AST ALT Alkaline Phosphatase Ammonia < 9 L Total Creatine Kinase Troponin I Total Protein Albumin Globulin Albumin/Globulin Ratio Methyl Alcohol Level Hep Bs Antibody Hep B Core IgM Ab HIV-1 Ab Rapid Screen Non reactive Assessment & Plan - Assessment and Plan (Free Text) Assessment: Impression; Appears to be DIC secondary to toxic substance, Plan: Plan; will follow CBC, LDH . - Date & Time Date: 07/21/18 Time: 13:38
[2018-07-21] MEDS ORDERED: WATER IVPB ONE (13:30)
[2018-07-21] MEDS ORDERED: ACETYLCYSTEINE IVPB ONE (13:30)
[2018-07-21] MEDS ORDERED: DEXTROSE 5% IVPB ONE (13:30)
[2018-07-21 16:06] LABS: ALBUMIN 2.3 g/dL (3.5-5.0); CALCIUM 6.8 mg/dL (8.4-10.2)
[2018-07-21 17:12] LABS: OPIATES, UR NEGATIVE (NEGATIVE)
[2018-07-21 17:40] LABS: BARBITURATES, UR NEGATIVE (NEGATIVE); BENZODIAZEPINES, UR NEGATIVE (NEGATIVE); PHENCYCLIDINE, UR NEGATIVE (NEGATIVE)
[2018-07-21 20:43] LABS: SPECIMEN SOURCE CSF
--- NOTE | 2018-07-21 20:45 | CARD ---
APPROVED REPORT Date of service: 07/21/2018 EKG Measurement Heart [id number] <Conclusion> Normal sinus rhythm T wave abnormality, consider anterior ischemia Abnormal ECG
--- NOTE | 2018-07-21 23:03 | CP.PCM.PN ---
Subjective - Date & Time of Evaluation Date of Evaluation: 07/21/18 Time of Evaluation: 09:00 - Subjective Subjective: Patient awake and oriented Objective - Vital Signs/Intake and Output Vital Signs (last 24 hours): Temp Pulse Resp BP Pulse Ox 98.5 F 71 18 145/98 H 98 07/21/18 20:00 07/21/18 20:00 07/21/18 20:00 07/21/18 20:00 07/21/18 20:00 Intake and Output: 07/21/18 07/22/18 18:59 06:59 Intake Total 3375 350 Output Total 2400 90 Balance 975 260 - Medications Medications: Current Medications Aspirin (Aspirin Chewable) 81 mg PO DAILY [facility] Last Admin: 07/21/18 08:42 Dose: 81 mg Piperacillin Sod/Tazobactam (Sod 2.25 gm/ Sodium Chloride) 100 mls @ 100 mls/hr IVPB Q6 [facility]; Protocol Last Admin: 07/21/18 21:57 Dose: 100 mls/hr Sodium Bicarbonate 80 meq/ (Dextrose/Sodium Chloride) 1,080 mls @ 175 mls/hr IV .Q6H11M [facility] Stop: 07/22/18 10:21 Last Admin: 07/21/18 18:05 Dose: 175 mls/hr Acetylcysteine 8,800 mg/ (Dextrose) 1,000 mls @ 65.25 mls/hr IVPB ONCE ONE Stop: 07/22/18 04:49 Last Admin: 07/21/18 16:43 Dose: 65.25 mls/hr Ondansetron HCl (Zofran Inj) 4 mg IVP Q6 PRN PRN Reason: Nausea/Vomiting Last Admin: 07/21/18 11:06 Dose: 4 mg Pantoprazole Sodium (Protonix Inj) 40 mg IVP DAILY [facility] Last Admin: 07/21/18 08:41 Dose: 40 mg - Labs Labs: 07/21/18 04:30 07/21/18 15:18 PT 15.5 Seconds (9.8-13.1) H 07/21/18 04:30 INR 1.4 07/21/18 04:30 APTT 26.3 Seconds (25.6-37.1) 07/21/18 04:30 - Neck Exam Neck Exam: Full ROM - Respiratory Exam Respiratory Exam: NORMAL BREATHING PATTERN - Cardiovascular Exam Cardiovascular Exam: +S1, +S2 - GI/Abdominal Exam GI & Abdominal Exam: Soft. absent: Tenderness Assessment and Plan (1) Elevated liver enzymes Assessment & Plan: LFTs improving and Bili has not risen consistent with partial liver recovery. CPK is very high. Patient on hemodialysis. Status: Acute
[2018-07-22] MEDS: Sodium Bicarbonate 8.4% 80 MEQ in Dextrose 5%/0.45% NS 1,000 ML IV SCH (01:04)
[2018-07-22 05:56] LABS: BASO % 0.6 % (0.0-2.0); EOS # 0.1 K/uL (0.0-0.7); EOS % 1.7 % (0.0-4.0); HEMOGLOBIN 8.2 g/dL (12.0-18.0); LYMPH # 0.9 K/uL (1.0-4.3); LYMPH % 13.7 % (20.0-40.0); MEAN CELL VOLUME 90.8 fl (80.0-94.0); MEAN CORPUSCULAR HEMOGLOBIN 30.7 pg (27.0-31.0); MEAN CORPUSCULAR HGB CONC 33.9 g/dL (33.0-37.0); MEAN PLATELET VOLUME 9.7 fl (7.2-11.7); MONO # 0.4 K/uL (0.0-0.8); MONO % 6.2 % (0.0-10.0); NEUT # 5.1 K/uL (1.8-7.0); NEUT % 77.8 % (50.0-75.0); NRBC % 0.1 % (0.0-0.0); RBC 2.67 Mil/uL (4.40-5.90); RED CELL DISTRIBUTION WIDTH 12.2 % (11.5-14.5); WHITE BLOOD COUNT 6.6 K/uL (4.8-10.8)
[2018-07-22 06:18] LABS: ALBUMIN 2.1 g/dL (3.5-5.0); CALCIUM 6.4 mg/dL (8.4-10.2)
[2018-07-22] MEDS ORDERED: Potassium Chloride 20 mEq ER Tab PO ONE (07:21)
[2018-07-22] MEDS ORDERED: Potassium Chloride 20 mEq 100 ML IVPB ONE (07:24)
--- NOTE | 2018-07-22 07:37 | CP.CCUPN ---
<Cristy Zuniga - Last Filed: 07/22/18 13:31> CCU Subjective - Physician Review Events Since Last Encounter (Free Text): 28 YO Male with psoriasis was admitted for AMS, substance abuse evaluation, CRISTINA, acute liver failure, rhabdomolysis and severe dehydration. On presentation to the ED, pt was found to be hypotensive, hypoglycemia and hypothermic. HD yesterday (#2). Overnight pt got 2x Morphine for abd pain. Pt is seen and examined by bedside this AM. Pt remains hemodynamically stable, afebrile. Pt is awake, alert and oriented x 3, mentation is slowly improving Pt endorsing feeling tired but overall better then previously. This AM pt states that his dry mouth is improving. Friend present by bedside, okay by patient to be present in the room during this visit. Denies chest pain, dyspnea, palpitations, abdominal pain, n/v. Additional hx was obtained from friend by bedside, the substance that was used/taken was confiscated by the [employer]. With patients permission, will try and obtain further information from [employer] regarding substance. On further inquiry with [employer] police, the confiscated substance was a combination of Heroin and suspected fentanyl (likely synthetic). Pt was witnessed to have inhaled the drug intranasally Consults: GI, Nephrology, hem/onc, Cardiology CCU Objective - Vital Signs / Intake & Output Vital Signs (Last 4 hours): Vital Signs Temp Pulse Resp BP Pulse Ox 07/22/18 06:00 68 18 129/80 96 07/22/18 04:00 98.6 F 64 18 133/81 95 Intake and Output (Last 8hrs): Intake & Output 07/21/18 07/22/18 07/22/18 22:59 06:59 14:59 Intake Total 2009 1400 Output Total 160 400 Balance 1850 1000 Weight 90.718 kg Intake: IV 1400 1400 Intake, Piggyback 510 Oral 100 Output: Urine 160 400 Urethral (Au) 160 400 Other: # Bowel Movements 1 - Physical Exam Head: Positive for: Atraumatic Pupils: Positive for: PERRL Extroacular Muscles: Positive for: EOMI Conjunctiva: Positive for: Normal Ears: Positive for: Normal Mouth: Positive for: Dry, Normal Tounge, Normal Teeth Neck: Positive for: Normal Range of Motion, Trachea Midline, Other (edema of the neck, no erythema or crepatations, better then previously, NT ) Respiratory/Chest: Positive for: Clear to Auscultation, Good Air Exchange. Negative for: Respiratory Distress, Accessory Muscle Use, Wheezes, Decreased Breath Sounds, Retracting Cardiovascular: Positive for: Regular Rate and Rhythm, Normal S1, S2, Peripheal Pulses Present. Negative for: Murmurs, Irregular Rhythm, Tachycardic, Bradycardic, Rub Abdomen: Positive for: Distention, Normal Bowel Sounds. Negative for: Tenderness, Peritoneal Signs, Rebound, Guarding, Hernias, Mass/Organomegaly Genitourinary Male: Positive for: Other (Au in place draining annmarie color urine) Upper Extremity: Positive for: NORMAL PULSES, Other (psoriasis noted thighs b/l, in the upper ext b/l healed/healing lesions). Negative for: Normal Inspection (Psiriasis rash ), Cyanosis, Edema Lower Extremity: Positive for: NORMAL PULSES. Negative for: Normal Inspection, Edema, CALF TENDERNESS Neurological: Positive for: GCS=15 (Waxing and weaning of mental status ), CN II-XII Intact, Speech Normal, Motor Func Grossly Intact, Normal Sensory Function Skin: Positive for: Warm, Normal Color, Other (psoriasis noted throughout the upper and lower ext and abdomen ) Psychiatric: Positive for: Alert, Oriented x 3, Normal Insight, Normal Concentration, Normal Affect. Negative for: Anxious, Agitated - Medications Active Medications: Active Medications Generic Name Dose Route Start Last Admin Trade Name Freq PRN Reason Stop Dose Admin Aspirin 81 mg 07/20/18 17:00 07/21/18 08:42 Aspirin Chewable PO 81 mg DAILY WAYNE Administration Piperacillin Sod/Tazobactam 100 mls @ 100 mls/hr 07/19/18 22:00 07/22/18 04:52 Sod 2.25 gm/ Sodium Chloride IVPB 100 mls/hr Q6 WAYNE Administration Protocol Sodium Bicarbonate 80 meq/ 1,080 mls @ 175 mls/hr 07/21/18 10:30 07/22/18 01:04 Dextrose/Sodium Chloride IV 07/22/18 10:21 175 mls/hr .[id number] WAYNE Administration Potassium Chloride 100 mls @ 50 mls/hr 07/22/18 07:24 Potassium Chloride 20 Meq/100 Ml IVPB 12/20/18 09:23 ONCE ONE Ondansetron HCl 4 mg 07/19/18 16:26 07/21/18 11:06 Zofran Inj IVP 4 mg Q6 PRN Administration Nausea/Vomiting Pantoprazole Sodium 40 mg 07/20/18 09:00 07/21/18 08:41 Protonix Inj IVP 40 mg DAILY WAYNE Administration - Patient Studies Lab Studies: Microbiology Studies 07/19/18 14:35 Blood Culture - Preliminary Blood NO GROWTH AFTER 48 HOURS 07/19/18 13:35 Blood Culture - Preliminary Blood NO GROWTH AFTER 48 HOURS 07/19/18 23:30 MRSA Culture (Admit) - Final Naris MRSA NOT DETECTED 07/19/18 13:40 Gram Stain - Final Cerebral Spinal Fluid CSF Culture - Preliminary NO GROWTH AFTER 2 DAYS 07/19/18 12:50 Urine Culture - Final Urine,Catheterized No Growth (<1,000 CFU/ML) Lab Studies 07/22/18 07/22/18 07/21/18 Range/Units 04:20 04:20 16:40 WBC 6.6 (4.8-10.8) K/uL RBC 2.67 L (4.40-5.90) Mil/uL Hgb 8.2 L D (12.0-18.0) g/dL Hct 24.3 L (35.0-51.0) % MCV 90.8 (80.0-94.0) fl MCH 30.7 (27.0-31.0) pg MCHC 33.9 (33.0-37.0) g/dL RDW 12.2 (11.5-14.5) % Plt Count 39 L D (130-400) K/uL MPV 9.7 (7.2-11.7) fl Neut % (Auto) 77.8 H (50.0-75.0) % Lymph % (Auto) 13.7 L (20.0-40.0) % [place] % (Auto) 6.2 (0.0-10.0) % Eos % (Auto) 1.7 (0.0-4.0) % Baso % (Auto) 0.6 (0.0-2.0) % Neut # (Auto) 5.1 (1.8-7.0) K/uL Lymph # (Auto) 0.9 L (1.0-4.3) K/uL [place] # (Auto) 0.4 (0.0-0.8) K/uL Eos # (Auto) 0.1 (0.0-0.7) K/uL Baso # (Auto) 0.0 (0.0-0.2) K/uL ESR (0-15) mm/hr Haptoglobin (30.0-200.0) mg/dL Sodium 138 (132-148) mmol/l Potassium 3.1 L (3.6-5.0) MMOL/L Chloride 105 (98-107) mmol/L Carbon Dioxide 28 (22-30) mmol/L Anion Gap 8 L (10-20) BUN 36 H (9-20) mg/dl Creatinine 4.8 H (0.8-1.5) mg/dl Est GFR ( Amer) 17 Est GFR (Non-Af Amer) 14 POC Glucose (mg/dL) (65-110) mg/dL Random Glucose 135 H (75-110) mg/dL Calcium 6.4 L (8.4-10.2) mg/dL Phosphorus 2.5 (2.5-4.5) mg/dl Magnesium 1.6 (1.6-2.3) MG/DL Total Bilirubin 1.2 (0.2-1.3) mg/dl AST 1612 H (17-59) U/L ALT 2890 H (21-72) U/L Alkaline Phosphatase 32 L (38-126) U/L Ammonia (16-60) umo/L Lactate Dehydrogenase 4181 H (313-618) U/L Total Creatine Kinase (55-170) U/L Total Protein 4.3 L (6.3-8.2) G/DL Albumin 2.1 L (3.5-5.0) g/dL Globulin 2.2 (2.2-3.9) gm/dL Albumin/Globulin Ratio 1.0 (1.0-2.1) CSF Total Protein (15-45) mg/dL Urine Opiates Screen Negative (NEGATIVE) Urine Methadone Screen Negative (NEGATIVE) Ur Barbiturates Screen Negative (NEGATIVE) Ur Phencyclidine Scrn Negative (NEGATIVE) Ur Amphetamines Screen Negative (NEGATIVE) U Benzodiazepines Scrn Negative (NEGATIVE) U Oth Cocaine Metabols Negative (NEGATIVE) U Cannabinoids Screen Negative (NEGATIVE) Methyl Alcohol Level (None Detected) mg/dL HSV Source Description HSV I DNA PCR (Not Detected) HSV II DNA PCR (Not Detected) HIV-1 Ab Rapid Screen (NON REAC) 07/21/18 07/21/18 07/21/18 Range/Units 15:18 12:56 10:38 WBC (4.8-10.8) K/uL RBC (4.40-5.90) Mil/uL Hgb (12.0-18.0) g/dL Hct (35.0-51.0) % MCV (80.0-94.0) fl MCH (27.0-31.0) pg MCHC (33.0-37.0) g/dL RDW (11.5-14.5) % Plt Count (130-400) K/uL MPV (7.2-11.7) fl Neut % (Auto) (50.0-75.0) % Lymph % (Auto) (20.0-40.0) % [place] % (Auto) (0.0-10.0) % Eos % (Auto) (0.0-4.0) % Baso % (Auto) (0.0-2.0) % Neut # (Auto) (1.8-7.0) K/uL Lymph # (Auto) (1.0-4.3) K/uL [place] # (Auto) (0.0-0.8) K/uL Eos # (Auto) (0.0-0.7) K/uL Baso # (Auto) (0.0-0.2) K/uL ESR (0-15) mm/hr Haptoglobin (30.0-200.0) mg/dL Sodium 138 (132-148) mmol/l Potassium 3.2 L (3.6-5.0) MMOL/L Chloride 104 (98-107) mmol/L Carbon Dioxide 26 (22-30) mmol/L Anion Gap 11 (10-20) BUN 31 H (9-20) mg/dl Creatinine 3.6 H (0.8-1.5) mg/dl Est GFR ( Amer) 24 Est GFR (Non-Af Amer) 20 POC Glucose (mg/dL) 110 (65-110) mg/dL Random Glucose 122 H (75-110) mg/dL Calcium 6.8 L (8.4-10.2) mg/dL Phosphorus (2.5-4.5) mg/dl Magnesium (1.6-2.3) MG/DL Total Bilirubin 1.1 (0.2-1.3) mg/dl AST 3035 H (17-59) U/L ALT 3746 H (21-72) U/L Alkaline Phosphatase 34 L (38-126) U/L Ammonia (16-60) umo/L Lactate Dehydrogenase (313-618) U/L Total Creatine Kinase 56956 H (55-170) U/L Total Protein 4.6 L (6.3-8.2) G/DL Albumin 2.3 L (3.5-5.0) g/dL Globulin 2.3 (2.2-3.9) gm/dL Albumin/Globulin Ratio 1.0 (1.0-2.1) CSF Total Protein (15-45) mg/dL Urine Opiates Screen (NEGATIVE) Urine Methadone Screen (NEGATIVE) Ur Barbiturates Screen (NEGATIVE) Ur Phencyclidine Scrn (NEGATIVE) Ur Amphetamines Screen (NEGATIVE) U Benzodiazepines Scrn (NEGATIVE) U Oth Cocaine Metabols (NEGATIVE) U Cannabinoids Screen (NEGATIVE) Methyl Alcohol Level (None Detected) mg/dL HSV Source Description HSV I DNA PCR (Not Detected) HSV II DNA PCR (Not Detected) HIV-1 Ab Rapid Screen Non reactive (NON REAC) 07/21/18 07/21/18 07/21/18 Range/Units 10:38 06:36 04:30 WBC (4.8-10.8) K/uL RBC (4.40-5.90) Mil/uL Hgb (12.0-18.0) g/dL Hct (35.0-51.0) % MCV (80.0-94.0) fl MCH (27.0-31.0) pg MCHC (33.0-37.0) g/dL RDW (11.5-14.5) % Plt Count (130-400) K/uL MPV (7.2-11.7) fl Neut % (Auto) (50.0-75.0) % Lymph % (Auto) (20.0-40.0) % [place] % (Auto) (0.0-10.0) % Eos % (Auto) (0.0-4.0) % Baso % (Auto) (0.0-2.0) % Neut # (Auto) (1.8-7.0) K/uL Lymph # (Auto) (1.0-4.3) K/uL [place] # (Auto) (0.0-0.8) K/uL Eos # (Auto) (0.0-0.7) K/uL Baso # (Auto) (0.0-0.2) K/uL ESR (0-15) mm/hr Haptoglobin 69.5 (30.0-200.0) mg/dL Sodium (132-148) mmol/l Potassium (3.6-5.0) MMOL/L Chloride (98-107) mmol/L Carbon Dioxide (22-30) mmol/L Anion Gap (10-20) BUN (9-20) mg/dl Creatinine (0.8-1.5) mg/dl Est GFR ( Amer) Est GFR (Non-Af Amer) POC Glucose (mg/dL) 109 (65-110) mg/dL Random Glucose (75-110) mg/dL Calcium (8.4-10.2) mg/dL Phosphorus (2.5-4.5) mg/dl Magnesium (1.6-2.3) MG/DL Total Bilirubin (0.2-1.3) mg/dl AST (17-59) U/L ALT (21-72) U/L Alkaline Phosphatase (38-126) U/L Ammonia < 9 L (16-60) umo/L Lactate Dehydrogenase (313-618) U/L Total Creatine Kinase (55-170) U/L Total Protein (6.3-8.2) G/DL Albumin (3.5-5.0) g/dL Globulin (2.2-3.9) gm/dL Albumin/Globulin Ratio (1.0-2.1) CSF Total Protein (15-45) mg/dL Urine Opiates Screen (NEGATIVE) Urine Methadone Screen (NEGATIVE) Ur Barbiturates Screen (NEGATIVE) Ur Phencyclidine Scrn (NEGATIVE) Ur Amphetamines Screen (NEGATIVE) U Benzodiazepines Scrn (NEGATIVE) U Oth Cocaine Metabols (NEGATIVE) U Cannabinoids Screen (NEGATIVE) Methyl Alcohol Level (None Detected) mg/dL HSV Source Description HSV I DNA PCR (Not Detected) HSV II DNA PCR (Not Detected) HIV-1 Ab Rapid Screen (NON REAC) 07/21/18 07/21/18 07/19/18 Range/Units 04:30 04:30 19:31 WBC (4.8-10.8) K/uL RBC (4.40-5.90) Mil/uL Hgb (12.0-18.0) g/dL Hct (35.0-51.0) % MCV (80.0-94.0) fl MCH (27.0-31.0) pg MCHC (33.0-37.0) g/dL RDW (11.5-14.5) % Plt Count (130-400) K/uL MPV (7.2-11.7) fl Neut % (Auto) (50.0-75.0) % Lymph % (Auto) (20.0-40.0) % [place] % (Auto) (0.0-10.0) % Eos % (Auto) (0.0-4.0) % Baso % (Auto) (0.0-2.0) % Neut # (Auto) (1.8-7.0) K/uL Lymph # (Auto) (1.0-4.3) K/uL [place] # (Auto) (0.0-0.8) K/uL Eos # (Auto) (0.0-0.7) K/uL Baso # (Auto) (0.0-0.2) K/uL ESR 12 (0-15) mm/hr Haptoglobin (30.0-200.0) mg/dL Sodium (132-148) mmol/l Potassium (3.6-5.0) MMOL/L Chloride (98-107) mmol/L Carbon Dioxide (22-30) mmol/L Anion Gap (10-20) BUN (9-20) mg/dl Creatinine (0.8-1.5) mg/dl Est GFR ( Amer) Est GFR (Non-Af Amer) POC Glucose (mg/dL) (65-110) mg/dL Random Glucose (75-110) mg/dL Calcium (8.4-10.2) mg/dL Phosphorus (2.5-4.5) mg/dl Magnesium (1.6-2.3) MG/DL Total Bilirubin (0.2-1.3) mg/dl AST (17-59) U/L ALT (21-72) U/L Alkaline Phosphatase (38-126) U/L Ammonia (16-60) umo/L Lactate Dehydrogenase (313-618) U/L Total Creatine Kinase 34415 H (55-170) U/L Total Protein (6.3-8.2) G/DL Albumin (3.5-5.0) g/dL Globulin (2.2-3.9) gm/dL Albumin/Globulin Ratio (1.0-2.1) CSF Total Protein (15-45) mg/dL Urine Opiates Screen (NEGATIVE) Urine Methadone Screen (NEGATIVE) Ur Barbiturates Screen (NEGATIVE) Ur Phencyclidine Scrn (NEGATIVE) Ur Amphetamines Screen (NEGATIVE) U Benzodiazepines Scrn (NEGATIVE) U Oth Cocaine Metabols (NEGATIVE) U Cannabinoids Screen (NEGATIVE) Methyl Alcohol Level None det. (None Detected) mg/dL HSV Source Description HSV I DNA PCR (Not Detected) HSV II DNA PCR (Not Detected) HIV-1 Ab Rapid Screen (NON REAC) 07/19/18 07/19/18 Range/Units 14:00 13:40 WBC (4.8-10.8) K/uL RBC (4.40-5.90) Mil/uL Hgb (12.0-18.0) g/dL Hct (35.0-51.0) % MCV (80.0-94.0) fl MCH (27.0-31.0) pg MCHC (33.0-37.0) g/dL RDW (11.5-14.5) % Plt Count (130-400) K/uL MPV (7.2-11.7) fl Neut % (Auto) (50.0-75.0) % Lymph % (Auto) (20.0-40.0) % [place] % (Auto) (0.0-10.0) % Eos % (Auto) (0.0-4.0) % Baso % (Auto) (0.0-2.0) % Neut # (Auto) (1.8-7.0) K/uL Lymph # (Auto) (1.0-4.3) K/uL [place] # (Auto) (0.0-0.8) K/uL Eos # (Auto) (0.0-0.7) K/uL Baso # (Auto) (0.0-0.2) K/uL ESR (0-15) mm/hr Haptoglobin (30.0-200.0) mg/dL Sodium (132-148) mmol/l Potassium (3.6-5.0) MMOL/L Chloride (98-107) mmol/L Carbon Dioxide (22-30) mmol/L Anion Gap (10-20) BUN (9-20) mg/dl Creatinine (0.8-1.5) mg/dl Est GFR ( Amer) Est GFR (Non-Af Amer) POC Glucose (mg/dL) (65-110) mg/dL Random Glucose (75-110) mg/dL Calcium (8.4-10.2) mg/dL Phosphorus (2.5-4.5) mg/dl Magnesium (1.6-2.3) MG/DL Total Bilirubin (0.2-1.3) mg/dl AST (17-59) U/L ALT (21-72) U/L Alkaline Phosphatase (38-126) U/L Ammonia (16-60) umo/L Lactate Dehydrogenase (313-618) U/L Total Creatine Kinase (55-170) U/L Total Protein (6.3-8.2) G/DL Albumin (3.5-5.0) g/dL Globulin (2.2-3.9) gm/dL Albumin/Globulin Ratio (1.0-2.1) CSF Total Protein 43 (15-45) mg/dL Urine Opiates Screen (NEGATIVE) Urine Methadone Screen (NEGATIVE) Ur Barbiturates Screen (NEGATIVE) Ur Phencyclidine Scrn (NEGATIVE) Ur Amphetamines Screen (NEGATIVE) U Benzodiazepines Scrn (NEGATIVE) U Oth Cocaine Metabols (NEGATIVE) U Cannabinoids Screen (NEGATIVE) Methyl Alcohol Level (None Detected) mg/dL HSV Source Description Csf HSV I DNA PCR Not detected (Not Detected) HSV II DNA PCR Not detected (Not Detected) HIV-1 Ab Rapid Screen (NON REAC) Laboratory Results - last 24 hr 12/17/18 12/17/18 12/17/18 13:40 14:00 19:31 WBC RBC Hgb Hct MCV MCH MCHC RDW Plt Count MPV Neut % (Auto) Lymph % (Auto) [place] % (Auto) Eos % (Auto) Baso % (Auto) Neut # (Auto) Lymph # (Auto) [place] # (Auto) Eos # (Auto) Baso # (Auto) ESR Haptoglobin Sodium Potassium Chloride Carbon Dioxide Anion Gap BUN Creatinine Est GFR ( Amer) Est GFR (Non-Af Amer) POC Glucose (mg/dL) Random Glucose Calcium Phosphorus Magnesium Total Bilirubin AST ALT Alkaline Phosphatase Ammonia Lactate Dehydrogenase Total Creatine Kinase Total Protein Albumin Globulin Albumin/Globulin Ratio CSF Total Protein 43 Urine Opiates Screen Urine Methadone Screen Ur Barbiturates Screen Ur Phencyclidine Scrn Ur Amphetamines Screen U Benzodiazepines Scrn U Oth Cocaine Metabols U Cannabinoids Screen Methyl Alcohol Level None det. HSV Source Description Csf HSV I DNA PCR Not detected HSV II DNA PCR Not detected HIV-1 Ab Rapid Screen 07/21/18 07/21/18 07/21/18 04:30 04:30 04:30 WBC RBC Hgb Hct MCV MCH MCHC RDW Plt Count MPV Neut % (Auto) Lymph % (Auto) [place] % (Auto) Eos % (Auto) Baso % (Auto) Neut # (Auto) Lymph # (Auto) [place] # (Auto) Eos # (Auto) Baso # (Auto) ESR 12 Haptoglobin 69.5 Sodium Potassium Chloride Carbon Dioxide Anion Gap BUN Creatinine Est GFR ( Amer) Est GFR (Non-Af Amer) POC Glucose (mg/dL) Random Glucose Calcium Phosphorus Magnesium Total Bilirubin AST ALT Alkaline Phosphatase Ammonia Lactate Dehydrogenase Total Creatine Kinase 23623 H Total Protein Albumin Globulin Albumin/Globulin Ratio CSF Total Protein Urine Opiates Screen Urine Methadone Screen Ur Barbiturates Screen Ur Phencyclidine Scrn Ur Amphetamines Screen U Benzodiazepines Scrn U Oth Cocaine Metabols U Cannabinoids Screen Methyl Alcohol Level HSV Source Description HSV I DNA PCR HSV II DNA PCR HIV-1 Ab Rapid Screen 07/21/18 07/21/18 07/21/18 06:36 10:38 10:38 WBC RBC Hgb Hct MCV MCH MCHC RDW Plt Count MPV Neut % (Auto) Lymph % (Auto) [place] % (Auto) Eos % (Auto) Baso % (Auto) Neut # (Auto) Lymph # (Auto) [place] # (Auto) Eos # (Auto) Baso # (Auto) ESR Haptoglobin Sodium Potassium Chloride Carbon Dioxide Anion Gap BUN Creatinine Est GFR ( Amer) Est GFR (Non-Af Amer) POC Glucose (mg/dL) 109 Random Glucose Calcium Phosphorus Magnesium Total Bilirubin AST ALT Alkaline Phosphatase Ammonia < 9 L Lactate Dehydrogenase Total Creatine Kinase Total Protein Albumin Globulin Albumin/Globulin Ratio CSF Total Protein Urine Opiates Screen Urine Methadone Screen Ur Barbiturates Screen Ur Phencyclidine Scrn Ur Amphetamines Screen U Benzodiazepines Scrn U Oth Cocaine Metabols U Cannabinoids Screen Methyl Alcohol Level HSV Source Description HSV I DNA PCR HSV II DNA PCR HIV-1 Ab Rapid Screen Non reactive 07/21/18 07/21/18 07/21/18 12:56 15:18 16:40 WBC RBC Hgb Hct MCV MCH MCHC RDW Plt Count MPV Neut % (Auto) Lymph % (Auto) [place] % (Auto) Eos % (Auto) Baso % (Auto) Neut # (Auto) Lymph # (Auto) [place] # (Auto) Eos # (Auto) Baso # (Auto) ESR Haptoglobin Sodium 138 Potassium 3.2 L Chloride 104 Carbon Dioxide 26 Anion Gap 11 BUN 31 H Creatinine 3.6 H Est GFR ( Amer) 24 Est GFR (Non-Af Amer) 20 POC Glucose (mg/dL) 110 Random Glucose 122 H Calcium 6.8 L Phosphorus Magnesium Total Bilirubin 1.1 AST 3035 H ALT 3746 H Alkaline Phosphatase 34 L Ammonia Lactate Dehydrogenase Total Creatine Kinase 82554 H Total Protein 4.6 L Albumin 2.3 L Globulin 2.3 Albumin/Globulin Ratio 1.0 CSF Total Protein Urine Opiates Screen Negative Urine Methadone Screen Negative Ur Barbiturates Screen Negative Ur Phencyclidine Scrn Negative Ur Amphetamines Screen Negative U Benzodiazepines Scrn Negative U Oth Cocaine Metabols Negative U Cannabinoids Screen Negative Methyl Alcohol Level HSV Source Description HSV I DNA PCR HSV II DNA PCR HIV-1 Ab Rapid Screen 07/22/18 07/22/18 04:20 04:20 WBC 6.6 RBC 2.67 L Hgb 8.2 L D Hct 24.3 L MCV 90.8 MCH 30.7 MCHC 33.9 RDW 12.2 Plt Count 39 L D MPV 9.7 Neut % (Auto) 77.8 H Lymph % (Auto) 13.7 L [place] % (Auto) 6.2 Eos % (Auto) 1.7 Baso % (Auto) 0.6 Neut # (Auto) 5.1 Lymph # (Auto) 0.9 L [place] # (Auto) 0.4 Eos # (Auto) 0.1 Baso # (Auto) 0.0 ESR Haptoglobin Sodium 138 Potassium 3.1 L Chloride 105 Carbon Dioxide 28 Anion Gap 8 L BUN 36 H Creatinine 4.8 H Est GFR ( Amer) 17 Est GFR (Non-Af Amer) 14 POC Glucose (mg/dL) Random Glucose 135 H Calcium 6.4 L Phosphorus 2.5 Magnesium 1.6 Total Bilirubin 1.2 AST 1612 H ALT 2890 H Alkaline Phosphatase 32 L Ammonia Lactate Dehydrogenase 4181 H Total Creatine Kinase Total Protein 4.3 L Albumin 2.1 L Globulin 2.2 Albumin/Globulin Ratio 1.0 CSF Total Protein Urine Opiates Screen Urine Methadone Screen Ur Barbiturates Screen Ur Phencyclidine Scrn Ur Amphetamines Screen U Benzodiazepines Scrn U Oth Cocaine Metabols U Cannabinoids Screen Methyl Alcohol Level HSV Source Description HSV I DNA PCR HSV II DNA PCR HIV-1 Ab Rapid Screen Radiology Impressions: Radiology Impressions Chest X-Ray 07/21/18 07:32 IMPRESSION: Pulmonary vascular congestion. EKG/Cardiology Studies: Cardiology / EKG Studies 07/21/18 09:00 EKG [ELECTROCARDIOGRAM] DAILY Comment: 2 Mode Of Transportation: Reason For Exam: elevated trops 07/22/18 09:00 EKG [ELECTROCARDIOGRAM] DAILY Comment: 2 Mode Of Transportation: Reason For Exam: elevated trops Fingerstick Blood Sugar Results: 109 Review of Systems - EENT Ears: absent: Dizziness - Cardiovascular Cardiovascular: absent: Chest Pain, Dyspnea, Palpitations - Respiratory Respiratory: absent: Dyspnea - Gastrointestinal Gastrointestinal: absent: Abdominal Pain Critical Care Progress Note - Nutrition Nutrition: Nutrition Category Date Time Status Liquid Diet [DIET] Diets 07/20/18 Lunch Active Assessment/Plan - Assessment and Plan (Free Text) Assessment: #CRISTINA, rhabdomyliasis, lactic acidosis -multifactorial; ischemic, toxin (heroin +fentanyl) -less likely to be infectious in nature -nephrology on board; renal u/s pending -s/p urgent dialysis on 07/19 (overnight) and HD on 07/21 -rhabdo likely 2/2 toxin vs infection of neck, CK improving -c/w with IVFs, per nephro bicard fluids d/c on NS #Acute liver injury -likely multifactorial; ischemic vs toxin -CT abd and pel: mild hepatic steatosis and hematomegaly -improving, hep b neg -GI on board #Thrombocytopenia, Anemia -HUS questionable given normal T ronaldo and alk phos, per lab no schistocytes noted in PBS -DIC given low fibronogen, elevated d-dimer with thrombocytopenia -2/2 to toxins and ETOH, acute bone marrow injury -Hem/Onc on board -new on/off abs pain, will consider CT abd and pelvis -repeat cbc -FOBT #AMS/Substance intoxication/metabolic encephalopathy -improving -likely 2/2 to ingestion of unknown toxin, ischemia -CT head no acute pathology #Cardiac injury? -new nonspecific T wave changes on EKG, prolong QTc 07/20 and 07/21, not noted on EKG 07/19 -trops pos x 2, downtrending, asymptomatic -Echo appreciate, normal EF -Cardiology on board; likely 2/2 acute renal injury -c/w asa 81mg PO for now #Inflammatory soft tissue Edema/infection -improving -CT neck sig for Asymmetric enlargement and edema in the left submandibular and parotid glands and masseter with diffuse subcutaneous edema in the left facial and neck soft tissues, and parietal scalp. -likely 2/2 to opioid via mucosa nose/mouth -consider hypoxia, trauma, infections? -c/w abx -cont to monitor RR and O2 -monitor mental status changes, neuro checks #Amion gap, osmolar gap metabolic acidosis -resolved -likely 2/2 ingestion of unknown substance -send out for methanol (neg), ethylene and isopropanalol -Nephro on board, HD -c.w IVF DVT prolx: SCDs GI prolx: Protonix FULL CODE <Shmuel Akers - Last Filed: 07/22/18 22:34> CCU Subjective - Physician Review Subjective (Free Text): Attestation: Patient seen and examined at the bedside with Resident Dr. Rene Zuniga; and I agree with her outline of plans and management documented as above, reflecting my review of all applicable clinical data, and participation in the care of the patient throughout the day in ICU; today, July 22, 2018.
--- NOTE | 2018-07-22 07:40 | CP.PCM.PN ---
Subjective - Date & Time of Evaluation Date of Evaluation: 07/22/18 Time of Evaluation: 07:38 - Subjective Subjective: SURGERY NOTE FOR DR. VALLES 28M seen and examined at bedside. MARK. Patient denies chest pain, shortness of breath and difficulty swallowing, swelling of submandibular region and b/l face is stable/improving. Objective - Vital Signs/Intake and Output Vital Signs (last 24 hours): Temp Pulse Resp BP Pulse Ox 98.6 F 68 18 129/80 96 07/22/18 04:00 07/22/18 06:00 07/22/18 06:00 07/22/18 06:00 07/22/18 06:00 Intake and Output: 07/22/18 07/22/18 06:59 18:59 Intake Total 2250 Output Total 400 Balance 1850 - Medications Medications: Current Medications Aspirin (Aspirin Chewable) 81 mg PO DAILY [facility] Last Admin: 07/21/18 08:42 Dose: 81 mg Piperacillin Sod/Tazobactam (Sod 2.25 gm/ Sodium Chloride) 100 mls @ 100 mls/hr IVPB Q6 WAY[facility]; Protocol Last Admin: 07/22/18 04:52 Dose: 100 mls/hr Sodium Bicarbonate 80 meq/ (Dextrose/Sodium Chloride) 1,080 mls @ 175 mls/hr IV .Q6H11M [facility] Stop: 07/22/18 10:21 Last Admin: 07/22/18 01:04 Dose: 175 mls/hr Potassium Chloride (Potassium Chloride 20 Meq/100 Ml) 100 mls @ 50 mls/hr IVPB ONCE ONE Stop: 07/22/18 09:23 Ondansetron HCl (Zofran Inj) 4 mg IVP Q6 PRN PRN Reason: Nausea/Vomiting Last Admin: 07/21/18 11:06 Dose: 4 mg Pantoprazole Sodium (Protonix Inj) 40 mg IVP DAILY [facility] Last Admin: 07/21/18 08:41 Dose: 40 mg - Labs Labs: 07/22/18 04:20 07/22/18 04:20 PT 15.5 Seconds (9.8-13.1) H 07/21/18 04:30 INR 1.4 07/21/18 04:30 APTT 26.3 Seconds (25.6-37.1) 07/21/18 04:30 - Constitutional Appears: Non-toxic, No Acute Distress - Neck Exam Additional comments: submandibular swelling - Respiratory Exam Respiratory Exam: Clear to Ausculation Bilateral, NORMAL BREATHING PATTERN - Cardiovascular Exam Cardiovascular Exam: REGULAR RHYTHM, +S1, +S2 - GI/Abdominal Exam GI & Abdominal Exam: Soft. absent: Distended, Firm, Guarding, Rigid, Tenderness, Rebound - Extremities Exam Extremities Exam: absent: Pedal Edema, Tenderness - Neurological Exam Neurological Exam: Alert, Awake Assessment and Plan - Assessment and Plan (Free Text) Assessment: 28M in resolving rhabdomyolysis, CRISTINA and shock liver, presents with b/l jaw swelling Plan: - monitor for airway - ENT evaluation recommended Further recs discuss with Dr. Rasheed Caicedo, PGY3
[2018-07-22] MEDS ORDERED: WATER IV STA (07:45)
[2018-07-22] MEDS ORDERED: DEXTROSE 5% IV STA (07:45)
[2018-07-22] MEDS ORDERED: ACETYLCYSTEINE IV STA (07:45)
--- NOTE | 2018-07-22 10:10 | CP.PCM.PN ---
Subjective - Date & Time of Evaluation Date of Evaluation: 07/22/18 Time of Evaluation: 10:00 - Subjective Subjective: Pt is awake when you wake him up,but immediately goes back to sleep,. His HGB is down to 8.2gms and platelets 38. His retic count is only 0.3 which indicates that the marrow is depressed in addition to thCBC is being repeated.e DIC. In formation was obtained from a friend that the day before he was admitted, pt drank almost all day and then used a drug called mata .More information is being obtained about the drug.His resp and cardiac symptoms however seem to be secondary to the drug. Will have to transfuse him if platelets are less than 25 or if he has any bleeding. Objective - Vital Signs/Intake and Output Vital Signs (last 24 hours): Temp Pulse Resp BP Pulse Ox 28.7 F L 62 20 147/90 95 07/22/18 08:00 07/22/18 08:00 07/22/18 08:00 07/22/18 08:00 07/22/18 08:00 Intake and Output: 07/22/18 07/22/18 06:59 18:59 Intake Total 2250 Output Total 400 Balance 1850 - Medications Medications: Current Medications Aspirin (Aspirin Chewable) 81 mg PO DAILY [facility] Last Admin: 07/22/18 09:04 Dose: 81 mg Piperacillin Sod/Tazobactam (Sod 2.25 gm/ Sodium Chloride) 100 mls @ 100 mls/hr IVPB Q6 [facility]; Protocol Last Admin: 07/22/18 09:05 Dose: 100 mls/hr Sodium Bicarbonate 80 meq/ (Dextrose/Sodium Chloride) 1,080 mls @ 175 mls/hr IV .Q6H11M [facility] Stop: 07/22/18 10:21 Last Admin: 07/22/18 01:04 Dose: 175 mls/hr Acetylcysteine 8,800 mg/ (Dextrose) 1,000 mls @ 66 mls/hr IV STAT STA Stop: 07/22/18 22:54 Ondansetron HCl (Zofran Inj) 4 mg IVP Q6 PRN PRN Reason: Nausea/Vomiting Last Admin: 07/21/18 11:06 Dose: 4 mg Pantoprazole Sodium (Protonix Inj) 40 mg IVP DAILY [facility] Last Admin: 07/22/18 08:47 Dose: 40 mg - Labs Labs: 07/22/18 04:20 07/22/18 04:20 PT 15.5 Seconds (9.8-13.1) H 07/21/18 04:30 INR 1.4 07/21/18 04:30 APTT 26.3 Seconds (25.6-37.1) 07/21/18 04:30
--- NOTE | 2018-07-22 10:41 | CP.PCM.PN ---
<Joni Samayoa - Last Filed: 07/22/18 14:29> Subjective - Date & Time of Evaluation Date of Evaluation: 07/22/18 Time of Evaluation: 09:00 - Subjective Subjective: 28 y/o M admitted for acute substance intoxication, CRISTINA, shock liver, rhabdomyolysis and possible marrow depression. Patient seen and evaluated at bedside in AM. Patient had abdominal pain yesterday for which Morphine 2 mg IVP(x2) were given with improvement in pain. Patient awake, alert and oriented x 3 but still sleepy, fatigued and easily abusable. Friend present at bedside. Patient denies any abdominal pain, nausea, vomiting, fever, chills. Neck swelling stable, bilaterally w/o erythema. Patient able to drink liquid diet w/o dysphagia or odynophagia. Denies CP, SOB. As per friend, Police confiscated substance found in the apartment. Will try to get further info from [place] [employer]. Objective - Vital Signs/Intake and Output Vital Signs (last 24 hours): Temp Pulse Resp BP Pulse Ox 28.7 F L 62 20 147/90 95 07/22/18 08:00 07/22/18 08:00 07/22/18 08:00 07/22/18 08:00 07/22/18 08:00 Intake and Output: 07/22/18 07/22/18 06:59 18:59 Intake Total 2250 Output Total 400 Balance 1850 - Medications Medications: Current Medications Aspirin (Aspirin Chewable) 81 mg PO DAILY [facility] Last Admin: 07/22/18 09:04 Dose: 81 mg Piperacillin Sod/Tazobactam (Sod 2.25 gm/ Sodium Chloride) 100 mls @ 100 mls/hr IVPB Q6 [facility]; Protocol Last Admin: 07/22/18 09:05 Dose: 100 mls/hr Acetylcysteine 8,800 mg/ (Dextrose) 1,000 mls @ 66 mls/hr IV STAT STA Stop: 07/22/18 22:54 Ondansetron HCl (Zofran Inj) 4 mg IVP Q6 PRN PRN Reason: Nausea/Vomiting Last Admin: 07/21/18 11:06 Dose: 4 mg Pantoprazole Sodium (Protonix Inj) 40 mg IVP DAILY [facility] Last Admin: 07/22/18 08:47 Dose: 40 mg - Labs Labs: 07/22/18 04:20 07/22/18 04:20 PT 15.5 Seconds (9.8-13.1) H 07/21/18 04:30 INR 1.4 07/21/18 04:30 APTT 26.3 Seconds (25.6-37.1) 07/21/18 04:30 - Constitutional Appears: No Acute Distress - Head Exam Head Exam: ATRAUMATIC, NORMOCEPHALIC - Eye Exam Eye Exam: EOMI, Normal appearance - ENT Exam ENT Exam: Mucous Membranes Moist - Neck Exam Additional comments: B/L Neck swelling w/mild tenderness, No erythema - Respiratory Exam Respiratory Exam: Clear to Ausculation Bilateral, NORMAL BREATHING PATTERN. absent: Rales, Rhonchi, Wheezes, Respiratory Distress - Cardiovascular Exam Cardiovascular Exam: REGULAR RHYTHM, +S1, +S2. absent: Murmur - GI/Abdominal Exam GI & Abdominal Exam: Distended, Soft, Tenderness, Normal Bowel Sounds - Extremities Exam Extremities Exam: absent: Calf Tenderness, Pedal Edema, Tenderness - Neurological Exam Neurological Exam: Alert, Awake, Oriented x3 - Psychiatric Exam Psychiatric exam: Normal Affect, Normal Mood - Skin Skin Exam: Dry, Intact, Normal Color, Warm - Additional Findings Additional findings: Patient drowsy, but easily abusable and AAO x 3 Assessment and Plan - Assessment and Plan (Free Text) Assessment: 28 year old male with PMHx of psoriasis brought to ER by EMS after being found unresponsive. Patient W/AMS, acute drug intoxication(Unknown), CRISTINA, acute liver failure, rhabdomolysis and metabolic acidosis. Patient receiving 2nd round of hemodialysis today. Consults: GI(Dr. Avendaño), Nephro(Dr. Diego), Cardio(Dr. Karimi), Gen Surg(Dr. Iqbal), Hem/Onc(Dr. Jan Abdullahi), ENT CXR(07/19): No acute pulmonary disease CXR(07/21): Pulmonary vascular congestion Echocardiogram: EF 55-60%, Mild TR, RVSP 32 mm Hg, LV diastolic function WNL, RV systolic function WNL. EKG: New nonspecific T wave changes on EKG, prolong QTc 07/20 and 07/21, not noted on EKG 07/19 CT chest, abdomen and pelvis: No acute abnormality, Mild hepatomegaly CT Neck: Asymmetric enlargement and edema in the left submandibular and parotid glands and masseter with diffuse subcutaneous edema in the left facial and neck soft tissues, and parietal scalp. Findings are most compatible with nonspecific infectious/inflammatory cellulitis. Shoulder XR: No acute fracture or dislocations Plan: CRISTINA - BUN/Cr 36/4.7< 33/2.5 < 36/3.2 - S/P hemodialysis x 2 - Nephrology consult: Dr. Diego on board - Continue NS @ 250 ml/hr - Monitor renal function, I and Os AMS 2/2 Acute drug intoxication vs Sepsis - S/p Narcan, Fomopizole, acetylcystine, levophed, Sodium Bicarb x 3 and Kayexal ete, On NAC protocol per poison control. - UTox: Positive for opiates, Serum alcohol: <10, Salicylic acid <1, Acetaminophen <10, Methanol Not detected, Serum drug screen Neg. - WBC 27.8>>>6.6, HIV neg, Hep B Neg, Urine Cx Neg, CSF Cx Neg, Blood Cx neg(day 3) - Continue NS @ 250 mg/hr - F/U VDRL, MRSA Cx, Herpes simplex 1/2, CSF electophoresis - D/C zosyn Pancytopenia/DIC w/possible marrow depression - Hgb 8.2 down drom 16.4 on admission - Plt 39, down drom 297 on admission - WBC 6.6, down from 27.6 - Retic 0.3, LDH 4000+, Fibrinogen 150 - Dr. Abdullahi Hem/onc on board: Will follow recs. - Monitor CBC, Transfuse if Hgb < 8 or Plt <25 Acute liver failure likely secondary to substance use/shock liver - Improving - AST 80899>>> 1500+ , ALT 7921>>> 2800+, T Lorenzo, ALP WNL, Ammonia 22 - Patient on NAC protocol, Last NAC yesterday, Continue current regimen as per poison control - GI Consulted on board - Monitor LFTs - Possible CT abdomen if abdominal pain continues Nonspecific T wave changes on EKG, prolong QTc - likely due to rhabdomyolysis vs CRISTINA vs substance abuse - Trops x 2 positive, trending down - Echo appreciate, normal EF - Cardio consult on board - C/w asa 81mg PO for now Rhabdomyolysis - CPK Trending down 4400+ from 7600+ - Continue IVF @ 250 ml/hr - S/P HD x 2 - F/U CPK, renal function B/L neck swelling - Stable, afebrile, VSS - CT Neck: Asymmetric enlargement and edema in the left submandibular and parotid glands and masseter with diffuse subcutaneous edema in the left facial and neck soft tissues, and parietal scalp. Findings are most compatible with nonspecific infectious/inflammatory cellulites. - D/C Zosyn today and will follow ENT recs. - Gen Surg consulted, no surgery for now. Recommended ENT eval - ENT consulted. Electrolyte imbalance - Acidosis resolved, S/P sodium biacarb in ED and ICU - Hypokelemia 3.1, S/p 80 meq K-Dur on 07/21 - Hypocalcemia(Improving):5.9>6.9>6.4, s/p Ca gluconate - Monitor CMP Extensive psoriasis - Reports using cream at home - Will consider treatment once patient stable DVT prophylaxis - SCDs - GI: Zofran PRN, Protonix Code status Full code <Honey Early - Last Filed: 07/22/18 16:11> Objective - Vital Signs/Intake and Output Vital Signs (last 24 hours): Temp Pulse Resp BP Pulse Ox 98.5 F 59 L 20 139/97 H 100 07/22/18 12:00 07/22/18 12:00 07/22/18 12:00 07/22/18 12:00 07/22/18 12:00 Intake and Output: 07/22/18 07/22/18 06:59 18:59 Intake Total 2250 1150 Output Total 400 160 Balance 1850 990 - Medications Medications: Current Medications Aspirin (Aspirin Chewable) 81 mg PO DAILY [facility] Last Admin: 07/22/18 09:04 Dose: 81 mg Acetylcysteine 8,800 mg/ (Dextrose) 1,000 mls @ 66 mls/hr IV STAT STA Stop: 07/22/18 22:54 Last Admin: 07/22/18 11:30 Dose: 66 mls/hr Sodium Chloride (Sodium Chloride 0.9%) 1,000 mls @ 75 mls/hr IV .[id number] [facility] Stop: 07/23/18 12:55 Ondansetron HCl (Zofran Inj) 4 mg IVP Q6 PRN PRN Reason: Nausea/Vomiting Last Admin: 07/21/18 11:06 Dose: 4 mg Pantoprazole Sodium (Protonix Inj) 40 mg IVP DAILY [facility] Last Admin: 07/22/18 08:47 Dose: 40 mg - Labs Labs: 07/22/18 11:03 07/22/18 04:20 PT 14.9 Seconds (9.8-13.1) H 07/22/18 11:03 INR 1.3 07/22/18 11:03 APTT 31.6 Seconds (25.6-37.1) 07/22/18 11:03 Attending/Attestation - Attestation I have personally seen and examined this patient.: Yes I have fully participated in the care of the patient.: Yes I have reviewed all pertinent clinical information, including history, physical exam and plan: Yes Notes (Text): 1. Acute Renal Failure , ? sec to Rhabdomyolysis , ATN vs Nephrotoxic agent ingestion - cont Hemodialysis - Renal function has not improved 2. Acute Transaminitis ? Shock Liver vs Hepatotoxic agent ingestion - Poison Control rec Acetylcysteine IV until LFT is less than 1000 - GI consulted- discussed casewith Dr Avendaño 3. Leukocytosis with SIRS ? Sepsis ( POA) improving No fever, Leukocytosis resolved Cultures negative so far will hold off IV Zosyn 4. Troponin Elevation- likely due to Demand ischemia due to CRISTINA, Sepsis unlikely cardiac as per Dr Karimi 5. Hypoglycemic Episode 6. Bilateral Neck Swelling with Left Salivary Glands Enlargement ? etiology Surgery consulted -Rec ENT eval - pt denies pain, no fever, no dysphagia nor odynophagia 7. Thrombocytopenia with low Fibrinogen poss due to DIC - Hematology consulted- discussed case with Dr Beba Abdullahi - rec to transfuse if Platelet is les than 25 and Hgb less than 8 8. AMS sec to Toxic Metabolic Encephalopathy,improved
[2018-07-22 11:12] LABS: BASO % 0.7 % (0.0-2.0); EOS # 0.1 K/uL (0.0-0.7); EOS % 2.1 % (0.0-4.0); HEMOGLOBIN 8.4 g/dL (12.0-18.0); LYMPH # 0.8 K/uL (1.0-4.3); LYMPH % 12.4 % (20.0-40.0); MEAN CELL VOLUME 93.5 fl (80.0-94.0); MEAN CORPUSCULAR HEMOGLOBIN 30.9 pg (27.0-31.0); MEAN PLATELET VOLUME 8.9 fl (7.2-11.7); MONO # 0.4 K/uL (0.0-0.8); MONO % 6.6 % (0.0-10.0); NEUT % 78.2 % (50.0-75.0); NRBC % 0.1 % (0.0-0.0); RBC 2.71 Mil/uL (4.40-5.90); RED CELL DISTRIBUTION WIDTH 12.3 % (11.5-14.5); WHITE BLOOD COUNT 6.4 K/uL (4.8-10.8)
[2018-07-22 11:17] LABS: INR 1.3; PROTHROMBIN TIME 14.9 Seconds (9.8-13.1)
[2018-07-22 11:20] LABS: PARTIAL THROMBOPLASTIN TIME 31.6 Seconds (25.6-37.1)
--- NOTE | 2018-07-22 11:24 | CP.PCM.PN ---
Subjective - Date & Time of Evaluation Date of Evaluation: 07/22/18 Time of Evaluation: 11:21 - Subjective Subjective: Patient remains drowsy though arousable. C/o abdominal pain on and off. Objective - Vital Signs/Intake and Output Vital Signs (last 24 hours): Temp Pulse Resp BP Pulse Ox 28.7 F L 67 20 144/92 H 100 07/22/18 08:00 07/22/18 10:00 07/22/18 10:00 07/22/18 10:00 07/22/18 10:00 Intake and Output: 07/22/18 07/22/18 06:59 18:59 Intake Total 2250 1150 Output Total 400 160 Balance 1850 990 - Medications Medications: Current Medications Aspirin (Aspirin Chewable) 81 mg PO DAILY [facility] Last Admin: 07/22/18 09:04 Dose: 81 mg Piperacillin Sod/Tazobactam (Sod 2.25 gm/ Sodium Chloride) 100 mls @ 100 mls/hr IVPB Q6 [facility]; Protocol Last Admin: 07/22/18 09:05 Dose: 100 mls/hr Acetylcysteine 8,800 mg/ (Dextrose) 1,000 mls @ 66 mls/hr IV STAT STA Stop: 07/22/18 22:54 Ondansetron HCl (Zofran Inj) 4 mg IVP Q6 PRN PRN Reason: Nausea/Vomiting Last Admin: 07/21/18 11:06 Dose: 4 mg Pantoprazole Sodium (Protonix Inj) 40 mg IVP DAILY [facility] Last Admin: 07/22/18 08:47 Dose: 40 mg - Labs Labs: 07/22/18 11:03 07/22/18 04:20 PT 14.9 Seconds (9.8-13.1) H 07/22/18 11:03 INR 1.3 07/22/18 11:03 APTT 31.6 Seconds (25.6-37.1) 07/22/18 11:03 - Head Exam Head Exam: ATRAUMATIC - Eye Exam Eye Exam: Normal appearance - ENT Exam ENT Exam: Mucous Membranes Moist - Neck Exam Neck Exam: Full ROM - Respiratory Exam Respiratory Exam: Clear to Ausculation Bilateral - Cardiovascular Exam Cardiovascular Exam: REGULAR RHYTHM, +S1, +S2 - GI/Abdominal Exam GI & Abdominal Exam: Distended Assessment and Plan (1) Elevated liver enzymes Assessment & Plan: LFTs continue to improve . Remains on NAC treatment as per poison control for possible alcoholic hepatitis. Has abdominal pain and distention and CT abdomen and pelvis recommended. Status: Acute
[2018-07-22] MEDS: Sodium Chloride 0.9% 1,000 ML IV SCH (15:00)
--- NOTE | 2018-07-22 15:27 | CT ---
Date of service: 07/22/2018 PROCEDURE: CT Abdomen and Pelvis without intravenous contrast HISTORY: abdominal pain COMPARISON: 07/19/2018 TECHNIQUE: Without contrast.. Contrast dose: 0 Radiation dose: Total exam DLP = 954.44 mGy-cm. This CT exam was performed using one or more of the following dose reduction techniques: Automated exposure control, adjustment of the mA and/or kV according to patient size, and/or use of iterative reconstruction technique. FINDINGS: LOWER THORAX: Bilateral small pleural effusions. Bilateral lower lobe compressive atelectasis. LIVER: Unremarkable. No gross lesion or ductal dilatation. GALLBLADDER AND BILE DUCTS: No calcified gallstones. There is mild pericholecystic fluid identified. This is nonspecific. Please consider the possibility of acute cholecystitis. Recommend evaluation with abdominal ultrasound examination. No evidence of mural thickening on this examination. PANCREAS: Unremarkable. No gross lesion or ductal dilatation. SPLEEN: Unremarkable. ADRENALS: Unremarkable. No mass. KIDNEYS AND URETERS: Unremarkable. No hydronephrosis. No solid mass. VASCULATURE: No evidence of abdominal aortic aneurysm. Bilateral femoral venous catheters are noted. No aortic atherosclerotic calcification or mural plaque present. BOWEL: No bowel obstruction. No abnormal bowel loops. Please note that there is a 1.3 cm rounded radiopaque structure in the left lower quadrant likely within a loop of small bowel, most likely oral contrast. There are scattered small foci of oral contrast seen elsewhere. Please note that oral contrast was not administered for recent prior CT examination of 07/19/2018. APPENDIX: Unremarkable. Normal appendix. PERITONEUM: No ascites. Mild presacral edema. Mild thickening of the fascia along the paracolic gutters. Nonspecific. This represents interval change from the prior CT examination. No pneumoperitoneum. LYMPH NODES: Unremarkable. No enlarged lymph nodes. BLADDER: Decompressed around Au catheter balloon REPRODUCTIVE: Unremarkable prostate BONES: No acute fracture. OTHER FINDINGS: Mild generalized anasarca. IMPRESSION: No acute abnormality. Mild generalized anasarca with presacral edema. Pericholecystic fluid noted common nonspecific. No mural thickening. No calcified gallstones. Nevertheless, consider evaluation with abdominal ultrasound. Small bilateral pleural effusion with bilateral lower lobe compressive atelectasis. Bilateral femoral venous catheters. Au catheter.
--- NOTE | 2018-07-22 16:21 | US ---
Date of service: 07/22/2018 PROCEDURE: Ultrasound of the Kidneys HISTORY: arf COMPARISON: None available. TECHNIQUE: Sonogram of the kidneys. FINDINGS: RIGHT KIDNEY: Measures: 11.5 cm. Normal in size, contour and echogenicity. No stone, solid mass lesion or hydronephrosis visualized. Trace perinephric fluid incidentally noted LEFT KIDNEY: Measures: 11.5 cm. Normal in size, contour and echogenicity. No stone, solid mass lesion or hydronephrosis visualized. OTHER FINDINGS: None. IMPRESSION: Trace right perinephric fluid. Otherwise unremarkable examination.
--- NOTE | 2018-07-22 16:56 | CP.PCM.PN ---
Subjective - Date & Time of Evaluation Date of Evaluation: 07/22/18 Time of Evaluation: 16:51 - Subjective Subjective: renal follow up note no events overnight UOP fred improved second hd done yesterday vitals reviewed nad lying in bed no jvd heent normal s1s2 present no resp distress abd soft bs+ laron david no rash opens eyes to name CRISTINA/rhabdo/acute hepatitis/acidosis two hd sessions done yesteryda UOP increasig today monitor closely will assess tomorrow for hd needs lytes reviewed bp stable no NAC drip per protocol for acute hepatitis ? tyleno abuse Objective - Vital Signs/Intake and Output Vital Signs (last 24 hours): Temp Pulse Resp BP Pulse Ox 98.0 F 68 20 143/93 H 97 07/22/18 16:00 07/22/18 16:00 07/22/18 12:00 07/22/18 16:00 07/22/18 16:00 Intake and Output: 07/22/18 07/22/18 06:59 18:59 Intake Total 2250 2650 Output Total 400 500 Balance 1850 2150 - Medications Medications: Current Medications Aspirin (Aspirin Chewable) 81 mg PO DAILY [facility] Last Admin: 07/22/18 09:04 Dose: 81 mg Acetylcysteine 8,800 mg/ (Dextrose) 1,000 mls @ 66 mls/hr IV STAT STA Stop: 07/22/18 22:54 Last Admin: 07/22/18 11:30 Dose: 66 mls/hr Sodium Chloride (Sodium Chloride 0.9%) 1,000 mls @ 75 mls/hr IV .[id number] WAYNE Stop: 07/23/18 12:55 Last Admin: 07/22/18 15:00 Dose: 75 mls/hr Ondansetron HCl (Zofran Inj) 4 mg IVP Q6 PRN PRN Reason: Nausea/Vomiting Last Admin: 07/21/18 11:06 Dose: 4 mg Pantoprazole Sodium (Protonix Inj) 40 mg IVP DAILY [facility] Last Admin: 07/22/18 08:47 Dose: 40 mg - Labs Labs: 07/22/18 11:03 07/22/18 04:20 PT 14.9 Seconds (9.8-13.1) H 07/22/18 11:03 INR 1.3 07/22/18 11:03 APTT 31.6 Seconds (25.6-37.1) 07/22/18 11:03
[2018-07-22] MEDS ORDERED: WATER IVPB ONE (21:29)
[2018-07-22] MEDS ORDERED: DEXTROSE 5% IVPB ONE (21:29)
[2018-07-22] MEDS ORDERED: ACETYLCYSTEINE IVPB ONE (21:29)
[2018-07-23] MEDS: Sodium Chloride 0.9% 1,000 ML IV SCH (03:20)
--- NOTE | 2018-07-23 04:18 | CON ---
DATE: 07/22/2018 REASON FOR CONSULTATION: Edema of the parotids or parotitis. REFERRING PHYSICIAN: ICU. HISTORY OF PRESENT ILLNESS: This is a 28-year-old male who a couple days ago began having edema of both parotid glands which was constant and moderate in intensity with pain. This is constant and moderate in intensity with edema going in between the submandibular and submantle areas on the neck. There is no shortness of breath. No hoarseness. PAST MEDICAL HISTORY: As noted in the chart by me. MEDICATIONS: As noted in the chart by me. ALLERGIES: NOTED IN THE CHART BY ME. PHYSICAL EXAMINATION: HEAD: Atraumatic and normocephalic. FACE: Good facial movements bilaterally. CONSTITUTIONAL: Well fed, well nourished. COMMUNICATION: Communicates well and appropriately. EXTERNAL NOSE AND EARS: No masses. No lesions. No erythema. No edema. INTERNAL NOSE AND EARS: Deviated septum. No masses. No lesions. No erythema. No edema. LIPS AND GUMS: No masses. No lesions. No erythema. No edema. ORAL CAVITY AND OROPHARYNX: No masses. No lesions. No erythema. No edema. NECK: Supple with edema around the parotid gland and going around the neck in level 1 on both sides. No erythema of the overlying skin. No induration. LYMPH NODES: No lymphadenopathy of the neck palpated; however, it is limited secondary to edema. THYROID: No thyromegaly. No goiter. ASSESSMENT: 1 Parotitis. 2. Deviated septum. PLAN: Continue IV antibiotics. Encouraged hydration. Niraj Cardoso MD
[2018-07-23 05:24] LABS: BASO # 0.1 K/uL (0.0-0.2); BASO % 0.7 % (0.0-2.0); EOS # 0.3 K/uL (0.0-0.7); EOS % 4.3 % (0.0-4.0); HEMOGLOBIN 8.2 g/dL (12.0-18.0); LYMPH # 1.2 K/uL (1.0-4.3); LYMPH % 14.8 % (20.0-40.0); MEAN CELL VOLUME 91.5 fl (80.0-94.0); MEAN CORPUSCULAR HEMOGLOBIN 30.5 pg (27.0-31.0); MEAN CORPUSCULAR HGB CONC 33.3 g/dL (33.0-37.0); MEAN PLATELET VOLUME 10.2 fl (7.2-11.7); MONO # 0.7 K/uL (0.0-0.8); NEUT # 5.5 K/uL (1.8-7.0); NEUT % 71.2 % (50.0-75.0); RBC 2.68 Mil/uL (4.40-5.90); RED CELL DISTRIBUTION WIDTH 12.4 % (11.5-14.5); WHITE BLOOD COUNT 7.8 K/uL (4.8-10.8)
[2018-07-23 05:45] LABS: ALBUMIN 2.2 g/dL (3.5-5.0); CALCIUM 6.7 mg/dL (8.4-10.2)
--- NOTE | 2018-07-23 07:18 | CP.PCM.PN ---
Subjective - Date & Time of Evaluation Date of Evaluation: 07/23/18 Time of Evaluation: 07:16 - Subjective Subjective: General Surgery Progress Note for Dr. Iqbal 28M seen and evaluated at bedside this morning. No acute events overnight. No complaints this morning. Denies f/c, n/v/d, SOB, CP, or urinary symptoms. Objective - Vital Signs/Intake and Output Vital Signs (last 24 hours): Temp Pulse Resp BP Pulse Ox 98.6 F 64 22 137/76 98 07/23/18 04:00 07/23/18 06:00 07/23/18 06:00 07/23/18 06:00 07/23/18 06:00 Intake and Output: 07/23/18 07/23/18 06:59 18:59 Intake Total 1955 Output Total 700 Balance 1255 - Medications Medications: Current Medications Aspirin (Aspirin Chewable) 81 mg PO DAILY [facility] Last Admin: 07/22/18 09:04 Dose: 81 mg Sodium Chloride (Sodium Chloride 0.9%) 1,000 mls @ 75 mls/hr IV .[id number] [facility] Stop: 07/23/18 12:55 Last Admin: 07/23/18 03:20 Dose: 75 mls/hr Acetylcysteine 9,070 mg/ (Dextrose) 1,045.35 mls @ 62.5 mls/hr IVPB ONCE ONE Stop: 07/23/18 14:12 Last Admin: 07/23/18 04:38 Dose: 62.5 mls/hr Piperacillin Sod/Tazobactam (Sod 2.25 gm/ Sodium Chloride) 100 mls @ 100 mls/hr IVPB Q6H [facility]; Protocol Last Admin: 07/23/18 04:38 Dose: 100 mls/hr Ondansetron HCl (Zofran Inj) 4 mg IVP Q6 PRN PRN Reason: Nausea/Vomiting Last Admin: 07/21/18 11:06 Dose: 4 mg Pantoprazole Sodium (Protonix Inj) 40 mg IVP DAILY [facility] Last Admin: 07/22/18 08:47 Dose: 40 mg - Labs Labs: 07/23/18 04:20 07/23/18 04:20 PT 14.9 Seconds (9.8-13.1) H 07/22/18 11:03 INR 1.3 07/22/18 11:03 APTT 31.6 Seconds (25.6-37.1) 07/22/18 11:03 - Constitutional Appears: Non-toxic, No Acute Distress - Head Exam Head Exam: ATRAUMATIC, NORMAL INSPECTION, NORMOCEPHALIC - Eye Exam Eye Exam: EOMI - ENT Exam ENT Exam: Mucous Membranes Dry - Neck Exam Additional comments: Bilateral submandibular and parotid area swelling w/ bruising - Respiratory Exam Respiratory Exam: NORMAL BREATHING PATTERN. absent: Respiratory Distress - GI/Abdominal Exam GI & Abdominal Exam: Soft, Normal Bowel Sounds. absent: Tenderness - Extremities Exam Additional comments: psoriatic lesions in lower extremity - Neurological Exam Neurological Exam: Alert, Awake - Psychiatric Exam Psychiatric exam: Normal Affect, Normal Mood Assessment and Plan - Assessment and Plan (Free Text) Assessment: 28M w/ Rhabdo and CRISTINA after usage of unknown opioid compound w/ soft tissue and glandular swelling of the face and neck Plan: Counseled patient on drug cessation Patient facial swelling improving after ingestion of unknown opioid substance Social work eval recommended No further surgical intervention at this present time Further recommendations per Dr. Rasheed Inman PGY1
[2018-07-23] MEDS ORDERED: Potassium Chloride 20 mEq ER Tab PO ONE (07:30)
--- NOTE | 2018-07-23 08:00 | CP.CCUPN ---
CCU Subjective - Physician Review Subjective (Free Text): Awake and alert, still has occasional upper abdominal / Right para-epigastric discomfort, no N/V, has been tolerating liquids, +BMs with light brown stool, able to get OOB to use commode. Afebrile, normotensive, HR 64 sinus, 98% on NC oxygen. Previous facial and neck edema resolving, appears near normal. Other vitals and I/O's reviewed. U/O 750 ml last 12H, overall 3.4 L positive last 24H. ROS: No other pertinent negs or positives on 10+ system review. PMSFH: All other Nursing and physician documentation reviewed to date; no new pertinent info noted relevant to current medical problems. EXAM- HEENT: no icterus, no gaze preference NECK: no JVD visible, supple, carotids equal upstroke bilat/no bruit CHEST: decreased BS at the bases, no wheezes audible HEART: regular, distant, S1S2, no rubs ABD: soft, no distension, no focal tenderness, no tympany, no guarding, no organomegaly, BS hypoactive. EXT: no mottling; no calf tenderness or palpable cords, distal pulses intact and symmetrical, no cyanosis. NEURO: no focal motor deficits SKIN: no rashes, warm and dry LABS: WBC= 7.8 HGB= 8.2 PLTs= 44K Coags: INR 1.3 Na= 140 K= 3.4 PA=574 HCO3= 25 BUN/Cr= 41/6.9 BS= 106 TBili= 1.5 AST= 671 ALT= 1934 LDH= 4181 ALK Phos = normal CK= [address] CTAP= no identifiable source of anemia. IMPRESSION / MAJOR PROBLEMS NOW: 1. 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 2. CRISTINA 2 #1, with Rhabdomyolysis, also r/o for ATN 3. Alcoholic Hepatitis and / or Severe Hepatocellular toxicity 2 31 4. Parotitis / Sialoadenitis 2 #1 5. Acute Anemia / Thrombocytopenia/ DIC, 2 #1 PLAN: 1. Rise in BUN/Cr noted, non-oliguric, K levels not elevated, serum bicarb normal; Nephro f/u regarding any need for subsequent HD today. 2. Lasix challenge prn if oliguria noted, small bilateral pleural effusions/ basilar compressive atelectasis noted on last CXR; incentive spirometry ordered, mobilize OOB as tolerated. 3. ENT eval reviewed, ongoing empiric abx coverage. Airway reflexes intact. 4. Abdominal discomfort 2 to toxic hepatitis?? Surgical and GI evals. No fever, no leukocytosis. Acetylcysteine therapy ongoing for severe transaminase elevations and alcoholic hepatitis component. 5. HGB stable, platelets appear to have plateaued, no active bleeding. 6. Discussed findings and clinical status with patients parents. Awaiting patients friend who accompanied and co-used the same substance ( though in lesser amounts) with him, in order to provide more details on substance constituents and possible other occult ingredients. CCU Objective - Physical Exam Genitourinary Male: Positive for: Other (Au in place draining annmarie color urine)
--- NOTE | 2018-07-23 08:31 | CP.PCM.PN ---
<Joni Samayoa - Last Filed: 07/23/18 11:37> Subjective - Date & Time of Evaluation Date of Evaluation: 07/23/18 Time of Evaluation: 08:10 - Subjective Subjective: 28 y/o M admitted for acute substance intoxication(Possibly Heroin w/fentanyl like substance and/or additional opiates), CRISTINA, shock liver, rhabdomyolysis and possible marrow depression. Patient seen and evaluated at bedside in AM. No acute events overnight. Patient awake, oriented, sleepy but easily abusable. Neck swelling stable. Patient able to drink liquid diet w/o dysphagia or odynophagia. Denies CP, SOB. Continues to have mild intermittent abdominal pain, had 1 brownish BM yesterday. Denies nausea, vomiting or diarrhea. Patient afebrile with VSS. Objective - Vital Signs/Intake and Output Vital Signs (last 24 hours): Temp Pulse Resp BP Pulse Ox 97.7 F 54 L 23 125/78 98 07/23/18 08:00 07/23/18 08:00 07/23/18 08:00 07/23/18 08:00 07/23/18 08:00 Intake and Output: 07/23/18 07/23/18 06:59 18:59 Intake Total 1955 Output Total 700 Balance 1255 - Medications Medications: Current Medications Aspirin (Aspirin Chewable) 81 mg PO DAILY [facility] Last Admin: 07/22/18 09:04 Dose: 81 mg Sodium Chloride (Sodium Chloride 0.9%) 1,000 mls @ 75 mls/hr IV .[id number] [facility] Stop: 07/23/18 12:55 Last Admin: 07/23/18 03:20 Dose: 75 mls/hr Acetylcysteine 9,070 mg/ (Dextrose) 1,045.35 mls @ 62.5 mls/hr IVPB ONCE ONE Stop: 07/23/18 14:12 Last Admin: 07/23/18 04:38 Dose: 62.5 mls/hr Piperacillin Sod/Tazobactam (Sod 2.25 gm/ Sodium Chloride) 100 mls @ 100 mls/hr IVPB Q6H [facility]; Protocol Last Admin: 07/23/18 04:38 Dose: 100 mls/hr Magnesium Oxide (Mag-Ox) 400 mg PO BID [facility] Ondansetron HCl (Zofran Inj) 4 mg IVP Q6 PRN PRN Reason: Nausea/Vomiting Last Admin: 07/21/18 11:06 Dose: 4 mg Pantoprazole Sodium (Protonix Inj) 40 mg IVP DAILY [facility] Last Admin: 07/22/18 08:47 Dose: 40 mg Potassium Chloride (K-Dur 20 Meq Er Tab) 40 meq PO ONCE ONE Stop: 07/23/18 07:31 - Labs Labs: 07/23/18 04:20 07/23/18 04:20 PT 14.9 Seconds (9.8-13.1) H 07/22/18 11:03 INR 1.3 07/22/18 11:03 APTT 31.6 Seconds (25.6-37.1) 07/22/18 11:03 - Constitutional Appears: Non-toxic, No Acute Distress - Head Exam Head Exam: ATRAUMATIC, NORMOCEPHALIC - Eye Exam Eye Exam: EOMI, Normal appearance - ENT Exam ENT Exam: Mucous Membranes Moist - Neck Exam Additional comments: B/L Neck swelling W/o tenderness or erythema - Respiratory Exam Respiratory Exam: Clear to Ausculation Bilateral, NORMAL BREATHING PATTERN. absent: Rhonchi, Wheezes, Respiratory Distress - Cardiovascular Exam Cardiovascular Exam: REGULAR RHYTHM, +S1, +S2. absent: Murmur - GI/Abdominal Exam GI & Abdominal Exam: Distended, Soft, Tenderness, Normal Bowel Sounds. absent: Guarding - Extremities Exam Extremities Exam: Pedal Edema. absent: Calf Tenderness, Tenderness Additional comments: Trace dependant LE edema - Neurological Exam Neurological Exam: Alert, Awake, Oriented x3 - Psychiatric Exam Psychiatric exam: Normal Affect, Normal Mood - Skin Skin Exam: Dry, Intact, Normal Color, Warm Assessment and Plan - Assessment and Plan (Free Text) Assessment: 28 year old male with PMHx of psoriasis brought to ER by EMS after being found unresponsive. Patient W/AMS, acute drug intoxication(Unknown), CRISTINA, acute liver failure and rhabdomolysis. S/P HD x 2 Consults: GI(Dr. Avendaño), Nephro(Dr. Diego), Cardio(Dr. Karimi), Gen Surg(Dr. Iqbal), Hem/Onc(Dr. Jan Abdullahi), ENT(Dr. Shin) CXR(07/19): No acute pulmonary disease CXR(07/21): Pulmonary vascular congestion Echocardiogram: EF 55-60%, Mild TR, RVSP 32 mm Hg, LV diastolic function WNL, RV systolic function WNL. EKG: New nonspecific T wave changes on EKG, prolong QTc 07/20 and 07/21, not noted on EKG 07/19 CT chest, abdomen and pelvis: No acute abnormality, Mild hepatomegaly CT Neck: Asymmetric enlargement and edema in the left submandibular and parotid glands and masseter with diffuse subcutaneous edema in the left facial and neck soft tissues, and parietal scalp. Findings are most compatible with nonspecific infectious/inflammatory cellulitis. Shoulder XR: No acute fracture or dislocations CT abdomen(07/22/18): No acute abnormality. Mild generalized anasarca with presacral edema. Pericholecystic fluid noted common nonspecific. Small bilateral pleural effusion with bilateral lower lobe compressive atelectasis. Bilateral femoral venous catheters. Au catheter. Plan: CRISTINA - BUN/Cr 41/6.9 < 36/4.7< 33/2.5 < 36/3.2 - S/P hemodialysis x 2 - Nephrology consult: Dr. Diego on board - NS @ 75 ml/hr - I and Os(07/22): Intake 4885 ml/Output 1450ml - May require additional HD, will follow nephro recs. AMS 2/2 Acute drug intoxication - Likely secondary to Herpoin plus Fentanyl like substance - S/p Narcan, Fomopizole, acetylcystine, levophed, Sodium Bicarb x 3 and [place] - UTox: Positive for opiates, Serum alcohol: <10, Salicylic acid <1, Acetaminophen <10, Methanol, isopropyl Not detected - Blood Cx, Urine Cx, CSF Cx negative - Continue NS @ 75 mg/hr - F/U VDRL, MRSA Cx, Herpes simplex 1/2, CSF electophoresis Acute liver failure likely secondary to substance use/shock liver - Improving, AST 600+, ALT 1800+ - Generalized abd pain, CT shows anasarca, Stool +occult blood - On NAC protocol per poison control, Continue NAC till LFTs <1000s - GI Consulton board, Will follow recs. - Monitor LFTs Electrolyte imbalance - Hypokelemia 3.4, Ordered 40 meq K+ oral - Mg 1.6, Start Mg Ox 400 PO BID - Hypocalcemia(Improving):6.7, Corrected Ca 8.1 - Monitor BMP Pancytopenia/DIC w/possible marrow depression - Improving, HgB 8.2/Plt 62/WBC 7.6 - Dr. Abdullahi Hem/onc on board: Transfuse if Hgb < 8 or Plt <25 - Monitor CBC Rhabdomyolysis [place] CPK 48250+ trending from [address]406+ - Continue NS @ 75/ml/hr - S/P HD x 2 - F/U CPK, renal function B/L Parotitis - Stable, afebrile, VSS - Gen Surg consulted, no surgery for now. Recommended ENT eval - ENT consulted: Recs IV ABx - Continue Zosyn 2.25 Q6hr Nonspecific T wave changes on EKG, prolong QTc - likely due to rhabdomyolysis vs CRISTINA vs substance abuse - Trops x 2 positive, trending down - Echo appreciate, normal EF - Cardio consult on board - C/w asa 81mg PO for now Extensive psoriasis - Reports using cream at home - Will consider treatment once patient stable Prophylaxis - DVT: SCDs - GI: Zofran PRN, Protonix Code status Full code <AmilcarLeila Vizcaino - Last Filed: 07/23/18 15:51> Objective - Vital Signs/Intake and Output Vital Signs (last 24 hours): Temp Pulse Resp BP Pulse Ox 97.9 F 56 L 20 133/77 98 07/23/18 12:00 07/23/18 14:00 07/23/18 14:00 07/23/18 14:00 07/23/18 14:00 Intake and Output: 07/23/18 07/23/18 06:59 18:59 Intake Total 1955 300 Output Total 700 Balance 1255 300 - Medications Medications: Current Medications Aspirin (Aspirin Chewable) 81 mg PO DAILY [facility] Last Admin: 07/23/18 08:36 Dose: 81 mg Epoetin Marito (Procrit) 8,000 unit IV MWF [facility] Piperacillin Sod/Tazobactam (Sod 2.25 gm/ Sodium Chloride) 100 mls @ 100 mls/hr IVPB Q6H [facility]; Protocol Last Admin: 07/23/18 15:13 Dose: 100 mls/hr Magnesium Oxide (Mag-Ox) 400 mg PO BID [facility] Last Admin: 07/23/18 15:10 Dose: 400 mg Ondansetron HCl (Zofran Inj) 4 mg IVP Q6 PRN PRN Reason: Nausea/Vomiting Last Admin: 07/21/18 11:06 Dose: 4 mg Pantoprazole Sodium (Protonix Inj) 40 mg IVP DAILY [facility] Last Admin: 07/23/18 08:36 Dose: 40 mg - Labs Labs: 07/23/18 04:20 07/23/18 04:20 PT 14.9 Seconds (9.8-13.1) H 07/22/18 11:03 INR 1.3 07/22/18 11:03 APTT 31.6 Seconds (25.6-37.1) 07/22/18 11:03 Attending/Attestation - Attestation I have personally seen and examined this patient.: Yes I have fully participated in the care of the patient.: Yes I have reviewed all pertinent clinical information, including history, physical exam and plan: Yes Notes (Text): 07/23/18 15:50 agree with findings and plan as above. continue current management, HD, liver failure improving, will cont acetylcysteine until LFTs<1000 per poison control. hd stable at this time
--- NOTE | 2018-07-23 08:47 | CP.PCM.PN ---
Subjective - Date & Time of Evaluation Date of Evaluation: 07/23/18 Time of Evaluation: 08:44 - Subjective Subjective: Pt is much more alert and awake today. His LFTs are coming down, the coagulation tests are also better, HGb has been stabnle, platelets manual count is 63K. I dont think he needs a transfusion today.. Will follow Objective - Vital Signs/Intake and Output Vital Signs (last 24 hours): Temp Pulse Resp BP Pulse Ox 97.7 F 54 L 23 125/78 98 07/23/18 08:00 07/23/18 08:00 07/23/18 08:00 07/23/18 08:00 07/23/18 08:00 Intake and Output: 07/23/18 07/23/18 06:59 18:59 Intake Total 1955 Output Total 700 Balance 1255 - Medications Medications: Current Medications Aspirin (Aspirin Chewable) 81 mg PO DAILY [facility] Last Admin: 07/23/18 08:36 Dose: 81 mg Sodium Chloride (Sodium Chloride 0.9%) 1,000 mls @ 75 mls/hr IV .[id number] [facility] Stop: 07/23/18 12:55 Last Admin: 07/23/18 03:20 Dose: 75 mls/hr Acetylcysteine 9,070 mg/ (Dextrose) 1,045.35 mls @ 62.5 mls/hr IVPB ONCE ONE Stop: 07/23/18 14:12 Last Admin: 07/23/18 04:38 Dose: 62.5 mls/hr Piperacillin Sod/Tazobactam (Sod 2.25 gm/ Sodium Chloride) 100 mls @ 100 mls/hr IVPB Q6H [facility]; Protocol Last Admin: 07/23/18 04:38 Dose: 100 mls/hr Magnesium Oxide (Mag-Ox) 400 mg PO BID [facility] Ondansetron HCl (Zofran Inj) 4 mg IVP Q6 PRN PRN Reason: Nausea/Vomiting Last Admin: 07/21/18 11:06 Dose: 4 mg Pantoprazole Sodium (Protonix Inj) 40 mg IVP DAILY [facility] Last Admin: 07/23/18 08:36 Dose: 40 mg - Labs Labs: 07/23/18 04:20 07/23/18 04:20 PT 14.9 Seconds (9.8-13.1) H 07/22/18 11:03 INR 1.3 07/22/18 11:03 APTT 31.6 Seconds (25.6-37.1) 07/22/18 11:03
--- NOTE | 2018-07-23 15:05 | CP.PCM.PN ---
Subjective - Date & Time of Evaluation Date of Evaluation: 07/23/18 Time of Evaluation: 15:05 - Subjective Subjective: Dialysis note He was seen on hemodialysis. he is sitting up in bed feeling much better Vital sign noted to be okay Intake and output noted Serum creatinine continued to rise Objective - Vital Signs/Intake and Output Vital Signs (last 24 hours): Temp Pulse Resp BP Pulse Ox 97.9 F 56 L 20 133/77 98 07/23/18 12:00 07/23/18 14:00 07/23/18 14:00 07/23/18 14:00 07/23/18 14:00 Intake and Output: 07/23/18 07/23/18 06:59 18:59 Intake Total 1955 300 Output Total 700 Balance 1255 300 - Medications Medications: Current Medications Aspirin (Aspirin Chewable) 81 mg PO DAILY [facility] Last Admin: 07/23/18 08:36 Dose: 81 mg Epoetin Marito (Procrit) 8,000 unit IV MWF [facility] Piperacillin Sod/Tazobactam (Sod 2.25 gm/ Sodium Chloride) 100 mls @ 100 mls/hr IVPB Q6H [facility]; Protocol Last Admin: 07/23/18 04:38 Dose: 100 mls/hr Magnesium Oxide (Mag-Ox) 400 mg PO BID [facility] Ondansetron HCl (Zofran Inj) 4 mg IVP Q6 PRN PRN Reason: Nausea/Vomiting Last Admin: 07/21/18 11:06 Dose: 4 mg Pantoprazole Sodium (Protonix Inj) 40 mg IVP DAILY [facility] Last Admin: 07/23/18 08:36 Dose: 40 mg - Labs Labs: 07/23/18 04:20 07/23/18 04:20 PT 14.9 Seconds (9.8-13.1) H 07/22/18 11:03 INR 1.3 07/22/18 11:03 APTT 31.6 Seconds (25.6-37.1) 07/22/18 11:03 - Constitutional Appears: No Acute Distress - Eye Exam Eye Exam: Conjunctival injection - ENT Exam ENT Exam: Mucous Membranes Moist - Respiratory Exam Respiratory Exam: NORMAL BREATHING PATTERN - Cardiovascular Exam Cardiovascular Exam: absent: Gallop, JVD, Rubs - GI/Abdominal Exam GI & Abdominal Exam: Soft, Normal Bowel Sounds - Extremities Exam Extremities Exam: absent: Calf Tenderness - Back Exam Back Exam: absent: CVA tenderness (L), CVA tenderness (R) - Neurological Exam Neurological Exam: Alert - Psychiatric Exam Psychiatric exam: Normal Affect - Skin Skin Exam: absent: Cyanosis Assessment and Plan (1) ARF (acute renal failure) Assessment & Plan: He was seen on hemodialysis now. Dialysis nurse at the bedside I discussed the order to do ultrafiltration in the range of 2000 cc because of the low urine output and the patient was given significant amount of volume expansion. Acute kidney injury perhaps related to multifactoria including rhabdomyolysis and possible sepsis rhabdomyolysis DIC as per hematology Hyperkalemia corrected Abnormal liver function test which very elevated and trending down High CPK in the range of 55,000+ which has been trending down from over 76,000, the latest 2 days 16,400+ Metabolic acidosis which has been improving Worsening kidney function rising creatinine Soft tissue infection around the neck area etiology not clear. Leukocytosis on initial admission which has been trending down Recommendation Hemodialysis in progress Discussed with the dialysis nurse to remove 2000 cc of possible And we will give extra hemodialysis tomorrow on Thursday and the next treatment will be Thursday if needed Antibiotics ongoing As per primary team and intensive care unit and hematology I strongly suggest to remove femoral catheter and to be replaced with subclavian or jugular catheter Status: Acute (2) Altered mental status Status: Acute (3) Hyperkalemia Status: Acute (4) Ingestion of toxic substance Status: Acute (5) Septic shock Status: Acute
[2018-07-23] MEDS: Magnesium Oxide 400 mg Tab UD PO SCH ×2 (15:10→18:05)
[2018-07-23] MEDS ORDERED: Epoetin Alfa 20000 UNIT/ML Inj SC ONE (20:35)
[2018-07-23] MEDS ORDERED: DEXTROSE 5% IVPB ONE (22:00)
[2018-07-23] MEDS ORDERED: WATER IVPB ONE (22:00)
[2018-07-23] MEDS ORDERED: ACETYLCYSTEINE IVPB ONE (22:00)
[2018-07-24 06:53] LABS: BASO % 0.6 % (0.0-2.0); EOS # 0.6 K/uL (0.0-0.7); EOS % 7.6 % (0.0-4.0); HEMOGLOBIN 8.4 g/dL (12.0-18.0); LYMPH # 1.2 K/uL (1.0-4.3); LYMPH % 15.1 % (20.0-40.0); MEAN CELL VOLUME 90.2 fl (80.0-94.0); MEAN CORPUSCULAR HEMOGLOBIN 31.1 pg (27.0-31.0); MEAN CORPUSCULAR HGB CONC 34.5 g/dL (33.0-37.0); MEAN PLATELET VOLUME 10.4 fl (7.2-11.7); MONO # 0.9 K/uL (0.0-0.8); NEUT # 5.3 K/uL (1.8-7.0); NEUT % 65.7 % (50.0-75.0); RBC 2.71 Mil/uL (4.40-5.90); RED CELL DISTRIBUTION WIDTH 12.1 % (11.5-14.5)
[2018-07-24 07:33] LABS: ALB/GLOB RATIO 0.9 (1.0-2.1); ALBUMIN 2.2 g/dL (3.5-5.0); CALCIUM 7.3 mg/dL (8.4-10.2)
--- NOTE | 2018-07-24 08:04 | CP.PCM.PN ---
Subjective - Date & Time of Evaluation Date of Evaluation: 07/24/18 Time of Evaluation: 08:04 - Subjective Subjective: has no complaintsm, tolerating IV fluids Objective - Vital Signs/Intake and Output Vital Signs (last 24 hours): Temp Pulse Resp BP Pulse Ox 98.3 F 60 15 142/76 100 07/24/18 08:00 07/24/18 08:00 07/24/18 08:00 07/24/18 06:00 07/24/18 08:00 Intake and Output: 07/24/18 07/24/18 06:59 18:59 Intake Total 1430 0 Output Total 600 Balance 830 0 - Medications Medications: Current Medications Epoetin Marito (Procrit) 8,000 unit IV MWF [facility] [place] Heparin Sodium (Porcine) (Heparin) 5,000 units SC Q12 [facility] [place]; Protocol Acetylcysteine 9,980 mg/ (Dextrose) 1,049.9 mls @ 62.5 mls/hr IVPB ONCE ONE Stop: 07/24/18 14:47 Last Admin: 07/23/18 22:17 Dose: 62.5 mls/hr Magnesium Oxide (Mag-Ox) 400 mg PO BID [facility] Last Admin: 07/23/18 18:05 Dose: 400 mg Ondansetron HCl (Zofran Inj) 4 mg IVP Q6 PRN PRN Reason: Nausea/Vomiting Last Admin: 07/21/18 11:06 Dose: 4 mg Pantoprazole Sodium (Protonix Ec Tab) 40 mg PO DAILY [facility] - Labs Labs: 07/24/18 05:36 07/24/18 05:36 PT 14.9 Seconds (9.8-13.1) H 07/22/18 11:03 INR 1.3 07/22/18 11:03 APTT 31.6 Seconds (25.6-37.1) 07/22/18 11:03 - Constitutional Appears: Well, Non-toxic - Head Exam Head Exam: ATRAUMATIC, NORMAL INSPECTION, NORMOCEPHALIC - Eye Exam Eye Exam: EOMI. absent: Conjunctival injection Pupil Exam: NORMAL ACCOMODATION - ENT Exam ENT Exam: Mucous Membranes Moist - Neck Exam Neck Exam: Full ROM - Respiratory Exam Respiratory Exam: Clear to Ausculation Bilateral, NORMAL BREATHING PATTERN - Cardiovascular Exam Cardiovascular Exam: RRR, +S1, +S2 - GI/Abdominal Exam GI & Abdominal Exam: Soft, Normal Bowel Sounds. absent: Tenderness, Hypoactive Bowel Sounds - Extremities Exam Extremities Exam: Pedal Edema - Neurological Exam Neurological Exam: Alert, Awake, CN II-XII Intact, Oriented x3 Assessment and Plan - Assessment and Plan (Free Text) Assessment: CRISTINA: 2nd severe rhabdo, continue IVF hydration monitor urine output, HD if signs of fluid overloaded -remove TLC from right femoral site, -possible swithc from left HD cath to neck or subclavian -Patient hasno fevers, avoid any nephrotoxic drugs -d/c abx -continue to monitor -thrombocytopenia: resolving -dvt ppx heaprin q12 -pud ppx protonix patient remains hemodynamically stable. -HD as necessary making >400 ml of urine suspect kidney function improving -d/c IV mucomyst d/w ICU team
[2018-07-24] MEDS ORDERED: Lactated Ringer's 1,000 ML IV SCH (08:45)
[2018-07-24] MEDS: Pantoprazole 40 mg EC Tab PO SCH (09:32)
[2018-07-24] MEDS: Magnesium Oxide 400 mg Tab UD PO SCH ×2 (09:32→16:04)
[2018-07-24] MEDS: Sodium Chloride 0.9% 1,000 ML IV SCH (09:37)
--- NOTE | 2018-07-24 09:53 | CP.PCM.PN ---
Subjective - Date & Time of Evaluation Date of Evaluation: 07/24/18 Time of Evaluation: 09:40 - Subjective Subjective: Seen at bedside. Afebrile. No acute events overnight. States I feel "ok". Got out of bed Yesterday with help from family. Denies CP, palpitations, SOB, Calf pain, abd pain, vomiting or nausea. Tolerating PO. Producing some urine. Objective - Vital Signs/Intake and Output Vital Signs (last 24 hours): Temp Pulse Resp BP Pulse Ox 98.3 F 60 15 142/76 100 07/24/18 08:00 07/24/18 08:00 07/24/18 08:00 07/24/18 06:00 07/24/18 08:00 Intake and Output: 07/24/18 07/24/18 06:59 18:59 Intake Total 1430 360 Output Total 600 Balance 830 360 - Medications Medications: Current Medications Epoetin Marito (Procrit) 8,000 unit IV F [facility] Heparin Sodium (Porcine) (Heparin) 5,000 units SC Q12 [facility]; Protocol Last Admin: 07/24/18 09:31 Dose: 5,000 units Sodium Chloride (Sodium Chloride 0.9%) 1,000 mls @ 75 mls/hr IV .[id number] [facility] Stop: 07/25/18 08:39 Last Admin: 07/24/18 09:37 Dose: 75 mls/hr Lactated Ringer's (Lactated Ringer's) 1,000 mls @ 75 mls/hr IV .[id number] [facility] Last Admin: 07/24/18 09:10 Dose: 75 mls/hr Magnesium Oxide (Mag-Ox) 400 mg PO BID [facility] Last Admin: 07/24/18 09:32 Dose: 400 mg Ondansetron HCl (Zofran Inj) 4 mg IVP Q6 PRN PRN Reason: Nausea/Vomiting Last Admin: 07/21/18 11:06 Dose: 4 mg Pantoprazole Sodium (Protonix Ec Tab) 40 mg PO DAILY [facility] Last Admin: 07/24/18 09:32 Dose: 40 mg Vitamin B Complex/Vit C/Folic Acid (Nephro-Chey) 1 tab PO DAILY [facility] - Labs Labs: 07/24/18 05:36 07/24/18 05:36 PT 14.9 Seconds (9.8-13.1) H 07/22/18 11:03 INR 1.3 07/22/18 11:03 APTT 31.6 Seconds (25.6-37.1) 07/22/18 11:03 - Constitutional Appears: Other (Ill) - Eye Exam Eye Exam: EOMI, PERRL - ENT Exam ENT Exam: Mucous Membranes Moist - Neck Exam Neck Exam: Full ROM. absent: Normal Inspection (B/L diffuse neck swelling) - Respiratory Exam Respiratory Exam: Clear to Ausculation Bilateral, NORMAL BREATHING PATTERN. absent: Wheezes - Cardiovascular Exam Cardiovascular Exam: REGULAR RHYTHM, +S1, +S2. absent: Gallop - GI/Abdominal Exam GI & Abdominal Exam: Soft, Normal Bowel Sounds. absent: Tenderness - Extremities Exam Extremities Exam: Pedal Edema (Mild). absent: Tenderness - Neurological Exam Neurological Exam: Alert, Awake, Oriented x3 - Psychiatric Exam Psychiatric exam: Normal Affect, Normal Mood - Skin Skin Exam: Pallor, Warm Assessment and Plan - Assessment and Plan (Free Text) Assessment: 28 year old male with PMHx of psoriasis brought to ER by EMS after being found unresponsive. Patient W/AMS, acute drug intoxication(Unknown), CRISTINA, acute liver failure and rhabdomolysis. on HD Plan: CRISTINA - Likely due to substance abuse - Persistently elevated BUN/Creat - ON HD - Nephro on board. F/U recs - Stop IV fluids as per Nephro due to concerns of fluid overload Acute liver failure likely secondary to substance use/shock liver - Improving - NAC DCed by ICU team. LFTs <1000 - GI Consulton board, Will follow recs. - Monitor Electrolyte imbalance - Hypokelemia. replacing K - Na, Cl and Ca normalized Pancytopenia/DIC w/possible marrow depression - Stable - Dr. Abdullahi Hem/onc on board: Transfuse if Hgb < 8 or Plt <25 - Monitor CBC Rhabdomyolysis - CPK trending down - Improved - Stop IV fluids as per Nephro recs due to concerns of fluid overload - On HD AMS 2/2 Acute drug intoxication - resolved - Possible opioid cocktail - S/p Narcan, Fomopizole, acetylcystine, levophed, Sodium Bicarb x 3 and Kayexalete B/L Parotitis - Stable, afebrile, VSS - Gen Surg consulted, no surgical intervention. Recommended ENT eval - ENT consulted: Recs IV ABx. - Zosyn stopped today by ICU team Elevated troponins Cardio consulted. Likely noncardiac No CP Extensive psoriasis - Reports using cream at home - Will consider treatment once patient stable Prophylaxis - DVT: SCDs - GI: Zofran PRN, Protonix Code status Full code
--- NOTE | 2018-07-24 10:36 | CP.PCM.PN ---
Subjective - Date & Time of Evaluation Date of Evaluation: 07/24/18 Time of Evaluation: 10:34 - Subjective Subjective: Pt is very alert and well oriented.His CBC is improving ,with the hgb 8.6 gms on the procrit. He is still on the dialysiswith the creatinine being 6.2,LFT improving as well. Objective - Vital Signs/Intake and Output Vital Signs (last 24 hours): Temp Pulse Resp BP Pulse Ox 98.3 F 61 12 142/76 100 07/24/18 08:00 07/24/18 10:00 07/24/18 10:00 07/24/18 06:00 07/24/18 10:00 Intake and Output: 07/24/18 07/24/18 06:59 18:59 Intake Total 1430 360 Output Total 600 Balance 830 360 - Medications Medications: Current Medications Epoetin Marito (Procrit) 8,000 unit IV MWF [facility] Heparin Sodium (Porcine) (Heparin) 5,000 units SC Q12 [facility]; Protocol Last Admin: 07/24/18 09:31 Dose: 5,000 units Sodium Chloride (Sodium Chloride 0.9%) 1,000 mls @ 75 mls/hr IV .[id number] [facility] Stop: 07/25/18 08:39 Last Admin: 07/24/18 09:37 Dose: 75 mls/hr Lactated Ringer's (Lactated Ringer's) 1,000 mls @ 75 mls/hr IV .[id number] [facility] Last Admin: 07/24/18 09:10 Dose: 75 mls/hr Magnesium Oxide (Mag-Ox) 400 mg PO BID [facility] Last Admin: 07/24/18 09:32 Dose: 400 mg Ondansetron HCl (Zofran Inj) 4 mg IVP Q6 PRN PRN Reason: Nausea/Vomiting Last Admin: 07/21/18 11:06 Dose: 4 mg Pantoprazole Sodium (Protonix Ec Tab) 40 mg PO DAILY [facility] Last Admin: 07/24/18 09:32 Dose: 40 mg Vitamin B Complex/Vit C/Folic Acid (Nephro-Chey) 1 tab PO DAILY [facility] - Labs Labs: 07/24/18 05:36 07/24/18 05:36 PT 14.9 Seconds (9.8-13.1) H 07/22/18 11:03 INR 1.3 07/22/18 11:03 APTT 31.6 Seconds (25.6-37.1) 07/22/18 11:03
[2018-07-24 11:12] LABS: IRON 56 ug/dL (49-181)
[2018-07-24 11:22] LABS: % IRON SATURATION 26 % (20-55); TOTAL IRON BINDING CAPACITY 218 ug/dL (250-450)
[2018-07-24] MEDS: Multivitamin Vitamin B Complex (Nephro-Vite) Tab PO SCH (12:24)
--- NOTE | 2018-07-24 13:00 | CP.PCM.PN ---
Subjective - Date & Time of Evaluation Date of Evaluation: 07/24/18 Time of Evaluation: 10:00 - Subjective Subjective: Nephrology Consultation Note Assessment: critical Acute Kidney Injury (N17.9) likely due to ATN due to rhabdomyolysis, dialysis dependent Anemia, thrombocytopenia parotitis acute liver injury hx of alcohol and drug psoriasis Plan last HD yesterday. pt appears fluid overloaded clinically. favor to maintain him in negative balance. his CPK level also tended down consider to d/c IVF and start IV loop diuretics. if not successful and or if cr remains high, will plan for next dialysis session soon. Please remove femoral shiley latest by tomorrow. BP control with meds as ordered. Maintain hemodynamics stable. Avoid hypotension. Patient not on ACEI/ARB due to recent CRISTINA Monitor Input/Output, daily weights and renal function with basic metabolic panel started IV iron and continue with epogen Dose meds/antibiotics for reduced GFR. Avoid fleets enema/magnesium based laxatives. Avoid nephrotoxins/NSAIDs/ iodinated contrast (unless needed emergently) Glycemic control Further work up for as per primary team Thanks for allowing me to participate in care of your patient. Will follow patient with you. Please call if any Qs. had d/w team Dr Patrick Jean-Baptiste Office: [phone] Subjective: Noted events overnight. Patients feels okay. Denies chest pain, palpitation, shortness of breath, leg swelling. All other negative making more urine Physical Examination: General Appearance: Comfortable, in no acute respiratory distress, co-operative . Vitals reviewed and noted as below Head; Atraumatic, normocephalic ENT: no ulcers no thrush. Tongue is midline. Oropharynx: no rash or ulcers. EYES: Pupils are equal, round and reactive to light accommodation. Eye muscles and extraocular movement intact. Sclera is anicteric. Neck; swelling submandibular area b/l noted Lungs: Normal respiratory rate/effort. Breath sounds bilateral decreased at bases Heart: Normal rate. s1s2 normal. No rub or gallop. Extremities: 2-3+ edema. No varicose veins Neurological: Patient is alert, awake and oriented to person, place and time. No focal deficit. Strength bilateral appropriate and equal Skin: Warm and dry. Normal turgor. know psoriasis rash. Palpitation: Normal elasticity for age Abdomen: Abdomen is soft. Bowel sounds +. There is no abdominal tenderness, no guarding/rigidity no organomegaly. has abdomen wall edema Psych: normal insight and normal affect/mood MSK: no joint tenderness or swelling. Digits and nails normal, no deformity : kidney or bladder not palpable. left femoral shiley Labs/imaging reviewed. Past medical history, past surgical history, family history, social history, allergy reviewed and noted as below Family hx: no hx of CKD. Rest non-contributory Objective - Vital Signs/Intake and Output Vital Signs (last 24 hours): Temp Pulse Resp BP Pulse Ox 98.6 F 60 15 138/75 100 07/24/18 12:00 07/24/18 12:00 07/24/18 12:00 07/24/18 12:00 07/24/18 12:00 Intake and Output: 07/24/18 07/24/18 06:59 18:59 Intake Total 1430 360 Output Total 600 500 Balance 830 -140 - Medications Medications: Current Medications Epoetin Marito (Procrit) 8,000 unit IV [facility] Heparin Sodium (Porcine) (Heparin) 5,000 units SC Q12 [facility]; Protocol Last Admin: 07/24/18 09:31 Dose: 5,000 units Sodium Chloride (Sodium Chloride 0.9%) 1,000 mls @ 75 mls/hr IV .[id number] [facility] Stop: 07/25/18 08:39 Last Admin: 07/24/18 09:37 Dose: 75 mls/hr Lactated Ringer's (Lactated Ringer's) 1,000 mls @ 75 mls/hr IV .[id number] [facility] Last Admin: 07/24/18 09:10 Dose: 75 mls/hr Magnesium Oxide (Mag-Ox) 400 mg PO BID [facility] Last Admin: 07/24/18 09:32 Dose: 400 mg Ondansetron HCl (Zofran Inj) 4 mg IVP Q6 PRN PRN Reason: Nausea/Vomiting Last Admin: 07/21/18 11:06 Dose: 4 mg Pantoprazole Sodium (Protonix Ec Tab) 40 mg PO DAILY [facility] Last Admin: 07/24/18 09:32 Dose: 40 mg Vitamin B Complex/Vit C/Folic Acid (Nephro-Chey) 1 tab PO DAILY [facility] Last Admin: 07/24/18 12:24 Dose: 1 tab - Labs Labs: 07/24/18 05:36 07/24/18 05:36 PT 14.9 Seconds (9.8-13.1) H 07/22/18 11:03 INR 1.3 07/22/18 11:03 APTT 31.6 Seconds (25.6-37.1) 07/22/18 11:03
[2018-07-24 17:16] LABS: FOLATE 11.9 ng/mL
[2018-07-24 22:14] LABS: CSF ALPHA-1-GLOBULIN 6.1 % (1.8-6.5); CSF ALPHA-2-GLOBULIN 7.9 % (4.6-10.8); CSF BETA GLOBULIN 13.2 % (7.8-18.2); CSF GAMMA GLOBULIN 12.8 % (4.8-17.6); CSF PRE-ALBUMIN 6.7 % (1.3-6.9)
--- NOTE | 2018-07-25 00:18 | CP.PCM.PN ---
Subjective - Date & Time of Evaluation Date of Evaluation: 07/31/18 Time of Evaluation: 23:00 - Subjective Subjective: Patient was alert today. On and off abdominal pain. Objective - Vital Signs/Intake and Output Vital Signs (last 24 hours): Temp Pulse Resp BP Pulse Ox 99.3 F 64 28 H 118/75 96 07/24/18 20:00 07/24/18 22:00 07/24/18 22:00 07/24/18 22:00 07/24/18 22:00 Intake and Output: 07/24/18 07/25/18 18:59 06:59 Intake Total 1950 360 Output Total 625 Balance 1325 360 - Medications Medications: Current Medications Epoetin Marito (Procrit) 8,000 unit IV MWF [facility] Heparin Sodium (Porcine) (Heparin) 5,000 units SC Q12 [facility]; Protocol Last Admin: 07/24/18 21:37 Dose: 5,000 units Sodium Chloride (Sodium Chloride 0.9%) 1,000 mls @ 75 mls/hr IV .[id number] [facility] Stop: 07/25/18 08:39 Last Admin: 07/24/18 09:37 Dose: 75 mls/hr Iron Sucrose 100 mg/ Sodium (Chloride) 105 mls @ 105 mls/hr IVPB DAILY [facility] Stop: 08/03/18 13:01 Last Admin: 07/24/18 16:01 Dose: 105 mls/hr Magnesium Oxide (Mag-Ox) 400 mg PO BID [facility] Last Admin: 07/24/18 16:04 Dose: 400 mg Ondansetron HCl (Zofran Inj) 4 mg IVP Q6 PRN PRN Reason: Nausea/Vomiting Last Admin: 07/21/18 11:06 Dose: 4 mg Pantoprazole Sodium (Protonix Ec Tab) 40 mg PO DAILY [facility] Last Admin: 07/24/18 09:32 Dose: 40 mg Vitamin B Complex/Vit C/Folic Acid (Nephro-Chey) 1 tab PO DAILY [facility] Last Admin: 07/24/18 12:24 Dose: 1 tab - Labs Labs: 07/24/18 05:36 07/24/18 05:36 PT 14.9 Seconds (9.8-13.1) H 07/22/18 11:03 INR 1.3 07/22/18 11:03 APTT 31.6 Seconds (25.6-37.1) 07/22/18 11:03 - Head Exam Head Exam: ATRAUMATIC - Eye Exam Eye Exam: Normal appearance - ENT Exam ENT Exam: Normal Exam - Respiratory Exam Respiratory Exam: NORMAL BREATHING PATTERN - Cardiovascular Exam Cardiovascular Exam: REGULAR RHYTHM - GI/Abdominal Exam GI & Abdominal Exam: Soft, Normal Bowel Sounds Assessment and Plan (1) Elevated liver enzymes Assessment & Plan: Generally appears better. LFTs continue to improve daily. Status: Acute
[2018-07-25 05:35] LABS: BASO # 0.1 K/uL (0.0-0.2); BASO % 0.7 % (0.0-2.0); EOS # 0.7 K/uL (0.0-0.7); EOS % 7.1 % (0.0-4.0); HEMOGLOBIN 9.2 g/dL (12.0-18.0); LYMPH # 1.5 K/uL (1.0-4.3); LYMPH % 14.3 % (20.0-40.0); MEAN CELL VOLUME 91.5 fl (80.0-94.0); MEAN CORPUSCULAR HEMOGLOBIN 30.7 pg (27.0-31.0); MEAN CORPUSCULAR HGB CONC 33.6 g/dL (33.0-37.0); MEAN PLATELET VOLUME 10.2 fl (7.2-11.7); MONO # 1.1 K/uL (0.0-0.8); MONO % 10.6 % (0.0-10.0); NEUT % 67.3 % (50.0-75.0); RED CELL DISTRIBUTION WIDTH 12.4 % (11.5-14.5); WHITE BLOOD COUNT 10.5 K/uL (4.8-10.8)
[2018-07-25 05:46] LABS: ALBUMIN 2.4 g/dL (3.5-5.0); CALCIUM 7.6 mg/dL (8.4-10.2)
[2018-07-25] MEDS: Pantoprazole 40 mg EC Tab PO SCH (08:53)
[2018-07-25] MEDS: Multivitamin Vitamin B Complex (Nephro-Vite) Tab PO SCH (08:53)
[2018-07-25] MEDS: Magnesium Oxide 400 mg Tab UD PO SCH ×2 (08:54→17:32)
--- NOTE | 2018-07-25 10:32 | CP.PCM.PN ---
Subjective - Date & Time of Evaluation Date of Evaluation: 07/25/18 Time of Evaluation: 08:50 - Subjective Subjective: Patient seen and examined at bedside. Patient is awake alert oriented x3 , hemodynamically stable, afebrile. Patient continues to have abdominal distention, mild discomfort, passing flatus, tolerating Po intake and voiding well. Ambulating well W/O difficulties. BUN/Cr increasing, CPK trending down, AST/ ALT improving and HGB stable. Denies CP, palpitations, SOB, Calf pain, abd pain, vomiting or nausea. Objective - Vital Signs/Intake and Output Vital Signs (last 24 hours): Temp Pulse Resp BP Pulse Ox 98.3 F 70 20 119/76 100 07/25/18 08:00 07/25/18 08:00 07/25/18 08:00 07/25/18 08:00 07/25/18 08:00 Intake and Output: 07/25/18 07/25/18 06:59 18:59 Intake Total 960 150 Output Total 700 Balance 260 150 - Medications Medications: Current Medications Epoetin Marito (Procrit) 8,000 unit IV F [facility] Heparin Sodium (Porcine) (Heparin) 5,000 units SC Q12 [facility]; Protocol Last Admin: 07/25/18 08:52 Dose: 5,000 units Iron Sucrose 100 mg/ Sodium (Chloride) 105 mls @ 105 mls/hr IVPB DAILY [facility] Stop: 08/03/18 13:01 Last Admin: 07/25/18 08:53 Dose: 105 mls/hr Magnesium Oxide (Mag-Ox) 400 mg PO BID [facility] Last Admin: 07/25/18 08:54 Dose: 400 mg Ondansetron HCl (Zofran Inj) 4 mg IVP Q6 PRN PRN Reason: Nausea/Vomiting Last Admin: 07/21/18 11:06 Dose: 4 mg Pantoprazole Sodium (Protonix Ec Tab) 40 mg PO DAILY [facility] Last Admin: 07/25/18 08:53 Dose: 40 mg Vitamin B Complex/Vit C/Folic Acid (Nephro-Chey) 1 tab PO DAILY [facility] Last Admin: 07/25/18 08:53 Dose: 1 tab - Labs Labs: 07/25/18 04:25 07/25/18 04:25 PT 14.9 Seconds (9.8-13.1) H 07/22/18 11:03 INR 1.3 07/22/18 11:03 APTT 31.6 Seconds (25.6-37.1) 07/22/18 11:03 - Constitutional Appears: Well, No Acute Distress - Head Exam Head Exam: ATRAUMATIC, NORMOCEPHALIC - Eye Exam Eye Exam: EOMI, Normal appearance - ENT Exam ENT Exam: Mucous Membranes Moist - Neck Exam Neck Exam: Full ROM - Respiratory Exam Respiratory Exam: Clear to Ausculation Bilateral, NORMAL BREATHING PATTERN. absent: Rales, Rhonchi, Wheezes, Respiratory Distress - Cardiovascular Exam Cardiovascular Exam: REGULAR RHYTHM, +S1, +S2 - GI/Abdominal Exam GI & Abdominal Exam: Distended, Soft, Normal Bowel Sounds. absent: Guarding, Rigid, Tenderness - Extremities Exam Extremities Exam: Pedal Edema. absent: Calf Tenderness, Tenderness Additional comments: Dependent trace edema B/L LE. - Neurological Exam Neurological Exam: Alert, Awake, Oriented x3 - Psychiatric Exam Psychiatric exam: Normal Affect, Normal Mood - Skin Skin Exam: Dry, Intact, Normal Color, Warm Assessment and Plan - Assessment and Plan (Free Text) Assessment: 28 year old male with PMHx of psoriasis brought to ER by EMS after being found unresponsive. Patient W/AMS, acute drug intoxication(Unknown), CRISTINA, acute liver failure and rhabdomolysis. on HD Plan: CRISTINA - Likely due to substance abuse - Persistently elevated BUN/Creat, 38/7.7 - S/P HD x 3 - Nephro on board. F/U recs - As per Nephro: Maintain Neg balance, D/C IVF and Start loop diuretics, if not successful and or if cr remains high, will plan for next dialysis session soon. - Femoral HD access removed, Plan for switch from left HD cath to neck or subclavian - Monitor Input/Output, daily weights and renal function with basic metabolic panel - Started IV iron and continue with epogen Acute liver failure likely secondary to substance use/shock liver - Improving - NAC DCed by ICU team. LFTs <1000 - GI Consulton board, Will follow recs. - Monitor Pancytopenia - Stable, Improving - Dr. Abdullahi Hem/onc on board: Follow recs - Monitor CBC Rhabdomyolysis - CPK trending down - Stop IV fluids as per Nephro recs due to concerns of fluid overload - On HD B/L Parotitis - Stable, Improving - Gen Surg consulted, no surgical intervention. Recommended ENT eval - ENT consulted - Zosyn stopped today by ICU team Elevated troponins Cardio consulted. Likely noncardiac No CP Extensive psoriasis - Reports using cream at home - Will consider treatment once patient stable Prophylaxis - DVT: SCDs - GI: Zofran PRN, Protonix Code status Full code
[2018-07-25] MEDS ORDERED: Sodium Chloride 0.9% 1,000 ML IV SCH (10:45)
--- NOTE | 2018-07-25 11:23 | CP.PCM.PN ---
Subjective - Date & Time of Evaluation Date of Evaluation: 07/25/18 Time of Evaluation: 11:21 - Subjective Subjective: Patient breathing confortably, no requirement for NC, (+)urine output Objective - Vital Signs/Intake and Output Vital Signs (last 24 hours): Temp Pulse Resp BP Pulse Ox 98.3 F 70 20 119/76 100 07/25/18 08:00 07/25/18 08:00 07/25/18 08:00 07/25/18 08:00 07/25/18 08:00 Intake and Output: 07/25/18 07/25/18 06:59 18:59 Intake Total 960 525 Output Total 700 300 Balance 260 225 - Medications Medications: Current Medications Epoetin Marito (Procrit) 8,000 unit IV MWF [facility] Heparin Sodium (Porcine) (Heparin) 5,000 units SC Q12 [facility]; Protocol Last Admin: 07/25/18 08:52 Dose: 5,000 units Iron Sucrose 100 mg/ Sodium (Chloride) 105 mls @ 105 mls/hr IVPB DAILY [facility] Stop: 08/03/18 13:01 Last Admin: 07/25/18 08:53 Dose: 105 mls/hr Sodium Chloride (Sodium Chloride 0.9%) 1,000 mls @ 1,000 mls/hr IV .Q1H [facility] Stop: 07/26/18 10:36 Magnesium Oxide (Mag-Ox) 400 mg PO BID [facility] Last Admin: 07/25/18 08:54 Dose: 400 mg Ondansetron HCl (Zofran Inj) 4 mg IVP Q6 PRN PRN Reason: Nausea/Vomiting Last Admin: 07/21/18 11:06 Dose: 4 mg Pantoprazole Sodium (Protonix Ec Tab) 40 mg PO DAILY [facility] Last Admin: 07/25/18 08:53 Dose: 40 mg Vitamin B Complex/Vit C/Folic Acid (Nephro-Chey) 1 tab PO DAILY [facility] Last Admin: 07/25/18 08:53 Dose: 1 tab - Labs Labs: 07/25/18 04:25 07/25/18 04:25 PT 14.9 Seconds (9.8-13.1) H 07/22/18 11:03 INR 1.3 07/22/18 11:03 APTT 31.6 Seconds (25.6-37.1) 07/22/18 11:03 - Constitutional Appears: Well, Non-toxic - Head Exam Head Exam: ATRAUMATIC, NORMAL INSPECTION, NORMOCEPHALIC - Eye Exam Eye Exam: Normal appearance - ENT Exam ENT Exam: Mucous Membranes Moist - Respiratory Exam Respiratory Exam: Clear to Ausculation Bilateral, NORMAL BREATHING PATTERN - Cardiovascular Exam Cardiovascular Exam: REGULAR RHYTHM, +S1, +S2, +S4 - GI/Abdominal Exam GI & Abdominal Exam: Normal Bowel Sounds - Rectal Exam Rectal Exam: NORMAL INSPECTION - Extremities Exam Extremities Exam: Full ROM, Pedal Edema - Neurological Exam Neurological Exam: Alert, Altered, Awake, CN II-XII Intact, Oriented x3 - Skin Skin Exam: Normal Color Assessment and Plan - Assessment and Plan (Free Text) Assessment: CRISTINA: 2nd severe rhabdo, continue IVF hydration monitor urine output, HD if signs of fluid overloaded -remove HD from left femoral site, -switch from left HD cath to neck or subclavian -thrombocytopenia: resolving -dvt ppx heaprin q12 -pud ppx protonix -patient remains hemodynamically stable. -HD as necessary making >400 ml of urine suspect kidney function improving d/w nephrology
--- NOTE | 2018-07-25 11:31 | CP.PCM.PN ---
Subjective - Date & Time of Evaluation Date of Evaluation: 07/25/18 Time of Evaluation: 08:00 - Subjective Subjective: Nephrology Consultation Note Assessment: critical Acute Kidney Injury (N17.9) likely due to ATN due to rhabdomyolysis, dialysis dependent Anemia, thrombocytopenia parotitis acute liver injury hx of alcohol and drug psoriasis Plan last HD thursday. pt appears fluid overloaded clinically. favor to maintain him in negative balance. his CPK level also tended down consider to d/c IVF and start IV loop diuretics. if not successful and or if cr remains high, will plan for next dialysis session soon. Please remove femoral shiley latest by today. BP control with meds as ordered. Maintain hemodynamics stable. Avoid hypotension. Patient not on ACEI/ARB due to recent CRISTINA Monitor Input/Output, daily weights and renal function with basic metabolic panel started IV iron and continue with epogen Dose meds/antibiotics for reduced GFR. Avoid fleets enema/magnesium based laxatives. Avoid nephrotoxins/NSAIDs/ iodinated contrast (unless needed emergently) Glycemic control Further work up for as per primary team Thanks for allowing me to participate in care of your patient. Will follow patient with you. Please call if any Qs. had d/w team Dr Patrick Jean-Baptiste Office: [phone] Subjective: Noted events overnight. Patients feels okay. Denies chest pain, palpitation, shortness of breath, leg swelling. All other negative making urine ~ 40 pounds above initial weight Physical Examination: General Appearance: Comfortable, in no acute respiratory distress, co-operative . Vitals reviewed and noted as below Head; Atraumatic, normocephalic ENT: no ulcers no thrush. Tongue is midline. Oropharynx: no rash or ulcers. EYES: Pupils are equal, round and reactive to light accommodation. Eye muscles and extraocular movement intact. Sclera is anicteric. Neck; swelling submandibular area b/l noted Lungs: Normal respiratory rate/effort. Breath sounds bilateral decreased at bases Heart: Normal rate. s1s2 normal. No rub or gallop. Extremities: 2-3+ edema. No varicose veins Neurological: Patient is alert, awake and oriented to person, place and time. No focal deficit. Strength bilateral appropriate and equal Skin: Warm and dry. Normal turgor. know psoriasis rash. Palpitation: Normal elasticity for age Abdomen: Abdomen is soft. Bowel sounds +. There is no abdominal tenderness, no guarding/rigidity no organomegaly. has abdomen wall edema Psych: normal insight and normal affect/mood MSK: no joint tenderness or swelling. Digits and nails normal, no deformity : kidney or bladder not palpable. left femoral shiley Labs/imaging reviewed. Past medical history, past surgical history, family history, social history, allergy reviewed and noted as below Family hx: no hx of CKD. Rest non-contributory Objective - Vital Signs/Intake and Output Vital Signs (last 24 hours): Temp Pulse Resp BP Pulse Ox 98.3 F 70 20 119/76 100 07/25/18 08:00 07/25/18 08:00 07/25/18 08:00 07/25/18 08:00 07/25/18 08:00 Intake and Output: 07/25/18 07/25/18 06:59 18:59 Intake Total 960 525 Output Total 700 300 Balance 260 225 - Medications Medications: Current Medications Epoetin Marito (Procrit) 8,000 unit IV MWF [facility] Heparin Sodium (Porcine) (Heparin) 5,000 units SC Q12 [facility]; Protocol Last Admin: 07/25/18 08:52 Dose: 5,000 units Iron Sucrose 100 mg/ Sodium (Chloride) 105 mls @ 105 mls/hr IVPB DAILY [facility] Stop: 08/03/18 13:01 Last Admin: 07/25/18 08:53 Dose: 105 mls/hr Sodium Chloride (Sodium Chloride 0.9%) 1,000 mls @ 1,000 mls/hr IV .Q1H [facility] Stop: 07/26/18 10:36 Magnesium Oxide (Mag-Ox) 400 mg PO BID [facility] Last Admin: 07/25/18 08:54 Dose: 400 mg Ondansetron HCl (Zofran Inj) 4 mg IVP Q6 PRN PRN Reason: Nausea/Vomiting Last Admin: 07/21/18 11:06 Dose: 4 mg Pantoprazole Sodium (Protonix Ec Tab) 40 mg PO DAILY [facility] Last Admin: 07/25/18 08:53 Dose: 40 mg Vitamin B Complex/Vit C/Folic Acid (Nephro-Chey) 1 tab PO DAILY [facility] Last Admin: 07/25/18 08:53 Dose: 1 tab - Labs Labs: 07/25/18 04:25 07/25/18 04:25 PT 14.9 Seconds (9.8-13.1) H 07/22/18 11:03 INR 1.3 07/22/18 11:03 APTT 31.6 Seconds (25.6-37.1) 07/22/18 11:03
[2018-07-25] MEDS: Sodium Chloride 0.9% 1,000 ML IV SCH (19:30)
[2018-07-26 05:22] LABS: HEMOGLOBIN 9.2 g/dL (12.0-18.0); MEAN CELL VOLUME 91.8 fl (80.0-94.0); MEAN CORPUSCULAR HEMOGLOBIN 31.3 pg (27.0-31.0); MEAN CORPUSCULAR HGB CONC 34.1 g/dL (33.0-37.0); RBC 2.95 Mil/uL (4.40-5.90); RED CELL DISTRIBUTION WIDTH 12.7 % (11.5-14.5); WHITE BLOOD COUNT 10.4 K/uL (4.8-10.8)
[2018-07-26 05:48] LABS: ALBUMIN 2.4 g/dL (3.5-5.0); CALCIUM 7.8 mg/dL (8.4-10.2)
--- NOTE | 2018-07-26 09:25 | CP.PCM.PN ---
Subjective - Date & Time of Evaluation Date of Evaluation: 07/26/18 Time of Evaluation: 08:35 - Subjective Subjective: Patient seen and evaluated at bedside in AM in Telemetry. No acute events overnihgt. Patient is alert, awake and oriented x 3. Patient lying in bed comfortably. Patient continues to have mild diffuse abdominal pain w/o nausea, vomiting, diarrhea, F/C. Denies any CP or SOB. Tolerating diet well and voiding well. BUN/Cr increasing 44/8.9. LFTs/CPK trending down. Objective - Vital Signs/Intake and Output Vital Signs (last 24 hours): Temp Pulse Resp BP Pulse Ox 97.9 F 63 18 125/74 95 07/26/18 08:02 07/26/18 08:02 07/26/18 08:02 07/26/18 08:02 07/26/18 08:02 Intake and Output: 07/26/18 07/26/18 06:59 18:59 Intake Total 150 Output Total 600 Balance -450 - Medications Medications: Current Medications Cholecalciferol (Vitamin D) 2,000 intlu PO DAILY [facility] Epoetin Marito (Procrit) 8,000 unit IV MWF [facility] Furosemide (Lasix) 40 mg IVP DAILY [facility] Heparin Sodium (Porcine) (Heparin) 5,000 units SC Q12 [facility]; Protocol Last Admin: 07/25/18 21:42 Dose: 5,000 units Iron Sucrose 100 mg/ Sodium (Chloride) 105 mls @ 105 mls/hr IVPB DAILY [facility] Stop: 08/03/18 13:01 Last Admin: 07/25/18 08:53 Dose: 105 mls/hr Magnesium Oxide (Mag-Ox) 400 mg PO BID [facility] Last Admin: 07/25/18 17:32 Dose: 400 mg Ondansetron HCl (Zofran Inj) 4 mg IVP Q6 PRN PRN Reason: Nausea/Vomiting Last Admin: 07/21/18 11:06 Dose: 4 mg Pantoprazole Sodium (Protonix Ec Tab) 40 mg PO DAILY [facility] Last Admin: 07/25/18 08:53 Dose: 40 mg Vitamin B Complex/Vit C/Folic Acid (Nephro-Chey) 1 tab PO DAILY [facility] Last Admin: 07/25/18 08:53 Dose: 1 tab - Labs Labs: 07/26/18 04:30 07/26/18 04:30 PT 14.9 Seconds (9.8-13.1) H 07/22/18 11:03 INR 1.3 07/22/18 11:03 APTT 31.6 Seconds (25.6-37.1) 07/22/18 11:03 - Constitutional Appears: Non-toxic, No Acute Distress - Head Exam Head Exam: ATRAUMATIC, NORMOCEPHALIC - Eye Exam Eye Exam: EOMI, Normal appearance - ENT Exam ENT Exam: Mucous Membranes Moist - Neck Exam Neck Exam: Full ROM - Respiratory Exam Respiratory Exam: Clear to Ausculation Bilateral, NORMAL BREATHING PATTERN. absent: Rales, Rhonchi, Wheezes, Respiratory Distress - Cardiovascular Exam Cardiovascular Exam: REGULAR RHYTHM, +S1, +S2 - GI/Abdominal Exam GI & Abdominal Exam: Soft, Normal Bowel Sounds. absent: Distended, Tenderness - Extremities Exam Extremities Exam: absent: Calf Tenderness, Pedal Edema, Tenderness - Neurological Exam Neurological Exam: Alert, Awake, Oriented x3 - Psychiatric Exam Psychiatric exam: Normal Affect, Normal Mood - Skin Skin Exam: Dry, Intact, Normal Color, Warm Assessment and Plan - Assessment and Plan (Free Text) Assessment: 28 year old male with PMHx of psoriasis brought to ER by EMS after being found unresponsive. Patient W/AMS, acute drug intoxication(Unknown), CRISTINA, acute liver failure and rhabdomolysis. S/P HD x 3. Plan: CRISTINA - Likely due to substance abuse - Persistently elevated BUN/Creat, 44/8.9 - S/P HD x 3 - Nephro on board. F/U recs - As per Nephro: Maintain Neg balance, D/C IVF and Start loop diuretics, if not successful and or if cr remains high, will plan for next dialysis session soon. Femoral HD access to be removed. Plan for switch from left HD cath to neck or subclavian - Continue Epogen, Lasix 40 mg PO BID, D/C IVFs. - Monitor Input/Output, daily weights and renal function with basic metabolic panel - Possible HD today based on Nephro recs. Acute liver failure likely secondary to substance use/shock liver - Improving, <1000s - GI Consulton board, Will follow recs. - Monitor Pancytopenia - Stable, Improving - HgB 9.2/WBC 10.4/Plt 160 - Dr. Abdullahi Hem/onc on board: Follow recs - Monitor CBC Rhabdomyolysis - CPK trending down - Stop IV fluids as per Nephro recs due to concerns of fluid overload - On HD B/L Parotitis - Resolved Elevated troponins - Cardio consulted. Likely noncardiac - No CP Extensive psoriasis - Reports using cream at home - Will consider treatment once patient stable Prophylaxis - DVT: SCDs - GI: Zofran PRN, Protonix Code status Full code
[2018-07-26] MEDS: Multivitamin Vitamin B Complex (Nephro-Vite) Tab PO SCH (09:35)
[2018-07-26] MEDS: Pantoprazole 40 mg EC Tab PO SCH (09:35)
[2018-07-26] MEDS: Magnesium Oxide 400 mg Tab UD PO SCH ×2 (09:35→16:56)
--- NOTE | 2018-07-26 09:59 | CP.PCM.PN ---
Subjective - Date & Time of Evaluation Date of Evaluation: 07/26/18 Time of Evaluation: 09:29 - Subjective Subjective: Pt is feeling better. His LFT are slowly coming down, the CBC is stable, but the renal function still remains abnormal. Will monitor te cbc Objective - Vital Signs/Intake and Output Vital Signs (last 24 hours): Temp Pulse Resp BP Pulse Ox 97.9 F 63 18 125/74 95 07/26/18 08:02 07/26/18 08:02 07/26/18 08:02 07/26/18 08:02 07/26/18 08:02 Intake and Output: 07/26/18 07/26/18 06:59 18:59 Intake Total 150 Output Total 600 Balance -450 - Medications Medications: Current Medications Cholecalciferol (Vitamin D) 2,000 intlu PO DAILY [facility] Epoetin Marito (Procrit) 8,000 unit IV MWF [facility] Furosemide (Lasix) 40 mg IVP DAILY [facility] Heparin Sodium (Porcine) (Heparin) 5,000 units SC Q12 [facility]; Protocol Last Admin: 07/25/18 21:42 Dose: 5,000 units Iron Sucrose 100 mg/ Sodium (Chloride) 105 mls @ 105 mls/hr IVPB DAILY [facility] Stop: 08/03/18 13:01 Last Admin: 07/25/18 08:53 Dose: 105 mls/hr Magnesium Oxide (Mag-Ox) 400 mg PO BID [facility] Last Admin: 07/25/18 17:32 Dose: 400 mg Ondansetron HCl (Zofran Inj) 4 mg IVP Q6 PRN PRN Reason: Nausea/Vomiting Last Admin: 07/21/18 11:06 Dose: 4 mg Pantoprazole Sodium (Protonix Ec Tab) 40 mg PO DAILY [facility] Last Admin: 07/25/18 08:53 Dose: 40 mg Vitamin B Complex/Vit C/Folic Acid (Nephro-Chey) 1 tab PO DAILY [facility] Last Admin: 07/25/18 08:53 Dose: 1 tab - Labs Labs: 07/26/18 04:30 07/26/18 04:30 PT 14.9 Seconds (9.8-13.1) H 07/22/18 11:03 INR 1.3 07/22/18 11:03 APTT 31.6 Seconds (25.6-37.1) 07/22/18 11:03
--- NOTE | 2018-07-26 14:19 | CP.PCM.PN ---
Subjective - Date & Time of Evaluation Date of Evaluation: 07/26/18 Time of Evaluation: 14:18 - Subjective Subjective: Nephrology Consultation Note Assessment: stable Acute Kidney Injury (N17.9) likely due to ATN due to rhabdomyolysis, dialysis dependent Anemia, thrombocytopenia parotitis acute liver injury hx of alcohol and drug psoriasis Plan last HD thursday. pt appears fluid overloaded clinically. favor to maintain him in negative balance. his CPK level also tended down had d/c IVF and start IV loop diuretics. cr remains high, will plan for next dialysis session today. Please remove femoral shiley after HD today. BP control with meds as ordered. Maintain hemodynamics stable. Avoid hypotension. Patient not on ACEI/ARB due to recent CRISTINA Monitor Input/Output, daily weights and renal function with basic metabolic panel started IV iron and continue with epogen Dose meds/antibiotics for reduced GFR. Avoid fleets enema/magnesium based laxatives. Avoid nephrotoxins/NSAIDs/ iodinated contrast (unless needed emergently) Glycemic control Further work up for as per primary team Thanks for allowing me to participate in care of your patient. Will follow patient with you. Please call if any Qs. had d/w team Dr Patrick Jean-Baptiste Office: [phone] Subjective: Noted events overnight. Patients feels okay. Denies chest pain, palpitation, shortness of breath, leg swelling. All other negative making urine ~ 40 pounds above initial weight Physical Examination: General Appearance: Comfortable, in no acute respiratory distress, co-operative . Vitals reviewed and noted as below Head; Atraumatic, normocephalic ENT: no ulcers no thrush. Tongue is midline. Oropharynx: no rash or ulcers. EYES: Pupils are equal, round and reactive to light accommodation. Eye muscles and extraocular movement intact. Sclera is anicteric. Neck; swelling submandibular area b/l noted Lungs: Normal respiratory rate/effort. Breath sounds bilateral decreased at bases Heart: Normal rate. s1s2 normal. No rub or gallop. Extremities: 2-3+ edema. No varicose veins Neurological: Patient is alert, awake and oriented to person, place and time. No focal deficit. Strength bilateral appropriate and equal Skin: Warm and dry. Normal turgor. know psoriasis rash. Palpitation: Normal elasticity for age Abdomen: Abdomen is soft. Bowel sounds +. There is no abdominal tenderness, no guarding/rigidity no organomegaly. has abdomen wall edema Psych: normal insight and normal affect/mood MSK: no joint tenderness or swelling. Digits and nails normal, no deformity : kidney or bladder not palpable. left femoral shiley Labs/imaging reviewed. Past medical history, past surgical history, family history, social history, allergy reviewed and noted as below Family hx: no hx of CKD. Rest non-contributory Objective - Vital Signs/Intake and Output Vital Signs (last 24 hours): Temp Pulse Resp BP Pulse Ox 97.5 F L 67 18 149/92 H 97 07/26/18 12:09 07/26/18 12:09 07/26/18 12:09 07/26/18 12:09 07/26/18 12:09 Intake and Output: 07/26/18 07/26/18 06:59 18:59 Intake Total 150 Output Total 600 Balance -450 - Medications Medications: Current Medications Cholecalciferol (Vitamin D) 2,000 intlu PO DAILY [facility] Epoetin Marito (Procrit) 8,000 unit IV MWF [facility] Furosemide (Lasix) 40 mg IVP BID [facility] Heparin Sodium (Porcine) (Heparin) 5,000 units SC Q12 [facility]; Protocol Last Admin: 07/26/18 09:36 Dose: 5,000 units Iron Sucrose 100 mg/ Sodium (Chloride) 105 mls @ 105 mls/hr IVPB DAILY [facility] Stop: 08/03/18 13:01 Last Admin: 07/25/18 08:53 Dose: 105 mls/hr Magnesium Oxide (Mag-Ox) 400 mg PO BID [facility] Last Admin: 07/26/18 09:35 Dose: 400 mg Ondansetron HCl (Zofran Inj) 4 mg IVP Q6 PRN PRN Reason: Nausea/Vomiting Last Admin: 07/21/18 11:06 Dose: 4 mg Pantoprazole Sodium (Protonix Ec Tab) 40 mg PO DAILY [facility] Last Admin: 07/26/18 09:35 Dose: 40 mg Vitamin B Complex/Vit C/Folic Acid (Nephro-Chey) 1 tab PO DAILY [facility] Last Admin: 07/26/18 09:35 Dose: 1 tab - Labs Labs: 07/26/18 04:30 07/26/18 04:30 PT 14.9 Seconds (9.8-13.1) H 07/22/18 11:03 INR 1.3 07/22/18 11:03 APTT 31.6 Seconds (25.6-37.1) 07/22/18 11:03
[2018-07-26] MEDS: Epoetin Alfa 20000 UNIT/ML Inj IV SCH (15:21)
[2018-07-26] MEDS: Cholecalciferol 1,000 INTLU TAB PO SCH (15:26)
--- NOTE | 2018-07-26 17:35 | CP.PCM.PN ---
Subjective - Date & Time of Evaluation Date of Evaluation: 07/26/18 Time of Evaluation: 17:35 - Subjective Subjective: Patient awake and alert. Requires hemodialysis Objective - Vital Signs/Intake and Output Vital Signs (last 24 hours): Temp Pulse Resp BP Pulse Ox 98.5 F 73 20 156/101 H 99 07/26/18 16:04 07/26/18 16:04 07/26/18 16:04 07/26/18 16:59 07/26/18 16:04 Intake and Output: 07/26/18 07/26/18 06:59 18:59 Intake Total 150 Output Total 600 Balance -450 - Medications Medications: Current Medications Cholecalciferol (Vitamin D) 2,000 intlu PO DAILY [facility] Last Admin: 07/26/18 15:26 Dose: 2,000 intlu Epoetin Marito (Procrit) 8,000 unit IV MWF [facility] Last Admin: 07/26/18 15:21 Dose: 8,000 unit Furosemide (Lasix) 40 mg IVP BID [facility] Last Admin: 07/26/18 16:59 Dose: 40 mg Heparin Sodium (Porcine) (Heparin) 5,000 units SC Q12 [facility]; Protocol Last Admin: 07/26/18 09:36 Dose: 5,000 units Iron Sucrose 100 mg/ Sodium (Chloride) 105 mls @ 105 mls/hr IVPB DAILY [facility] Stop: 08/03/18 13:01 Last Admin: 07/26/18 15:26 Dose: 105 mls/hr Magnesium Oxide (Mag-Ox) 400 mg PO BID [facility] Last Admin: 07/26/18 16:56 Dose: 400 mg Ondansetron HCl (Zofran Inj) 4 mg IVP Q6 PRN PRN Reason: Nausea/Vomiting Last Admin: 07/21/18 11:06 Dose: 4 mg Pantoprazole Sodium (Protonix Ec Tab) 40 mg PO DAILY [facility] Last Admin: 07/26/18 09:35 Dose: 40 mg Vitamin B Complex/Vit C/Folic Acid (Nephro-Chey) 1 tab PO DAILY [facility] Last Admin: 07/26/18 09:35 Dose: 1 tab - Labs Labs: 07/26/18 04:30 07/26/18 04:30 PT 14.9 Seconds (9.8-13.1) H 07/22/18 11:03 INR 1.3 07/22/18 11:03 APTT 31.6 Seconds (25.6-37.1) 07/22/18 11:03 - Head Exam Head Exam: ATRAUMATIC - Eye Exam Eye Exam: Normal appearance - Neck Exam Neck Exam: Full ROM - Respiratory Exam Respiratory Exam: Clear to Ausculation Bilateral - Cardiovascular Exam Cardiovascular Exam: REGULAR RHYTHM, +S1, +S2 - GI/Abdominal Exam GI & Abdominal Exam: Soft. absent: Tenderness Assessment and Plan (1) Elevated liver enzymes Assessment & Plan: Liver enzymes continue to improve. Still with renal failure requiring hemodialysis. CPKs coming down. Status: Acute
[2018-07-27 05:30] LABS: BASO # 0.1 K/uL (0.0-0.2); BASO % 0.6 % (0.0-2.0); EOS # 0.6 K/uL (0.0-0.7); EOS % 5.6 % (0.0-4.0); HEMOGLOBIN 9.3 g/dL (12.0-18.0); LYMPH # 2.2 K/uL (1.0-4.3); LYMPH % 21.2 % (20.0-40.0); MEAN CELL VOLUME 92.5 fl (80.0-94.0); MEAN CORPUSCULAR HEMOGLOBIN 31.7 pg (27.0-31.0); MEAN CORPUSCULAR HGB CONC 34.3 g/dL (33.0-37.0); MEAN PLATELET VOLUME 9.7 fl (7.2-11.7); MONO # 1.2 K/uL (0.0-0.8); MONO % 11.3 % (0.0-10.0); NEUT # 6.4 K/uL (1.8-7.0); NEUT % 61.3 % (50.0-75.0); NRBC % 0.3 % (0.0-0.0); RBC 2.92 Mil/uL (4.40-5.90); RED CELL DISTRIBUTION WIDTH 12.7 % (11.5-14.5); WHITE BLOOD COUNT 10.4 K/uL (4.8-10.8)
[2018-07-27 06:19] LABS: CALCIUM 7.8 mg/dL (8.4-10.2)
[2018-07-27] MEDS: Multivitamin Vitamin B Complex (Nephro-Vite) Tab PO SCH (09:03)
[2018-07-27] MEDS: Pantoprazole 40 mg EC Tab PO SCH (09:04)
[2018-07-27] MEDS: Cholecalciferol 1,000 INTLU TAB PO SCH (09:04)
--- NOTE | 2018-07-27 10:19 | CP.PCM.PN ---
Subjective - Date & Time of Evaluation Date of Evaluation: 07/27/18 Time of Evaluation: 09:00 - Subjective Subjective: Patient seen and evaluated at bedside in AM. Patient sitting in chair comfortably. No acute events overnight. Alert, awake and oriented x 3. Patient feels well, reported having headache in the morning which resolved w/o medications. Abdominal pain resolved. Neck swelling resolved. Tolerating diet well PO. BM and urinating well w/o difficulties. S/P HD yesterday. Objective - Vital Signs/Intake and Output Vital Signs (last 24 hours): Temp Pulse Resp BP Pulse Ox 97.7 F 73 20 126/77 92 L 07/27/18 07:55 07/27/18 07:55 07/27/18 07:55 07/27/18 09:04 07/27/18 07:55 Intake and Output: 07/27/18 07/27/18 06:59 18:59 Intake Total 600 Balance 600 - Medications Medications: Current Medications Cholecalciferol (Vitamin D) 2,000 intlu PO DAILY [facility] Last Admin: 07/27/18 09:04 Dose: 2,000 intlu Epoetin Marito (Procrit) 8,000 unit IV MWF [facility] Last Admin: 07/26/18 15:21 Dose: 8,000 unit Furosemide (Lasix) 40 mg IVP BID [facility] Last Admin: 07/27/18 09:04 Dose: 40 mg Heparin Sodium (Porcine) (Heparin) 5,000 units SC Q12 [facility]; Protocol Last Admin: 07/27/18 09:04 Dose: 5,000 units Iron Sucrose 100 mg/ Sodium (Chloride) 105 mls @ 105 mls/hr IVPB DAILY [facility] Stop: 08/03/18 13:01 Last Admin: 07/27/18 09:03 Dose: 105 mls/hr Ondansetron HCl (Zofran Inj) 4 mg IVP Q6 PRN PRN Reason: Nausea/Vomiting Last Admin: 07/21/18 11:06 Dose: 4 mg Pantoprazole Sodium (Protonix Ec Tab) 40 mg PO DAILY [facility] Last Admin: 07/27/18 09:04 Dose: 40 mg Vitamin B Complex/Vit C/Folic Acid (Nephro-Chey) 1 tab PO DAILY [facility] Last Admin: 07/27/18 09:03 Dose: 1 tab - Labs Labs: 07/27/18 05:13 12/25/18 05:13 PT 14.9 Seconds (9.8-13.1) H 07/22/18 11:03 INR 1.3 07/22/18 11:03 APTT 31.6 Seconds (25.6-37.1) 07/22/18 11:03 - Constitutional Appears: Non-toxic, No Acute Distress - Head Exam Head Exam: ATRAUMATIC, NORMOCEPHALIC - Eye Exam Eye Exam: EOMI, Normal appearance Pupil Exam: NORMAL ACCOMODATION - ENT Exam ENT Exam: Mucous Membranes Moist - Neck Exam Neck Exam: Full ROM. absent: Tenderness, Thyromegaly - Respiratory Exam Respiratory Exam: Clear to Ausculation Bilateral, NORMAL BREATHING PATTERN. absent: Rales, Rhonchi, Wheezes, Respiratory Distress - Cardiovascular Exam Cardiovascular Exam: REGULAR RHYTHM, +S1, +S2. absent: Murmur - GI/Abdominal Exam GI & Abdominal Exam: Soft, Normal Bowel Sounds. absent: Distended, Rigid, Tenderness - Extremities Exam Extremities Exam: absent: Calf Tenderness, Pedal Edema, Tenderness - Back Exam Back Exam: absent: CVA tenderness (L), CVA tenderness (R) - Neurological Exam Neurological Exam: Alert, Awake, Oriented x3 - Psychiatric Exam Psychiatric exam: Normal Affect, Normal Mood - Skin Skin Exam: Dry, Intact, Normal Color, Warm Assessment and Plan - Assessment and Plan (Free Text) Assessment: 28 year old male with PMHx of psoriasis brought to ER by EMS after being found unresponsive. Patient in CRISTINA. Shock liver, rhabdomyolysis, AMS resolved. S/P HD x 4. Plan: CRISTINA - Likely due to substance abuse - S/P HD x 4, Last HD 07/26 - BUN/Creat, 35/7.5 - Nephro on board. F/U recs - Femoral HD access removed, Will consult IR if patient needs further HD. - Continue Epogen and Iron sucrose - Continue Lasix 40 mg PO BID - Monitor Input/Output, daily weights and BMP Acute liver failure likely secondary to substance use/shock liver - Improving, <1000s - GI Consultion board, Will follow recs. - Monitor Pancytopenia - Stable, Improving - HgB 9.3/WBC 10.4/Plt 182 - Dr. Beba Abdullahi Hem/onc on board: Follow recs - Monitor CBC Rhabdomyolysis - CPK trending down 2900+ - S/P HD x 4 - Monitor CPK Vit D Deficiency - 2000 IU Cholecalciferol PO daily Extensive psoriasis - Controlled - Reports using cream at home, Resume upon discharge Prophylaxis - DVT: SCDs, Heparin 5000 IU SC - GI: Zofran PRN, Protonix Code status Full code
--- NOTE | 2018-07-27 13:58 | CP.PCM.PN ---
Subjective - Date & Time of Evaluation Date of Evaluation: 07/27/18 Time of Evaluation: 11:00 - Subjective Subjective: Nephrology Consultation Note Assessment: stable Acute Kidney Injury (N17.9) likely due to ATN due to rhabdomyolysis, dialysis dependent Anemia, thrombocytopenia parotitis acute liver injury hx of alcohol and drug psoriasis Plan last HD thursday. tolerated well continue with IV loop diuretics. If tomorrow cr remains high, then will plan for next dialysis session tomorrow or . will suggest consult IR for permacath in that case BP control with meds as ordered. Maintain hemodynamics stable. Avoid hypotension. Patient not on ACEI/ARB due to recent CRISTINA Monitor Input/Output, daily weights and renal function with basic metabolic panel started IV iron and continue with epogen SW/skilled nursing case manager consult for outpt HD placement Dose meds/antibiotics for reduced GFR. Avoid fleets enema/magnesium based laxatives. Avoid nephrotoxins/NSAIDs/ iodinated contrast (unless needed emergently) Glycemic control Further work up for as per primary team Thanks for allowing me to participate in care of your patient. Will follow patient with you. Please call if any Qs. had d/w team Dr Patrick Jean-Baptiste Office: [phone] Subjective: Noted events overnight. Patients feels okay. Denies chest pain, palpitation, shortness of breath, c/o leg swelling. All other negative making urine ~ 40 pounds above initial weight Physical Examination: General Appearance: Comfortable, in no acute respiratory distress, co-operative . Vitals reviewed and noted as below Head; Atraumatic, normocephalic ENT: no ulcers no thrush. Tongue is midline. Oropharynx: no rash or ulcers. EYES: Pupils are equal, round and reactive to light accommodation. Eye muscles and extraocular movement intact. Sclera is anicteric. Neck; swelling submandibular area much improved Lungs: Normal respiratory rate/effort. Breath sounds bilateral b/l clear Heart: Normal rate. s1s2 normal. No rub or gallop. Extremities: 2+ edema. No varicose veins Neurological: Patient is alert, awake and oriented to person, place and time. No focal deficit. Strength bilateral appropriate and equal Skin: Warm and dry. Normal turgor. know psoriasis rash. Palpitation: Normal elasticity for age Abdomen: Abdomen is soft. Bowel sounds +. There is no abdominal tenderness, no guarding/rigidity no organomegaly. has abdomen wall edema Psych: normal insight and normal affect/mood MSK: no joint tenderness or swelling. Digits and nails normal, no deformity Labs/imaging reviewed. Past medical history, past surgical history, family history, social history, allergy reviewed and noted as below Family hx: no hx of CKD. Rest non-contributory Objective - Vital Signs/Intake and Output Vital Signs (last 24 hours): Temp Pulse Resp BP Pulse Ox 99 F 67 20 141/93 H 93 L 07/27/18 12:36 07/27/18 12:36 07/27/18 12:36 07/27/18 12:36 07/27/18 12:36 Intake and Output: 07/27/18 07/27/18 06:59 18:59 Intake Total 600 Balance 600 - Medications Medications: Current Medications Cholecalciferol (Vitamin D) 2,000 intlu PO DAILY [facility] Last Admin: 07/27/18 09:04 Dose: 2,000 intlu Epoetin Marito (Procrit) 8,000 unit IV MWF [facility] Last Admin: 07/26/18 15:21 Dose: 8,000 unit Furosemide (Lasix) 40 mg IVP BID [facility] Last Admin: 07/27/18 09:04 Dose: 40 mg Heparin Sodium (Porcine) (Heparin) 5,000 units SC Q12 [facility]; Protocol Last Admin: 07/27/18 09:04 Dose: 5,000 units Iron Sucrose 100 mg/ Sodium (Chloride) 105 mls @ 105 mls/hr IVPB DAILY [facility] Stop: 08/03/18 13:01 Last Admin: 07/27/18 09:03 Dose: 105 mls/hr Ondansetron HCl (Zofran Inj) 4 mg IVP Q6 PRN PRN Reason: Nausea/Vomiting Last Admin: 07/21/18 11:06 Dose: 4 mg Pantoprazole Sodium (Protonix Ec Tab) 40 mg PO DAILY [facility] Last Admin: 07/27/18 09:04 Dose: 40 mg Vitamin B Complex/Vit C/Folic Acid (Nephro-Chey) 1 tab PO DAILY [facility] Last Admin: 07/27/18 09:03 Dose: 1 tab - Labs Labs: 07/27/18 05:13 07/27/18 05:13 PT 14.9 Seconds (9.8-13.1) H 07/22/18 11:03 INR 1.3 07/22/18 11:03 APTT 31.6 Seconds (25.6-37.1) 07/22/18 11:03
[2018-07-28 05:28] LABS: BASO # 0.1 K/uL (0.0-0.2); BASO % 0.8 % (0.0-2.0); EOS # 0.6 K/uL (0.0-0.7); EOS % 5.9 % (0.0-4.0); HEMOGLOBIN 9.7 g/dL (12.0-18.0); LYMPH # 2.4 K/uL (1.0-4.3); LYMPH % 23.4 % (20.0-40.0); MEAN CELL VOLUME 93.5 fl (80.0-94.0); MEAN CORPUSCULAR HEMOGLOBIN 31.4 pg (27.0-31.0); MEAN CORPUSCULAR HGB CONC 33.6 g/dL (33.0-37.0); MEAN PLATELET VOLUME 9.2 fl (7.2-11.7); MONO # 1.1 K/uL (0.0-0.8); NEUT % 58.9 % (50.0-75.0); NRBC % 0.1 % (0.0-0.0); RBC 3.08 Mil/uL (4.40-5.90); RED CELL DISTRIBUTION WIDTH 13.1 % (11.5-14.5); WHITE BLOOD COUNT 10.3 K/uL (4.8-10.8)
[2018-07-28 06:05] LABS: ALB/GLOB RATIO 1.1 (1.0-2.1); CALCIUM 8.4 mg/dL (8.4-10.2)
--- NOTE | 2018-07-28 09:13 | CP.PCM.PN ---
Subjective - Date & Time of Evaluation Date of Evaluation: 07/28/18 Time of Evaluation: 09:09 - Subjective Subjective: pt is feeling much better today. His renal function continues to be impaired, but LFT are slowly returning to normal. The CBC is normal so I will sign off the case. Please recall if needed. Objective - Vital Signs/Intake and Output Vital Signs (last 24 hours): Temp Pulse Resp BP Pulse Ox 97.8 F 73 20 149/80 95 07/28/18 07:33 07/28/18 07:33 07/28/18 07:33 07/28/18 07:33 07/28/18 07:33 Intake and Output: 07/28/18 07/28/18 06:59 18:59 Intake Total 200 Output Total 700 Balance -500 - Medications Medications: Current Medications Cholecalciferol (Vitamin D) 2,000 intlu PO DAILY [facility] Last Admin: 07/27/18 09:04 Dose: 2,000 intlu Epoetin Marito (Procrit) 8,000 unit IV MWF [facility] Last Admin: 07/26/18 15:21 Dose: 8,000 unit Furosemide (Lasix) 40 mg IVP BID [facility] Last Admin: 07/27/18 17:07 Dose: 40 mg Heparin Sodium (Porcine) (Heparin) 5,000 units SC Q12 [facility]; Protocol Last Admin: 07/27/18 22:16 Dose: 5,000 units Iron Sucrose 100 mg/ Sodium (Chloride) 105 mls @ 105 mls/hr IVPB DAILY [facility] Stop: 08/03/18 13:01 Last Admin: 07/27/18 09:03 Dose: 105 mls/hr Ondansetron HCl (Zofran Inj) 4 mg IVP Q6 PRN PRN Reason: Nausea/Vomiting Last Admin: 07/21/18 11:06 Dose: 4 mg Pantoprazole Sodium (Protonix Ec Tab) 40 mg PO DAILY [facility] Last Admin: 07/27/18 09:04 Dose: 40 mg Vitamin B Complex/Vit C/Folic Acid (Nephro-Chey) 1 tab PO DAILY [facility] Last Admin: 07/27/18 09:03 Dose: 1 tab - Labs Labs: 07/28/18 04:30 07/28/18 04:30 PT 14.9 Seconds (9.8-13.1) H 07/22/18 11:03 INR 1.3 12/20/18 11:03 APTT 31.6 Seconds (25.6-37.1) 07/22/18 11:03
[2018-07-28] MEDS ORDERED: Midazolam 2 MG/2 ML VIAL ONE (09:45)
[2018-07-28] MEDS ORDERED: Lidocaine 1% Inj (20ml) ONE (09:51)
--- NOTE | 2018-07-28 10:38 | CP.PCM.PN ---
<Joni Samayoa - Last Filed: 07/28/18 13:31> Subjective - Date & Time of Evaluation Date of Evaluation: 07/28/18 Time of Evaluation: 09:05 - Subjective Subjective: Patient seen and evaluated at bedside in AM. No acute events overnight. Afebrile, alert, awake and oriented x 3. Denies any chest pain, headache, SOB, nausea, vomiting, diarrhea. Tolerating diet well PO. 2 BM yesterday and voiding well. Patient maintained on neg fluid balance yesterday. BUN/Cr still increasing 43/8.8 today. LFTs, CPK trending down. H/H, Plt improving. Denies any new complains. Objective - Vital Signs/Intake and Output Vital Signs (last 24 hours): Temp Pulse Resp BP Pulse Ox 97.8 F 73 20 149/80 95 07/28/18 07:33 07/28/18 07:33 07/28/18 07:33 07/28/18 07:33 07/28/18 07:33 Intake and Output: 07/28/18 07/28/18 06:59 18:59 Intake Total 200 Output Total 700 Balance -500 - Medications Medications: Current Medications Cholecalciferol (Vitamin D) 2,000 intlu PO DAILY [facility] Last Admin: 07/27/18 09:04 Dose: 2,000 intlu Epoetin Marito (Procrit) 8,000 unit IV MWF [facility] Last Admin: 07/26/18 15:21 Dose: 8,000 unit Furosemide (Lasix) 40 mg IVP BID [facility] Last Admin: 07/27/18 17:07 Dose: 40 mg Heparin Sodium (Porcine) (Heparin) 5,000 units SC Q12 [facility]; Protocol Last Admin: 07/27/18 22:16 Dose: 5,000 units Iron Sucrose 100 mg/ Sodium (Chloride) 105 mls @ 105 mls/hr IVPB DAILY [facility] Stop: 08/03/18 13:01 Last Admin: 07/27/18 09:03 Dose: 105 mls/hr Ondansetron HCl (Zofran Inj) 4 mg IVP Q6 PRN PRN Reason: Nausea/Vomiting Last Admin: 07/21/18 11:06 Dose: 4 mg Pantoprazole Sodium (Protonix Ec Tab) 40 mg PO DAILY [facility] Last Admin: 07/27/18 09:04 Dose: 40 mg Vitamin B Complex/Vit C/Folic Acid (Nephro-Meryl) 1 tab PO DAILY [facility] Last Admin: 07/27/18 09:03 Dose: 1 tab - Labs Labs: 07/28/18 04:30 07/28/18 04:30 PT 14.9 Seconds (9.8-13.1) H 07/22/18 11:03 INR 1.3 07/22/18 11:03 APTT 31.6 Seconds (25.6-37.1) 07/22/18 11:03 - Constitutional Appears: No Acute Distress - Head Exam Head Exam: ATRAUMATIC, NORMOCEPHALIC - Eye Exam Eye Exam: EOMI, Normal appearance - ENT Exam ENT Exam: Mucous Membranes Moist - Neck Exam Neck Exam: Full ROM. absent: Tenderness - Respiratory Exam Respiratory Exam: Clear to Ausculation Bilateral, NORMAL BREATHING PATTERN. absent: Rales, Rhonchi, Wheezes, Respiratory Distress - Cardiovascular Exam Cardiovascular Exam: REGULAR RHYTHM, +S1, +S2. absent: Murmur - GI/Abdominal Exam GI & Abdominal Exam: Soft, Normal Bowel Sounds. absent: Distended, Firm, Rigid, Tenderness - Extremities Exam Extremities Exam: absent: Calf Tenderness, Pedal Edema, Tenderness - Neurological Exam Neurological Exam: Alert, Awake, Oriented x3 - Psychiatric Exam Psychiatric exam: Normal Affect, Normal Mood - Skin Skin Exam: Dry, Intact, Normal Color, Warm Assessment and Plan - Assessment and Plan (Free Text) Assessment: 28 year old male with PMHx of psoriasis brought to ER by EMS after being found unresponsive. Patient in C[facility]STINA. Shock liver, rhabdomyolysis, AMS resolved. S/P HD x 4. Plan: C[place]INA - Likely due to substance abuse/Rhabdomyolysis - S/P HD x 4, Last HD 07/26 - BUN/Creat, 43/8.8 - Nephro on board. F/U recs - IR consult ordered for permacath, Patient NPO since morning, Heparin morning dose on Hold. Patient may need additional HD today. - Continue Epogen, Iron sucrose and nephro-meryl - Continue Lasix 40 mg PO BID - Monitor Input/Output, daily weights and BMP Acute liver failure likely secondary to substance use/shock liver - Improving, <1000s - GI Consultion board, Will follow recs. - Monitor Rhabdomyolysis - CPK trending down 2900+ - S/P HD x 4 - Monitor CPK Vit D Deficiency - 2000 IU Cholecalciferol PO daily Extensive psoriasis - Controlled - Reports using cream at home, Resume upon discharge Prophylaxis - DVT: SCDs, Heparin 5000 IU SC - GI: Zofran PRN, Protonix Code status Full code <Leila Fitzgerald - Last Filed: 07/28/18 13:45> Objective - Vital Signs/Intake and Output Vital Signs (last 24 hours): Temp Pulse Resp BP Pulse Ox 98.5 F 64 20 138/89 98 07/28/18 12:10 07/28/18 12:10 07/28/18 12:10 07/28/18 12:10 07/28/18 12:10 Intake and Output: 07/28/18 07/28/18 06:59 18:59 Intake Total 200 60 Output Total 700 Balance -500 60 - Medications Medications: Current Medications Cholecalciferol (Vitamin D) 2,000 intlu PO DAILY [facility] Last Admin: 07/28/18 12:17 Dose: 2,000 intlu Epoetin Marito (Procrit) 8,000 unit IV MWF [facility] Last Admin: 07/26/18 15:21 Dose: 8,000 unit Furosemide (Lasix) 40 mg IVP BID [facility] Last Admin: 07/27/18 17:07 Dose: 40 mg Heparin Sodium (Porcine) (Heparin) 5,000 units SC Q12 [facility]; Protocol Last Admin: 07/27/18 22:16 Dose: 5,000 units Hydromorphone HCl (Dilaudid) 0.5 mg IVP Q15M PRN PRN Reason: Pain, moderate (4-7) Iron Sucrose 100 mg/ Sodium (Chloride) 105 mls @ 105 mls/hr IVPB DAILY [facility] Stop: 08/03/18 13:01 Last Admin: 07/27/18 09:03 Dose: 105 mls/hr Ondansetron HCl (Zofran Inj) 4 mg IVP Q6 PRN PRN Reason: Nausea/Vomiting Last Admin: 07/21/18 11:06 Dose: 4 mg Pantoprazole Sodium (Protonix Ec Tab) 40 mg PO DAILY [facility] Last Admin: 07/28/18 12:18 Dose: 40 mg Vitamin B Complex/Vit C/Folic Acid (Nephro-Meryl) 1 tab PO DAILY [facility] Last Admin: 07/28/18 12:17 Dose: 1 tab - Labs Labs: 07/28/18 04:30 07/28/18 04:30 PT 14.9 Seconds (9.8-13.1) H 07/22/18 11:03 INR 1.3 07/22/18 11:03 APTT 31.6 Seconds (25.6-37.1) 07/22/18 11:03 Attending/Attestation - Attestation I have personally seen and examined this patient.: Yes I have fully participated in the care of the patient.: Yes I have reviewed all pertinent clinical information, including history, physical exam and plan: Yes Notes (Text): 07/28/18 13:45 Seen, examined, and discussed with resident. Agree with findings and plan as above.
--- NOTE | 2018-07-28 10:50 | PCM.SURG1 ---
Surgeon's Initial Post Op Note - Surgeon's Notes Surgeon: Adrian Justin MD [employer] Supervisor: NONE Type of Anesthesia: IV Sedation Pre-Operative Diagnosis: Renal failure Operative Findings: Patent right IJV Post-Operative Diagnosis: Renal failure Operation Performed: Tunneled HD catheter placement via right IJV, 19 cm cuff to tip. Specimen/Specimens Removed: none Estimated Blood Loss: EBL {In ML}: 5 Blood Products Given: N/A Drains Used: No Drains Post-Op Condition: Fair Date of Surgery/Procedure: 07/28/18 Time of Surgery/Procedure: 10:45
[2018-07-28] MEDS ORDERED: Sodium Chloride 0.9% 250 ML IV ONE (10:55)
--- NOTE | 2018-07-28 10:59 | CP.PCM.PN ---
Subjective - Date & Time of Evaluation Date of Evaluation: 07/28/18 Time of Evaluation: 10:59 - Subjective Subjective: Patient awake and conscious not in acute distress Vital signs stable Objective - Vital Signs/Intake and Output Vital Signs (last 24 hours): Temp Pulse Resp BP Pulse Ox 98.7 F 65 18 155/92 H 98 07/28/18 10:30 07/28/18 10:30 07/28/18 10:30 07/28/18 10:30 07/28/18 10:30 Intake and Output: 07/28/18 07/28/18 06:59 18:59 Intake Total 200 Output Total 700 Balance -500 - Medications Medications: Current Medications Cholecalciferol (Vitamin D) 2,000 intlu PO DAILY [facility] Last Admin: 07/27/18 09:04 Dose: 2,000 intlu Epoetin Marito (Procrit) 8,000 unit IV MWF [facility] Last Admin: 07/26/18 15:21 Dose: 8,000 unit Furosemide (Lasix) 40 mg IVP BID [facility] Last Admin: 07/27/18 17:07 Dose: 40 mg Heparin Sodium (Porcine) (Heparin) 5,000 units SC Q12 [facility]; Protocol Last Admin: 07/27/18 22:16 Dose: 5,000 units Iron Sucrose 100 mg/ Sodium (Chloride) 105 mls @ 105 mls/hr IVPB DAILY [facility] Stop: 08/03/18 13:01 Last Admin: 07/27/18 09:03 Dose: 105 mls/hr Ondansetron HCl (Zofran Inj) 4 mg IVP Q6 PRN PRN Reason: Nausea/Vomiting Last Admin: 07/21/18 11:06 Dose: 4 mg Pantoprazole Sodium (Protonix Ec Tab) 40 mg PO DAILY [facility] Last Admin: 07/27/18 09:04 Dose: 40 mg Vitamin B Complex/Vit C/Folic Acid (Nephro-Chey) 1 tab PO DAILY [facility] Last Admin: 07/27/18 09:03 Dose: 1 tab - Labs Labs: 07/28/18 04:30 07/28/18 04:30 PT 14.9 Seconds (9.8-13.1) H 07/22/18 11:03 INR 1.3 07/22/18 11:03 APTT 31.6 Seconds (25.6-37.1) 07/22/18 11:03 - Constitutional Appears: No Acute Distress - Eye Exam Eye Exam: Conjunctival injection - ENT Exam ENT Exam: Mucous Membranes Moist - Neck Exam Neck Exam: absent: Lymphadenopathy - GI/Abdominal Exam GI & Abdominal Exam: Soft, Normal Bowel Sounds. absent: Guarding - Extremities Exam Extremities Exam: absent: Calf Tenderness - Back Exam Back Exam: absent: CVA tenderness (L), CVA tenderness (R) - Neurological Exam Neurological Exam: Alert - Psychiatric Exam Psychiatric exam: Normal Affect - Skin Skin Exam: absent: Cyanosis Assessment and Plan (1) ARF (acute renal failure) Assessment & Plan: Acute Kidney Injury (N17.9) likely due to ATN due to rhabdomyolysis, dialysis dependent Anemia, thrombocytopenia appears to be corrected parotitis acute liver injury function trending down hx of alcohol and drug psoriasis Recommendation Kidney function not improving During you to need dialysis today and 3 times a week Patient went for replacement of jugular or subclavian permacath Discussed with hospitalist to go ahead with kidney biopsy because of continuation of acute renal failure and to make sure his coagulation are within normal limits including PT PTT INR and bleeding time Discussed with social sciences professor to arrange for outpatient dialysis as acute renal failure will need dialysis Status: Acute (2) Altered mental status Status: Acute (3) Hyperkalemia Status: Acute (4) Ingestion of toxic substance Status: Acute (5) Septic shock Status: Acute
[2018-07-28] MEDS ORDERED: HYDROmorphone 0.5 mg/0.5 ml ISec IVP PRN (11:01)
[2018-07-28] MEDS: Multivitamin Vitamin B Complex (Nephro-Vite) Tab PO SCH (12:17)
[2018-07-28] MEDS: Cholecalciferol 1,000 INTLU TAB PO SCH (12:17)
[2018-07-28] MEDS: Pantoprazole 40 mg EC Tab PO SCH (12:18)
[2018-07-28 14:51] LABS: PROTHROMBIN TIME 11.1 Seconds (9.8-13.1)
[2018-07-28] MEDS: Epoetin Alfa 20000 UNIT/ML Inj IV SCH (15:47)
[2018-07-29 06:24] LABS: HEMOGLOBIN 9.1 g/dL (12.0-18.0); MEAN CELL VOLUME 94.5 fl (80.0-94.0); MEAN CORPUSCULAR HEMOGLOBIN 31.7 pg (27.0-31.0); MEAN CORPUSCULAR HGB CONC 33.6 g/dL (33.0-37.0); RBC 2.86 Mil/uL (4.40-5.90); RED CELL DISTRIBUTION WIDTH 13.3 % (11.5-14.5); WHITE BLOOD COUNT 10.5 K/uL (4.8-10.8)
[2018-07-29 06:52] LABS: ALB/GLOB RATIO 1.1 (1.0-2.1); ALBUMIN 2.9 g/dL (3.5-5.0)
--- NOTE | 2018-07-29 09:53 | CP.PCM.PN ---
Subjective - Date & Time of Evaluation Date of Evaluation: 07/29/18 Time of Evaluation: 09:53 - Subjective Subjective: Patient awake and conscious not in acute distress he appears to be comfortable Vital signs noted to be stable Objective - Vital Signs/Intake and Output Vital Signs (last 24 hours): Temp Pulse Resp BP Pulse Ox 99.3 F 66 18 137/86 96 07/29/18 08:18 07/29/18 08:18 07/29/18 08:18 07/29/18 08:18 07/29/18 08:18 Intake and Output: 07/29/18 07/29/18 06:59 18:59 Intake Total 500 Balance 500 - Medications Medications: Current Medications Cholecalciferol (Vitamin D) 2,000 intlu PO DAILY [facility] Last Admin: 07/28/18 12:17 Dose: 2,000 intlu Epoetin Marito (Procrit) 8,000 unit IV MWF [facility] Last Admin: 07/28/18 15:47 Dose: 8,000 unit Furosemide (Lasix) 40 mg IVP BID [facility] Last Admin: 07/28/18 17:49 Dose: Not Given Heparin Sodium (Porcine) (Heparin) 5,000 units SC Q12@0400,1600 [facility]; Protocol Last Admin: 07/29/18 04:31 Dose: 5,000 units Hydromorphone HCl (Dilaudid) 0.5 mg IVP Q15M PRN PRN Reason: Pain, moderate (4-7) Iron Sucrose 100 mg/ Sodium (Chloride) 105 mls @ 105 mls/hr IVPB DAILY [facility] Stop: 08/03/18 13:01 Last Admin: 07/28/18 15:44 Dose: 105 mls/hr Ondansetron HCl (Zofran Inj) 4 mg IVP Q6 PRN PRN Reason: Nausea/Vomiting Last Admin: 07/21/18 11:06 Dose: 4 mg Pantoprazole Sodium (Protonix Ec Tab) 40 mg PO DAILY [facility] Last Admin: 07/28/18 12:18 Dose: 40 mg Vitamin B Complex/Vit C/Folic Acid (Nephro-Chey) 1 tab PO DAILY [facility] Last Admin: 07/28/18 12:17 Dose: 1 tab - Labs Labs: 07/29/18 04:40 07/29/18 04:40 PT 11.1 Seconds (9.8-13.1) 12/26/18 14:20 INR 1.0 07/28/18 14:20 APTT 31.6 Seconds (25.6-37.1) 07/22/18 11:03 - Constitutional Appears: No Acute Distress - Eye Exam Eye Exam: Conjunctival injection - Neck Exam Neck Exam: absent: Lymphadenopathy - Respiratory Exam Respiratory Exam: NORMAL BREATHING PATTERN. absent: Chest Wall Tenderness - Cardiovascular Exam Cardiovascular Exam: absent: Gallop, JVD, Rubs - GI/Abdominal Exam GI & Abdominal Exam: Soft, Normal Bowel Sounds - Extremities Exam Extremities Exam: absent: Calf Tenderness - Back Exam Back Exam: absent: CVA tenderness (L), CVA tenderness (R) - Neurological Exam Neurological Exam: Alert - Skin Skin Exam: absent: Cyanosis Assessment and Plan (1) ARF (acute renal failure) Assessment & Plan: Acute Kidney Injury (N17.9) likely due to ATN due to rhabdomyolysis, dialysis dependent Anemia, thrombocytopenia appears to be corrected parotitis acute liver injury function trending down hx of alcohol and drug psoriasis Recommendation Kidney function not improving hemodialysis 3 times a week Status post right jugular catheter for dialysis Scheduled for kidney biopsy for tomorrow as long as her coagulation is okay Discussed with social welfare administrator to arrange for outpatient dialysis as acute renal failure will need dialysis Antibiotics as per renal dose CPK trending down Status: Acute (2) Altered mental status Status: Acute (3) Hyperkalemia Status: Acute (4) Ingestion of toxic substance Status: Acute (5) Septic shock Status: Acute
--- NOTE | 2018-07-29 10:31 | CP.PCM.PN ---
<Joni Samayoa - Last Filed: 07/29/18 13:33> Subjective - Date & Time of Evaluation Date of Evaluation: 07/29/18 Time of Evaluation: 09:10 - Subjective Subjective: Patient seen and evaluated at bedside in AM. S/P HD cath right jugular and HD yesterday. no acute events overnight. Patient afebrile, alert, awake. Denies any fever, chills, headache, CP, SOB, abdominal pain, urinary Sx, N/V/D. Possible Renal Bx tomorrow if cogas WNL. Tolerating diet well PO. LFTs, CPK trending down. H/H, Plt improving. Denies any new complains. Objective - Vital Signs/Intake and Output Vital Signs (last 24 hours): Temp Pulse Resp BP Pulse Ox 99.3 F 66 18 137/86 96 07/29/18 08:18 07/29/18 08:18 07/29/18 08:18 07/29/18 08:18 07/29/18 08:18 Intake and Output: 07/29/18 07/29/18 06:59 18:59 Intake Total 500 Balance 500 - Medications Medications: Current Medications Cholecalciferol (Vitamin D) 2,000 intlu PO DAILY [facility] Last Admin: 07/28/18 12:17 Dose: 2,000 intlu Epoetin Marito (Procrit) 8,000 unit IV MWF [facility] Last Admin: 07/28/18 15:47 Dose: 8,000 unit Furosemide (Lasix) 40 mg IVP BID [facility] Last Admin: 07/28/18 17:49 Dose: Not Given Heparin Sodium (Porcine) (Heparin) 5,000 units SC Q12@0400,1600 [facility]; Protocol Last Admin: 07/29/18 04:31 Dose: 5,000 units Hydromorphone HCl (Dilaudid) 0.5 mg IVP Q15M PRN PRN Reason: Pain, moderate (4-7) Iron Sucrose 100 mg/ Sodium (Chloride) 105 mls @ 105 mls/hr IVPB DAILY [facility] Stop: 08/03/18 13:01 Last Admin: 07/28/18 15:44 Dose: 105 mls/hr Ondansetron HCl (Zofran Inj) 4 mg IVP Q6 PRN PRN Reason: Nausea/Vomiting Last Admin: 07/21/18 11:06 Dose: 4 mg Pantoprazole Sodium (Protonix Ec Tab) 40 mg PO DAILY [facility] Last Admin: 07/28/18 12:18 Dose: 40 mg Vitamin B Complex/Vit C/Folic Acid (Nephro-Meryl) 1 tab PO DAILY [facility] Last Admin: 07/28/18 12:17 Dose: 1 tab - Labs Labs: 07/29/18 04:40 07/29/18 04:40 PT 11.1 Seconds (9.8-13.1) 07/28/18 14:20 INR 1.0 07/28/18 14:20 APTT 31.6 Seconds (25.6-37.1) 07/22/18 11:03 - Constitutional Appears: Non-toxic, No Acute Distress - Head Exam Head Exam: ATRAUMATIC, NORMOCEPHALIC - Eye Exam Eye Exam: EOMI, Normal appearance - ENT Exam ENT Exam: Mucous Membranes Moist - Neck Exam Neck Exam: Full ROM - Respiratory Exam Respiratory Exam: Clear to Ausculation Bilateral, NORMAL BREATHING PATTERN. absent: Rales, Rhonchi, Wheezes, Respiratory Distress - Cardiovascular Exam Cardiovascular Exam: REGULAR RHYTHM, +S1, +S2. absent: Murmur - GI/Abdominal Exam GI & Abdominal Exam: Soft, Normal Bowel Sounds. absent: Distended, Tenderness - Extremities Exam Extremities Exam: absent: Calf Tenderness, Pedal Edema, Tenderness - Neurological Exam Neurological Exam: Alert, Awake, Oriented x3 - Psychiatric Exam Psychiatric exam: Normal Affect, Normal Mood - Skin Skin Exam: Dry, Intact, Normal Color, Warm Assessment and Plan - Assessment and Plan (Free Text) Assessment: 28 year old male with PMHx of psoriasis brought to ER by EMS after being found unresponsive. Patient in [place]. Shock liver, rhabdomyolysis, AMS resolved. S/P HD x 5. Last HD yesterday 07/28. Plan: [place] - Likely due to substance abuse/Rhabdomyolysis - S/P HD x 5, Last HD 07/28. Right Jugular tunneled HD cath in place. - BUN/Creat, 28/6.5 - Nephro on board. F/U recs - Continue Epogen, Iron sucrose and nephro-meryl - Continue Lasix 40 mg PO BID - Monitor Input/Output, daily weights and BMP - Scheduled for kidney biopsy for tomorrow as long as her coagulation is okay - Nephro recs: HD 3 times per weekly, social work lecturer to arrange for outpatient dialysis as CRISTINA will need dialysis. Acute liver failure likely secondary to substance use/shock liver - Improving, <500 - GI Consultation board, Will follow recs. - Monitor LFTs Rhabdomyolysis - CPK trending down 1000+ - S/P HD x 5 - Monitor CPK Vit D Deficiency - 2000 IU Cholecalciferol PO daily Extensive psoriasis - Controlled - Reports using cream at home, Resume upon discharge Prophylaxis - DVT: SCDs, Heparin 5000 IU SC - GI: Zofran PRN, Protonix Code status Full code <Leila Fitzgerald - Last Filed: 07/31/18 00:33> Objective - Vital Signs/Intake and Output Vital Signs (last 24 hours): Temp Pulse Resp BP Pulse Ox 100.0 F H 86 18 127/81 95 07/31/18 00:17 07/31/18 00:17 07/31/18 00:17 07/31/18 00:17 07/31/18 00:17 - Medications Medications: Current Medications Cholecalciferol (Vitamin D) 2,000 intlu PO DAILY [facility] Last Admin: 07/30/18 09:21 Dose: 2,000 intlu Epoetin Marito (Procrit) 8,000 unit IV MWF [facility] Last Admin: 07/30/18 11:52 Dose: 8,000 unit Furosemide (Lasix) 40 mg IVP BID [facility] Last Admin: 07/30/18 16:55 Dose: 40 mg Heparin Sodium (Porcine) (Heparin) 5,000 units SC Q12@0400,1600 [facility]; Protocol Last Admin: 07/29/18 17:11 Dose: 5,000 units Hydromorphone HCl (Dilaudid) 0.5 mg IVP Q15M PRN PRN Reason: Pain, moderate (4-7) Iron Sucrose 100 mg/ Sodium (Chloride) 105 mls @ 105 mls/hr IVPB DAILY [facility] Stop: 08/03/18 13:01 Last Admin: 07/30/18 09:21 Dose: 105 mls/hr Ondansetron HCl (Zofran Inj) 4 mg IVP Q6 PRN PRN Reason: Nausea/Vomiting Last Admin: 07/21/18 11:06 Dose: 4 mg Pantoprazole Sodium (Protonix Ec Tab) 40 mg PO DAILY [facility] Last Admin: 07/30/18 09:18 Dose: 40 mg Vitamin B Complex/Vit C/Folic Acid (Nephro-Meryl) 1 tab PO DAILY [facility] Last Admin: 07/30/18 09:18 Dose: 1 tab - Labs Labs: 07/30/18 04:55 07/30/18 04:55 PT 11.1 Seconds (9.8-13.1) 07/28/18 14:20 INR 1.0 07/28/18 14:20 APTT 31.6 Seconds (25.6-37.1) 07/22/18 11:03 Attending/Attestation - Attestation I have personally seen and examined this patient.: Yes I have fully participated in the care of the patient.: Yes I have reviewed all pertinent clinical information, including history, physical exam and plan: Yes Notes (Text): 07/31/18 00:33 agree with findings and plan as above
[2018-07-29] MEDS: Cholecalciferol 1,000 INTLU TAB PO SCH (10:41)
[2018-07-29] MEDS: Pantoprazole 40 mg EC Tab PO SCH (10:41)
[2018-07-29] MEDS: Multivitamin Vitamin B Complex (Nephro-Vite) Tab PO SCH (10:41)
--- NOTE | 2018-07-29 14:31 | VASCULAR ---
PROCEDURE: Date of procedure: 07/28/2018 Procedure: 1. Placement of right IJ tunneled hemodialysis catheter, CPT 27652 Medications: 1 percent lidocaine, IV sedation and physiologic monitoring performed by the anesthesiologist. EBL: 5 cm Radiation: 1.73 mGy Fluoro time: 11.7 Seconds Images: 2 HISTORY: Renal failure requiring hemodialysis TECHNIQUE: Following informed consent and procedure time-out, the patient was placed supine on the interventional table and the skin was marked . A limited ultrasound patient's right neck showed a patent compressible right internal jugular vein. Under direct ultrasound guidance, the right internal jugular vein was accessed with micropuncture technique and a guidewire was advanced under fluoroscopic guidance into the superior vena cava. An image documenting ultrasound guidance for vascular access was permanently saved. A 19 centimeter cuff to tip hemodialysis catheter was then tunneled under the skin and hold the venotomy site. The venotomy was then serially dilated to accommodate the peel-away sheath. The hemodialysis catheter was then advanced through a peel-away sheath. The catheter is positioned with tip in the superior vena cava confirm with fluoroscopic image. The catheter was tested and has adequate blood flow for hemodialysis. The catheter was flushed and locked with heparin per specified amount. The catheter secured to the skin with a 0 silk suture. IMPRESSION: Placement of right tunneled hemodialysis 19 cm cuff-to-tip catheter The catheter tip is confirmed with spot radiograph and is in the superior vena cava. The catheter is functional and ready for use.
[2018-07-30 06:07] LABS: HEMOGLOBIN 9.2 g/dL (12.0-18.0); MEAN CELL VOLUME 96.9 fl (80.0-94.0); MEAN CORPUSCULAR HEMOGLOBIN 32.1 pg (27.0-31.0); MEAN CORPUSCULAR HGB CONC 33.1 g/dL (33.0-37.0); RBC 2.87 Mil/uL (4.40-5.90); RED CELL DISTRIBUTION WIDTH 13.5 % (11.5-14.5); WHITE BLOOD COUNT 11.2 K/uL (4.8-10.8)
[2018-07-30 06:35] LABS: ALB/GLOB RATIO 1.1 (1.0-2.1); ALBUMIN 3.1 g/dL (3.5-5.0); CALCIUM 8.3 mg/dL (8.4-10.2)
[2018-07-30] MEDS: Pantoprazole 40 mg EC Tab PO SCH (09:18)
[2018-07-30] MEDS: Multivitamin Vitamin B Complex (Nephro-Vite) Tab PO SCH (09:18)
[2018-07-30] MEDS: Cholecalciferol 1,000 INTLU TAB PO SCH (09:21)
--- NOTE | 2018-07-30 09:56 | RAD ---
Date of service: 07/30/2018 HISTORY: Pleural effusion COMPARISON: Comparison chest dated 07/21/2018. FINDINGS: Interval placement right IJ dialysis catheter with tip in the SVC. LUNGS: Slightly improved pulmonary venous congestive changes. Persistent hazy appearance of the right mid to lower lung field may represent an area of atelectasis. Small bilateral effusions right larger than left PLEURA: As above. No pneumothorax apparent. CARDIOVASCULAR: No aortic atherosclerotic calcification present. Cardiac silhouette stable. No pulmonary vascular congestion. OSSEOUS STRUCTURES: No significant abnormalities. VISUALIZED UPPER ABDOMEN: Normal. OTHER FINDINGS: None. IMPRESSION: In situ right IJ dialysis catheter as described. Slightly improved pulmonary venous congestive changes. Persistent hazy appearance of the right mid to lower lung field may represent an area of atelectasis. Small bilateral effusions right larger than left
[2018-07-30] MEDS ORDERED: Lidocaine 1% Inj (20ml) ONE (10:24)
[2018-07-30] MEDS ORDERED: Propofol 10 mg/ml Inj (20 ML) ONE (10:37)
[2018-07-30] MEDS ORDERED: Lidocaine 1% 5ml Abboject ONE (10:37)
[2018-07-30] MEDS ORDERED: Midazolam 2 MG/2 ML VIAL ONE (10:37)
[2018-07-30] MEDS ORDERED: Absorbable Gelatin Sponge Size 12-7 ONE (10:42)
--- NOTE | 2018-07-30 10:51 | PCM.SURG1 ---
Surgeon's Initial Post Op Note - Surgeon's Notes Surgeon: Adrian Justin MD Loan Interviewer Mortgage: NONE Type of Anesthesia: IV Sedation Pre-Operative Diagnosis: Renal failure Operative Findings: US showed unremarkable left kidney Post-Operative Diagnosis: Renal failure Operation Performed: US guided core biopsy of left kidney. Three 18-g core specimen obtained. Biopsy tract embolized with gelfoam. Specimen/Specimens Removed: 18 gauge core x 3 Estimated Blood Loss: EBL {In ML}: 2 Blood Products Given: N/A Drains Used: No Drains Post-Op Condition: Fair Date of Surgery/Procedure: 07/30/18 Time of Surgery/Procedure: 10:45
--- NOTE | 2018-07-30 11:42 | CP.PCM.PN ---
Subjective - Date & Time of Evaluation Date of Evaluation: 07/30/18 Time of Evaluation: 11:44 - Subjective Subjective: Patient went for kidney biopsy Pak is asymptomatic he is feeling good no nausea no vomiting Objective - Vital Signs/Intake and Output Vital Signs (last 24 hours): Temp Pulse Resp BP Pulse Ox 100.5 F H 70 18 156/94 H 100 07/30/18 10:35 07/30/18 10:35 07/30/18 10:35 07/30/18 10:35 07/30/18 10:35 - Medications Medications: Current Medications Cholecalciferol (Vitamin D) 2,000 intlu PO DAILY [facility] Last Admin: 07/30/18 09:21 Dose: 2,000 intlu Epoetin Marito (Procrit) 8,000 unit IV MWF [facility] Last Admin: 07/28/18 15:47 Dose: 8,000 unit Furosemide (Lasix) 40 mg IVP BID [facility] Last Admin: 07/30/18 09:14 Dose: 40 mg Heparin Sodium (Porcine) (Heparin) 5,000 units SC Q12@0400,1600 [facility]; Protocol Last Admin: 07/29/18 17:11 Dose: 5,000 units Hydromorphone HCl (Dilaudid) 0.5 mg IVP Q15M PRN PRN Reason: Pain, moderate (4-7) Iron Sucrose 100 mg/ Sodium (Chloride) 105 mls @ 105 mls/hr IVPB DAILY [facility] Stop: 08/03/18 13:01 Last Admin: 07/30/18 09:21 Dose: 105 mls/hr Ondansetron HCl (Zofran Inj) 4 mg IVP Q6 PRN PRN Reason: Nausea/Vomiting Last Admin: 07/21/18 11:06 Dose: 4 mg Pantoprazole Sodium (Protonix Ec Tab) 40 mg PO DAILY [facility] Last Admin: 07/30/18 09:18 Dose: 40 mg Vitamin B Complex/Vit C/Folic Acid (Nephro-Chey) 1 tab PO DAILY [facility] Last Admin: 07/30/18 09:18 Dose: 1 tab - Labs Labs: 07/30/18 04:55 07/30/18 04:55 PT 11.1 Seconds (9.8-13.1) 07/28/18 14:20 INR 1.0 07/28/18 14:20 APTT 31.6 Seconds (25.6-37.1) 07/22/18 11:03 - Constitutional Appears: No Acute Distress - Eye Exam Eye Exam: Conjunctival injection - ENT Exam ENT Exam: Mucous Membranes Moist - Neck Exam Neck Exam: absent: Lymphadenopathy - Respiratory Exam Respiratory Exam: NORMAL BREATHING PATTERN - Cardiovascular Exam Cardiovascular Exam: REGULAR RHYTHM. absent: Gallop, Rubs - GI/Abdominal Exam GI & Abdominal Exam: Soft, Normal Bowel Sounds - Extremities Exam Extremities Exam: absent: Calf Tenderness - Back Exam Back Exam: absent: CVA tenderness (L), CVA tenderness (R) - Neurological Exam Neurological Exam: Alert - Skin Skin Exam: absent: Cyanosis Assessment and Plan (1) ARF (acute renal failure) Assessment & Plan: Acute Kidney Injury (N17.9) likely due to ATN due to rhabdomyolysis, dialysis dependent Anemia, thrombocytopenia appears to be corrected parotitis acute liver injury function trending down hx of alcohol and drug psoriasis 28 year old male with PMHx of psoriasis brought to ER by EMS after being found unresponsive. Patient in [place]. Shock liver, rhabdomyolysis, Recommendation Kidney function not improving hemodialysis 3 times a week Status post right jugular catheter for dialysis S/P kidney biopsy done July 30 Discussed with social insurance administrator to arrange for outpatient dialysis as acute renal failure will need dialysis. Antibiotics as per renal dose CPK trending down Liver function trending down rapidly as well Because of the kidney biopsy was completed almost by noon time therefore we will hold off hemodialysis today rescheduled for tomorrow morning I already spoke to the dialysis nurse. Status: Acute (2) Altered mental status Status: Acute (3) Hyperkalemia Status: Acute (4) Ingestion of toxic substance Status: Acute (5) Septic shock Status: Acute
[2018-07-30] MEDS: Epoetin Alfa 20000 UNIT/ML Inj IV SCH (11:52)
--- NOTE | 2018-07-30 12:09 | CP.PCM.PN ---
Subjective - Date & Time of Evaluation Date of Evaluation: 07/30/18 Time of Evaluation: 09:30 - Subjective Subjective: Patient seen and evaluated during morning rounds in Tele. Patient alert, awake, afebrile. Denies any CP, SOB, back pain, headache, dizziness, weakness, N/V/D. Tolerating diet well PO. Patient is S/P renal biopsy today which he tolerated well. Still in renal failure. LFTs, CPK trending down. No new complains as per patient. Objective - Vital Signs/Intake and Output Vital Signs (last 24 hours): Temp Pulse Resp BP Pulse Ox 97.9 F 73 18 144/94 H 100 07/30/18 11:50 07/30/18 11:50 07/30/18 11:50 07/30/18 11:50 07/30/18 11:50 - Medications Medications: Current Medications Cholecalciferol (Vitamin D) 2,000 intlu PO DAILY [facility] Last Admin: 07/30/18 09:21 Dose: 2,000 intlu Epoetin Marito (Procrit) 8,000 unit IV MWF [facility] Last Admin: 07/30/18 11:52 Dose: 8,000 unit Furosemide (Lasix) 40 mg IVP BID [facility] Last Admin: 07/30/18 09:14 Dose: 40 mg Heparin Sodium (Porcine) (Heparin) 5,000 units SC Q12@0400,1600 [facility]; Protocol Last Admin: 07/29/18 17:11 Dose: 5,000 units Hydromorphone HCl (Dilaudid) 0.5 mg IVP Q15M PRN PRN Reason: Pain, moderate (4-7) Iron Sucrose 100 mg/ Sodium (Chloride) 105 mls @ 105 mls/hr IVPB DAILY [facility] Stop: 08/03/18 13:01 Last Admin: 07/30/18 09:21 Dose: 105 mls/hr Ondansetron HCl (Zofran Inj) 4 mg IVP Q6 PRN PRN Reason: Nausea/Vomiting Last Admin: 07/21/18 11:06 Dose: 4 mg Pantoprazole Sodium (Protonix Ec Tab) 40 mg PO DAILY [facility] Last Admin: 07/30/18 09:18 Dose: 40 mg Vitamin B Complex/Vit C/Folic Acid (Nephro-Meryl) 1 tab PO DAILY [facility] Last Admin: 07/30/18 09:18 Dose: 1 tab - Labs Labs: 07/30/18 04:55 07/30/18 04:55 PT 11.1 Seconds (9.8-13.1) 07/28/18 14:20 INR 1.0 07/28/18 14:20 APTT 31.6 Seconds (25.6-37.1) 07/22/18 11:03 - Constitutional Appears: Non-toxic, No Acute Distress - Head Exam Head Exam: ATRAUMATIC, NORMOCEPHALIC - Eye Exam Eye Exam: EOMI, Normal appearance - ENT Exam ENT Exam: Mucous Membranes Moist - Neck Exam Neck Exam: Full ROM. absent: Tenderness - Respiratory Exam Respiratory Exam: Clear to Ausculation Bilateral. absent: Rales, Rhonchi, Wheezes, Respiratory Distress - Cardiovascular Exam Cardiovascular Exam: REGULAR RHYTHM, +S1, +S2 - GI/Abdominal Exam GI & Abdominal Exam: Soft, Normal Bowel Sounds. absent: Tenderness - Extremities Exam Extremities Exam: absent: Calf Tenderness, Pedal Edema, Tenderness - Back Exam Back Exam: absent: CVA tenderness (L), CVA tenderness (R) - Neurological Exam Neurological Exam: Alert, Awake, Oriented x3 - Psychiatric Exam Psychiatric exam: Normal Affect, Normal Mood - Skin Skin Exam: Dry, Intact, Normal Color, Warm Assessment and Plan - Assessment and Plan (Free Text) Assessment: 28 year old male with PMHx of psoriasis brought to ER by EMS after being found unresponsive. Patient in [place]. Shock liver, rhabdomyolysis, AMS resolved. S/P HD x 5. Last HD yesterday 07/28. S/P renal biopsy 07/30. Plan: [place] - Likely due to substance abuse/Rhabdomyolysis - S/P HD x 5, Last HD 07/28. Right Jugular tunneled HD cath in place. - S/P renal biopsy today, 07/30. - BUN/Creat, 35/7.7 - Nephro on board. F/U recs - Continue Epogen, Iron sucrose and nephro-meryl - Continue Lasix 40 mg PO BID - Monitor Input/Output, daily weights and BMP - Likely HD tomorrow - Nephro recs: HD 3 times per weekly, certified social workers in health care to arrange for outpatient dialysis as CRISTINA will need dialysis. Acute liver failure likely secondary to substance use/shock liver - Improving, <500 - GI Consultation board, Will follow recs. - Monitor LFTs Rhabdomyolysis - CPK trending down 1000+ - S/P HD x 5 - Monitor CPK Vit D Deficiency - 2000 IU Cholecalciferol PO daily Extensive psoriasis - Controlled - Reports using cream at home, Resume upon discharge Prophylaxis - DVT: SCDs, Heparin 5000 IU SC - GI: Zofran PRN, Protonix Code status Full code
--- NOTE | 2018-07-30 12:46 | US ---
PROCEDURE: Date of procedure: 07/30/2018 Procedure: Ultrasound-guided left renal biopsy, CPT 60328 Ultrasound guidance for biopsy, [address] Medication: 8 cc 2% Lidocaine, patient received IV sedation by the anesthesiologist along with physiologic monitoring. HISTORY: Renal failure TECHNIQUE: Following informed consent and procedure time-out, the patient was placed prone on the interventional table and a limited ultrasound showed unremarkable left kidney. There is no hydronephrosis or mass. The patient left back was prepped and draped in the usual sterile fashion. After patient sedated by the anesthesiologist and the skin anesthetized with lidocaine, an 18 gauge core needle was advanced percutaneously towards the lower pole cortex. Upon confirmation of needle position, three-18 gauge core specimens were obtained and sent for routine pathology. The biopsy tract was then embolized with Gelfoam. A post biopsy ultrasound showed no hematoma. There were no immediate complications. IMPRESSION: Ultrasound-guided left renal biopsy.
[2018-07-31 06:53] LABS: HEMOGLOBIN 9.2 g/dL (12.0-18.0); MEAN CELL VOLUME 96.9 fl (80.0-94.0); MEAN CORPUSCULAR HEMOGLOBIN 31.8 pg (27.0-31.0); MEAN CORPUSCULAR HGB CONC 32.9 g/dL (33.0-37.0); RBC 2.88 Mil/uL (4.40-5.90); RED CELL DISTRIBUTION WIDTH 14.8 % (11.5-14.5); WHITE BLOOD COUNT 13.2 K/uL (4.8-10.8)
[2018-07-31 07:16] LABS: ALB/GLOB RATIO 1.1 (1.0-2.1); ALBUMIN 3.4 g/dL (3.5-5.0); CALCIUM 8.4 mg/dL (8.4-10.2)
[2018-07-31] MEDS: Multivitamin Vitamin B Complex (Nephro-Vite) Tab PO SCH (10:16)
[2018-07-31] MEDS: Pantoprazole 40 mg EC Tab PO SCH (10:18)
[2018-07-31] MEDS: Cholecalciferol 1,000 INTLU TAB PO SCH (10:18)
--- NOTE | 2018-07-31 10:56 | CP.PCM.PN ---
Subjective - Date & Time of Evaluation Date of Evaluation: 07/31/18 Time of Evaluation: 10:10 - Subjective Subjective: Seen at bedside during dialysis session. Sleeping comfortable in bed. Arousable. Max temp 100.2 in last 24h. Denies vomiting, nausea or diarrhea. Tolerating PO. No acute events overnight. Mother at bedside. Aware of patient current situ ation. OP dialysis placement pending Objective - Vital Signs/Intake and Output Vital Signs (last 24 hours): Temp Pulse Resp BP Pulse Ox 98 F 80 18 124/76 97 07/31/18 08:10 07/31/18 08:10 07/31/18 08:10 07/31/18 08:10 07/31/18 08:10 Intake and Output: 07/31/18 07/31/18 06:59 18:59 Intake Total 800 Output Total 800 Balance 0 - Medications Medications: Current Medications Cholecalciferol (Vitamin D) 2,000 intlu PO DAILY [facility] Last Admin: 07/31/18 10:18 Dose: 2,000 intlu Epoetin Marito (Procrit) 8,000 unit IV MWF [facility] Last Admin: 07/30/18 11:52 Dose: 8,000 unit Furosemide (Lasix) 40 mg IVP BID [facility] Last Admin: 07/31/18 10:17 Dose: Not Given Heparin Sodium (Porcine) (Heparin) 5,000 units SC Q12@0400,1600 [facility]; Protocol Last Admin: 07/31/18 04:47 Dose: 5,000 units Iron Sucrose 100 mg/ Sodium (Chloride) 105 mls @ 105 mls/hr IVPB DAILY [facility] Stop: 08/03/18 13:01 Last Admin: 07/31/18 10:17 Dose: 105 mls/hr Ondansetron HCl (Zofran Inj) 4 mg IVP Q6 PRN PRN Reason: Nausea/Vomiting Last Admin: 07/21/18 11:06 Dose: 4 mg Pantoprazole Sodium (Protonix Ec Tab) 40 mg PO DAILY [facility] Last Admin: 07/31/18 10:18 Dose: 40 mg Vitamin B Complex/Vit C/Folic Acid (Nephro-Meryl) 1 tab PO DAILY [facility] Last Admin: 07/31/18 10:16 Dose: 1 tab - Labs Labs: 07/31/18 06:43 07/31/18 06:43 PT 11.1 Seconds (9.8-13.1) 07/28/18 14:20 INR 1.0 07/28/18 14:20 APTT 31.6 Seconds (25.6-37.1) 07/22/18 11:03 - Constitutional Appears: Non-toxic - Eye Exam Eye Exam: PERRL - ENT Exam ENT Exam: Mucous Membranes Moist - Respiratory Exam Respiratory Exam: Clear to Ausculation Bilateral, NORMAL BREATHING PATTERN. absent: Respiratory Distress - Cardiovascular Exam Cardiovascular Exam: REGULAR RHYTHM, +S1, +S2. absent: Gallop - GI/Abdominal Exam GI & Abdominal Exam: Soft, Normal Bowel Sounds. absent: Tenderness - Extremities Exam Extremities Exam: Full ROM. absent: Calf Tenderness - Neurological Exam Neurological Exam: Alert, Awake, Oriented x3 - Psychiatric Exam Psychiatric exam: Normal Affect, Normal Mood - Skin Skin Exam: Pallor, Warm Assessment and Plan - Assessment and Plan (Free Text) Assessment: 28 year old male with PMHx of psoriasis admitted with AMS and multiorgan failure. [place] - Likely due to substance abuse/shock - Persistent - On HD - S/P renal biopsy 07/30. - Nephro on board. F/U recs - Continue Epogen, Iron sucrose and nephro-meryl - Continue Lasix 40 mg PO BID - Monitor Input/Output, daily weights and BMP - Nephro recs: HD 3 times per weekly, rn social services to arrange for outpatient dialysis as CRISTINA will need dialysis. Leukocytosis/Elevated temp -Acute -Mild -S/P Kidney biopsy Yesterday -Will order UA -Monitor -If higher fever, persistent, worsening WBC consider Abx Anemia - Poss kidney disease, blood drawn - Stable Hgb in 9s - Monitor - On Epogen Acute liver failure likely secondary to substance use/shock liver - Almost resolved - GI consulted - Trend LFTs Rhabdomyolysis - CPK trending down - C/w HD - Monitor Vit D Deficiency - 2000 IU Cholecalciferol PO daily Extensive psoriasis - Reports using cream at home, Resume upon discharge Prophylaxis - DVT: SCDs, Heparin 5000 IU SC q12h - GI: Zofran PRN, Protonix Code status Full code
--- NOTE | 2018-07-31 13:42 | CP.PCM.PN ---
Subjective - Date & Time of Evaluation Date of Evaluation: 07/31/18 Time of Evaluation: 13:40 - Subjective Subjective: RENAL seen on HD O: vs as below +s1+s2 ext trace edema imp: ARF / Rhabdo/ Substance abuse/ Shock/ ANemia plan: seen on HD tolerating tx uf as tolerated repeat UA and UPCR ordered s/p renal biopsy - if ua still looks active will do serologic work up f/u social work Objective - Vital Signs/Intake and Output Vital Signs (last 24 hours): Temp Pulse Resp BP Pulse Ox 98.9 F 74 18 143/99 H 97 07/31/18 12:17 07/31/18 12:17 07/31/18 12:17 07/31/18 12:17 07/31/18 12:17 Intake and Output: 07/31/18 07/31/18 06:59 18:59 Intake Total 800 Output Total 800 Balance 0 - Medications Medications: Current Medications Cholecalciferol (Vitamin D) 2,000 intlu PO DAILY [facility] Last Admin: 07/31/18 10:18 Dose: 2,000 intlu Epoetin Marito (Procrit) 8,000 unit IV MWF [facility] Last Admin: 07/30/18 11:52 Dose: 8,000 unit Furosemide (Lasix) 40 mg IVP BID [facility] Last Admin: 07/31/18 10:17 Dose: Not Given Heparin Sodium (Porcine) (Heparin) 5,000 units SC Q12@0400,1600 [facility]; Protocol Last Admin: 07/31/18 04:47 Dose: 5,000 units Iron Sucrose 100 mg/ Sodium (Chloride) 105 mls @ 105 mls/hr IVPB DAILY [facility] Stop: 08/03/18 13:01 Last Admin: 07/31/18 10:17 Dose: 105 mls/hr Ondansetron HCl (Zofran Inj) 4 mg IVP Q6 PRN PRN Reason: Nausea/Vomiting Last Admin: 07/21/18 11:06 Dose: 4 mg Pantoprazole Sodium (Protonix Ec Tab) 40 mg PO DAILY [facility] Last Admin: 07/31/18 10:18 Dose: 40 mg Vitamin B Complex/Vit C/Folic Acid (Nephro-Chey) 1 tab PO DAILY [facility] Last Admin: 07/31/18 10:16 Dose: 1 tab - Labs Labs: 07/31/18 06:43 07/31/18 06:43 PT 11.1 Seconds (9.8-13.1) 07/28/18 14:20 INR 1.0 07/28/18 14:20 APTT 31.6 Seconds (25.6-37.1) 07/22/18 11:03
[2018-07-31 16:56] LABS: URINE BACTERIA RARE (<OCC); URINE BILIRUBIN NEGATIVE (NEGATIVE); URINE BLOOD MODERATE (NEGATIVE); URINE CLARITY SLIGHTY-CLOUDY (Clear); URINE COLOR YELLOW (YELLOW); URINE GLUCOSE (UA) NEG (NEGATIVE); URINE LEUKOCYTE ESTERASE TRACE Leu/uL (Negative); URINE PROTEIN 30 mg/dL (NEGATIVE); URINE UROBILINOGEN 0.2-1.0 mg/dL (0.2-1.0)
[2018-08-01 00:02] LABS: URINE BILIRUBIN NEGATIVE (NEGATIVE); URINE BLOOD LARGE (NEGATIVE); URINE CLARITY CLEAR (Clear); URINE COLOR YELLOW (YELLOW); URINE GLUCOSE (UA) NEG (NEGATIVE); URINE LEUKOCYTE ESTERASE TRACE Leu/uL (Negative); URINE PROTEIN NEGATIVE (NEGATIVE); URINE UROBILINOGEN 0.2-1.0 mg/dL (0.2-1.0)
[2018-08-01 06:38] LABS: INR 1.1; PROTHROMBIN TIME 12.3 Seconds (9.8-13.1)
[2018-08-01 06:39] LABS: HEMOGLOBIN 9.7 g/dL (12.0-18.0); MEAN CELL VOLUME 96.9 fl (80.0-94.0); MEAN CORPUSCULAR HEMOGLOBIN 32.5 pg (27.0-31.0); MEAN CORPUSCULAR HGB CONC 33.6 g/dL (33.0-37.0); RBC 2.98 Mil/uL (4.40-5.90); RED CELL DISTRIBUTION WIDTH 15.1 % (11.5-14.5); WHITE BLOOD COUNT 8.9 K/uL (4.8-10.8)
[2018-08-01 06:41] LABS: PARTIAL THROMBOPLASTIN TIME 42.6 Seconds (25.6-37.1)
[2018-08-01 06:55] LABS: CALCIUM 8.3 mg/dL (8.4-10.2)
[2018-08-01] MEDS: Multivitamin Vitamin B Complex (Nephro-Vite) Tab PO SCH (09:24)
[2018-08-01] MEDS: Pantoprazole 40 mg EC Tab PO SCH (09:24)
[2018-08-01] MEDS: Cholecalciferol 1,000 INTLU TAB PO SCH (09:25)
--- NOTE | 2018-08-01 10:55 | CP.PCM.PN ---
Subjective - Date & Time of Evaluation Date of Evaluation: 08/01/18 Time of Evaluation: 09:30 - Subjective Subjective: Patient seen and evaluated at bedside in AM. Patient had moderate amount of sanguineous drainage since yesterday night. Last dressing change was 8.30 am today and currently sand bag is placed to apply pressure to the area. Patient also reports tenderness and pain around the area which is not resolving. Patient spiked fever yesterday and appears weaker in last 2 days. Also reports intermittent headache. Denies any chills, neck swelling, CP, SOB, odynophagia, abdominal pain, dysuria, change in urinary frequency or back pain. Last HD yesterday. BUN/Cr improved s/p HD. LFTs and CPK trending down. Objective - Vital Signs/Intake and Output Vital Signs (last 24 hours): Temp Pulse Resp BP Pulse Ox 100.7 F H 81 18 110/67 97 08/01/18 08:16 08/01/18 09:00 08/01/18 08:16 08/01/18 09:22 08/01/18 08:16 Intake and Output: 08/01/18 08/01/18 06:59 18:59 Intake Total 1350 Output Total 1300 Balance 50 - Medications Medications: Current Medications Acetaminophen (Tylenol 325mg Tab) 650 mg PO Q6 PRN PRN Reason: Fever >100.4 F Last Admin: 07/31/18 18:47 Dose: 650 mg Cholecalciferol (Vitamin D) 2,000 intlu PO DAILY [facility] Last Admin: 08/01/18 09:25 Dose: 2,000 intlu Epoetin Marito (Procrit) 8,000 unit IV MWF [facility] Last Admin: 07/30/18 11:52 Dose: 8,000 unit Furosemide (Lasix) 40 mg IVP BID [facility] Last Admin: 08/01/18 09:22 Dose: 40 mg Heparin Sodium (Porcine) (Heparin) 5,000 units SC Q12@0400,1600 [facility]; Protocol Last Admin: 07/31/18 16:26 Dose: 5,000 units Iron Sucrose 100 mg/ Sodium (Chloride) 105 mls @ 105 mls/hr IVPB DAILY [facility] Stop: 08/03/18 13:01 Last Admin: 07/31/18 10:17 Dose: 105 mls/hr Piperacillin Sod/Tazobactam (Sod 2.25 gm/ Sodium Chloride) 100 mls @ 100 mls/hr IVPB Q12 [facility]; Protocol Last Admin: 08/01/18 09:35 Dose: 100 mls/hr Ondansetron HCl (Zofran Inj) 4 mg IVP Q6 PRN PRN Reason: Nausea/Vomiting Last Admin: 07/21/18 11:06 Dose: 4 mg Pantoprazole Sodium (Protonix Ec Tab) 40 mg PO DAILY [facility] Last Admin: 08/01/18 09:24 Dose: 40 mg Vitamin B Complex/Vit C/Folic Acid (Nephro-Meryl) 1 tab PO DAILY [facility] Last Admin: 08/01/18 09:24 Dose: 1 tab - Labs Labs: 08/01/18 05:30 08/01/18 05:30 PT 12.3 Seconds (9.8-13.1) 08/01/18 05:30 INR 1.1 08/01/18 05:30 APTT 42.6 Seconds (25.6-37.1) H 08/01/18 05:30 - Constitutional Appears: No Acute Distress - Head Exam Head Exam: ATRAUMATIC, NORMOCEPHALIC - Eye Exam Eye Exam: EOMI, Normal appearance - ENT Exam ENT Exam: Mucous Membranes Moist - Neck Exam Neck Exam: absent: Tenderness, Thyromegaly Additional comments: Tenderness around HD access line on right neck area/upper chest. Dressing and pressure - Respiratory Exam Respiratory Exam: Clear to Ausculation Bilateral, NORMAL BREATHING PATTERN. absent: Decreased Breath Sounds, Rales, Rhonchi, Wheezes, Respiratory Distress - Cardiovascular Exam Cardiovascular Exam: REGULAR RHYTHM, +S1, +S2. absent: Tachycardia, Murmur - GI/Abdominal Exam GI & Abdominal Exam: Soft, Tenderness, Normal Bowel Sounds. absent: Distended - Extremities Exam Extremities Exam: absent: Calf Tenderness, Pedal Edema, Tenderness - Neurological Exam Neurological Exam: Alert, Awake, Oriented x3 - Psychiatric Exam Psychiatric exam: Normal Affect, Normal Mood - Skin Skin Exam: Dry, Intact, Normal Color, Warm Assessment and Plan - Assessment and Plan (Free Text) Assessment: 28 year old male with PMHx of psoriasis admitted with AMS and multiorgan failure. Plan: CRISTINA - Likely due to substance abuse/shock - Persistent - On HD, Last HD yesterday - S/P renal biopsy 07/30. - Nephro on board. F/U recs - Continue Epogen, Iron sucrose and nephro-meryl - Continue Lasix 40 mg PO BID - Monitor Input/Output, daily weights and BMP - Nephro recs: HD 3 times per weekly, social media executive to arrange for outpatient dialysis as CRISTINA will need dialysis. Leukocytosis/Elevated temp -Acute, Mild, improved today to 8.9 -S/P Kidney biopsy Yesterday -UA Trace Leuk estrace and Mod-large blood -S/P Vancomycin yesterday -On renal dose of Zosyn -F/U Blood Cx and Urine Cx. HD Catheter site bleeding - Currently on dressing pressured with sand bag. - Will consider IR consult if bleeding continues. - Hold Heparin for now. - Monitor cath site Anemia - Poss kidney disease, blood drawn - Stable Hgb in 9s - Monitor - On Epogen Acute liver failure likely secondary to substance use/shock liver - Almost resolved - GI consulted - Trend LFTs Rhabdomyolysis - CPK trending down - C/w HD - Monitor Vit D Deficiency - 2000 IU Cholecalciferol PO daily Extensive psoriasis - Reports using cream at home, Resume upon discharge Prophylaxis - DVT: SCDs, Hold Heparin due to IJ cather site bleeding. - GI: Zofran PRN, Protonix Code status Full code
[2018-08-01] MEDS ORDERED: Cellulose Hemostat 2X3 Sheet TP ONE (13:45)
[2018-08-02 06:34] LABS: BASO # 0.1 K/uL (0.0-0.2); BASO % 1.2 % (0.0-2.0); EOS # 0.3 K/uL (0.0-0.7); EOS % 6.2 % (0.0-4.0); HEMOGLOBIN 9.3 g/dL (12.0-18.0); LYMPH # 1.1 K/uL (1.0-4.3); LYMPH % 20.1 % (20.0-40.0); MEAN CELL VOLUME 95.6 fl (80.0-94.0); MEAN CORPUSCULAR HEMOGLOBIN 31.7 pg (27.0-31.0); MEAN CORPUSCULAR HGB CONC 33.2 g/dL (33.0-37.0); MEAN PLATELET VOLUME 8.2 fl (7.2-11.7); MONO # 0.9 K/uL (0.0-0.8); NEUT % 55.5 % (50.0-75.0); NRBC % 0.2 % (0.0-0.0); RBC 2.92 Mil/uL (4.40-5.90); RED CELL DISTRIBUTION WIDTH 15.4 % (11.5-14.5); WHITE BLOOD COUNT 5.4 K/uL (4.8-10.8)
[2018-08-02 06:41] LABS: INR 1.1; PROTHROMBIN TIME 12.1 Seconds (9.8-13.1)
[2018-08-02 06:45] LABS: ALB/GLOB RATIO 1.2 (1.0-2.1); ALBUMIN 3.8 g/dL (3.5-5.0); CALCIUM 8.4 mg/dL (8.4-10.2)
[2018-08-02] MEDS: Multivitamin Vitamin B Complex (Nephro-Vite) Tab PO SCH (08:36)
[2018-08-02] MEDS: Epoetin Alfa 20000 UNIT/ML Inj IV SCH (08:36)
[2018-08-02] MEDS: Pantoprazole 40 mg EC Tab PO SCH (08:37)
[2018-08-02] MEDS: Cholecalciferol 1,000 INTLU TAB PO SCH (08:37)
--- NOTE | 2018-08-02 10:59 | RAD ---
Date of service: 08/02/2018 HISTORY: fever 102.9 COMPARISON: Chest 07/30/2018. TECHNIQUE: Chest PA and lateral FINDINGS: No interval change right IJ dialysis catheter with tips in the SVC LUNGS: There appears to be some mild atelectasis right medial lung base. Questionable tiny bilateral effusions PLEURA: As above. No pneumothorax apparent. CARDIOVASCULAR: No aortic atherosclerotic calcification present. Normal cardiac size. No pulmonary vascular congestion. OSSEOUS STRUCTURES: No significant abnormalities. VISUALIZED UPPER ABDOMEN: Normal.. OTHER FINDINGS: None. IMPRESSION: Mild atelectasis right medial lung base. Questionable tiny bilateral effusions
[2018-08-02] MEDS ORDERED: Desmopressin 4 mcg/ml Inj (10 ml) IV ONE (11:48)
--- NOTE | 2018-08-02 12:13 | CP.PCM.PN ---
<Joni Samayoa - Last Filed: 08/02/18 12:29> Subjective - Date & Time of Evaluation Date of Evaluation: 08/02/18 Time of Evaluation: 09:15 - Subjective Subjective: Patient seen and evaluated at bedside in AM. Patient continues to have leaking of blood from HD access catheter for last 48 hrs. Dressing are changed by nurse every 4-6 hrs along with sandbag pressure. Patient had Tmax 102.9 last night was resolved. Patient is afebrile so far today. Reports feeling fine. Appetite WNL. Denies any chest pain, confusion, shortness of breath, headache, abdominal pain, nausea, vomiting, diarrhea or calf pain. Patient is able to ambulate w/o difficulties. CPK Normal, LFTs in 100s, BUN/Cr 46/6.9. Objective - Vital Signs/Intake and Output Vital Signs (last 24 hours): Temp Pulse Resp BP Pulse Ox 99.3 F 73 18 110/71 96 08/02/18 08:14 08/02/18 08:14 08/02/18 08:14 08/02/18 08:14 08/02/18 08:14 - Medications Medications: Current Medications Acetaminophen (Tylenol 325mg Tab) 650 mg PO Q6 PRN PRN Reason: Fever >100.4 F Last Admin: 08/01/18 21:38 Dose: 650 mg Cholecalciferol (Vitamin D) 2,000 intlu PO DAILY [facility] Last Admin: 08/02/18 08:37 Dose: 2,000 intlu Desmopressin Acetate (Ddavp) 20 mcg IV ONCE ONE Stop: 08/02/18 11:49 Epoetin Marito (Procrit) 8,000 unit IV MWF [facility] Last Admin: 08/02/18 08:36 Dose: 8,000 unit Furosemide (Lasix) 40 mg IVP BID [facility] Last Admin: 08/02/18 09:55 Dose: Not Given Heparin Sodium (Porcine) (Heparin) 5,000 units SC Q12@0400,1600 [facility]; Protocol Last Admin: 07/31/18 16:26 Dose: 5,000 units Iron Sucrose 100 mg/ Sodium (Chloride) 105 mls @ 105 mls/hr IVPB DAILY [facility] Stop: 08/03/18 13:01 Last Admin: 08/02/18 11:13 Dose: 105 mls/hr Piperacillin Sod/Tazobactam (Sod 2.25 gm/ Sodium Chloride) 100 mls @ 100 mls/hr IVPB Q12 [facility]; Protocol Last Admin: 08/02/18 08:38 Dose: 100 mls/hr Ondansetron HCl (Zofran Inj) 4 mg IVP Q6 PRN PRN Reason: Nausea/Vomiting Last Admin: 07/21/18 11:06 Dose: 4 mg Pantoprazole Sodium (Protonix Ec Tab) 40 mg PO DAILY [facility] Last Admin: 08/02/18 08:37 Dose: 40 mg Vitamin B Complex/Vit C/Folic Acid (Nephro-Meryl) 1 tab PO DAILY [facility] Last Admin: 08/02/18 08:36 Dose: 1 tab - Labs Labs: 08/02/18 05:30 08/02/18 05:30 PT 12.1 Seconds (9.8-13.1) 08/02/18 05:30 INR 1.1 08/02/18 05:30 APTT 43.0 Seconds (25.6-37.1) H 08/02/18 05:30 - Constitutional Appears: Non-toxic, No Acute Distress - Head Exam Head Exam: ATRAUMATIC, NORMOCEPHALIC - Eye Exam Eye Exam: EOMI, Normal appearance - ENT Exam ENT Exam: Mucous Membranes Moist - Neck Exam Neck Exam: absent: Tenderness Additional comments: Mild tenderness w/o erythema around HD catheter access. Dressing soaked with blood. - Respiratory Exam Respiratory Exam: Clear to Ausculation Bilateral. absent: Rales, Rhonchi, Wheezes, Respiratory Distress - Cardiovascular Exam Cardiovascular Exam: REGULAR RHYTHM, +S1, +S2. absent: Murmur - GI/Abdominal Exam GI & Abdominal Exam: Soft, Normal Bowel Sounds. absent: Distended, Tenderness - Extremities Exam Extremities Exam: absent: Calf Tenderness, Pedal Edema, Tenderness - Back Exam Back Exam: absent: CVA tenderness (L), CVA tenderness (R) - Neurological Exam Neurological Exam: Alert, Awake, Oriented x3 - Psychiatric Exam Psychiatric exam: absent: Normal Affect, Normal Mood - Skin Skin Exam: Dry, Intact, Normal Color, Warm Assessment and Plan - Assessment and Plan (Free Text) Assessment: 28 year old male with PMH of psoriasis brought to ER by EMS after being found unresponsive. Patient admitted for AMS,CRISTINA, shock liver, rhabdomyolysis secondary to drug abuse . Initially was in ICU treated with IVF , acetylcysteine drip , HCO3 drip and started on HD. Patient clinically improved , hemodynamically stable, mental status improved, LFT-s , CPK trending down. Still in renal failure with elevated BUN / Cr, not responding to HD and diuretics. s/p renal biopsy 07/30, Last HD 07/31. Plan: CRISTINA - Likely due to substance abuse/shock - Persistent - On HD, Last HD 07/31 - S/P renal biopsy 07/30. Results pending - Nephro on board. F/U recs - Continue Epogen, Iron sucrose and nephro-meryl - Continue Lasix 40 mg PO BID - Monitor Input/Output, daily weights and BMP - Nephro recs: HD 3 times per weekly, manager social responsibility to arrange for outpatient dialysis as CRISTINA will need dialysis. Leukocytosis/Fever -Leukocytosis resolved, still febrile -UA Trace Leuk estrace and Mod-large blood -S/P Vancomycin -On renal dose of Zosyn -F/U Blood Cx and Urine Cx. HD Catheter site bleeding - Still oozing blood - Currently on dressing pressured with sand bag. - Hold Heparin for now. - Monitor cath site - DDAVP 20 mcg IV once today, IR aware Anemia - Poss kidney disease, blood drawn - Stable Hgb in 9s - Monitor - On Epogen Acute liver failure likely secondary to substance use/shock liver - Almost resolved - GI consulted - Trend LFTs Rhabdomyolysis - Resolved Vit D Deficiency - 2000 IU Cholecalciferol PO daily Extensive psoriasis - Reports using cream at home, Resume upon discharge Prophylaxis - DVT: SCDs, Hold Heparin due to IJ cather site bleeding. - GI: Zofran PRN, Protonix Code status Full code <Leila Fitzgerald - Last Filed: 08/02/18 13:43> Objective - Vital Signs/Intake and Output Vital Signs (last 24 hours): Temp Pulse Resp BP Pulse Ox 99.3 F 73 18 110/71 96 08/02/18 08:14 08/02/18 08:14 08/02/18 08:14 08/02/18 08:14 08/02/18 08:14 - Medications Medications: Current Medications Acetaminophen (Tylenol 325mg Tab) 650 mg PO Q6 PRN PRN Reason: Fever >100.4 F Last Admin: 08/01/18 21:38 Dose: 650 mg Cholecalciferol (Vitamin D) 2,000 intlu PO DAILY [facility] Last Admin: 08/02/18 08:37 Dose: 2,000 intlu Epoetin Marito (Procrit) 8,000 unit IV MWF [facility] Last Admin: 08/02/18 08:36 Dose: 8,000 unit Furosemide (Lasix) 40 mg IVP BID [facility] Last Admin: 08/02/18 09:55 Dose: Not Given Heparin Sodium (Porcine) (Heparin) 5,000 units SC Q12@0400,1600 [facility]; Protocol Last Admin: 07/31/18 16:26 Dose: 5,000 units Iron Sucrose 100 mg/ Sodium (Chloride) 105 mls @ 105 mls/hr IVPB DAILY [facility] Stop: 08/03/18 13:01 Last Admin: 08/02/18 11:13 Dose: 105 mls/hr Piperacillin Sod/Tazobactam (Sod 2.25 gm/ Sodium Chloride) 100 mls @ 100 mls/hr IVPB Q12 [facility]; Protocol Last Admin: 08/02/18 08:38 Dose: 100 mls/hr Ondansetron HCl (Zofran Inj) 4 mg IVP Q6 PRN PRN Reason: Nausea/Vomiting Last Admin: 07/21/18 11:06 Dose: 4 mg Pantoprazole Sodium (Protonix Ec Tab) 40 mg PO DAILY [facility] Last Admin: 08/02/18 08:37 Dose: 40 mg Vitamin B Complex/Vit C/Folic Acid (Nephro-Meryl) 1 tab PO DAILY [facility] Last Admin: 08/02/18 08:36 Dose: 1 tab - Labs Labs: 08/02/18 05:30 08/02/18 05:30 PT 12.1 Seconds (9.8-13.1) 08/02/18 05:30 INR 1.1 08/02/18 05:30 APTT 43.0 Seconds (25.6-37.1) H 08/02/18 05:30 Attending/Attestation - Attestation I have personally seen and examined this patient.: Yes I have fully participated in the care of the patient.: Yes I have reviewed all pertinent clinical information, including history, physical exam and plan: Yes Notes (Text): 08/02/18 13:42 agree with findings and plan as above. patient with oozing from HD cath site. likely secondary from uremia and pltlt dysfunction. give [id number] today and HD. Discussed with fidencio GARCIA to use for HD.
[2018-08-02] MEDS ORDERED: Desmopressin 20 MCG in Sodium Chloride 0.9% 50 ML IV ONE (12:30)
--- NOTE | 2018-08-02 13:13 | CP.PCM.PN ---
Subjective - Date & Time of Evaluation Date of Evaluation: 08/02/18 Time of Evaluation: 13:11 - Subjective Subjective: RENAL seen and examined ozzing from cath site PE vs as below gen: nad sclera: anicteirc op: clear neck: supple cv: +S1+s2 no rub lungs: CTA b/l abd: soft nt nd no organomegaly ext: no edema neuro: a+ox3 no asterixis psych: nml affect skin no rash imp: ARF / Rhabdo/ Substance abuse/ Shock/ Anemia plan: HD today continue MWF consult for chair placement awaiting renal biopsy report d/c lasix discussed w/ rn Objective - Vital Signs/Intake and Output Vital Signs (last 24 hours): Temp Pulse Resp BP Pulse Ox 99.3 F 73 18 110/71 96 08/02/18 08:14 08/02/18 08:14 08/02/18 08:14 08/02/18 08:14 08/02/18 08:14 - Medications Medications: Current Medications Acetaminophen (Tylenol 325mg Tab) 650 mg PO Q6 PRN PRN Reason: Fever >100.4 F Last Admin: 08/01/18 21:38 Dose: 650 mg Cholecalciferol (Vitamin D) 2,000 intlu PO DAILY [facility] Last Admin: 08/02/18 08:37 Dose: 2,000 intlu Epoetin Marito (Procrit) 8,000 unit IV MWF [facility] Last Admin: 08/02/18 08:36 Dose: 8,000 unit Furosemide (Lasix) 40 mg IVP BID [facility] Last Admin: 08/02/18 09:55 Dose: Not Given Heparin Sodium (Porcine) (Heparin) 5,000 units SC Q12@0400,1600 [facility]; Protocol Last Admin: 07/31/18 16:26 Dose: 5,000 units Iron Sucrose 100 mg/ Sodium (Chloride) 105 mls @ 105 mls/hr IVPB DAILY [facility] Stop: 08/03/18 13:01 Last Admin: 08/02/18 11:13 Dose: 105 mls/hr Piperacillin Sod/Tazobactam (Sod 2.25 gm/ Sodium Chloride) 100 mls @ 100 mls/hr IVPB Q12 [facility]; Protocol Last Admin: 08/02/18 08:38 Dose: 100 mls/hr Ondansetron HCl (Zofran Inj) 4 mg IVP Q6 PRN PRN Reason: Nausea/Vomiting Last Admin: 07/21/18 11:06 Dose: 4 mg Pantoprazole Sodium (Protonix Ec Tab) 40 mg PO DAILY [facility] Last Admin: 08/02/18 08:37 Dose: 40 mg Vitamin B Complex/Vit C/Folic Acid (Nephro-Chey) 1 tab PO DAILY [facility] Last Admin: 08/02/18 08:36 Dose: 1 tab - Labs Labs: 08/02/18 05:30 08/02/18 05:30 PT 12.1 Seconds (9.8-13.1) 08/02/18 05:30 INR 1.1 08/02/18 05:30 APTT 43.0 Seconds (25.6-37.1) H 08/02/18 05:30
[2018-08-03 06:22] LABS: HEMOGLOBIN 8.8 g/dL (12.0-18.0); MEAN CELL VOLUME 95.7 fl (80.0-94.0); MEAN CORPUSCULAR HEMOGLOBIN 31.1 pg (27.0-31.0); MEAN CORPUSCULAR HGB CONC 32.5 g/dL (33.0-37.0); RBC 2.83 Mil/uL (4.40-5.90); RED CELL DISTRIBUTION WIDTH 15.9 % (11.5-14.5); WHITE BLOOD COUNT 4.8 K/uL (4.8-10.8)
[2018-08-03 06:34] LABS: ALB/GLOB RATIO 1.2 (1.0-2.1); ALBUMIN 3.7 g/dL (3.5-5.0); CALCIUM 8.3 mg/dL (8.4-10.2)
[2018-08-03] MEDS: Pantoprazole 40 mg EC Tab PO SCH (08:26)
[2018-08-03] MEDS: Multivitamin Vitamin B Complex (Nephro-Vite) Tab PO SCH (08:26)
[2018-08-03] MEDS: Cholecalciferol 1,000 INTLU TAB PO SCH (08:26)
--- NOTE | 2018-08-03 09:44 | CP.PCM.PN ---
Subjective - Date & Time of Evaluation Date of Evaluation: 08/03/18 Time of Evaluation: 09:44 - Subjective Subjective: 28-year-old male seen bedside, no acute events overnight. HD access catheter no longer leaking, dry with dressing intact. No current complains, feeling well, tolerating PO intake and ambulating without any difficulties. Afebrile > 24 devin rs. Denies headache, change in vision, chest pain, shortness of breath, abdominal pain, nausea, vomiting, diarrhea or calf pain. CPK Normal, AST/ALT 84/247, BUN/Cr 55/5.6. Hemodialysis today. Objective - Vital Signs/Intake and Output Vital Signs (last 24 hours): Temp Pulse Resp BP Pulse Ox 97.9 F 66 20 113/70 99 08/03/18 07:47 08/03/18 07:47 08/03/18 07:47 08/03/18 07:47 08/03/18 07:47 Intake and Output: 08/03/18 08/03/18 06:59 18:59 Intake Total 500 Output Total 800 Balance -300 - Medications Medications: Current Medications Acetaminophen (Tylenol 325mg Tab) 650 mg PO Q6 PRN PRN Reason: Fever >100.4 F Last Admin: 08/01/18 21:38 Dose: 650 mg Cholecalciferol (Vitamin D) 2,000 intlu PO DAILY [facility] Last Admin: 08/03/18 08:26 Dose: 2,000 intlu Epoetin Marito (Procrit) 8,000 unit IV MWF [facility] Last Admin: 08/02/18 08:36 Dose: 8,000 unit Heparin Sodium (Porcine) (Heparin) 5,000 units SC Q12@0400,1600 [facility]; Protocol Last Admin: 08/02/18 16:15 Dose: Not Given Iron Sucrose 100 mg/ Sodium (Chloride) 105 mls @ 105 mls/hr IVPB DAILY [facility] Stop: 08/03/18 13:01 Last Admin: 08/03/18 09:07 Dose: 105 mls/hr Piperacillin Sod/Tazobactam (Sod 2.25 gm/ Sodium Chloride) 100 mls @ 100 mls/hr IVPB Q12 [facility]; Protocol Last Admin: 08/02/18 21:09 Dose: 100 mls/hr Ondansetron HCl (Zofran Inj) 4 mg IVP Q6 PRN PRN Reason: Nausea/Vomiting Last Admin: 07/21/18 11:06 Dose: 4 mg Pantoprazole Sodium (Protonix Ec Tab) 40 mg PO DAILY [facility] Last Admin: 08/03/18 08:26 Dose: 40 mg Vitamin B Complex/Vit C/Folic Acid (Nephro-Meryl) 1 tab PO DAILY [facility] Last Admin: 08/03/18 08:26 Dose: 1 tab - Labs Labs: 08/03/18 05:05 08/03/18 05:05 PT 12.1 Seconds (9.8-13.1) 08/02/18 05:30 INR 1.1 08/02/18 05:30 APTT 43.0 Seconds (25.6-37.1) H 08/02/18 05:30 - Constitutional Appears: Non-toxic, No Acute Distress - Head Exam Head Exam: NORMAL INSPECTION - Eye Exam Eye Exam: Normal appearance. absent: Scleral icterus - Respiratory Exam Respiratory Exam: Clear to Ausculation Bilateral, NORMAL BREATHING PATTERN Additional comments: HD catheter not actively leaking, dressing dry and intact. Minimal tenderness around catheter. - Cardiovascular Exam Cardiovascular Exam: REGULAR RHYTHM, +S1, +S2 - GI/Abdominal Exam GI & Abdominal Exam: Soft, Normal Bowel Sounds - Extremities Exam Extremities Exam: absent: Calf Tenderness - Back Exam Back Exam: absent: CVA tenderness (L), CVA tenderness (R) - Neurological Exam Neurological Exam: Alert, Awake, Normal Gait, Oriented x3 - Psychiatric Exam Psychiatric exam: Normal Affect, Normal Mood - Skin Skin Exam: Dry, Intact, Normal Color, Warm Assessment and Plan - Assessment and Plan (Free Text) Assessment: 28 year old male with PMH of psoriasis brought to ER by EMS after being found unresponsive. Patient admitted for AMS, CRISTINA, shock liver, rhabdomyolysis secondary to drug abuse. Initially was in ICU treated with IVF, acetylcysteine drip, HCO3 drip and started on HD. Patient clinically improved , hemodynamically stable, mental status improved, LFTs trending down, CPK wnl. Still in renal failure with elevated BUN/Cr, not responding to HD and diuretics. s/p renal biopsy 07/30, Last HD 08/03. Plan: CRISTINA - Persistent - Likely due to substance abuse/shock - On HD, Last HD 08/03 - S/P renal biopsy 07/30 (results pending) - Continue Epogen, Iron sucrose and nephro-meryl - D/C Lasix as per nephrology - Monitor Input/Output, daily weights and BMP - Nephrology (Dr Diego) recommendation: HD 3 times per weekly, social media strategist to arrange for chair placement, awaiting renal biopsy report, d/c lasix. Leukocytosis/Fever - Leukocytosis resolved - Afebrile >24 hours - UA Trace Leuk estrace and Mod-large blood - S/P Vancomycin 1gm (2 doses: 07/31, 08/03; s/p HD) - On renal dose of Zosyn - Blood Cx (08/02) no growth at 24 hours - Urine Cx (07/31) no growth HD Catheter Leaking - Resolved - Leaking 08/01-08/02 - Currently on dressing pressured with sand bag - Hold Heparin - Monitor cath site - DDAVP 20 mcg IV once today, IR aware Anemia - Poss kidney disease, blood drawn - Hg/Hct 8.8/27.1 - Monitor - On Epogen Acute liver failure likely secondary to substance use/shock liver - Almost resolved - GI consulted - LFTs trending down AST/ALT 84/247 Rhabdomyolysis - Resolved Vit D Deficiency - 2000 IU Cholecalciferol PO daily Extensive psoriasis - Reports using cream at home, Resume upon discharge Prophylaxis - DVT: SCDs, Hold Heparin due to IJ cather site bleeding. - GI: Zofran PRN, Protonix
[2018-08-04 06:27] LABS: BASO # 0.1 K/uL (0.0-0.2); BASO % 1.4 % (0.0-2.0); EOS # 0.5 K/uL (0.0-0.7); EOS % 11.5 % (0.0-4.0); LYMPH # 1.5 K/uL (1.0-4.3); LYMPH % 31.6 % (20.0-40.0); MEAN CORPUSCULAR HEMOGLOBIN 31.4 pg (27.0-31.0); MEAN CORPUSCULAR HGB CONC 32.7 g/dL (33.0-37.0); MEAN PLATELET VOLUME 8.6 fl (7.2-11.7); MONO # 0.4 K/uL (0.0-0.8); MONO % 8.4 % (0.0-10.0); NEUT # 2.2 K/uL (1.8-7.0); NEUT % 47.1 % (50.0-75.0); NRBC % 0.1 % (0.0-0.0); RBC 2.88 Mil/uL (4.40-5.90); RED CELL DISTRIBUTION WIDTH 15.2 % (11.5-14.5); WHITE BLOOD COUNT 4.6 K/uL (4.8-10.8)
[2018-08-04 06:37] LABS: CALCIUM 8.5 mg/dL (8.4-10.2)
--- NOTE | 2018-08-04 14:03 | CP.PCM.PN ---
Subjective - Date & Time of Evaluation Date of Evaluation: 08/04/18 Time of Evaluation: 09:35 - Subjective Subjective: 28-year-old male seen bedside, no acute events overnight. Patient had just finished PT and admitted to feeling weak and fatigued. HD access catheter dressing wet with serous fluid and scant blood, no active bleeding, not fully saturated, dressing last changed after HD 24 hours prior. Dried blood around cath site, no oozing. Tolerating PO intake and ambulating with help. Afebrile > 24 hours. Denies headache, change in vision, chest pain, shortness of breath, abdominal pain, nausea, vomiting, diarrhea or calf pain. CPK Normal, AST/ALT 84/247 (08/02), BUN/Cr 34/3.8 (08/03: BUN/Cr 55/5.6). Last HD 08/03/18. Objective - Vital Signs/Intake and Output Vital Signs (last 24 hours): Temp Pulse Resp BP Pulse Ox 97.3 F L 56 L 18 96/60 L 95 08/04/18 08:34 08/04/18 08:34 08/04/18 08:34 08/04/18 08:34 08/04/18 08:34 Intake and Output: 08/04/18 08/04/18 06:59 18:59 Intake Total 120 Output Total 400 Balance -280 - Medications Medications: Current Medications Cholecalciferol (Vitamin D) 2,000 intlu PO DAILY [facility] Last Admin: 08/03/18 08:26 Dose: 2,000 intlu Epoetin Marito (Procrit) 8,000 unit IV MWF [facility] Last Admin: 08/02/18 08:36 Dose: 8,000 unit Heparin Sodium (Porcine) (Heparin) 5,000 units SC Q12@0400,1600 [facility]; Protocol Last Admin: 08/02/18 16:15 Dose: Not Given Piperacillin Sod/Tazobactam (Sod 2.25 gm/ Sodium Chloride) 100 mls @ 100 mls/hr IVPB Q12@0300,1500 [facility]; Protocol Last Admin: 08/04/18 03:31 Dose: 100 mls/hr Ondansetron HCl (Zofran Inj) 4 mg IVP Q6 PRN PRN Reason: Nausea/Vomiting Last Admin: 07/21/18 11:06 Dose: 4 mg Pantoprazole Sodium (Protonix Ec Tab) 40 mg PO DAILY [facility] Last Admin: 08/03/18 08:26 Dose: 40 mg Vitamin B Complex/Vit C/Folic Acid (Nephro-Meryl) 1 tab PO DAILY [facility] Last Admin: 08/03/18 08:26 Dose: 1 tab - Labs Labs: 08/04/18 06:19 08/04/18 06:19 PT 12.1 Seconds (9.8-13.1) 08/02/18 05:30 INR 1.1 08/02/18 05:30 APTT 43.0 Seconds (25.6-37.1) H 08/02/18 05:30 - Constitutional Appears: Non-toxic, No Acute Distress - Head Exam Head Exam: NORMAL INSPECTION - ENT Exam ENT Exam: Mucous Membranes Moist - Neck Exam Neck Exam: Full ROM - Respiratory Exam Respiratory Exam: NORMAL BREATHING PATTERN Additional comments: HD catheter not actively leaking, dressing not fully saturated but moist with serous fluid. Minimal tenderness around catheter. No oozing or active bleeding. - Cardiovascular Exam Cardiovascular Exam: REGULAR RHYTHM, +S1, +S2 - GI/Abdominal Exam GI & Abdominal Exam: Soft. absent: Distended, Tenderness - Extremities Exam Extremities Exam: Normal Inspection - Back Exam Back Exam: NORMAL INSPECTION - Neurological Exam Neurological Exam: Alert, Awake, Normal Gait (weak - ambulates with assistance ) - Psychiatric Exam Psychiatric exam: Normal Affect, Normal Mood - Skin Skin Exam: Dry, Intact, Normal Color, Warm Assessment and Plan - Assessment and Plan (Free Text) Assessment: 28 year old male with PMH of psoriasis brought to ER by EMS after being found unresponsive. Patient admitted for AMS, CRISTINA, shock liver, rhabdomyolysis secondary to drug abuse. Initially was in ICU treated with IVF, acetylcysteine drip, HCO3 drip and started on HD. Patient clinically improved , hemodynamically stable, mental status improved, LFTs trending down, CPK wnl. Still in renal failure with elevated BUN/Cr, not responding to HD and diuretics. s/p renal biopsy 07/30 (pending final results), Last HD 08/03. Plan: CRISTINA - Persistent - Likely due to substance abuse/shock - On HD, Last HD 08/03 - S/P renal biopsy 07/30 (results pending) - Continue Epogen, Iron sucrose and nephro-meryl - D/C Lasix as per nephrology - Monitor Input/Output, daily weights and BMP - Nephrology (Dr Diego) recommendation: HD 3 times per weekly, manager social media to arrange for chair placement, awaiting renal biopsy report, d/c lasix. Leukocytosis/Fever - Leukocytosis resolved - Afebrile >24 hours - UA Trace Leuk estrace and Mod-large blood - S/P Vancomycin 1gm (2 doses: 07/31, 08/03; s/p HD) - On renal dose of Zosyn for 1 more day (d/c 08/05/18) - Blood Cx (08/02) no growth at 24 hours - Urine Cx (07/31) no growth HD Catheter Leaking - Leaking 08/01-08/02 - Resolved 08/03/18 - Dressing wet with serous fluid 08/04/18, no active bleeding, no erythema or exudate - Currently on dressing pressured with sand bag - Hold Heparin - Monitor cath site - DDAVP 20 mcg IV once 08/02, IR aware Anemia - Poss kidney disease, blood drawn - Hg/Hct 9.0/27.6 - Monitor - On Epogen Acute liver failure likely secondary to substance use/shock liver - Almost resolved - GI consulted - LFTs trending down AST/ALT 84/247 (08/02/19) Rhabdomyolysis - Resolved Vit D Deficiency - 2000 IU Cholecalciferol PO daily Extensive psoriasis - Reports using cream at home, Resume upon discharge Prophylaxis - DVT: SCDs, Hold Heparin due to IJ cather site bleeding. - GI: Zofran PRN, Protonix
[2018-08-04] MEDS: Epoetin Alfa 20000 UNIT/ML Inj IV SCH (14:37)
--- NOTE | 2018-08-04 22:45 | CP.PCM.PN ---
Subjective - Date & Time of Evaluation Date of Evaluation: 08/04/18 Time of Evaluation: 22:45 - Subjective Subjective: renal note making more urine PE vs as below gen: nad sclera: anicteirc op: clear neck: supple cv: +S1+s2 no rub lungs: CTA b/l abd: soft nt nd ext: no edema neuro: a+ox3 no asterixis psych: nml affect skin no rash imp: ARF / Rhabdo/ Substance abuse/ Shock/ Anemia plan: HD mwf schedule, ay be recovering, check cr tomorrow and will assess for hd needs lytes reviewed consult sw for chair placement awaiting renal biopsy report permacath placed Objective - Vital Signs/Intake and Output Vital Signs (last 24 hours): Temp Pulse Resp BP Pulse Ox 97.3 F L 67 20 111/73 97 08/04/18 16:05 08/04/18 16:05 08/04/18 16:05 08/04/18 16:05 08/04/18 16:05 Intake and Output: 08/04/18 08/05/18 18:59 06:59 Intake Total 720 Output Total 1050 Balance -330 - Medications Medications: Current Medications Cholecalciferol (Vitamin D) 2,000 intlu PO DAILY [facility] Last Admin: 08/03/18 08:26 Dose: 2,000 intlu Epoetin Marito (Procrit) 8,000 unit IV MWF [facility] Last Admin: 08/04/18 14:37 Dose: Not Given Heparin Sodium (Porcine) (Heparin) 5,000 units SC Q12@0400,1600 [facility]; Protocol Last Admin: 08/02/18 16:15 Dose: Not Given Piperacillin Sod/Tazobactam (Sod 2.25 gm/ Sodium Chloride) 100 mls @ 100 mls/hr IVPB Q12@0300,1500 [facility]; Protocol Last Admin: 08/04/18 16:05 Dose: 100 mls/hr Ondansetron HCl (Zofran Inj) 4 mg IVP Q6 PRN PRN Reason: Nausea/Vomiting Last Admin: 07/21/18 11:06 Dose: 4 mg Pantoprazole Sodium (Protonix Ec Tab) 40 mg PO DAILY [facility] Last Admin: 08/03/18 08:26 Dose: 40 mg Vitamin B Complex/Vit C/Folic Acid (Nephro-Chey) 1 tab PO DAILY [facility] Last Admin: 08/03/18 08:26 Dose: 1 tab - Labs Labs: 08/04/18 06:19 08/04/18 06:19 PT 12.1 Seconds (9.8-13.1) 08/02/18 05:30 INR 1.1 08/02/18 05:30 APTT 43.0 Seconds (25.6-37.1) H 08/02/18 05:30
[2018-08-05 06:38] LABS: ALB/GLOB RATIO 1.1 (1.0-2.1); ALBUMIN 3.9 g/dL (3.5-5.0)
[2018-08-05 06:44] LABS: BASO # 0.1 K/uL (0.0-0.2); EOS # 0.6 K/uL (0.0-0.7); EOS % 10.7 % (0.0-4.0); HEMOGLOBIN 8.8 g/dL (12.0-18.0); LYMPH # 1.4 K/uL (1.0-4.3); LYMPH % 24.2 % (20.0-40.0); MEAN CELL VOLUME 96.3 fl (80.0-94.0); MEAN CORPUSCULAR HEMOGLOBIN 31.9 pg (27.0-31.0); MEAN CORPUSCULAR HGB CONC 33.1 g/dL (33.0-37.0); MEAN PLATELET VOLUME 8.6 fl (7.2-11.7); MONO # 0.4 K/uL (0.0-0.8); MONO % 7.4 % (0.0-10.0); NEUT # 3.3 K/uL (1.8-7.0); NEUT % 56.7 % (50.0-75.0); NRBC % 0.1 % (0.0-0.0); RBC 2.75 Mil/uL (4.40-5.90); RED CELL DISTRIBUTION WIDTH 14.8 % (11.5-14.5); WHITE BLOOD COUNT 5.8 K/uL (4.8-10.8)
[2018-08-05] MEDS: Pantoprazole 40 mg EC Tab PO SCH (08:52)
[2018-08-05] MEDS: Multivitamin Vitamin B Complex (Nephro-Vite) Tab PO SCH (08:52)
[2018-08-05] MEDS: Cholecalciferol 1,000 INTLU TAB PO SCH (08:53)
--- NOTE | 2018-08-05 10:29 | CP.PCM.PN ---
Subjective - Date & Time of Evaluation Date of Evaluation: 08/05/18 Time of Evaluation: 10:29 - Subjective Subjective: 28-year-old male seen siting up in bed in no acute distress, uneventful night. Dried blood around cath site, dressing intact and dry. Tolerating PO intake and ambulating. Afebrile >72 hours. Denies headache, change in vision, chest pain, shortness of breath, abdominal pain, nausea, vomiting, diarrhea or calf pain. CPK Normal, AST/ALT 77/195 (84/247 Aug 02), BUN/Cr 39/3.7 (BUN/Cr 34/3.8 Aug 04, 55/5.6 Aug 03). Last HD 08/03/18, due today. Awaiting placement for outpatient HD. Objective - Vital Signs/Intake and Output Vital Signs (last 24 hours): Temp Pulse Resp BP Pulse Ox 97.2 F L 61 18 96/63 L 99 08/05/18 08:40 08/05/18 08:40 08/05/18 08:40 08/05/18 08:40 08/05/18 08:40 Intake and Output: 08/05/18 08/05/18 06:59 18:59 Intake Total 480 Output Total 300 Balance 180 - Medications Medications: Current Medications Cholecalciferol (Vitamin D) 2,000 intlu PO DAILY [facility] Last Admin: 08/05/18 08:53 Dose: 2,000 intlu Epoetin Marito (Procrit) 8,000 unit IV MWF [facility] Last Admin: 08/04/18 14:37 Dose: Not Given Heparin Sodium (Porcine) (Heparin) 5,000 units SC Q12@0400,1600 WAY[facility]; Protocol Last Admin: 08/02/18 16:15 Dose: Not Given Piperacillin Sod/Tazobactam (Sod 2.25 gm/ Sodium Chloride) 100 mls @ 100 mls/hr IVPB Q12@0300,1500 [facility]; Protocol Last Admin: 08/05/18 02:58 Dose: 100 mls/hr Vancomycin HCl 1 gm/ Sodium (Chloride) 250 mls @ 125 mls/hr IVPB POSTDI [facility]; Protocol Stop: 08/06/18 10:23 Ondansetron HCl (Zofran Inj) 4 mg IVP Q6 PRN PRN Reason: Nausea/Vomiting Last Admin: 07/21/18 11:06 Dose: 4 mg Pantoprazole Sodium (Protonix Ec Tab) 40 mg PO DAILY [facility] Last Admin: 08/05/18 08:52 Dose: 40 mg Vitamin B Complex/Vit C/Folic Acid (Nephro-Meryl) 1 tab PO DAILY [facility] Last Admin: 08/05/18 08:52 Dose: 1 tab - Labs Labs: 08/05/18 05:30 08/05/18 05:30 PT 12.1 Seconds (9.8-13.1) 08/02/18 05:30 INR 1.1 08/02/18 05:30 APTT 43.0 Seconds (25.6-37.1) H 08/02/18 05:30 Assessment and Plan - Assessment and Plan (Free Text) Assessment: 28 year old male with PMH of psoriasis brought to ER by EMS after being found unresponsive. Patient admitted for AMS, CRISTINA, shock liver, rhabdomyolysis secondary to drug abuse. Initially was in ICU treated with IVF, acetylcysteine drip, HCO3 drip and started on HD. Patient clinically improved , hemodynamically stable, mental status improved, LFTs trending down, CPK wnl. Still in renal failure with elevated BUN/Cr, not responding to HD and diuretics. s/p renal biopsy 07/30 (pending final results), Last HD 08/03, due today. Plan: CRISTINA - Persistent - Likely due to substance abuse/shock - On HD, Last HD 08/03 - S/P renal biopsy 07/30 (results pending) - Continue Epogen, Iron sucrose and nephro-meryl - D/C Lasix as per nephrology - Monitor Input/Output, daily weights and BMP - Nephrology (Dr Diego) recommendation: HD 3 times per weekly, social scientist to arrange for chair placement, awaiting renal biopsy report, d/c lasix. Leukocytosis/Fever - Leukocytosis resolved - Afebrile >72 hours - UA Trace Leuk estrace and Mod-large blood - S/P Vancomycin 1gm (2 doses: 07/31, 08/03; s/p HD) - Vancomycin 1gm today after HD - S/P Zosyn renal dose (5 day course, last dose due today 3pm) - Blood Cx (08/02) no growth at 24 hours - Urine Cx (07/31) no growth HD Catheter Leaking - Leaking 08/01-08/02 - Resolved 08/03/18 - Dressing wet with serous fluid 08/04/18, no active bleeding, no erythema or exudate - Currently on dressing pressured with sand bag - Hold Heparin - Monitor cath site - DDAVP 20 mcg IV once 08/02, IR aware Anemia - Poss kidney disease, blood drawn - Hg/Hct 8.8/26.4 - Monitor - On Epogen Acute liver failure likely secondary to substance use/shock liver - Almost resolved - GI consulted - LFTs trending down AST/ALT 77/195 (84/247 Aug 02) Rhabdomyolysis - Resolved Vit D Deficiency - 2000 IU Cholecalciferol PO daily Extensive psoriasis - Reports using cream at home, Resume upon discharge Prophylaxis - DVT: SCDs, Hold Heparin due to IJ cather site bleeding. - GI: Zofran PRN, Protonix
--- NOTE | 2018-08-05 15:49 | CP.PCM.PN ---
Subjective - Date & Time of Evaluation Date of Evaluation: 08/05/18 Time of Evaluation: 15:45 - Subjective Subjective: Nephrology Consultation Note Assessment: stable Acute Kidney Injury (N17.9) likely due to ATN due to rhabdomyolysis, and AIN from drug/contaminant Anemia, thrombocytopenia parotitis acute liver injury hx of alcohol and drug psoriasis Plan last HD thursday. tolerated well. stable cr today. will hold further HD for now. re-eval tomorrow BP controlled without Maintain hemodynamics stable. Avoid hypotension. Patient not on ACEI/ARB due to recent CRISTINA Monitor Input/Output, daily weights and renal function with basic metabolic panel continue with epogen and iron SW/immigration case worker consult for outpt HD placement d/w pt and family about options for conservative management versus steroids therapy for AIN, pros/cons. pt is at low risk from short course of steroids and in veiw of severe CRISTINA, likely will benefit from it. they agreed for Rx. will start prednisone 60 mg/d there is a good chance that pt can be d/c from hospital without dialysis need. will find out in next few days Dose meds/antibiotics for reduced GFR. Avoid fleets enema/magnesium based laxatives. Avoid nephrotoxins/NSAIDs/ iodinated contrast (unless needed emergently) Glycemic control Further work up for as per primary team Thanks for allowing me to participate in care of your patient. Will follow patient with you. Please call if any Qs. had d/w team Dr Patrick Jean-Baptiste Office: [phone] Subjective: Noted events overnight. Patients feels okay. Denies chest pain, palpitation, shortness of breath All other negative making urine close to his initial weight now Physical Examination: General Appearance: Comfortable, in no acute respiratory distress, co-operative . Vitals reviewed and noted as below Head; Atraumatic, normocephalic ENT: no ulcers no thrush. Tongue is midline. Oropharynx: no rash or ulcers. EYES: Pupils are equal, round and reactive to light accommodation. Eye muscles and extraocular movement intact. Sclera is anicteric. Neck; swelling submandibular area much improved Lungs: Normal respiratory rate/effort. Breath sounds bilateral b/l clear Heart: Normal rate. s1s2 normal. No rub or gallop. Extremities: no edema. No varicose veins Neurological: Patient is alert, awake and oriented to person, place and time. No focal deficit. Strength bilateral appropriate and equal Skin: Warm and dry. Normal turgor. know psoriasis rash. Palpitation: Normal elasticity for age Abdomen: Abdomen is soft. Bowel sounds +. There is no abdominal tenderness, no guarding/rigidity no organomegaly. Psych: normal insight and normal affect/mood MSK: no joint tenderness or swelling. Digits and nails normal, no deformity has permacath Labs/imaging reviewed. Past medical history, past surgical history, family history, social history, allergy reviewed and noted as below Family hx: no hx of CKD. Rest non-contributory Objective - Vital Signs/Intake and Output Vital Signs (last 24 hours): Temp Pulse Resp BP Pulse Ox 97.2 F L 61 18 96/63 L 99 08/05/18 08:40 08/05/18 08:40 08/05/18 08:40 08/05/18 08:40 08/05/18 08:40 Intake and Output: 08/05/18 08/05/18 06:59 18:59 Intake Total 480 Output Total 300 Balance 180 - Medications Medications: Current Medications Cholecalciferol (Vitamin D) 2,000 intlu PO DAILY [facility] Last Admin: 08/05/18 08:53 Dose: 2,000 intlu Epoetin Marito (Procrit) 8,000 unit IV MWF [facility] Last Admin: 08/04/18 14:37 Dose: Not Given Ferrous Gluconate (Fergon) 324 mg PO TID [facility] Heparin Sodium (Porcine) (Heparin) 5,000 units SC Q12@0400,1600 [facility]; Protocol Last Admin: 08/02/18 16:15 Dose: Not Given Piperacillin Sod/Tazobactam (Sod 2.25 gm/ Sodium Chloride) 100 mls @ 100 mls/hr IVPB Q12@0300,1500 [facility]; Protocol Last Admin: 08/05/18 02:58 Dose: 100 mls/hr Vancomycin HCl 1 gm/ Sodium (Chloride) 250 mls @ 125 mls/hr IVPB POSTDI [facility]; Protocol Stop: 08/06/18 10:23 Ondansetron HCl (Zofran Inj) 4 mg IVP Q6 PRN PRN Reason: Nausea/Vomiting Last Admin: 07/21/18 11:06 Dose: 4 mg Pantoprazole Sodium (Protonix Ec Tab) 40 mg PO DAILY [facility] Last Admin: 08/05/18 08:52 Dose: 40 mg Vitamin B Complex/Vit C/Folic Acid (Nephro-Chey) 1 tab PO DAILY [facility] Last Admin: 08/05/18 08:52 Dose: 1 tab - Labs Labs: 08/05/18 05:30 08/05/18 05:30 PT 12.1 Seconds (9.8-13.1) 08/02/18 05:30 INR 1.1 08/02/18 05:30 APTT 43.0 Seconds (25.6-37.1) H 08/02/18 05:30
[2018-08-06 06:30] LABS: HEMOGLOBIN 9.3 g/dL (12.0-18.0); MEAN CELL VOLUME 96.4 fl (80.0-94.0); MEAN CORPUSCULAR HEMOGLOBIN 31.7 pg (27.0-31.0); MEAN CORPUSCULAR HGB CONC 32.9 g/dL (33.0-37.0); RBC 2.93 Mil/uL (4.40-5.90); WHITE BLOOD COUNT 5.2 K/uL (4.8-10.8)
[2018-08-06 06:45] LABS: ALB/GLOB RATIO 1.2 (1.0-2.1); ALBUMIN 4.3 g/dL (3.5-5.0); CALCIUM 9.5 mg/dL (8.4-10.2)
[2018-08-06] MEDS: Multivitamin Vitamin B Complex (Nephro-Vite) Tab PO SCH (10:27)
[2018-08-06] MEDS: Pantoprazole 40 mg EC Tab PO SCH (10:29)
[2018-08-06] MEDS: EPOETIN ALFA 10,000 UNIT/ML ML SC SCH (10:29)
[2018-08-06] MEDS: Cholecalciferol 1,000 INTLU TAB PO SCH (10:30)
--- NOTE | 2018-08-06 11:20 | CP.PCM.PN ---
Subjective - Date & Time of Evaluation Date of Evaluation: 08/06/18 Time of Evaluation: 10:15 - Subjective Subjective: 28-year-old male seen siting up in bed in no acute distress, uneventful night. Dried blood around cath site, dressing intact and dry. Tolerating PO intake and ambulating. Afebrile >72 hours. Denies headache, change in vision, chest pain, shortness of breath, abdominal pain, nausea, vomiting, diarrhea or calf pain. CPK Normal, AST/ALT 77/195 (84/247 Aug 02), BUN/Cr 39/3.7 (BUN/Cr 34/3.8 Aug 04, 55/5.6 Aug 03). Last HD 08/03/18, due today. Awaiting placement for outpatient HD. Objective - Vital Signs/Intake and Output Vital Signs (last 24 hours): Temp Pulse Resp BP Pulse Ox 97.3 F L 68 23 103/66 96 08/06/18 08:54 08/06/18 08:54 08/06/18 08:54 08/06/18 08:54 08/06/18 08:54 - Medications Medications: Current Medications Cholecalciferol (Vitamin D) 2,000 intlu PO DAILY [facility] Last Admin: 08/06/18 10:30 Dose: 2,000 intlu Epoetin Marito (Procrit) 10,000 unit SC MWF [facility] Last Admin: 08/06/18 10:29 Dose: 10,000 unit Ferrous Gluconate (Fergon) 324 mg PO TID [facility] Last Admin: 08/06/18 10:27 Dose: 324 mg Heparin Sodium (Porcine) (Heparin) 5,000 units SC Q12@0400,1600 [facility]; Protocol Last Admin: 08/02/18 16:15 Dose: Not Given Piperacillin Sod/Tazobactam (Sod 2.25 gm/ Sodium Chloride) 100 mls @ 100 mls/hr IVPB Q12@0300,1500 [facility]; Protocol Last Admin: 08/05/18 15:57 Dose: 100 mls/hr Ondansetron HCl (Zofran Inj) 4 mg IVP Q6 PRN PRN Reason: Nausea/Vomiting Last Admin: 07/21/18 11:06 Dose: 4 mg Pantoprazole Sodium (Protonix Ec Tab) 40 mg PO DAILY [facility] Last Admin: 08/06/18 10:29 Dose: 40 mg Prednisone (Prednisone Tab) 60 mg PO DAILY [facility] Stop: 08/19/18 16:01 Last Admin: 08/06/18 10:28 Dose: 60 mg Vitamin B Complex/Vit C/Folic Acid (Nephro-Meryl) 1 tab PO DAILY [facility] Last Admin: 08/06/18 10:27 Dose: 1 tab - Labs Labs: 08/06/18 05:35 08/06/18 05:35 PT 12.1 Seconds (9.8-13.1) 08/02/18 05:30 INR 1.1 08/02/18 05:30 APTT 43.0 Seconds (25.6-37.1) H 08/02/18 05:30 - Constitutional Appears: Non-toxic - Head Exam Head Exam: NORMAL INSPECTION - Eye Exam Eye Exam: Normal appearance - ENT Exam ENT Exam: Mucous Membranes Moist - Neck Exam Neck Exam: Normal Inspection - Respiratory Exam Respiratory Exam: Clear to Ausculation Bilateral, NORMAL BREATHING PATTERN. absent: Respiratory Distress - Cardiovascular Exam Cardiovascular Exam: REGULAR RHYTHM, +S1, +S2 - GI/Abdominal Exam GI & Abdominal Exam: Soft. absent: Tenderness - Neurological Exam Neurological Exam: Alert, Awake, Normal Gait (weak but ambulating alone), Oriented x3 - Psychiatric Exam Psychiatric exam: Normal Affect, Normal Mood - Skin Skin Exam: Dry, Intact, Normal Color, Warm Assessment and Plan - Assessment and Plan (Free Text) Assessment: 28 year old male with PMH of psoriasis brought to ER by EMS after being found unresponsive. Patient admitted for AMS, CRISTINA, shock liver, rhabdomyolysis secondary to drug abuse. Initially was in ICU treated with IVF, acetylcysteine drip, HCO3 drip and started on HD. Patient clinically improved , hemodynamically stable, mental status improved, LFTs trending down, CPK wnl. Still in renal failure with elevated BUN/Cr, not responding to HD and diuretics. s/p renal biopsy 07/30 (pending final results), Last HD 08/05. Plan: CRISTINA - Persistent - Likely due to substance abuse/shock - On HD, Last HD 08/03 - BUN/Cr 39/3.7 (BUN/Cr 39/3.7 Mauricio 3, 34/3.8 Mauricio 2, 55/5.6 Aug 1) - S/P renal biopsy 07/30 (results pending) - Continue Epogen, Iron sucrose and nephro-meryl - D/C Lasix as per nephrology - Monitor Input/Output, daily weights and BMP - Nephrology (Dr Diego) recommendation: HD 3 times per weekly, social security specialist to arrange for chair placement, awaiting renal biopsy report, d/c lasix. Leukocytosis/Fever - Leukocytosis resolved - Afebrile >72 hours - UA Trace Leuk estrace and Mod-large blood - S/P Vancomycin 1gm (3 doses: 07/31, 08/03; 08/05 s/p HD) - Vancomycin 1gm today after HD - S/P Zosyn renal dose (5 day course) - Blood Cx (08/02) no growth at 24 hours - Urine Cx (07/31) no growth HD Catheter Leaking - Leaking 08/01-08/02 - Resolved 08/03/18 - Dressing wet with serous fluid 08/04/18, no active bleeding, no erythema or exudate - Currently on dressing pressured with sand bag - Hold Heparin - Monitor cath site - DDAVP 20 mcg IV once 08/02, IR aware Anemia - Poss kidney disease, blood drawn - Hg/Hct 9.3/28.3 - Monitor - On Epogen Acute liver failure likely secondary to substance use/shock liver - Almost resolved - GI consulted - LFTs trending down AST/ALT 67/179 Rhabdomyolysis - Resolved Vit D Deficiency - 2000 IU Cholecalciferol PO daily Extensive psoriasis - Reports using cream at home, Resume upon discharge Prophylaxis - DVT: SCDs, Hold Heparin due to IJ cather site bleeding. - GI: Zofran PRN, Protonix
--- NOTE | 2018-08-06 14:07 | CP.PCM.PN ---
Subjective - Date & Time of Evaluation Date of Evaluation: 08/06/18 Time of Evaluation: 14:05 - Subjective Subjective: Nephrology Consultation Note Assessment: stable Acute Kidney Injury (N17.9) likely due to ATN due to rhabdomyolysis, and AIN from drug/contaminant Anemia, thrombocytopenia parotitis acute liver injury hx of alcohol and drug psoriasis Plan Last HD on 08/03. COntinues to have good uop w/ no need for [employer]. Continue to monitor - if continues at this rate we can hopefully remove his permacath in the next couple days. BP controlled without Maintain hemodynamics stable. Avoid hypotension. Patient not on ACEI/ARB due to recent CRISTINA Monitor Input/Output, daily weights and renal function with basic metabolic panel continue with epogen and iron started on prednisone for AIN - continue for now. Dose meds/antibiotics for reduced GFR. Avoid fleets enema/magnesium based laxatives. Avoid nephrotoxins/NSAIDs/ iodinated contrast (unless needed emergently) Glycemic control Further work up for as per primary team Subjective: seen and examined no n/v feels good Physical Examination: General Appearance: Comfortable, in no acute respiratory distress, co-operative . Vitals reviewed and noted as below Head; Atraumatic, normocephalic ENT: no ulcers no thrush. Tongue is midline. Oropharynx: no rash or ulcers. EYES: Pupils are equal, round and reactive to light accommodation. Eye muscles and extraocular movement intact. Sclera is anicteric. Neck; swelling submandibular area much improved Lungs: Normal respiratory rate/effort. Breath sounds bilateral b/l clear Heart: Normal rate. s1s2 normal. No rub or gallop. Extremities: no edema. No varicose veins Neurological: Patient is alert, awake and oriented to person, place and time. No focal deficit. Strength bilateral appropriate and equal Skin: Warm and dry. Normal turgor. know psoriasis rash. Palpitation: Normal elasticity for age Abdomen: Abdomen is soft. Bowel sounds +. There is no abdominal tenderness, no guarding/rigidity no organomegaly. Psych: normal insight and normal affect/mood MSK: no joint tenderness or swelling. Digits and nails normal, no deformity has permacath Labs/imaging reviewed. Past medical history, past surgical history, family history, social history, allergy reviewed and noted as below Family hx: no hx of CKD. Rest non-contributory Objective - Vital Signs/Intake and Output Vital Signs (last 24 hours): Temp Pulse Resp BP Pulse Ox 97.3 F L 68 23 103/66 96 08/06/18 08:54 08/06/18 08:54 08/06/18 08:54 08/06/18 08:54 08/06/18 08:54 - Medications Medications: Current Medications Cholecalciferol (Vitamin D) 2,[address] [facility] Last Admin: 08/06/18 10:30 Dose: 2,000 intlu Epoetin Marito (Procrit) 10,[address] [facility] Last Admin: 08/06/18 10:29 Dose: 10,000 unit Ferrous Gluconate (Fergon) [address] [facility] Last Admin: 08/06/18 10:27 Dose: 324 mg Heparin Sodium (Porcine) (Heparin) 5,000 units SC Q12@0400,1600 [facility]; Protocol Last Admin: 08/02/18 16:15 Dose: Not Given Piperacillin Sod/Tazobactam (Sod 2.25 gm/ Sodium Chloride) 100 mls @ 100 mls/hr IVPB Q12@0300,1500 [facility]; Protocol Last Admin: 08/05/18 15:57 Dose: 100 mls/hr Ondansetron HCl (Zofran Inj) 4 mg IVP Q6 PRN PRN Reason: Nausea/Vomiting Last Admin: 07/21/18 11:06 Dose: 4 mg Pantoprazole Sodium (Protonix Ec Tab) [address] [facility] Last Admin: 08/06/18 10:29 Dose: 40 mg Prednisone (Prednisone Tab) [address] [facility] Stop: 08/19/18 16:01 Last Admin: 08/06/18 10:28 Dose: 60 mg Vitamin B Complex/Vit C/Folic Acid (Nephro-Chey) [address] [facility] Last Admin: 08/06/18 10:27 Dose: 1 tab - Labs Labs: 08/06/18 05:35 08/06/18 05:35 PT 12.1 Seconds (9.8-13.1) 08/02/18 05:30 INR 1.1 08/02/18 05:30 APTT 43.0 Seconds (25.6-37.1) H 08/02/18 05:30
[2018-08-07 06:56] LABS: ALB/GLOB RATIO 1.2 (1.0-2.1); ALBUMIN 4.2 g/dL (3.5-5.0); CALCIUM 9.4 mg/dL (8.4-10.2)
[2018-08-07 07:05] LABS: HEMOGLOBIN 9.4 g/dL (12.0-18.0); MEAN CELL VOLUME 97.7 fl (80.0-94.0); MEAN CORPUSCULAR HEMOGLOBIN 31.3 pg (27.0-31.0); MEAN CORPUSCULAR HGB CONC 32.1 g/dL (33.0-37.0); RBC 2.99 Mil/uL (4.40-5.90); RED CELL DISTRIBUTION WIDTH 16.9 % (11.5-14.5)
[2018-08-07] MEDS: Pantoprazole 40 mg EC Tab PO SCH (10:10)
[2018-08-07] MEDS: Multivitamin Vitamin B Complex (Nephro-Vite) Tab PO SCH ×2 (10:10→10:11)
--- NOTE | 2018-08-07 11:28 | CP.PCM.PN ---
<Diane Jordan - Last Filed: 08/07/18 13:46> Subjective - Date & Time of Evaluation Date of Evaluation: 08/07/18 Time of Evaluation: 10:15 - Subjective Subjective: Pt seen/evaluated at bedside this morning, was sitting in up in bed in no acute distress, no acute events overnight. His scheduled dialysis was held yesterday; last HD was 08/03; Cr improving, today is 2.4. Objective - Vital Signs/Intake and Output Vital Signs (last 24 hours): Temp Pulse Resp BP Pulse Ox 97.7 F 58 L 18 106/65 99 08/07/18 08:15 08/07/18 08:15 08/07/18 08:15 08/07/18 08:15 08/07/18 08:15 - Medications Medications: Current Medications Cholecalciferol (Vitamin D) 2,000 intlu PO DAILY [facility] Last Admin: 08/06/18 10:30 Dose: 2,000 intlu Epoetin Marito (Procrit) 10,000 unit SC MWF [facility] Last Admin: 08/06/18 10:29 Dose: 10,000 unit Ferrous Gluconate (Fergon) 324 mg PO TID [facility] Last Admin: 08/07/18 10:10 Dose: 324 mg Heparin Sodium (Porcine) (Heparin) 5,000 units SC Q12@0400,1600 [facility]; Protocol Last Admin: 08/02/18 16:15 Dose: Not Given Piperacillin Sod/Tazobactam (Sod 2.25 gm/ Sodium Chloride) 100 mls @ 100 mls/hr IVPB Q12@0300,1500 [facility]; Protocol Last Admin: 08/05/18 15:57 Dose: 100 mls/hr Ondansetron HCl (Zofran Inj) 4 mg IVP Q6 PRN PRN Reason: Nausea/Vomiting Last Admin: 07/21/18 11:06 Dose: 4 mg Pantoprazole Sodium (Protonix Ec Tab) 40 mg PO DAILY [facility] Last Admin: 08/07/18 10:10 Dose: 40 mg Prednisone (Prednisone Tab) 60 mg PO DAILY [facility] Stop: 08/19/18 16:01 Last Admin: 08/07/18 10:11 Dose: 60 mg Vitamin B Complex/Vit C/Folic Acid (Nephro-Meryl) 1 tab PO DAILY [facility] Last Admin: 08/07/18 10:11 Dose: 1 tab - Labs Labs: 08/07/18 05:45 08/07/18 05:45 PT 12.1 Seconds (9.8-13.1) 08/02/18 05:30 INR 1.1 08/02/18 05:30 APTT 43.0 Seconds (25.6-37.1) H 08/02/18 05:30 - Constitutional Appears: No Acute Distress - Head Exam Head Exam: NORMAL INSPECTION - Eye Exam Eye Exam: Normal appearance - Neck Exam Neck Exam: Full ROM - Respiratory Exam Respiratory Exam: Clear to Ausculation Bilateral. absent: Respiratory Distress - Cardiovascular Exam Cardiovascular Exam: REGULAR RHYTHM, +S1, +S2 - Extremities Exam Extremities Exam: absent: Calf Tenderness, Pedal Edema - Neurological Exam Neurological Exam: Alert, Oriented x3 - Skin Skin Exam: Dry, Warm Additional comments: psoriatic lesions diffuse on back and legs Assessment and Plan - Assessment and Plan (Free Text) Assessment: 28 year old male with PMH of psoriasis brought to ER by EMS after being found unresponsive. Patient admitted for AMS, CRISTINA, shock liver, rhabdomyolysis secondary to drug abuse. Initially was in ICU treated with IVF, acetylcysteine drip, HCO3 drip and started on HD. Patient clinically improved , hemodynamically stable, mental status improved, LFTs trending down, CPK wnl. Renal function is still compromised but is improving. Cr down to 2.4 today from 3.3 yest, and admission high of 8.9. Last HD was 08/03. Possible removal of permacath if continues to improve. Plan: CRISTINA - Improving, Cr down to 2.4 today, despite HD held yesterday; last HD was 08/03 - S/P renal biopsy 07/30 (results pending) - Monitor Input/Output, daily weights and BMP - Nephrology (Dr Diego) recommendation: hold HD, monitor labs, continue epogen, iron, nephro-meryl; start prednisone for AIN Leukocytosis/Fever - WBC 12k today, likely steroid induced - Initial leukocytosis resolved, afebrile >72 hours - S/P Vancomycin 1gm (3 doses: 07/31, 08/03; 08/05 s/p HD) - S/P Zosyn renal dose (5 day course) - Blood Cx (08/02) final - no growth - Urine Cx (07/31) final - no growth HD Catheter Leaking - Leaking 08/01-08/02 - Resolved 08/03/18 - Currently on dressing pressured with sand bag - Hold Heparin - Monitor cath site - DDAVP 20 mcg IV once 08/02, IR aware Anemia - Poss kidney disease, blood drawn - Hgb/Hct 9.4/29.2 - Monitor - On Epogen Acute liver failure likely secondary to substance use/shock liver - Almost resolved - GI consulted - LFTs trending down; AST/ALT 87/149 Rhabdomyolysis - Resolved Vit D Deficiency - 2000 IU Cholecalciferol PO daily Extensive psoriasis - Reports using cream at home, resume upon discharge Prophylaxis - DVT: SCDs, Hold Heparin due to IJ cather site bleeding. - GI: Zofran PRN, Protonix <Honey Early - Last Filed: 08/07/18 15:04> Objective - Vital Signs/Intake and Output Vital Signs (last 24 hours): Temp Pulse Resp BP Pulse Ox 97.7 F 58 L 18 106/65 99 08/07/18 08:15 08/07/18 08:15 08/07/18 08:15 08/07/18 08:15 08/07/18 08:15 - Medications Medications: Current Medications Cholecalciferol (Vitamin D) 2,000 intlu PO DAILY [facility] Last Admin: 08/07/18 13:10 Dose: 2,000 intlu Epoetin Marito (Procrit) 10,000 unit SC MWF [facility] Last Admin: 08/06/18 10:29 Dose: 10,000 unit Ferrous Gluconate (Fergon) 324 mg PO TID [facility] Last Admin: 08/07/18 13:09 Dose: 324 mg Heparin Sodium (Porcine) (Heparin) 5,000 units SC Q12@0400,1600 [facility]; Protocol Last Admin: 08/02/18 16:15 Dose: Not Given Piperacillin Sod/Tazobactam (Sod 2.25 gm/ Sodium Chloride) 100 mls @ 100 mls/hr IVPB Q12@0300,1500 [facility]; Protocol Last Admin: 08/05/18 15:57 Dose: 100 mls/hr Ondansetron HCl (Zofran Inj) 4 mg IVP Q6 PRN PRN Reason: Nausea/Vomiting Last Admin: 07/21/18 11:06 Dose: 4 mg Pantoprazole Sodium (Protonix Ec Tab) 40 mg PO DAILY [facility] Last Admin: 08/07/18 10:10 Dose: 40 mg Prednisone (Prednisone Tab) 60 mg PO DAILY [facility] Stop: 08/19/18 16:01 Last Admin: 08/07/18 10:11 Dose: 60 mg Vitamin B Complex/Vit C/Folic Acid (Nephro-Meryl) 1 tab PO DAILY [facility] Last Admin: 08/07/18 10:11 Dose: 1 tab - Labs Labs: 08/07/18 05:45 08/07/18 05:45 PT 12.1 Seconds (9.8-13.1) 08/02/18 05:30 INR 1.1 08/02/18 05:30 APTT 43.0 Seconds (25.6-37.1) H 08/02/18 05:30 Attending/Attestation - Attestation I have personally seen and examined this patient.: Yes I have fully participated in the care of the patient.: Yes I have reviewed all pertinent clinical information, including history, physical exam and plan: Yes
[2018-08-07] MEDS: Cholecalciferol 1,000 INTLU TAB PO SCH ×2 (13:09→13:10)
[2018-08-08 07:06] LABS: BASO # 0.1 K/uL (0.0-0.2); BASO % 0.5 % (0.0-2.0); EOS % 0.2 % (0.0-4.0); HEMOGLOBIN 9.2 g/dL (12.0-18.0); LYMPH # 1.8 K/uL (1.0-4.3); LYMPH % 12.3 % (20.0-40.0); MEAN CELL VOLUME 97.7 fl (80.0-94.0); MEAN CORPUSCULAR HEMOGLOBIN 31.4 pg (27.0-31.0); MEAN CORPUSCULAR HGB CONC 32.1 g/dL (33.0-37.0); MEAN PLATELET VOLUME 8.5 fl (7.2-11.7); MONO # 1.4 K/uL (0.0-0.8); NRBC % 0.3 % (0.0-0.0); RBC 2.93 Mil/uL (4.40-5.90); WHITE BLOOD COUNT 14.3 K/uL (4.8-10.8)
[2018-08-08 07:33] LABS: ALB/GLOB RATIO 1.3 (1.0-2.1); CALCIUM 9.3 mg/dL (8.4-10.2)
[2018-08-08] MEDS: Cholecalciferol 1,000 INTLU TAB PO SCH (11:01)
[2018-08-08] MEDS: Multivitamin Vitamin B Complex (Nephro-Vite) Tab PO SCH (11:02)
[2018-08-08] MEDS: Pantoprazole 40 mg EC Tab PO SCH (11:02)
--- NOTE | 2018-08-08 11:49 | CP.PCM.PN ---
<Poornima Werner - Last Filed: 08/08/18 11:58> Subjective - Date & Time of Evaluation Date of Evaluation: 08/08/18 Time of Evaluation: 10:00 - Subjective Subjective: 28-year-old male seen siting up in bed in no acute distress, uneventful night. Cath site dry and intact. Tolerating PO intake and ambulating. Afebrile. Denies headache, change in vision, chest pain, shortness of breath, abdominal pain, nausea, vomiting, diarrhea or calf pain. CPK Normal, AST/ALT trending down, BUN/Cr 41/2.0 (BUN/Cr 42/2.4 yesterday). Last HD 08/03/18, on hold as kidney function is improving. Objective - Vital Signs/Intake and Output Vital Signs (last 24 hours): Temp Pulse Resp BP Pulse Ox 97.9 F 68 20 112/83 95 08/08/18 08:27 08/08/18 08:27 08/08/18 08:27 08/08/18 08:27 08/08/18 08:27 - Medications Medications: Current Medications Cholecalciferol (Vitamin D) 2,000 intlu PO DAILY [facility] Last Admin: 08/08/18 11:01 Dose: 2,000 intlu Epoetin Marito (Procrit) 10,000 unit SC MWF [facility] Last Admin: 08/06/18 10:29 Dose: 10,000 unit Ferrous Gluconate (Fergon) 324 mg PO TID [facility] Last Admin: 08/08/18 11:01 Dose: 324 mg Heparin Sodium (Porcine) (Heparin) 5,000 units SC Q12@0400,1600 [facility]; Protocol Last Admin: 08/02/18 16:15 Dose: Not Given Piperacillin Sod/Tazobactam (Sod 2.25 gm/ Sodium Chloride) 100 mls @ 100 mls/hr IVPB Q12@0300,1500 [facility]; Protocol Last Admin: 08/05/18 15:57 Dose: 100 mls/hr Ondansetron HCl (Zofran Inj) 4 mg IVP Q6 PRN PRN Reason: Nausea/Vomiting Last Admin: 07/21/18 11:06 Dose: 4 mg Pantoprazole Sodium (Protonix Ec Tab) 40 mg PO DAILY [facility] Last Admin: 08/08/18 11:02 Dose: 40 mg Prednisone (Prednisone Tab) 60 mg PO DAILY [facility] Stop: 08/19/18 16:01 Last Admin: 08/08/18 11:01 Dose: 60 mg Vitamin B Complex/Vit C/Folic Acid (Nephro-Meryl) 1 tab PO DAILY [facility] Last Admin: 08/08/18 11:02 Dose: 1 tab - Labs Labs: 08/08/18 06:00 08/08/18 06:00 PT 12.1 Seconds (9.8-13.1) 08/02/18 05:30 INR 1.1 08/02/18 05:30 APTT 43.0 Seconds (25.6-37.1) H 08/02/18 05:30 - Constitutional Appears: Non-toxic, No Acute Distress - Head Exam Head Exam: NORMAL INSPECTION - Eye Exam Eye Exam: Normal appearance - ENT Exam ENT Exam: Mucous Membranes Moist - Neck Exam Neck Exam: Normal Inspection - Respiratory Exam Respiratory Exam: NORMAL BREATHING PATTERN. absent: Respiratory Distress Additional comments: HD cath intact, dry - Cardiovascular Exam Cardiovascular Exam: REGULAR RHYTHM, +S1, +S2 - GI/Abdominal Exam GI & Abdominal Exam: Soft. absent: Tenderness - Back Exam Back Exam: NORMAL INSPECTION - Psychiatric Exam Psychiatric exam: Normal Affect, Normal Mood - Skin Skin Exam: Dry, Intact, Normal Color, Warm Additional comments: psoriatic lesions on legs Assessment and Plan - Assessment and Plan (Free Text) Assessment: 28 year old male with PMH of psoriasis brought to ER by EMS after being found unresponsive. Patient admitted for AMS, CRISTINA, shock liver, rhabdomyolysis secondary to drug abuse. Initially was in ICU treated with IVF, acetylcysteine drip, HCO3 drip and started on HD. Patient clinically improved , hemodynamically stable, mental status improved, LFTs trending down, CPK wnl. Kidney function improving BUN/Cr trending down. s/p renal biopsy 07/30 (pending final results), Last HD 08/03. Plan: CRISTINA - Improving - Likely due to substance abuse/shock - Last HD 08/03 - BUN/Cr 41/2.0 (BUN/Cr 42/2.4 yesterday) - S/P renal biopsy 07/30 (results pending) - Continue Epogen, Iron sucrose and nephro-meryl - D/C Lasix as per nephrology - Monitor Input/Output, daily weights and BMP - Nephrology (Dr Diego) recommend to hold HD as kidney function is improving Leukocytosis/Fever - Leukocytosis resolved - Afebrile >72 hours - UA Trace Leuk estrace and Mod-large blood - S/P Vancomycin 1gm (3 doses: 07/31, 08/03; 08/05 s/p HD) - Vancomycin 1gm today after HD - S/P Zosyn renal dose (5 day course) - Blood Cx (08/02) no growth at 24 hours - Urine Cx (07/31) no growth HD Catheter Leaking - Leaking 08/01-08/02 - Resolved 08/03/18 - Monitor cath site - DDAVP 20 mcg IV once 08/02, IR aware Anemia - Poss kidney disease - Stable - Hg/Hct 9.2/28.6 - Monitor - On Epogen Acute liver failure likely secondary to substance use/shock liver - Almost resolved - GI consulted - LFTs trending down AST/ALT 84/126 Rhabdomyolysis - Resolved Vit D Deficiency - 2000 IU Cholecalciferol PO daily Extensive psoriasis - Reports using cream at home, Resume upon discharge Prophylaxis - DVT: SCDs, Hold Heparin due to IJ cather site bleeding. - GI: Zofran PRN, Protonix <Honey Early - Last Filed: 08/08/18 16:32> Objective - Vital Signs/Intake and Output Vital Signs (last 24 hours): Temp Pulse Resp BP Pulse Ox 97.5 F L 65 20 120/77 96 08/08/18 16:21 08/08/18 16:21 08/08/18 16:21 08/08/18 16:21 08/08/18 16:21 - Medications Medications: Current Medications Cholecalciferol (Vitamin D) 2,000 intlu PO DAILY [facility] Last Admin: 08/08/18 11:01 Dose: 2,000 intlu Epoetin Marito (Procrit) 10,000 unit SC MWF [facility] Last Admin: 08/06/18 10:29 Dose: 10,000 unit Ferrous Gluconate (Fergon) 324 mg PO TID [facility] Last Admin: 08/08/18 13:37 Dose: 324 mg Heparin Sodium (Porcine) (Heparin) 5,000 units SC Q12@0400,1600 [facility]; Protocol Last Admin: 08/02/18 16:15 Dose: Not Given Piperacillin Sod/Tazobactam (Sod 2.25 gm/ Sodium Chloride) 100 mls @ 100 mls/hr IVPB Q12@0300,1500 [facility]; Protocol Last Admin: 08/05/18 15:57 Dose: 100 mls/hr Ondansetron HCl (Zofran Inj) 4 mg IVP Q6 PRN PRN Reason: Nausea/Vomiting Last Admin: 07/21/18 11:06 Dose: 4 mg Pantoprazole Sodium (Protonix Ec Tab) 40 mg PO DAILY [facility] Last Admin: 08/08/18 11:02 Dose: 40 mg Prednisone (Prednisone Tab) 60 mg PO DAILY [facility] Stop: 08/19/18 16:01 Last Admin: 08/08/18 11:01 Dose: 60 mg Vitamin B Complex/Vit C/Folic Acid (Nephro-Meryl) 1 tab PO DAILY [facility] Last Admin: 08/08/18 11:02 Dose: 1 tab - Labs Labs: 08/08/18 06:00 08/08/18 06:00 PT 12.1 Seconds (9.8-13.1) 08/02/18 05:30 INR 1.1 08/02/18 05:30 APTT 43.0 Seconds (25.6-37.1) H 08/02/18 05:30 Attending/Attestation - Attestation I have personally seen and examined this patient.: Yes I have fully participated in the care of the patient.: Yes I have reviewed all pertinent clinical information, including history, physical exam and plan: Yes Notes (Text): CRISTINA s/p Dialysis ( last 08/03/2018) - Crea improving, rpt in am - plan to d/c Permacath in am if Crea continues to improve and d/c pt home
--- NOTE | 2018-08-08 17:06 | CP.PCM.PN ---
Subjective - Date & Time of Evaluation Date of Evaluation: 08/08/18 Time of Evaluation: 17:05 - Subjective Subjective: Nephrology Consultation Note Assessment: stable Acute Kidney Injury (N17.9) likely due to ATN due to rhabdomyolysis, and AIN from drug/contaminant Anemia, thrombocytopenia parotitis acute liver injury hx of alcohol and drug psoriasis Plan Last HD on 08/03. COntinues to have good uop w/ no need for CARDIAC CATH RN. cr continues to improve no hd needs can remove permacath tomorrow BP controlled without Avoid hypotension. Patient not on ACEI/ARB due to recent CRISTINA continue with epogen and iron started on prednisone for AIN - continue for now. Subjective: seen and examined no n/v feels good Physical Examination: General Appearance: Comfortable, in no acute respiratory distress, co-operative . Vitals reviewed and noted as below Head; Atraumatic, normocephalic ENT: no ulcers EYES: Eye muscles and extraocular movement intact. Sclera is anicteric. Neck; swelling submandibular area much improved Lungs: Normal respiratory rate/effort. Breath sounds bilateral b/l clear Heart: Normal rate. s1s2 normal. No rub or gallop. Extremities: no edema. No varicose veins Neurological: Patient is alert, awake and oriented to person, place and time. No focal deficit. Strength bilateral appropriate and equal Skin: Warm and dry. Normal turgor. Abdomen: Abdomen is soft. Bowel sounds +. Psych: normal insight and normal affect/mood MSK: no joint tenderness has permacath Objective - Vital Signs/Intake and Output Vital Signs (last 24 hours): Temp Pulse Resp BP Pulse Ox 97.5 F L 65 20 120/77 96 08/08/18 16:21 08/08/18 16:21 08/08/18 16:21 08/08/18 16:21 08/08/18 16:21 - Medications Medications: Current Medications Cholecalciferol (Vitamin D) 2,000 intlu PO DAILY [facility] Last Admin: 08/08/18 11:01 Dose: 2,000 intlu Epoetin Marito (Procrit) 10,000 unit SC MWF [facility] Last Admin: 08/06/18 10:29 Dose: 10,000 unit Ferrous Gluconate (Fergon) 324 mg PO TID [facility] Last Admin: 08/08/18 16:49 Dose: 324 mg Heparin Sodium (Porcine) (Heparin) 5,000 units SC Q12@0400,1600 [facility]; Protocol Last Admin: 08/02/18 16:15 Dose: Not Given Piperacillin Sod/Tazobactam (Sod 2.25 gm/ Sodium Chloride) 100 mls @ 100 mls/hr IVPB Q12@0300,1500 [facility]; Protocol Last Admin: 08/05/18 15:57 Dose: 100 mls/hr Ondansetron HCl (Zofran Inj) 4 mg IVP Q6 PRN PRN Reason: Nausea/Vomiting Last Admin: 07/21/18 11:06 Dose: 4 mg Pantoprazole Sodium (Protonix Ec Tab) 40 mg PO DAILY [facility] Last Admin: 08/08/18 11:02 Dose: 40 mg Prednisone (Prednisone Tab) 60 mg PO DAILY [facility] Stop: 08/19/18 16:01 Last Admin: 08/08/18 11:01 Dose: 60 mg Vitamin B Complex/Vit C/Folic Acid (Nephro-Chey) 1 tab PO DAILY [facility] Last Admin: 08/08/18 11:02 Dose: 1 tab - Labs Labs: 08/08/18 06:00 08/08/18 06:00 PT 12.1 Seconds (9.8-13.1) 08/02/18 05:30 INR 1.1 08/02/18 05:30 APTT 43.0 Seconds (25.6-37.1) H 08/02/18 05:30
[2018-08-09 06:40] LABS: CALCIUM 9.6 mg/dL (8.4-10.2)
[2018-08-09 08:24] VITALS: O2SAT 100
[2018-08-09] MEDS: Cholecalciferol 1,000 INTLU TAB PO SCH (10:35)
[2018-08-09] MEDS: Multivitamin Vitamin B Complex (Nephro-Vite) Tab PO SCH (10:35)
[2018-08-09] MEDS: Pantoprazole 40 mg EC Tab PO SCH (10:35)
[2018-08-09] MEDS: EPOETIN ALFA 10,000 UNIT/ML ML SC SCH (10:39)
[2018-08-09] MEDS ORDERED: Lidocaine 1% Inj (20ml) ONE (11:33)
[2018-08-09 11:43] VITALS: TEMP 98.4
--- NOTE | 2018-08-09 11:59 | PCM.SURG1 ---
Surgeon's Initial Post Op Note - Surgeon's Notes Surgeon: Adrian Justin MD 911 Operator: NONE Type of Anesthesia: Local, None Pre-Operative Diagnosis: Renal failure, improved Operative Findings: Right tunneled HD catheter Post-Operative Diagnosis: Renal failure improved Operation Performed: HD catheter removal Specimen/Specimens Removed: NONE Estimated Blood Loss: EBL {In ML}: 1 Blood Products Given: N/A Drains Used: No Drains Post-Op Condition: Fair Date of Surgery/Procedure: 08/09/18 Time of Surgery/Procedure: 11:55
[2018-08-09 12:09] VITALS: BP 134/72; PULSE 75; RESP 18
--- NOTE | 2018-08-09 14:11 | VASCULAR ---
PROCEDURE: Date of procedure: 08/09/2018 Procedure: 1 Removal of right IJ tunneled hemodialysis catheter Medications: none HISTORY: Improved renal failure. TECHNIQUE: Following informed consent and procedure time-out, the patient was placed supine on the interventional table. The existing right IJ tunneled hemodialysis catheter surrounding skin were prepped and draped in the usual sterile fashion. Spot fluoroscopic image showed a right IJ catheter in place. Traction was applied to the existing catheter. The catheter was removed. Light pressure was applied to the venotomy site and tunnel tract until hemostasis was achieved. A dressing was applied. IMPRESSION: Removal of right IJ tunneled hemodialysis catheter.
--- NOTE | 2018-08-09 14:56 | CP.PCM.DIS ---
Provider - Provider Date of Admission: 07/19/18 15:00 Attending physician: Harsh Olvera MD Consults: 07/19/18 16:44 Critical Care Consult Stat Comment: Consulting Provider: Lamin Means Consulting Physician: Lamin Means Reason for Consult: AMS, multiorgan failure 07/19/18 16:46 Gastroenterology Consult Stat Comment: Consulting Provider: Brandon Higgins Consulting Physician: Brandon Higgins Reason for Consult: Acute liver failure 07/19/18 17:20 Nephrology Consult Stat Comment: Consulting Provider: Aaron Dawn Consulting Physician: Aaron Dawn Reason for Consult: ARF 07/20/18 09:00 Nursing Referral for Wound Care Routine Comment: Physician Instructions: Reason For Exam: nsg screen Pastoral Care Referral Routine Comment: Physician Instructions: Reason For Exam: nsg screen Social Work Referral Routine Comment: nsg screen Physician Instructions: Reason For Exam: nsg screen 07/20/18 13:42 Cardiology Consult Routine Comment: Consulting Provider: Roby Karimi Consulting Physician: Roby Karimi Reason for Consult: Troponin elevation 07/20/18 16:29 Hematology Oncology Consult Routine Comment: Consulting Provider: No Quan Consulting Physician: No Quan Reason for Consult: thrombocytopenia with CRISTINA, acute liver failure 07/21/18 10:17 Surgery [General Surgery Consult] Routine Comment: Consulting Provider: Liam Iqbal Consulting Physician: Liam Iqbal Reason for Consult: B/L neck swelling 07/22/18 07:55 ENT [Otolaryngology Consult] Routine Consulting Provider: Niraj Cardoso Consulting Physician: Niraj Cardoso Reason for Consult: Evaluation of B/L neck swelling Time Spent in preparation of Discharge (in minutes): 25 Hospital Course - Lab Results Lab Results: Micro Results 08/02/18 09:14 Blood Blood Culture - Final NO GROWTH AFTER 5 DAYS 08/02/18 09:14 Blood Gram Stain - Final TEST NOT PERFORMED 08/02/18 09:14 Blood Blood Culture - Final NO GROWTH AFTER 5 DAYS 08/02/18 09:14 Blood Gram Stain - Final TEST NOT PERFORMED 07/31/18 07:50 Urine,Clean Catch Urine Culture - Final No Growth (<1,000 CFU/ML) 07/25/18 08:47 Naris MRSA Culture (Admit) - Final MRSA NOT DETECTED 07/19/18 14:35 Blood Blood Culture - Final NO GROWTH AFTER 5 DAYS 07/19/18 14:35 Blood Gram Stain - Final TEST NOT PERFORMED 07/19/18 13:35 Blood Blood Culture - Final NO GROWTH AFTER 5 DAYS 07/19/18 13:35 Blood Gram Stain - Final TEST NOT PERFORMED 07/19/18 13:40 Cerebral Spinal Fluid Gram Stain - Final 07/19/18 13:40 Cerebral Spinal Fluid CSF Culture - Final No growth. 07/19/18 23:30 Naris MRSA Culture (Admit) - Final MRSA NOT DETECTED 07/19/18 12:50 Urine,Catheterized Urine Culture - Final No Growth (<1,000 CFU/ML) Most Recent Lab Values WBC 14.3 K/uL (4.8-10.8) H 08/08/18 06:00 RBC 2.93 Mil/uL (4.40-5.90) L 08/08/18 06:00 Hgb 9.2 g/dL (12.0-18.0) L 08/08/18 06:00 Hct 28.6 % (35.0-51.0) L 08/08/18 06:00 MCV 97.7 fl (80.0-94.0) H 08/08/18 06:00 MCH 31.4 pg (27.0-31.0) H 08/08/18 06:00 MCHC 32.1 g/dL (33.0-37.0) L 08/08/18 06:00 RDW 17.0 % (11.5-14.5) H 08/08/18 06:00 Plt Count 577 K/uL (130-400) H 08/08/18 06:00 Manual Plt Count 62 K/uL (130-400) L 07/23/18 04:20 MPV 8.5 fl (7.2-11.7) 08/08/18 06:00 Neut % (Auto) 77.0 % (50.0-75.0) H 08/08/18 06:00 Lymph % (Auto) 12.3 % (20.0-40.0) L 08/08/18 06:00 [place] % (Auto) 10.0 % (0.0-10.0) 08/08/18 06:00 Eos % (Auto) 0.2 % (0.0-4.0) 08/08/18 06:00 Baso % (Auto) 0.5 % (0.0-2.0) 08/08/18 06:00 Neut # (Auto) 11.0 K/uL (1.8-7.0) H 08/08/18 06:00 Lymph # (Auto) 1.8 K/uL (1.0-4.3) 08/08/18 06:00 [place] # (Auto) 1.4 K/uL (0.0-0.8) H 08/08/18 06:00 Eos # (Auto) 0.0 K/uL (0.0-0.7) 08/08/18 06:00 Baso # (Auto) 0.1 K/uL (0.0-0.2) 08/08/18 06:00 Neutrophils % (Manual) 93 % (42-75) H 07/20/18 06:47 Band Neutrophils % 3 % (0-2) H 07/19/18 11:34 Lymphocytes % (Manual) 4 % (20-50) L 07/20/18 06:47 Monocytes % (Manual) 3 % (0-10) 07/20/18 06:47 Basophils % (Manual) 1 % (0-2) 07/19/18 11:34 Toxic Granulation Present 07/20/18 06:47 Platelet Estimate Decreased (NORMAL) L 07/20/18 06:47 Macrocytosis (manual) Moderate 07/19/18 11:34 ESR 12 mm/hr (0-15) 07/21/18 04:30 Retic Count 0.8 % (0.5-1.5) 07/21/18 04:30 Haptoglobin 69.5 mg/dL (30.0-200.0) 07/21/18 04:30 PT 12.1 Seconds (9.8-13.1) 08/02/18 05:30 INR 1.1 08/02/18 05:30 APTT 43.0 Seconds (25.6-37.1) H 08/02/18 05:30 Fibrinogen 150 mg/dl (200-400) L 07/20/18 14:30 D-Dimer, Quantitative 6534 ng/mlDDU (0-230) H 07/21/18 04:30 pCO2 36 mm/Hg (35-45) 07/19/18 23:10 pO2 26 mm/Hg (30-55) L 07/20/18 12:30 HCO3 20.1 mmol/L (21-28) L 07/19/18 23:10 ABG pH 7.33 (7.35-7.45) L 07/19/18 23:10 ABG Total CO2 20.1 mmol/L (22-28) L 07/19/18 23:10 ABG O2 Saturation 99.0 % (95-98) H 07/19/18 23:10 ABG O2 Content 17.8 ML/dL (15-23) 07/19/18 23:10 ABG Base Excess -6.2 mmol/L (-2.0-3.0) L 07/19/18 23:10 ABG Hemoglobin 13.0 g/dL (11.7-17.4) 07/19/18 23:10 ABG Carboxyhemoglobin 0.5 % (0.5-1.5) 07/20/18 12:30 POC ABG HHb (Measured) 54.2 % (0.0-5.0) H 07/20/18 12:30 ABG Methemoglobin 1.5 % (0.0-3.0) 07/20/18 12:30 ABG O2 Capacity 18.0 mL/dL (16-24) 07/19/18 23:10 [place] Test Yes 07/19/18 23:10 VBG pH 7.34 (7.32-7.43) 07/20/18 12:30 VBG pCO2 46 mmHg (40-60) 07/20/18 12:30 VBG HCO3 22.6 mmol/L 07/20/18 12:30 VBG Total CO2 19.7 mmol/L (22-28) L 07/19/18 17:30 VBG O2 Sat (Calc) 44.6 % (40-65) 07/20/18 12:30 VBG Base Excess -1.3 mmol/L (0.0-2.0) L 07/20/18 12:30 VBG Hgb O2 Saturation 43.7 % (95.0-98.0) L 07/20/18 12:30 VBG Potassium 6.2 mmol/L (3.6-5.2) H* 07/19/18 17:30 A-a O2 Difference 75.0 mm/Hg 07/19/18 23:10 Hemoglobin 12.4 g/dL (11.7-17.4) 07/20/18 12:30 Hgb O2 Saturation 96.6 % (95.0-98.0) 07/19/18 23:10 Sodium 142.0 mmol/L (132-148) 07/19/18 17:30 Chloride 112.0 mmol/L (98-107) H 07/19/18 17:30 Glucose 195 mg/dL (75-110) H 07/19/18 17:30 Lactate 5.9 mmol/L (0.7-2.1) H* 07/19/18 17:30 FiO2 32.0 % 07/19/18 23:10 Crit Value Called To Md bobbi gilbert 07/19/18 17:30 Crit Value Called By 23 07/19/18 17:30 Crit Value Read Back Y 07/19/18 17:30 Blood Gas Notified Time 1740 07/19/18 17:30 Sodium 145 mmol/l (132-148) 08/09/18 06:05 Potassium 4.4 MMOL/L (3.6-5.0) 08/09/18 06:05 Chloride 110 mmol/L (98-107) H 08/09/18 06:05 Carbon Dioxide 24 mmol/L (22-30) 08/09/18 06:05 Anion Gap 15 (10-20) 08/09/18 06:05 BUN 39 mg/dl (9-20) H 08/09/18 06:05 Creatinine 1.8 mg/dl (0.8-1.5) H 08/09/18 06:05 Est GFR ( Amer) 54 08/09/18 06:05 Est GFR (Non-Af Amer) 45 08/09/18 06:05 POC Glucose (mg/dL) 104 mg/dL (65-110) 08/09/18 10:56 Random Glucose 104 mg/dL (75-110) 08/09/18 06:05 Serum Osmolality 299 mosm/kg (272-300) 07/20/18 09:08 Lactic Acid 1.7 MMOL/L (0.7-2.1) 07/21/18 04:30 Calcium 9.6 mg/dL (8.4-10.2) 08/09/18 06:05 Phosphorus 5.3 mg/dl (2.5-4.5) H 07/31/18 06:43 Magnesium 1.7 MG/DL (1.6-2.3) 07/31/18 06:43 Iron 56 ug/dL (49-181) 07/24/18 10:50 TIBC 218 ug/dL (250-450) L 07/24/18 10:50 % Saturation 26 % (20-55) 07/24/18 10:50 Ferritin 142.0 ng/Ml (17.9-464) 07/24/18 10:50 Total Bilirubin 0.4 mg/dl (0.2-1.3) 08/08/18 06:00 Direct Bilirubin 0.1 mg/ml (0.0-0.4) 07/20/18 04:30 AST 84 U/L (17-59) H 08/08/18 06:00 ALT 126 U/L (21-72) H 08/08/18 06:00 Alkaline Phosphatase 51 U/L (38-126) 08/08/18 06:00 Ammonia < 9 umo/L (16-60) L 07/21/18 10:38 Lactate Dehydrogenase 4181 U/L (313-618) H 07/22/18 04:20 Total Creatine Kinase 160 U/L (55-170) 08/02/18 05:30 CK-MM (CK-3) 98 % (95-100) 07/25/18 04:25 CK-MB (CK-2) 0 % (<5) 07/25/18 04:25 CK-MB (Mass) 2.68 ng/mL (0.0-3.38) 07/24/18 08:10 CK-BB (CK-1) None detected % (None Detected) 07/25/18 04:25 CK Isoenzymes Interp Macro ck type 1 07/25/18 04:25 Troponin I 1.2300 ng/mL (0.00-0.120) H* 07/20/18 18:13 Total Protein 7.2 G/DL (6.3-8.2) 08/08/18 06:00 Albumin 4.0 g/dL (3.5-5.0) 08/08/18 06:00 Globulin 3.2 gm/dL (2.2-3.9) 08/08/18 06:00 Albumin/Globulin Ratio 1.3 (1.0-2.1) 08/08/18 06:00 Vitamin B12 > 1000 pg/mL (239-931) H 07/24/18 10:50 25-OH Vitamin D Total 16.9 NG/ML (30.0-100.0) L 07/25/18 04:25 Folate 11.9 ng/mL 07/24/18 10:50 Ethanolamine None detected 07/19/18 20:48 TSH 3rd Generation 0.75 mIU/ML (0.46-4.68) 07/19/18 17:25 PTH Intact Whole Molec 80 pg/mL (14-64) H 07/24/18 10:50 Venous Blood Potassium 6.2 mmol/L (3.6-5.2) H* 07/19/18 17:30 Urine Color Yellow (YELLOW) 07/31/18 23:50 Urine Clarity Clear (Clear) 07/31/18 23:50 Urine pH 7.0 (5.0-8.0) 07/31/18 23:50 Ur Specific [place] 1.005 (1.003-1.030) 07/31/18 23:50 Urine Protein Negative mg/dL (NEGATIVE) 07/31/18 23:50 Urine Glucose (UA) Neg mg/dL (NEGATIVE) 07/31/18 23:50 Urine Ketones Negative mg/dL (NEGATIVE) 07/31/18 23:50 Urine Blood Large (NEGATIVE) 07/31/18 23:50 Urine Nitrate Negative (NEGATIVE) 07/31/18 23:50 Urine Bilirubin Negative (NEGATIVE) 07/31/18 23:50 Urine Urobilinogen 0.2-1.0 mg/dL (0.2-1.0) 07/31/18 23:50 Ur Leukocyte Esterase Trace Latrice/uL (Negative) 07/31/18 23:50 Urine RBC (Auto) 21 /hpf (0-3) H 07/31/18 23:50 Urine Microscopic WBC 8 /hpf (0-5) H 07/31/18 23:50 Amorphous Sediment Occ /ul (<OCC) H 07/19/18 12:50 Urine Bacteria Rare (<OCC) 07/31/18 16:29 Urine Myoglobin TNP 07/19/18 16:56 Urine Osmolality 322 mosm/kg (300-1000) 07/20/18 11:00 Ur Random Creatinine 77.9 mg/dL 07/31/18 16:29 U Random Total Protein 41 mg/L 07/31/18 16:28 Ur Random Sodium 70 mmol/L 07/20/18 11:00 Fluid Type Spinal fluid 07/19/18 13:40 CSF Volume 2 mL (0-1) H 07/19/18 13:40 CSF Appearance Clear/colorless (CLEAR) 07/19/18 13:40 CSF WBC 3.0 /mm3 (0.0-5.0) 07/19/18 13:40 CSF RBC 13.0 /mm3 (0.0-0.0) H 07/19/18 13:40 CSF Total Cell Counted TEST NOT PERFORMED 07/19/18 13:40 CSF Neutrophils 1 % (0-0) H 07/19/18 13:40 CSF Lymphocytes 1.0 % (0-0) H 07/19/18 13:40 CSF Monos/Macrophages 0 % (0-0) 07/19/18 13:40 CSF Comment None 07/19/18 13:40 CSF Glucose 51 mg/dL (40-70) 07/19/18 13:40 CSF Total Protein 43 mg/dL (15-45) 07/19/18 13:40 CSF Prealbumin 6.7 % (1.3-6.9) 07/19/18 13:40 CSF Albumin 53.4 % (51.9-67.8) 07/19/18 13:40 CSF Pydfo-6-Jrzmzont 6.1 % (1.8-6.5) 07/19/18 13:40 CSF Hqbiy-5-Rbkmbice 7.9 % (4.6-10.8) 07/19/18 13:40 CSF Beta Globulin 13.2 % (7.8-18.2) 07/19/18 13:40 CSF Gamma Globulin 12.8 % (4.8-17.6) 07/19/18 13:40 CSF PEP Interpret see note 07/19/18 13:40 Stool Occult Blood Positive (NEGATIVE) H 07/22/18 20:00 Random Vancomycin < 5.0 ug/mL 08/07/18 10:50 Salicylates < 1.0 mg/dl 07/19/18 16:17 Urine Opiates Screen Negative (NEGATIVE) 07/21/18 16:40 Urine Methadone Screen Negative (NEGATIVE) 07/21/18 16:40 Acetaminophen < 10.0 ug/ml (10.0-30.0) L 07/19/18 16:18 Ur Barbiturates Screen Negative (NEGATIVE) 07/21/18 16:40 Ur Phencyclidine Scrn Negative (NEGATIVE) 07/21/18 16:40 Ur Amphetamines Screen Negative (NEGATIVE) 07/21/18 16:40 U Benzodiazepines Scrn Negative (NEGATIVE) 07/21/18 16:40 U Oth Cocaine Metabols Negative (NEGATIVE) 07/21/18 16:40 U Cannabinoids Screen Negative (NEGATIVE) 07/21/18 16:40 Toxicology Panel see note 07/19/18 20:48 Alcohol, Quantitative < 10 mg/dl (0-10) 07/19/18 14:35 U Ethyl Alcohol Screen None detected mg/dL 07/20/18 04:30 Methyl Alcohol Level None detected 07/19/18 20:48 Isopropanol None detected 07/19/18 20:48 Acetone Level None detected 07/19/18 20:48 Hep Bs Antigen Negative (NEGATIVE) 07/19/18 23:44 Hep Bs Antibody Positive (NEGATIVE) 07/19/18 23:44 Hep B Core IgM Ab Negative (NEGATIVE) 07/19/18 23:44 HSV Source Description Csf 07/19/18 14:00 HSV I DNA PCR Not detected (Not Detected) 07/19/18 14:00 HSV II DNA PCR Not detected (Not Detected) 07/19/18 14:00 HIV-1 Ab Rapid Screen Non reactive (NON REAC) 07/21/18 10:38 HIV 1&2 Ag/Ab, 4th Gen Nonreactive (Nonreactive) 07/21/18 04:30 Influenza Typ A,B (EIA) Negative for flu a/b (NEGATIVE) 08/01/18 14:07 Blood Type B POSITIVE 07/22/18 11:03 Blood Type Confirm B POSITIVE 07/22/18 04:20 Antibody Screen Negative 07/22/18 11:03 Crossmatch See Detail 07/22/18 11:03 BBK History Checked No verified bt 07/22/18 11:03 - Hospital Course Hospital Course: 28-year-old male with PMH of psoriasis presented to the emergency department via EMS for evaluation of altered mental status. He was admitted for AMS, substance abuse evaluation, CRISTINA, acute liver failure, rhabdomolysis and severe dehydration and placed in ICU for hemodynamic monitoring. Hemodialysis was initiated immediately. Patient was on HD through IJ catheter from admission (07/19/18) through 08/03/18. Renal biopsy results still pending. Max Creatinine 8.9, discharge BUN/Cr: 39/1.8 (HD 6 days prior, BUN/Cr continued to trend down daily). CRISTINA likely due to substance abuse/shock resolved. Rhabdomolysis resolved. Patient developed fever and was medically treated with appropriate course of renal dose of IV Zosyn and IV Vanco, leukocytosis and fever resolved. Acute liver failure secondary to shock liver/substance abuse resolved, AST/ALT continuously trending down. AST/ALT admission: 13044/7913; AST/ALT at discharge: 84/126. HD port removed, tolerated procedure well and medically cleared for discharge to home, recommended follow up with Dr Chahal and PMD. Discharged home on Ferrous gluconate 324mg PO TID #90, Prednisone 60mg PO daily #30, Vit B/Vit C/Folic acid #30 and Vid D 1000 daily #30. Discharge Exam - Head Exam Head Exam: ATRAUMATIC, NORMAL INSPECTION - Eye Exam Eye Exam: Normal appearance - ENT Exam ENT Exam: Mucous Membranes Moist - Neck Exam Neck exam: Full Rom - Respiratory Exam Respiratory Exam: Clear to PA & Lateral, NORMAL BREATHING PATTERN. absent: Accessory Muscle Use, Decreased Breath Sounds, Respiratory Distress - Cardiovascular Exam Cardiovascular Exam: REGULAR RHYTHM, +S1, +S2 - GI/Abdominal Exam GI & Abdominal Exam: Soft, Unremarkable. absent: Tenderness - Extremities Exam Additional comments: psoriac plaques on legs bilaterally - Back Exam Back exam: absent: CVA tenderness (L), CVA tenderness (R) - Neurological Exam Neurological exam: Alert, Normal Gait, Oriented x3 - Psychiatric Exam Psychiatric exam: Normal Affect, Normal Mood - Skin Skin Exam: Dry, Intact, Normal Color, Warm Additional comments: psoriasis back and legs Discharge Plan - Discharge Medications Prescriptions: Cholecalciferol [Vitamin D 1000 IU] 2,000 intlu PO DAILY #30 tab Ferrous Gluconate [Fergon] 324 mg PO TID #90 tab predniSONE [predniSONE Tab] 60 mg PO DAILY #30 tab Vitamin B Complex/Vit C/Folic [Nephro-Chey] 1 tab PO DAILY #30 tab - Follow Up Plan Condition: CRITICAL Disposition: HOME/ ROUTINE Instructions: Hyperkalemia (DC), Altered Mental Status (DC), Acute Kidney Injury (DC) Additional Instructions: follow up with dr quan, dr dawn and dr higgins in 1 week Referrals: [facility] [Outside] No Quan MD [Staff Provider] - Aaron Dawn MD [Staff Provider] - Brandon Higgins MD [Staff Provider] -
--- NOTE | 2018-08-11 17:04 | PQF ---
PROVIDER RESPONSE TEXT: Sepsis was ruled out Patient had drug overdose with multi organ failure ( liver and renal failure ) and rhabdomyelysis REVIEWER QUERY TEXT: Rule Out Sepsis Clarification Sepsis and Septic Shock is documented in the Medical Record but not in Discharge Summary. Please clar max whether: -- Patient has sepsis and septic shock - Please document confirmed, suspected or probable causative organism - Please document confirmed, suspected or probable localized infection - Please clarify if sepsis is related to a device - Please clarify if sepsis was present on admission -- Sepsis was ruled out (include corresponding diagnosis for patient?s clinical picture and treatment ) -- Patient had sepsis which is resolved -- Other, please specifyo The patient's Clinical Indicators include: ED Physician Documentation Report documented "recommend treatment for sepsis, septic shock." 07/19 Critical Care Progress note by Dr. Means documented "septic shock." Query created by: Taniya Wall on 08/11/2018 10:09 AM Electronically signed by: Doretha Grey 08/11/2018 5:00 PM
== END 2018-08-09 13:32 | disposition home or self-care (01) | DRG 917 ==
LOC: H.ER 10:42 → H.ERHOLD 15:00 → H.ICU/CCU 18:07 → H.TEL 07-25 21:45 → H.MEDSURG1 08-01 23:23
PROC: 06HN33Z Insertion of Infusion Device into Left Femoral Vein, Percutaneous Approach (ICD-10-PCS; principal; 2018-07-19)
PROC: 5A1D70Z Performance of Urinary Filtration, Intermittent, Less than 6 Hours Per Day (ICD-10-PCS; 2018-07-19)
PROC: 009U3ZX Drainage of Spinal Canal, Percutaneous Approach, Diagnostic (ICD-10-PCS; 2018-07-19)
PROC: 06HM33Z Insertion of Infusion Device into Right Femoral Vein, Percutaneous Approach (ICD-10-PCS; 2018-07-19)
PROC: 0TB13ZX Excision of Left Kidney, Percutaneous Approach, Diagnostic (ICD-10-PCS; 2018-07-28)
PROC: 05HM33Z Insertion of Infusion Device into Right Internal Jugular Vein, Percutaneous Approach (ICD-10-PCS; 2018-07-28)
PROC: 05PYX3Z Removal of Infusion Device from Upper Vein, External Approach (ICD-10-PCS; 2018-08-09)
DX: T40.1X1A Poisoning by heroin, accidental (unintentional), initial encounter (principal); N17.0 Acute kidney failure with tubular necrosis; K72.00 Acute and subacute hepatic failure without coma; G92 Toxic encephalopathy; E87.2 Acidosis; M62.82 Rhabdomyolysis; E15 Nondiabetic hypoglycemic coma; D61.818 Other pancytopenia; T82.838A Hemorrhage due to vascular prosthetic devices, implants and grafts, initial encounter; N10 Acute pyelonephritis; E87.5 Hyperkalemia; L40.9 Psoriasis, unspecified; Y90.1 Blood alcohol level of 20-39 mg/100 ml; E86.0 Dehydration; R09.02 Hypoxemia; J34.2 Deviated nasal septum; K11.20 Sialoadenitis, unspecified; F11.129 Opioid abuse with intoxication, unspecified; R22.1 Localized swelling, mass and lump, neck; F10.129 Alcohol abuse with intoxication, unspecified; E83.51 Hypocalcemia; K11.1 Hypertrophy of salivary gland